=== PATIENT | male | born 1955 | race Caucasian/White ===

== ENCOUNTER 2016-05-08 17:34 | Inpatient (IN) | payer MEDICARE ==
[2016-05-08] MEDS ORDERED: Ondansetron ODT 4 MG TAB PO PRN (18:23)
[2016-05-08] MEDS ORDERED: Milk Of Magnesia 30 ML UDCUP PO PRN (18:23)
[2016-05-08] MEDS ORDERED: Ondansetron HCl/PF 4 MG/2 ML Vial IVP PRN (18:59)
[2016-05-08] MEDS: Diazepam 5 MG TAB PO PRN (20:38)
[2016-05-08] MEDS: traMADol HCl 50 MG TAB PO PRN (20:39)
[2016-05-08] MEDS: Aspirin 325 mg Enteric Coated Tablet PO SCH (20:53)
[2016-05-08] MEDS: Rifampin 150 MG CAP PO SCH (20:53)
[2016-05-08] MEDS: Teriparatide [Forteo] 20 MCG PO SCH (20:53)
[2016-05-08] MEDS ORDERED: Vancomycin HCl 750 MG VIAL IVPB SCH ×2 (21:00→22:15)
[2016-05-08] MEDS ORDERED: Sodium Chloride 0.9% 10 ML ONE (22:16)
[2016-05-08 22:27] LABS: #Basophils 0.1 thou/uL (0.0-0.2); #Eosinphils 0.3 thou/uL (0.0-0.7); #Lymphocytes 1.9 thou/uL (1.20-3.40); #Monocytes 0.6 thou/uL (0.11-0.59); #Neutrophils 4.6 thou/uL (1.40-6.50); %Basophils 1.1 % (0.0-1.0); %Eosinophils 3.4 % (0.0-10.0); %Lymphocytes 25.3 % (21.0-51.0); %Monocytes 8.4 % (0.0-10.0); %Neutrophils 61.8 % (42.0-75.0); Hemoglobin 11.3 g/dL (14.0-18.0); Mean Corpuscular HGB CONC 33.4 g/dL (32.0-36.0); Mean Corpuscular Hemoglobin 29.9 pg (27.0-31.0); Mean Corpuscular Volume 89.5 fl (80.0-94.0); Mean Platelet Volume 5.9 fL (7.4-10.4); Platelet Count 317 thou/uL (130-400); RBC Distribution Width 13.2 % (11.5-14.5); Red Blood Cell (RBC) Count 3.78 mill/uL (4.70-6.10); White Blood Cell (WBC) Count 7.5 thou/uL (4.8-10.8)
[2016-05-08] MEDS: HYDROcodone/Acetaminophen 10/325 mg Tablet PO PRN (22:31)
[2016-05-08 22:39] LABS: Anion Gap 14 mmol/L (10-20); BUN (Urea Nitrogen) 5 mg/dL (8.4-25.7); Calc. Creatinine Clearance 78 mL/min (70-130); Calcium 8.5 mg/dL (7.8-10.44); Carbon Dioxide 24 mmol/L (23-31); Chloride 100 mmol/L (98-107); Estimated GFR-MDRD Greater than 90; Glucose 138 mg/dL (80-115); Potassium 3.7 mmol/L (3.5-5.1); Sodium 134 mmol/L (136-145); Vancomycin, Random 16.2 ug/mL (See Comment)
--- NOTE | 2016-05-08 23:36 | HP ---
DATE OF ADMISSION: 05/08/2016 HISTORY OF PRESENT ILLNESS: The patient is a 60-year-old very pleasant white male who has had signi ficant medical problems, but just was transferred from [facility] with a total hip, total left knee, and a mid shaft replacement of the femoral component of his bone. The patient had an operation by Dr. Lucas several days ago and was transferred here for weightbearing as tolerated and physical therapy and occupational therapy and for one month of vancomycin and 1 mo nth of rifampin. After that he is supposed to be discharged home on minocycline. SUBJECTIVE: The patient states he is doing very well. He very excited about being him getting on a physical therapy because he has done so well. DISCHARGE MEDICATIONS: Will include the followin. Vancomycin IV through PICC line which is in left upper arm. 2. Rifampin b.i.d. 3. Amlodipine 5 mg each morning. 4. Tenormin 50 mg each morning. 5. Celebrex 200 mg once a day with food. 6. Citalopram 40 mg once a day. 7. Plavix 75 mg daily. 8. Metoclopramide 10 mg every morning. 9. Tamsulosin 0.4 mg every morning. 10. Omeprazole 40 mg daily. 11. Aspirin 325 mg b.i.d. 12. Calcium carbonate 600 mg 2 pills a day. 13. Vitamin D 1000 mg daily. 14. Valium 2.5 mg q.8 hours p.r.n. muscle spasms. 15. Colace 100 mg p.r.n. 16. Feosol 325 mg daily. 17. Magnesium oxide 400 mg daily, 18. Multivitamin with minerals daily. 19. Forteo 0.24 mg at night. 20. Tramadol p.r.n. pain. 21. [place] 10 mg one q.6 hours p.r.n. pain. PAST MEDICAL HISTORY: Significant for the followin. 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 2. Hypertension. 3. Hypertensive heart disease. 4. Osteoarthritis. 5. Osteoporosis. 6. Benign prostatic hypertrophy. 7. Peptic ulcer disease in the past. 8. Tobacco abuse. 9. Atherosclerotic peripheral vascular disease, status post right caguj-etn-xofk amputation. 10. Hyponatremia. 11. History of peripheral neuropathy. 12. History of tobacco abuse. PAST SURGICAL HISTORY: 1. Multiple surgeries including left hip replacement, left knee replacement, right dozkt-swj-[id number] a mputation, right hip replacement, left periprosthetic femur fracture with 6.5 cable plates and 3 cab les and 10 screws. It has all been removed. He now has a left total hip, left total knee, and a me william lc or bar connecting those. 2. Right lower extremity intra-arterial thrombolysis which eventually resulted jhwci-[id number]-[id number] amput ation. SOCIAL HISTORY: Reveals the patient lives at home with his significant other. He does not smoke ci garettes, occasionally smokes a cigar, does not drink alcohol. He has no recreational drug use. FAMILY HISTORY: Reveals the patient's mother, but at age 71 of bladder cancer. The patient's maternal grandmother, paternal grandfather and several aunts on that side had colon cancer. ALLERGIES: Reveal the patient is allergic to the following. 1. TETANUS VACCINE. 2. TOXOID. 3. Levaquin. 4. Flexeril. REVIEW OF SYSTEMS: The patient denies any fever, chills, or night sweats. Denies any change in his hearing. Denies any changes in vision. Denies any respiratory problems including cough, cold, con gestion, or shortness of breath. The patient denies any heart pain including chest pain, palpitatio ns, racing, or skipping, or slow heartbeats. The patient denies any stomach problems including naus ea, vomiting, diarrhea, constipation, bleeding or GI problems. The patient denies any problems, but has urinated once or twice every evening and he has had a history of BPH in the past and on Flom ax. Extremities reveal the patient has pain, especially in the left side that was operated on and t he right side has vuggl-kdk-vjji amputation. The patient is oriented to person, place, time, and si tuation. PHYSICAL EXAMINATION: GENERAL: This is a well-developed, very thin white male in no apparent distress at this time. HEENT: Reveals normocephalic, nontraumatic cranium. Pupils are equal, round, and reactive. Nose a nd throat are slightly dry. NECK: Supple, without masses, nodes or bruits. CHEST: Clear to auscultation. No rales, rhonchi, wheezes, or cough is heard. HEART: Reveals a regular rate and rhythm without murmurs, gallops, or rubs. ABDOMEN: Scaphoid, soft, nontender without organomegaly. Normal bowel sounds are noted. No reboun d or guarding is noted. GENITOURINARY: Deferred. EXTREMITIES: No clubbing, cyanosis, slight edema. In the left side is an incision above his hip an d above his knee and then all along the lateral portion of this femur. Right side has lkyme-lke-ahg e amputation. The patient should be weightbearing as tolerated. ASSESSMENT: 1. Status post open reduction internal fixation of the left femur, the left knee, and left hip. 2. Osteoporosis. 3. Hypertension. 4. Benign prostatic hypertrophy. 5. Gastroesophageal reflux. 6. Juvenile rheumatoid arthritis. 7. Anemia. 8. Degenerative joint disease. 9. History of tobacco abuse. 10. Peripheral vascular disease. PLAN: 1. Continue vancomycin and rifampin for the next 4 weeks. 2. Continue pain management as needed. 3. Continue present medications. 4. Continue to follow the patient's blood pressure closely. 5. Continue physical therapy and occupational therapy. 6. Continue deep vein thrombosis and stress ulcer prophylaxis. 7. Continue decubitus precautions.
[2016-05-09] MEDS: traMADol HCl 50 MG TAB PO SCH ×5 (00:27→23:46)
[2016-05-09] MEDS ORDERED: Vancomycin HCl 750 MG VIAL IVPB SCH (05:00)
[2016-05-09 05:38] LABS: #Basophils 0.1 thou/uL (0.0-0.2); #Eosinphils 0.4 thou/uL (0.0-0.7); #Lymphocytes 1.4 thou/uL (1.20-3.40); #Monocytes 0.7 thou/uL (0.11-0.59); #Neutrophils 3.5 thou/uL (1.40-6.50); %Basophils 1.6 % (0.0-1.0); %Eosinophils 5.7 % (0.0-10.0); %Lymphocytes 22.7 % (21.0-51.0); %Monocytes 12.2 % (0.0-10.0); %Neutrophils 57.9 % (42.0-75.0); Hemoglobin 10.2 g/dL (14.0-18.0); Mean Corpuscular HGB CONC 33.5 g/dL (32.0-36.0); Mean Corpuscular Volume 89.6 fl (80.0-94.0); Platelet Count 280 thou/uL (130-400); RBC Distribution Width 13.2 % (11.5-14.5); White Blood Cell (WBC) Count 6.1 thou/uL (4.8-10.8)
[2016-05-09 06:03] LABS: ALT (SGPT) 10 U/L (0-55); AST (SGOT) 13 U/L (5-34); Albumin 2.1 g/dL (3.4-4.8); Alkaline Phosphatase 139 U/L (40-150); Anion Gap 12 mmol/L (10-20); BUN (Urea Nitrogen) 5 mg/dL (8.4-25.7); Bilirubin, Total 1.6 mg/dL (0.2-1.2); Calc. Creatinine Clearance 92 mL/min (70-130); Calcium 8.2 mg/dL (7.8-10.44); Carbon Dioxide 26 mmol/L (23-31); Chloride 100 mmol/L (98-107); Estimated GFR-MDRD Greater than 90; Globulin 2.6 g/dL (2.4-3.5); Glucose 91 mg/dL (80-115); Potassium 3.7 mmol/L (3.5-5.1); Protein, Total 4.7 g/dL (5.8-8.1); Sodium 134 mmol/L (136-145)
[2016-05-09] MEDS: Ferrous Sulfate 325 MG TAB PO SCH ×2 (08:39→18:09)
[2016-05-09] MEDS: CeleCOXIB 100 MG CAP PO SCH (08:40)
[2016-05-09] MEDS: Atenolol 25 MG TAB PO SCH (08:40)
[2016-05-09] MEDS: Aspirin 325 mg Enteric Coated Tablet PO SCH ×2 (08:40→20:28)
[2016-05-09] MEDS: Clopidogrel Bisulfate 75 MG TAB PO SCH (08:40)
[2016-05-09] MEDS: Metoclopramide HCl 10 MG TAB PO SCH (08:41)
[2016-05-09] MEDS: MAGNESIUM CITRATE 100 MG PO SCH (08:41)
[2016-05-09] MEDS: Tamsulosin HCl 0.4 MG CAP PO SCH (08:42)
[2016-05-09] MEDS: HYDROcodone/Acetaminophen 10/325 mg Tablet PO PRN ×3 (08:42→21:38)
[2016-05-09] MEDS: Rifampin 150 MG CAP PO SCH ×2 (10:08→21:36)
[2016-05-09] MEDS: Vancomycin HCl 750 MG VIAL IVPB SCH ×2 (10:09→23:45)
--- NOTE | 2016-05-09 10:18 | PRG ---
DATE OF SERVICE: 05/09/2016 HISTORY OF PRESENT ILLNESS: Mr. Guerra is a 60-year-old white male who was operated on by Dr. Patel at which time he had a left knee, left total hip and midshaft replacement of femoral component of hi s bone. Postoperatively, he has done very well and he was transferred here for one month of vancomy celso and rifampin. SUBJECTIVE: The patient states he slept well last night. He has no complaints. He did have some m uscle spasms that required a single [place] 10. OBJECTIVE: Vital signs this morning reveal blood pressure slightly elevated at 160/98, pulse 84-87, respirations 18, O2 sat 100% on room air, temperature 97.9. LABORATORY: This morning revealed a white count 6100, hemoglobin 10.2, hematocrit 30.5, platelet co unt 280,000. Sodium is 134, potassium 3.7, chloride 100, carbon dioxide 26 with a glucose of 91. H is BUN was 5, creatinine 0.52. His C-reactive protein was 4.57. Random vancomycin level 16.2. PHYSICAL EXAMINATION: GENERAL: This is a well-developed, very thin white male in no apparent distress at this time. HEENT: Reveals normocephalic, nontraumatic cranium. Pupils are equally round and reactive. Nose a nd throat are slightly dry. NECK: Supple, without masses, nodes or bruits. LUNGS: Chest is clear to auscultation. No rales, no rhonchi, no wheezes. No cough is heard. CARDIOVASCULAR: Reveals a regular rate and rhythm without murmurs, gallops or rubs. ABDOMEN: Scaphoid, soft, nontender, without organomegaly, normal bowel sounds are noted. No reboun d or guarding is noted. : Deferred. EXTREMITIES: Reveal no clubbing, cyanosis or edema. Incision above his hip all the way down to bel ow his knee in the lateral portion of his femur are not red, slight tenderness, no drainage. NEUROLOGIC: The patient should be weightbearing as tolerated per Dr. Patel. IMPRESSION: 1. Status post open reduction and internal fixation of left femur, left knee and left hip. 2. Osteoporosis. 3. Hypertension. 4. Benign prostatic hypertrophy. 5. Gastroesophageal reflux. 6. Juvenile rheumatoid arthritis. 7. Anemia. 8. Degenerative joint disease. 9. History of tobacco abuse. 10. Peripheral vascular disease. PLAN: 1. Continue vancomycin and rifampin for the next 4 weeks. 2. Continue pain management. 3. Continue present medication. 4. Follow the patient's blood pressure closely. 5. Continue physical therapy and occupational therapy, weightbearing as tolerated. 6. Continue DVT and stress ulcer prophylaxis. Continue decubitus precautions.
[2016-05-09] MEDS: Multivitamin W/ Minerals 1 TAB PO SCH (18:09)
[2016-05-09] MEDS: Calcium Carbonate 500 MG TAB PO SCH (20:28)
[2016-05-09] MEDS: Teriparatide [Forteo] 20 MCG PO SCH (20:31)
[2016-05-09] MEDS: Diazepam 5 MG TAB PO PRN (21:37)
[2016-05-09] MEDS: Vancomycin HCl 750 MG in Sodium Chloride 0.9% 250 ML 250 ML IVPB SCH (23:57)
[2016-05-10] MEDS: traMADol HCl 50 MG TAB PO SCH ×2 (05:54→11:52)
[2016-05-10] MEDS: Ferrous Sulfate 325 MG TAB PO SCH (08:05)
--- NOTE | 2016-05-10 08:28 | PRG ---
DATE OF SERVICE: 05/10/2016. HISTORY OF PRESENT ILLNESS: Mr. Guerra is a 60-year-old white male that was revisited the surgical suite by Dr. Patel, we had a total left knee, total left hip and a midshaft replacement of femoral co mponent of his bone. Postoperatively, he has done very well and was transferred here for one month of vancomycin and rifampin, to be followed with minocycline daily and also for physical therapy and occupational therapy. SUBJECTIVE: The patient has no complaints, he states he slept well last night. His pain is much be tter controlled. OBJECTIVE: Vital signs this morning revealed blood pressure 121/75, pulse 74-84, respirations 16, O 2 saturation 99% on room air, T-max is 96.6. PHYSICAL EXAMINATION: GENERAL: This is a well-developed, well-nourished, very pleasant white male, in no apparent distres s at this time. HEENT: Reveals normocephalic, nontraumatic cranium. Pupils are equally round and reactive. Extrao cular movements intact. Nose and throat slightly dry. NECK: Supple, without masses, nodes or bruits. CHEST: Clear to auscultation. No rales, rhonchi, wheezes or cough is heard. CARDIOVASCULAR: Reveals a regular rate and rhythm without murmurs, gallops or rubs. ABDOMEN: Scaphoid, soft, nontender, without organomegaly, normal bowel sounds are noted. No reboun d or guarding is noted. GENITOURINARY: Deferred. EXTREMITIES: Reveal no clubbing, cyanosis or edema. Left incision is over the left hip, over the l eft knee and all the way down the lateral portion of his femur not red, not draining, not tender. NEUROLOGIC: The patient to be weightbearing as tolerated per Dr. Patel. IMPRESSION: 1. Status post open reduction internal fixation left femur, left knee and left hip. 2. Osteoporosis. 3. Hypertension. 4. Benign prostatic hypertrophy. 5. Gastroesophageal reflux. 6. Juvenile rheumatoid arthritis. 7. Anemia. 8. Degenerative joint disease. 9. History of tobacco abuse. 10. Peripheral vascular disease. PLAN: 1. Continue vancomycin and rifampin for the next 4 weeks. 2. Pharmacy to follow vancomycin levels and continue pain management. 3. Continue present medication. 4. Follow blood pressure closely. 5. We will continue physical therapy and occupational therapy. 6. Weightbearing as tolerated. 7. Deep venous thrombosis and stress ulcer prophylaxes. 8. Continue decubitus precautions.
[2016-05-10] MEDS: Rifampin 150 MG CAP PO SCH (09:11)
[2016-05-10] MEDS: CeleCOXIB 100 MG CAP PO SCH (09:13)
[2016-05-10] MEDS: Tamsulosin HCl 0.4 MG CAP PO SCH (09:13)
[2016-05-10] MEDS: Aspirin 325 mg Enteric Coated Tablet PO SCH (09:14)
[2016-05-10] MEDS: Atenolol 25 MG TAB PO SCH (09:14)
[2016-05-10] MEDS: Clopidogrel Bisulfate 75 MG TAB PO SCH (09:15)
[2016-05-10] MEDS: Metoclopramide HCl 10 MG TAB PO SCH (09:16)
[2016-05-10] MEDS: MAGNESIUM CITRATE 100 MG PO SCH (09:19)
[2016-05-10] MEDS: HYDROcodone/Acetaminophen 10/325 mg Tablet PO PRN (10:33)
[2016-05-10 10:43] LABS: Vancomycin, Trough 19.5 ug/mL
[2016-05-10] MEDS: Vancomycin HCl 750 MG in Sodium Chloride 0.9% 250 ML 250 ML IVPB SCH (11:25)
[2016-05-11] MEDS: Calcium Carbonate 500 MG TAB PO SCH ×2 (05:19→21:15)
[2016-05-11] MEDS: Multivitamin W/ Minerals 1 TAB PO SCH ×2 (05:19→17:03)
[2016-05-11] MEDS: Aspirin 325 mg Enteric Coated Tablet PO SCH ×3 (05:19→21:14)
[2016-05-11] MEDS: Ferrous Sulfate 325 MG TAB PO SCH ×3 (05:19→17:03)
[2016-05-11] MEDS: traMADol HCl 50 MG TAB PO SCH ×6 (05:19→23:26)
[2016-05-11] MEDS: Teriparatide [Forteo] 20 MCG PO SCH ×2 (05:20→21:13)
[2016-05-11] MEDS: Rifampin 150 MG CAP PO SCH ×3 (05:20→21:14)
[2016-05-11] MEDS: Vancomycin HCl 750 MG in Sodium Chloride 0.9% 250 ML 250 ML IVPB SCH ×3 (05:20→23:26)
[2016-05-11] MEDS: CeleCOXIB 100 MG CAP PO SCH (10:05)
[2016-05-11] MEDS: Atenolol 25 MG TAB PO SCH (10:06)
[2016-05-11] MEDS: Tamsulosin HCl 0.4 MG CAP PO SCH (10:06)
[2016-05-11] MEDS: Clopidogrel Bisulfate 75 MG TAB PO SCH (10:07)
[2016-05-11] MEDS: HYDROcodone/Acetaminophen 10/325 mg Tablet PO PRN ×2 (10:08→18:03)
[2016-05-11] MEDS: Metoclopramide HCl 10 MG TAB PO SCH (10:18)
[2016-05-11] MEDS: MAGNESIUM CITRATE 100 MG PO SCH (10:23)
--- NOTE | 2016-05-11 10:46 | PRG ---
DATE OF SERVICE: 05/11/2016 HISTORY OF PRESENT ILLNESS: Mr. Guerra is a 60-year-old white male that revisited the surgical suit e by Dr. Patel. He had total left knee, total left hip and a mid shaft replacement of femoral compon ent of his bone. Postoperatively he has done very well and was transferred here for 1 month of vanc omycin and rifampin. The patient had some bloody drainage last night and it is bloody this morning, but it is stable. It looks like old blood coming from underneath his incision. SUBJECTIVE: The patient has no complaints. He has no significant pain. VITAL SIGNS: Blood pressure this morning 142/92, pulse 77 to 82, respirations 16-20, O2 sat 99-100% , T-max 97.6. PHYSICAL EXAMINATION: GENERAL: This is a well-developed, well-nourished, very thin white male in no apparent distress at this time. HEENT: Reveals normocephalic, nontraumatic cranium. Pupils are equally round and reactive. Extrao cular movements intact. Nose and throat are slightly dry. NECK: Supple, without masses, nodes or bruits. CHEST: Clear to auscultation. No rales, rhonchi or wheezes are heard. CARDIOVASCULAR: Reveals a regular rate and rhythm without murmurs, gallops or rubs. ABDOMEN: Scaphoid, soft, nontender, without organomegaly, normal bowel sounds are noted. No reboun d or guarding is noted. : Deferred. EXTREMITIES: Reveal no clubbing, cyanosis or edema. Incision of the left side is still healing, so me drainage on the lateral long incision. No tenderness, no inflammation noted. NEUROLOGIC: The patient has no focal deficits. He is weightbearing as tolerated. IMPRESSION: 1. Post open reduction internal fixation left femur, left knee, left hip. 2. Osteoporosis. 3. Hypertension. 4. Benign prostatic hypertrophy. 5. Gastroesophageal reflux. 6. Juvenile onset rheumatoid arthritis. 7. Anemia. 8. Degenerative joint disease. 9. History of tobacco abuse. 10. Peripheral vascular disease. PLAN: 1. Continue vancomycin and rifampin for the next 4 weeks. 2. Pharmacy to follow vancomycin levels. 3. Continue pain management. 4. Continue present medications. 5. Follow blood pressure closely. 6. Continue physical therapy and occupational therapy. 7. Weightbearing as tolerated. 8. Deep venous thrombosis and stress ulcer prophylaxis. 9. Continue decubitus precautions.
[2016-05-11] MEDS: Acetaminophen 325 MG TAB PO PRN (12:11)
[2016-05-11] MEDS: traMADol HCl 50 MG TAB PO PRN (18:44)
[2016-05-11 19:35] LABS: #Basophils 0.1 thou/uL (0.0-0.2); #Eosinphils 0.6 thou/uL (0.0-0.7); #Lymphocytes 1.6 thou/uL (1.20-3.40); #Monocytes 1.3 thou/uL (0.11-0.59); #Neutrophils 5.1 thou/uL (1.40-6.50); %Basophils 1.1 % (0.0-1.0); %Lymphocytes 18.5 % (21.0-51.0); %Monocytes 14.6 % (0.0-10.0); %Neutrophils 58.8 % (42.0-75.0); Hemoglobin 9.6 g/dL (14.0-18.0); Mean Corpuscular HGB CONC 33.1 g/dL (32.0-36.0); Mean Corpuscular Hemoglobin 29.7 pg (27.0-31.0); Mean Corpuscular Volume 89.8 fl (80.0-94.0); Mean Platelet Volume 5.6 fL (7.4-10.4); Platelet Count 399 thou/uL (130-400); RBC Distribution Width 13.4 % (11.5-14.5); Red Blood Cell (RBC) Count 3.24 mill/uL (4.70-6.10); White Blood Cell (WBC) Count 8.7 thou/uL (4.8-10.8)
[2016-05-11] MEDS: Diazepam 5 MG TAB PO PRN (21:15)
[2016-05-12] MEDS: HYDROcodone/Acetaminophen 10/325 mg Tablet PO PRN ×2 (02:14→10:57)
[2016-05-12] MEDS: traMADol HCl 50 MG TAB PO SCH ×4 (05:42→23:22)
[2016-05-12] MEDS: Metoclopramide HCl 10 MG TAB PO SCH (07:34)
[2016-05-12] MEDS: Tamsulosin HCl 0.4 MG CAP PO SCH (08:33)
[2016-05-12] MEDS: CeleCOXIB 100 MG CAP PO SCH (08:33)
[2016-05-12] MEDS: Aspirin 325 mg Enteric Coated Tablet PO SCH ×2 (08:33→21:45)
[2016-05-12] MEDS: Ferrous Sulfate 325 MG TAB PO SCH ×2 (08:35→17:26)
[2016-05-12] MEDS: Atenolol 25 MG TAB PO SCH (08:35)
[2016-05-12] MEDS: Clopidogrel Bisulfate 75 MG TAB PO SCH (08:35)
[2016-05-12] MEDS: MAGNESIUM CITRATE 100 MG PO SCH (08:35)
[2016-05-12] MEDS: Rifampin 150 MG CAP PO SCH ×2 (08:36→21:46)
--- NOTE | 2016-05-12 10:04 | PRG ---
DATE OF SERVICE: 05/10/2016 SUBJECTIVE: Mr. Guerra is a very pleasant 60-year-old white male taken by Dr. Patel to the surgical suite, where he had a total left hip, total left knee, and midshaft replacement for the femoral comp onent of his bone. Postoperatively, he has done very well. We were following him for one month wit h vancomycin and rifampin per orthopedic recommendations. He had minimal bloody drainage last night and seems to be doing good. Subjectively, he has no complaints. OBJECTIVE: VITAL SIGNS: Blood pressure is 147/86, pulse 75-76, respirations 18-20, and O2 saturation 100%. T- max is 97.9. LABORATORY DATA: Today reveals a white count of 8700 with hemoglobin 9.6, hematocrit 29.1, and his platelet count is 399,000. Vancomycin trough yesterday was 19.5. PHYSICAL EXAMINATION: GENERAL: This is a well-developed, thin white male in no apparent distress at this time. HEENT: Reveals normocephalic, nontraumatic cranium. Pupils are equally round and reactive. Extrao cular movements intact. Nose and throat slightly dry. NECK: Supple, without masses, nodes or bruits. LUNGS: Chest is clear to auscultation. No rales, no rhonchi, no wheezes. No cough is heard. CARDIOVASCULAR: Reveals a regular rate and rhythm without murmurs, gallops or rubs. ABDOMEN: Soft, nontender, without organomegaly, normal bowel sounds are noted. No rebound or guard ing is noted. : Deferred. EXTREMITIES: Reveal no clubbing, cyanosis or edema. Left lateral incision looks good, it is not re d. No bloody drainage is noted today. No tenderness, no inflammation. NEUROLOGIC: The patient has no focal deficits. His weightbearing as tolerated. IMPRESSION: 1. Post open reduction internal fixation left femur, left knee, left hip. 2. Osteoporosis. 3. Hypertension. 4. Benign prostatic hypertrophy. 5. Gastroesophageal reflux disease. 6. Juvenile onset of rheumatoid arthritis. 7. Anemia. 8. Degenerative joint disease. 9. History of tobacco abuse. 10. Peripheral vascular disease. PLAN: 1. Continue vancomycin and rifampin for 4 weeks. 2. Pharmacies to follow vancomycin dosing and levels. 3. Continue pain management. 4. Continue present medications. 5. Continue to follow blood pressures closely. 6. Continue physical therapy and occupational therapy. 7. Continued DVT and stress ulcer prophylaxis. 8. Continue decubitus precautions. 9. Weightbearing as tolerated.
[2016-05-12] MEDS: Vancomycin HCl 750 MG in Sodium Chloride 0.9% 250 ML 250 ML IVPB SCH (10:57)
[2016-05-12 14:29] LABS: Vancomycin, Trough 23.6 ug/mL
[2016-05-12] MEDS: Multivitamin W/ Minerals 1 TAB PO SCH (17:26)
[2016-05-12] MEDS: Diazepam 5 MG TAB PO PRN (21:45)
[2016-05-12] MEDS: Calcium Carbonate 500 MG TAB PO SCH (21:46)
[2016-05-12] MEDS: Teriparatide [Forteo] 20 MCG PO SCH (21:47)
[2016-05-12] MEDS: Vancomycin HCl 500 MG in Sodium Chloride 0.9% 100 ML IVPB SCH (23:21)
[2016-05-13] MEDS: traMADol HCl 50 MG TAB PO SCH ×4 (06:00→23:18)
[2016-05-13 06:57] LABS: #Basophils 0.1 thou/uL (0.0-0.2); #Eosinphils 0.5 thou/uL (0.0-0.7); #Lymphocytes 1.2 thou/uL (1.20-3.40); #Monocytes 0.8 thou/uL (0.11-0.59); #Neutrophils 5.3 thou/uL (1.40-6.50); %Basophils 1.3 % (0.0-1.0); %Eosinophils 6.7 % (0.0-10.0); %Lymphocytes 15.2 % (21.0-51.0); %Monocytes 10.3 % (0.0-10.0); %Neutrophils 66.4 % (42.0-75.0); Hemoglobin 10.5 g/dL (14.0-18.0); Mean Corpuscular HGB CONC 34.2 g/dL (32.0-36.0); Mean Corpuscular Hemoglobin 30.3 pg (27.0-31.0); Mean Corpuscular Volume 88.5 fl (80.0-94.0); Mean Platelet Volume 5.3 fL (7.4-10.4); Platelet Count 486 thou/uL (130-400); RBC Distribution Width 13.1 % (11.5-14.5); Red Blood Cell (RBC) Count 3.45 mill/uL (4.70-6.10)
[2016-05-13 07:08] LABS: Anion Gap 12 mmol/L (10-20); BUN (Urea Nitrogen) 4 mg/dL (8.4-25.7); Calc. Creatinine Clearance 85 mL/min (70-130); Calcium 8.3 mg/dL (7.8-10.44); Carbon Dioxide 24 mmol/L (23-31); Chloride 100 mmol/L (98-107); Estimated GFR-MDRD Greater than 90; Glucose 100 mg/dL (80-115); Potassium 3.8 mmol/L (3.5-5.1); Sodium 132 mmol/L (136-145)
[2016-05-13] MEDS: Metoclopramide HCl 10 MG TAB PO SCH (07:55)
[2016-05-13] MEDS: Ferrous Sulfate 325 MG TAB PO SCH ×2 (08:26→17:01)
[2016-05-13] MEDS: CeleCOXIB 100 MG CAP PO SCH ×2 (08:26→08:28)
[2016-05-13] MEDS: Aspirin 325 mg Enteric Coated Tablet PO SCH ×2 (08:26→21:08)
[2016-05-13] MEDS: Tamsulosin HCl 0.4 MG CAP PO SCH (08:26)
[2016-05-13] MEDS: Atenolol 25 MG TAB PO SCH (08:27)
[2016-05-13] MEDS: Clopidogrel Bisulfate 75 MG TAB PO SCH (08:28)
[2016-05-13] MEDS: MAGNESIUM CITRATE 100 MG PO SCH (08:30)
[2016-05-13] MEDS: HYDROcodone/Acetaminophen 10/325 mg Tablet PO PRN ×2 (08:36→21:12)
[2016-05-13] MEDS: Rifampin 150 MG CAP PO SCH ×2 (09:10→21:07)
[2016-05-13] MEDS: Vancomycin HCl 500 MG in Sodium Chloride 0.9% 100 ML IVPB SCH ×2 (11:19→22:09)
[2016-05-13] MEDS ORDERED: Bisacodyl 10 MG SUPP PR SCH (11:45)
[2016-05-13] MEDS: Multivitamin W/ Minerals 1 TAB PO SCH (17:00)
[2016-05-13] MEDS: traMADol HCl 50 MG TAB PO PRN (17:31)
--- NOTE | 2016-05-13 18:46 | PRG ---
DATE OF SERVICE: 05/13/2016 SUBJECTIVE: Mr. Guerra is a 60-year-old white male who was at [facility] and Dr. Patel did a total left hip and total left knee midshaft replacement of the femoral component of his bone. Pos toperatively, he has done very well. We were asked and had been following him for his vancomycin and rifampin per orthopedic recommendati ons. He has minimal blood drainage. It is significantly much less, so they did call Dr. Patel about that. OBJECTIVE: VITAL SIGNS: This morning, reveal blood pressure is 156/97, pulse 70-81, respirations 18-20, O2 sat 100% on room air, temperature 97.9. GENERAL: This is a well-developed, very cachectic white male, in no apparent distress at this time. HEENT: Reveals normocephalic and nontraumatic cranium. Pupils are equal, round and reactive. Extr aocular movements are intact. Nose and throat are slightly dry. NECK: Supple, without masses, nodes or bruits. CHEST: Clear to auscultation. No rales, no rhonchi, no wheezes. No cough is heard. HEART: Reveals a regular rate and rhythm without murmurs, gallops or rubs. ABDOMEN: Soft and nontender, without organomegaly. Normal bowel sounds are noted. No rebound or g uarding is noted. GENITOURINARY: Deferred. EXTREMITIES: Reveal no clubbing, cyanosis or edema. Left lateral incision still looks good. No si gnificant drainage is noted. No tenderness. No inflammation. NEUROLOGIC: The patient has no focal defects. He is still weightbearing as tolerated. IMPRESSION: 1. Postoperative open reduction and internal fixation of the left femur, left knee and left hip. 2. Osteoporosis. 3. Hypertension. 4. Benign prostatic hypertrophy. 5. Gastroesophageal reflux disease. 6. Juvenile onset rheumatoid arthritis. 7. Anemia. 8. Peripheral vascular disease. 9. Degenerative joint disease. 10. History of tobacco abuse. PLAN: 1. Continue vancomycin and rifampin for a total of 4 weeks. 2. Pharmacy to follow vancomycin levels. 3. Continue pain management. 4. Continue present medications. 5. Continue to follow blood pressure closely. 6. Continue physical therapy and occupational therapy. 7. Continue deep venous thrombosis and stress ulcer prophylaxis. 8. Continue decubitus precautions. 9. Continue weightbearing as tolerated.
[2016-05-13] MEDS: Calcium Carbonate 500 MG TAB PO SCH (21:07)
[2016-05-13] MEDS: Diazepam 5 MG TAB PO PRN (21:08)
[2016-05-13] MEDS: Teriparatide [Forteo] 20 MCG PO SCH (21:09)
[2016-05-14] MEDS: traMADol HCl 50 MG TAB PO SCH ×4 (05:20→23:30)
[2016-05-14] MEDS: HYDROcodone/Acetaminophen 10/325 mg Tablet PO PRN ×4 (05:25→21:05)
[2016-05-14] MEDS: Metoclopramide HCl 10 MG TAB PO SCH (07:40)
[2016-05-14] MEDS: Ferrous Sulfate 325 MG TAB PO SCH ×2 (08:00→16:30)
[2016-05-14] MEDS: Clopidogrel Bisulfate 75 MG TAB PO SCH (08:50)
[2016-05-14] MEDS: Atenolol 25 MG TAB PO SCH (08:50)
[2016-05-14] MEDS: Aspirin 325 mg Enteric Coated Tablet PO SCH ×2 (08:51→21:05)
[2016-05-14] MEDS: Tamsulosin HCl 0.4 MG CAP PO SCH (08:52)
[2016-05-14] MEDS: MAGNESIUM CITRATE 100 MG PO SCH (08:52)
[2016-05-14] MEDS: Rifampin 150 MG CAP PO SCH ×2 (08:53→21:05)
[2016-05-14] MEDS: Vancomycin HCl 500 MG in Sodium Chloride 0.9% 100 ML IVPB SCH ×2 (11:20→23:30)
[2016-05-14 14:34] LABS: #Basophils 0.1 thou/uL (0.0-0.2); #Eosinphils 0.5 thou/uL (0.0-0.7); #Lymphocytes 1.6 thou/uL (1.20-3.40); #Monocytes 0.8 thou/uL (0.11-0.59); #Neutrophils 4.9 thou/uL (1.40-6.50); %Basophils 1.8 % (0.0-1.0); %Eosinophils 6.7 % (0.0-10.0); %Lymphocytes 20.3 % (21.0-51.0); %Neutrophils 61.1 % (42.0-75.0); Hemoglobin 10.5 g/dL (14.0-18.0); Mean Corpuscular HGB CONC 33.5 g/dL (32.0-36.0); Mean Corpuscular Hemoglobin 29.9 pg (27.0-31.0); Mean Corpuscular Volume 89.3 fl (80.0-94.0); Mean Platelet Volume 5.2 fL (7.4-10.4); Platelet Count 457 thou/uL (130-400); RBC Distribution Width 13.5 % (11.5-14.5); White Blood Cell (WBC) Count 8.1 thou/uL (4.8-10.8)
--- NOTE | 2016-05-14 16:02 | PRG ---
DATE OF SERVICE: 05/14/2016 SUBJECTIVE: Mr. Guerra is a 60-year-old white male transferred from [facility] after Dr. Patel did a total left hip and total left knee and shaft placement for the femoral componen t of his bone. Postoperatively, he has actually done very well. He has had a little swelling in that left incision site, so we are going to check an H\T\H on him to day. The patient is also on vancomycin and rifampin per orthopedic recommendations for 1 month. OBJECTIVE: VITAL SIGNS: Today reveal blood pressure this morning 130/83, pulse 76-77, respirations 16-18, O2 s at 100%, T-max is 97.9. GENERAL: This is a well-developed, very thin, cachectic-looking white male in no apparent distress at this time. HEENT: Reveals normocephalic, nontraumatic cranium. Pupils are equally round and reactive. Extrao cular movements intact. Nose and throat are slightly dry. NECK: Supple, without masses, nodes or bruits. LUNGS: Chest is clear to auscultation. No rales, rhonchi or wheezes, or cough is heard. CARDIOVASCULAR: Heart reveals a regular rate and rhythm without murmurs, gallops or rubs. ABDOMEN: Soft, nontender, without organomegaly, somewhat scaphoid, normal bowel sounds are noted. No rebound or guarding is noted. : Deferred. EXTREMITIES: Reveal no clubbing, cyanosis or edema. Left lateral incision still looks good. No si gnificant draining this morning, but it was re-bandaged after he did fill up his bandage with blood. No tenderness. No inflammation. NEUROLOGIC: The patient has no focal deficits. He is still a right kqeuv-naq-ykps amputation. IMPRESSION: 1. Postoperative open reduction and internal fixation of left femur, left knee and left hip. 2. Hypertension. 3. Benign prostatic hypertrophy. 4. Gastroesophageal reflux. 5. Juvenile onset rheumatoid arthritis. 6. Anemia. 7. Severe peripheral vascular disease. 8. Degenerative joint disease. 9. Osteoporosis. 10. History of tobacco use. PLAN: 1. Continue vancomycin and rifampin for a total of 4 weeks. 2. Continue to follow vancomycin levels per pharmacy. 3. Continue pain management. 4. Continue to follow blood pressures closely. 5. Continue physical therapy and occupational therapy. 6. Continue DVT and stress ulcer prophylaxis. 7. Continue Decubitus precautions. 8. Continue weightbearing as tolerated. 9. Continue present medications.
[2016-05-14] MEDS: Multivitamin W/ Minerals 1 TAB PO SCH (16:30)
[2016-05-14] MEDS: traMADol HCl 50 MG TAB PO PRN (17:37)
[2016-05-14] MEDS: Calcium Carbonate 500 MG TAB PO SCH (21:04)
[2016-05-14] MEDS: Diazepam 5 MG TAB PO PRN (21:05)
[2016-05-14] MEDS: Docusate 100 MG CAP PO PRN (21:05)
[2016-05-14] MEDS: Teriparatide [Forteo] 20 MCG PO SCH (21:30)
[2016-05-15] MEDS: HYDROcodone/Acetaminophen 10/325 mg Tablet PO PRN ×3 (02:34→20:43)
[2016-05-15] MEDS: traMADol HCl 50 MG TAB PO SCH ×4 (05:56→23:29)
[2016-05-15] MEDS: Rifampin 150 MG CAP PO SCH ×2 (08:27→20:42)
[2016-05-15] MEDS: Aspirin 325 mg Enteric Coated Tablet PO SCH ×2 (08:27→20:42)
[2016-05-15] MEDS: Ferrous Sulfate 325 MG TAB PO SCH ×2 (08:27→17:46)
[2016-05-15] MEDS: CeleCOXIB 100 MG CAP PO SCH (08:27)
[2016-05-15] MEDS: Atenolol 25 MG TAB PO SCH (08:28)
[2016-05-15] MEDS: Tamsulosin HCl 0.4 MG CAP PO SCH (08:28)
[2016-05-15] MEDS: Clopidogrel Bisulfate 75 MG TAB PO SCH (08:28)
[2016-05-15] MEDS: Metoclopramide HCl 10 MG TAB PO SCH (08:28)
[2016-05-15] MEDS: MAGNESIUM CITRATE 100 MG PO SCH (09:13)
[2016-05-15] MEDS: Vancomycin HCl 500 MG in Sodium Chloride 0.9% 100 ML IVPB SCH ×2 (11:11→23:28)
[2016-05-15] MEDS: Diazepam 5 MG TAB PO PRN ×2 (11:12→20:43)
[2016-05-15] MEDS: Multivitamin W/ Minerals 1 TAB PO SCH (17:46)
[2016-05-15] MEDS: Calcium Carbonate 500 MG TAB PO SCH (20:42)
[2016-05-15] MEDS: Teriparatide [Forteo] 20 MCG SC SCH (20:45)
[2016-05-16] MEDS: HYDROcodone/Acetaminophen 10/325 mg Tablet PO PRN ×3 (03:34→20:25)
[2016-05-16] MEDS: traMADol HCl 50 MG TAB PO SCH ×4 (05:49→23:24)
[2016-05-16] MEDS: Metoclopramide HCl 10 MG TAB PO SCH (07:30)
[2016-05-16] MEDS: Ferrous Sulfate 325 MG TAB PO SCH ×2 (08:27→17:33)
[2016-05-16] MEDS: Rifampin 150 MG CAP PO SCH ×2 (09:27→21:40)
[2016-05-16] MEDS: Tamsulosin HCl 0.4 MG CAP PO SCH (09:28)
[2016-05-16] MEDS: Aspirin 325 mg Enteric Coated Tablet PO SCH ×2 (09:28→20:27)
[2016-05-16] MEDS: Clopidogrel Bisulfate 75 MG TAB PO SCH (09:28)
[2016-05-16] MEDS: CeleCOXIB 100 MG CAP PO SCH (09:28)
[2016-05-16] MEDS: Atenolol 25 MG TAB PO SCH (09:28)
[2016-05-16] MEDS: MAGNESIUM CITRATE 100 MG PO SCH (09:29)
[2016-05-16 11:15] LABS: Vancomycin, Trough 16.5 ug/mL
[2016-05-16] MEDS: Vancomycin HCl 500 MG in Sodium Chloride 0.9% 100 ML IVPB SCH ×2 (12:00→23:35)
--- NOTE | 2016-05-16 12:13 | PRG ---
DATE OF SERVICE: 05/16/2016. SUBJECTIVE: Mr. Guerra is doing well. Denies any complaints, resting comfortably, tolerating his t herapy. Pain is controlled. OBJECTIVE: VITAL SIGNS: He is afebrile, heart rate is 77, respirations are 17, blood pressure 132/75. CARDIOVASCULAR: S1, S2 plus. RESPIRATORY: Normal vesicular breath sounds. ABDOMEN: Soft, nontender, bowel sounds heard in all quadrants. EXTREMITIES: Without cyanosis or clubbing. Left forearm with dressing. Left knee incision looks g ood. IMPRESSION: 1. Open reduction and internal fixation of the left femur, left knee and hip, here for therapy. 2. Hypertension. 3. Benign prostatic hypertrophy. 4. Gastroesophageal reflux disease. 5. Rheumatoid arthritis. 6. Peripheral vascular disease. 7. Osteoporosis. PLAN: 1. Continue vancomycin and rifampin. 2. Physical therapy. 3. Nutritional support. 4. Deep venous thrombosis and stress ulcer prophylaxes. 5. Orthopedic restrictions. 6. Routine laboratory values.
[2016-05-16] MEDS: Multivitamin W/ Minerals 1 TAB PO SCH (17:33)
[2016-05-16] MEDS: Calcium Carbonate 500 MG TAB PO SCH (20:27)
[2016-05-16] MEDS: Diazepam 5 MG TAB PO PRN (20:28)
[2016-05-16] MEDS: Docusate 100 MG CAP PO PRN (20:43)
[2016-05-16] MEDS: Teriparatide [Forteo] 20 MCG SC SCH (20:47)
[2016-05-17] MEDS: HYDROcodone/Acetaminophen 10/325 mg Tablet PO PRN ×3 (02:33→20:58)
[2016-05-17] MEDS: traMADol HCl 50 MG TAB PO SCH ×4 (05:45→23:58)
[2016-05-17] MEDS: Ferrous Sulfate 325 MG TAB PO SCH ×2 (07:27→17:34)
[2016-05-17] MEDS: Metoclopramide HCl 10 MG TAB PO SCH (07:27)
[2016-05-17] MEDS: Atenolol 25 MG TAB PO SCH (08:50)
[2016-05-17] MEDS: CeleCOXIB 100 MG CAP PO SCH (08:50)
[2016-05-17] MEDS: Rifampin 150 MG CAP PO SCH ×2 (08:50→21:00)
[2016-05-17] MEDS: Clopidogrel Bisulfate 75 MG TAB PO SCH (08:51)
[2016-05-17] MEDS: Tamsulosin HCl 0.4 MG CAP PO SCH (08:51)
[2016-05-17] MEDS: Aspirin 325 mg Enteric Coated Tablet PO SCH ×2 (08:51→21:00)
[2016-05-17] MEDS: MAGNESIUM CITRATE 100 MG PO SCH (09:18)
[2016-05-17] MEDS: Vancomycin HCl 500 MG in Sodium Chloride 0.9% 100 ML IVPB SCH ×2 (11:17→23:59)
[2016-05-17] MEDS: Acetaminophen 325 MG TAB PO PRN ×3 (12:17→23:58)
--- NOTE | 2016-05-17 16:42 | PRG ---
DATE OF SERVICE: 05/17/2016 SUBJECTIVE: Mr. Guerra is doing well. Denies any complaints, resting comfortably, tolerating his m edications. OBJECTIVE: VITAL SIGNS: He is afebrile, heart rate is 77, respirations are 20, oxygen saturation is 99%, blood pressure 138/91. CARDIOVASCULAR: S1, S2 plus. RESPIRATORY: Normal vesicular breath sounds. ABDOMEN: Soft, nontender, bowel sounds heard in all quadrants. EXTREMITIES: Without cyanosis or clubbing. IMPRESSION: 1. Status post open reduction internal fixation of left femur fracture with placement of hardware. 2. Hypertension. 3. Benign prostatic hypertrophy. 4. Gastroesophageal reflux disease. 5. Rheumatoid arthritis. 6. Peripheral vascular disease. PLAN: 1. Continue IV antibiotics. 2. Nutritional support. 3. Incision care. 4. DVT and stress ulcer prophylaxis. 5. Decubitus precautions. 6. Dr. Aristides Guerrero back tonight.
[2016-05-17] MEDS: Multivitamin W/ Minerals 1 TAB PO SCH (17:35)
[2016-05-17] MEDS: Calcium Carbonate 500 MG TAB PO SCH (20:57)
[2016-05-17] MEDS: Docusate 100 MG CAP PO PRN (21:00)
[2016-05-17] MEDS: Diazepam 5 MG TAB PO PRN (21:00)
[2016-05-17] MEDS: Teriparatide [Forteo] 20 MCG SC SCH (21:02)
[2016-05-18] MEDS: HYDROcodone/Acetaminophen 10/325 mg Tablet PO PRN ×4 (03:33→19:44)
[2016-05-18] MEDS: traMADol HCl 50 MG TAB PO SCH ×4 (06:12→23:17)
[2016-05-18] MEDS: Acetaminophen 325 MG TAB PO PRN (06:13)
[2016-05-18] MEDS: Metoclopramide HCl 10 MG TAB PO SCH (07:35)
[2016-05-18] MEDS: Ferrous Sulfate 325 MG TAB PO SCH ×2 (08:05→17:22)
[2016-05-18] MEDS: MAGNESIUM CITRATE 100 MG PO SCH (09:11)
[2016-05-18] MEDS: Tamsulosin HCl 0.4 MG CAP PO SCH (09:13)
[2016-05-18] MEDS: Atenolol 25 MG TAB PO SCH (09:13)
[2016-05-18] MEDS: Aspirin 325 mg Enteric Coated Tablet PO SCH ×2 (09:13→20:59)
[2016-05-18] MEDS: Clopidogrel Bisulfate 75 MG TAB PO SCH (09:13)
[2016-05-18] MEDS: CeleCOXIB 100 MG CAP PO SCH (09:14)
[2016-05-18] MEDS: Rifampin 150 MG CAP PO SCH ×2 (09:15→20:59)
--- NOTE | 2016-05-18 10:08 | PRG ---
DATE OF SERVICE: 05/15/2016 HISTORY OF PRESENT ILLNESS: Mr. Guerra is a 60-year-old white male that was at [facility] with Dr. Patel. Dr. Patel did a total left hip, total left knee and a shaft place ment for femoral component for his bone. Postoperatively, he did very well, he was very weak. He w as transferred here for physical therapy and occupational therapy and weightbearing as tolerated. Kaela casillas had a little swelling on the incision site and had a blood count that was checked just to make branden e he did not get too anemic from his bleed. Blood count yesterday morning was 10.5, hematocrit 31.2 . Platelet count was 457,000. Vancomycin trough was 17.0. VITAL SIGNS: Blood pressure 135/93, respirations 18-20, pulse 75-77, O2 sat 95% on room air. PHYSICAL EXAMINATION: GENERAL: This is a well-developed, very thin, cachectic-looking white male in no apparent distress at this time. HEENT: Reveals normocephalic, nontraumatic cranium. Pupils equal, round, and reactive. Extraocula r movements intact. Nose and slight dry. NECK: Supple, without masses, nodes or bruits. CHEST: Clear to auscultation, no rales, rhonchi, wheezing or cough is heard. CARDIOVASCULAR: Reveals a regular rate and rhythm without murmurs, gallops or rubs. ABDOMEN: Soft, nontender, without organomegaly, normal bowel sounds are noted. No rebound or guard ing is noted. : Deferred. EXTREMITIES: Reveal no clubbing, cyanosis or edema. The incision still looks very good. No signif icant drainage this morning. NEUROLOGIC: The patient has no complaints today. IMPRESSION: 1. Postop open reduction internal fixation of left femur, left total knee and left total hip. 2. Hypertension. 3. Benign prostatic hypertrophy. 4. Gastroesophageal reflux disease. 5. Juvenile onset rheumatoid arthritis. 6. Anemia. 7. Peripheral vascular disease with resultant right above-knee amputation. 8. Degenerative joint disease. 9. Osteoporosis. 10. History of tobacco use. PLAN: 1. Continue vancomycin and rifampin for a total of 4 weeks. 2. Continue to follow vancomycin levels per Pharmacy. 3. Continue pain management. 4. Continue to follow blood pressure closely. 5. Continue physical therapy and occupational therapy. 6. Continue DVT and stress ulcer prophylaxis. 7. Continue decubitus precautions. 8. Continue weightbearing as tolerated.
[2016-05-18] MEDS: Vancomycin HCl 500 MG in Sodium Chloride 0.9% 100 ML IVPB SCH ×2 (11:00→23:18)
[2016-05-18] MEDS: traMADol HCl 50 MG TAB PO PRN (13:26)
[2016-05-18] MEDS: Multivitamin W/ Minerals 1 TAB PO SCH (17:23)
[2016-05-18] MEDS: Diazepam 5 MG TAB PO PRN (19:44)
--- NOTE | 2016-05-18 20:38 | PRG ---
DATE OF ADMISSION: 05/08/2016 DATE OF SERVICE: 05/18/2016 SUBJECTIVE: The patient is a 60-year-old white male transferred from [facility] after Dr. Patel did a total left hip and total left knee and shaft replacement for the femoral compo nent of his femoral bone. Postoperatively, he has actually done very well and was transferred here for physical therapy and occupational therapy. He is supposed to be weightbearing as tolerated. He said today his incision site looks good; he now has no draining, no significant swelling. OBJECTIVE: VITAL SIGNS: Reveal blood pressure this morning was 135/76, pulse 74 to 84, respirations 20, O2 sat 96% to 100%, T-max 98.0. GENERAL: This is a well-developed, thin, cachectic-looking white male, in no apparent distress at t his time. HEENT: Reveals normocephalic, nontraumatic cranium. Pupils are equally round and reactive. Extrao cular movements are intact. Nose and throat are slightly dry. NECK: Supple, without masses, nodes or bruits. CHEST: Clear to auscultation, no rales, rhonchi or wheezes are heard. HEART: Reveals regular rate and rhythm without murmurs, gallops or rubs. Normal bowel sounds are n oted. No rebound or guarding is noted. GENITOURINARY: Deferred. EXTREMITIES: Left leg still somewhat stiff. Right [id number]-kwz-[id number] amputation. The incision looks g ood. IMPRESSION: 1. Post operative open reduction internal fixation of the left femur, left knee and a total left hi p. 2. Hypertension. 3. Benign prostatic hypertrophy. 4. Gastroesophageal reflux disease. 5. Juvenile onset rheumatoid arthritis. 6. Anemia. 7. Severe peripheral vascular disease. 8. Degenerative joint disease. 9. Osteoporosis. 10. History of tobacco abuse. PLAN: 1. Continue vancomycin and rifampin for a total of 4 weeks. 2. Continue vancomycin levels per pharmacy. 3. Continue pain management. 4. Continue to follow blood pressures closely. 5. Continue physical therapy and occupational therapy. 6. Continue DVT and stress ulcer prophylaxis. 7. Continue decubitus precautions. 8. Weightbearing as tolerated. 9. Continue present medications.
[2016-05-18] MEDS: Teriparatide [Forteo] 20 MCG SC SCH (20:57)
[2016-05-18] MEDS: Calcium Carbonate 500 MG TAB PO SCH (20:58)
[2016-05-19] MEDS: HYDROcodone/Acetaminophen 10/325 mg Tablet PO PRN ×3 (00:21→12:11)
[2016-05-19] MEDS: traMADol HCl 50 MG TAB PO SCH ×4 (06:08→23:19)
[2016-05-19] MEDS: Metoclopramide HCl 10 MG TAB PO SCH (07:14)
[2016-05-19] MEDS: Ferrous Sulfate 325 MG TAB PO SCH ×3 (07:16→17:05)
[2016-05-19] MEDS: MAGNESIUM CITRATE 100 MG PO SCH (09:06)
[2016-05-19] MEDS: CeleCOXIB 100 MG CAP PO SCH (09:07)
[2016-05-19] MEDS: Clopidogrel Bisulfate 75 MG TAB PO SCH (09:08)
[2016-05-19] MEDS: Tamsulosin HCl 0.4 MG CAP PO SCH (09:08)
[2016-05-19] MEDS: Atenolol 25 MG TAB PO SCH (09:09)
[2016-05-19] MEDS: Aspirin 325 mg Enteric Coated Tablet PO SCH ×2 (09:10→21:28)
[2016-05-19] MEDS: Rifampin 150 MG CAP PO SCH ×2 (09:10→21:28)
[2016-05-19 11:19] LABS: Vancomycin, Trough 16.1 ug/mL
[2016-05-19] MEDS: Vancomycin HCl 500 MG in Sodium Chloride 0.9% 100 ML IVPB SCH ×2 (11:30→23:18)
--- NOTE | 2016-05-19 13:32 | PRG ---
DATE OF PROGRESS NOTE: 05/19/2016. SUBJECTIVE: Mr. Guerra is a 60-year-old white male, very thin and cachectic that I had a total hip done by Dr. Patel, total hip, total left knee and shaft placement of femoral component was bone done by Dr. Patel. Postoperatively, he did very well and transferred here for physical therapy and occupa tional therapy. He is doing weightbearing as tolerated. Apparently, he states his prostate leg is too tall and he will have to have that trimmed down. Otherwise, he is walking on offside. He has n o other complaints except he did have some pain last night, states when he takes two [place], does not do anything for his sprains. We will discontinue that and try him on some Tylenol #3. OBJECTIVE: VITAL SIGNS: Today reveal blood pressure 146/86, pulse 85-97, respirations 18, O2 satur ations 100% on room air, temperature 98. PHYSICAL EXAMINATION: GENERAL: This is a well-developed, very thin white male, in no apparent distress at this time. HEENT: Reveals normocephalic, nontraumatic cranium. Pupils are equally round and reactive. Extrao cular movements intact. Nose and throat slightly dry. NECK: Supple, without mass, nodes or bruits. CHEST: Clear. No rales, rhonchi or wheezes are heard. CARDIOVASCULAR: Reveals a regular rate and rhythm without murmurs, gallops or rubs. ABDOMEN: Obese, soft, nontender, without organomegaly. Normal bowel sounds are noted. No rebound or guarding is noted. GENITOURINARY: Deferred. EXTREMITIES: Reveal no clubbing, cyanosis or edema. Right [id number] amputation is noted. On the left side, he has increasing drainage. We will do a culture and sensitivity. IMPRESSION: 1. Postoperative open reduction and internal fixation of left femur, left knee and total left hip. 2. Hypertension. 3. Benign prostatic hypertrophy. 4. Gastroesophageal reflux. 5. Juvenile onset of rheumatoid arthritis. 6. Anemia. 7. Peripheral vascular disease. 8. Degenerative joint disease. 9. Osteoporosis. 10. History of tobacco use. PLAN: 1. Continue rifampin and vancomycin for a total of 4 weeks. 2. Vancomycin levels per pharmacy. 3. Continue pain management. 4. Follow blood pressure closely. 5. Continue physical therapy and occupational therapy. 6. Continue deep venous thrombosis and stress ulcer prophylaxes. 7. Continue decubitus precautions. 8. Weightbearing as tolerated. 9. Continue present medications.
[2016-05-19] MEDS: Acetaminophen/Codeine 30-300mg Tablet PO PRN ×2 (15:47→21:27)
[2016-05-19] MEDS: Multivitamin W/ Minerals 1 TAB PO SCH (17:04)
[2016-05-19] MEDS: Teriparatide [Forteo] 20 MCG SC SCH (21:25)
[2016-05-19] MEDS: Calcium Carbonate 500 MG TAB PO SCH (21:28)
[2016-05-19] MEDS: Diazepam 5 MG TAB PO PRN (21:28)
[2016-05-19] MEDS: Docusate 100 MG CAP PO PRN (21:28)
[2016-05-20 05:48] LABS: #Basophils 0.2 thou/uL (0.0-0.2); #Eosinphils 0.3 thou/uL (0.0-0.7); #Lymphocytes 0.8 thou/uL (1.20-3.40); #Monocytes 1.2 thou/uL (0.11-0.59); #Neutrophils 7.2 thou/uL (1.40-6.50); %Basophils 2.5 % (0.0-1.0); %Eosinophils 3.2 % (0.0-10.0); %Lymphocytes 7.9 % (21.0-51.0); %Monocytes 12.3 % (0.0-10.0); %Neutrophils 74.2 % (42.0-75.0); Hemoglobin 10.6 g/dL (14.0-18.0); Mean Corpuscular HGB CONC 33.6 g/dL (32.0-36.0); Mean Corpuscular Hemoglobin 30.4 pg (27.0-31.0); Mean Corpuscular Volume 90.3 fl (80.0-94.0); Mean Platelet Volume 5.3 fL (7.4-10.4); Platelet Count 496 thou/uL (130-400); RBC Distribution Width 14.2 % (11.5-14.5); Red Blood Cell (RBC) Count 3.49 mill/uL (4.70-6.10); White Blood Cell (WBC) Count 9.8 thou/uL (4.8-10.8)
[2016-05-20 06:00] LABS: ALT (SGPT) 10 U/L (0-55); AST (SGOT) 13 U/L (5-34); Albumin 2.4 g/dL (3.4-4.8); Alkaline Phosphatase 188 U/L (40-150); Anion Gap 12 mmol/L (10-20); BUN (Urea Nitrogen) 6 mg/dL (8.4-25.7); Bilirubin, Total 0.7 mg/dL (0.2-1.2); CRP (Inflammatory) 9.73 mg/dL (= or < 0.5); Calc. Creatinine Clearance 84 mL/min (70-130); Carbon Dioxide 22 mmol/L (23-31); Chloride 101 mmol/L (98-107); Estimated GFR-MDRD Greater than 90; Globulin 3.2 g/dL (2.4-3.5); Glucose 106 mg/dL (80-115); Potassium 4.3 mmol/L (3.5-5.1); Protein, Total 5.6 g/dL (5.8-8.1); Sodium 131 mmol/L (136-145)
[2016-05-20] MEDS: traMADol HCl 50 MG TAB PO SCH ×4 (06:21→23:30)
[2016-05-20] MEDS: Ferrous Sulfate 325 MG TAB PO SCH ×2 (08:44→16:55)
[2016-05-20] MEDS: CeleCOXIB 100 MG CAP PO SCH (08:45)
[2016-05-20] MEDS: Tamsulosin HCl 0.4 MG CAP PO SCH (08:45)
[2016-05-20] MEDS: Clopidogrel Bisulfate 75 MG TAB PO SCH (08:45)
[2016-05-20] MEDS: Atenolol 25 MG TAB PO SCH (08:45)
[2016-05-20] MEDS: Rifampin 150 MG CAP PO SCH ×2 (08:45→21:12)
[2016-05-20] MEDS: Metoclopramide HCl 10 MG TAB PO SCH (08:46)
[2016-05-20] MEDS: Aspirin 325 mg Enteric Coated Tablet PO SCH ×2 (08:46→21:13)
[2016-05-20] MEDS: MAGNESIUM CITRATE 100 MG PO SCH (08:46)
[2016-05-20] MEDS: Acetaminophen 325 MG TAB PO PRN ×2 (10:56→17:31)
[2016-05-20] MEDS: Vancomycin HCl 500 MG in Sodium Chloride 0.9% 100 ML IVPB SCH ×2 (10:56→23:30)
--- NOTE | 2016-05-20 12:38 | PRG ---
DATE OF SERVICE: 05/20/2016 SUBJECTIVE: Mr. Guerra is a very pleasant 60-year-old white male that had a total hip, total knee a nd shaft replacement of the femoral component that was bone by Dr. Patel. Postoperatively, he did ve ry well and was transferred here for physical therapy, occupational therapy, and prolonged antibioti cs. He has no complaints today. He states he did do very well last night. He took 2 Tylenol No. 3 and was able to sleep. He said that we did discontinue the [place] because it did not work. VITAL SIGNS: Today reveal blood pressure is 119/84, pulse 77 to 83, respirations 18-20, O2 sat 98 t o 100% on room air, temperature 97.8. LABORATORY: Today reveals white count 9800 with hemoglobin 10.6, hematocrit 31.5, platelet count 49 6,000. His sodium is 131, potassium 4.3, chloride 101, carbon dioxide 22. His BUN is 6, creatinine 0.57 with a GFR greater than 90. His C-reactive protein is elevated at 9.3, his sed rate is elevat ed at 74. His vancomycin level yesterday was 16.1. PHYSICAL EXAMINATION: GENERAL: This is a well-developed, well-nourished, thin, cachectic white male in no apparent distre ss at this time. HEENT: Reveals normocephalic, nontraumatic cranium. Pupils equal, round, and reactive. Extraocula r movements intact. Nose and throat slightly dry. NECK: Supple, without masses, nodes or bruits. CHEST: Clear to auscultation. No rales, rhonchi or wheezes are heard. CARDIOVASCULAR: Reveals a regular rate and rhythm without murmurs, gallops or rubs. ABDOMEN: Soft, nontender, without organomegaly, normal bowel sounds are noted. No rebound or guard ing is noted. : Deferred. EXTREMITIES: Reveals right ayxze-aou-npvv amputation. Left side, he has a left total hip, left tot al knee and left femur which has been replaced. IMPRESSION: 1. Postoperative open reduction internal fixation of the total left knee, total left hip and left f emur. 2. Hypertension. 3. Benign prostatic hypertrophy. 4. Gastroesophageal reflux. 5. Acute onset of rheumatoid arthritis. 6. Anemia. 7. Peripheral vascular disease. 8. Degenerative joint disease. 9. Most likely osteomyelitis the way Dr. Santacruz is treating him. 10. Osteoporosis. 11. History of tobacco use. PLAN: 1. Continue IV vancomycin 750 IV q.12 hours plus Rifampin 300 mg b.i.d. until 07/01/2016. After th at has finished, the patient will be on rifampin 300 mg b.i.d. plus doxycycline 100 mg b.i.d. for 3 months and then the patient will be switched to doxycycline 100 mg twice daily indefinitely. 2. Continue vancomycin levels per Pharmacy. 3. Continue current pain management. 4. Continue to follow blood pressure closely. 5. Continue physical therapy and occupational therapy. 6. Continue DVT and stress ulcer prophylaxis. 7. Continue decubitus precautions. 8. Weightbearing as tolerated. 9. Continue present medications.
[2016-05-20] MEDS: Acetaminophen/Codeine 30-300mg Tablet PO PRN ×2 (16:11→21:12)
[2016-05-20] MEDS: Multivitamin W/ Minerals 1 TAB PO SCH (16:55)
[2016-05-20] MEDS ORDERED: Metoclopramide HCl 10 MG TAB PO SCH (17:00)
[2016-05-20] MEDS: Diazepam 5 MG TAB PO PRN (21:12)
[2016-05-20] MEDS: Calcium Carbonate 500 MG TAB PO SCH (21:13)
[2016-05-20] MEDS: Teriparatide [Forteo] 20 MCG SC SCH (21:14)
[2016-05-21] MEDS: Acetaminophen/Codeine 30-300mg Tablet PO PRN ×3 (02:19→19:19)
[2016-05-21] MEDS: traMADol HCl 50 MG TAB PO SCH ×4 (05:36→23:50)
[2016-05-21] MEDS: Acetaminophen 325 MG TAB PO PRN ×2 (05:38→12:13)
--- NOTE | 2016-05-21 06:23 | PRG ---
DATE OF SERVICE: 05/21/2016 HISTORY OF PRESENT ILLNESS: Mr. Guerra is a 60-year-old white male that had a total left hip, total left knee and left femoral shaft with placement of the femoral component of the bone by Dr. Patel. Postoperatively, he did well and was transferred here for physical therapy, occupational therapy, an d prolonged antibiotics. The patient has no complaints today. He did very well last night. He is a little constipated reque sting two [place] every day. We did try the Tylenol #3 and he was able to rest with that with good p ain control. PHYSICAL EXAMINATION: VITAL SIGNS: Today reveal blood pressure 118/76, pulse 76-83, respirations 18-20, O2 sat 97%, tempe rature max 97.8. GENERAL: This is a well-developed, well-nourished, very pleasant white male, in no apparent distres s at this time. HEENT: Reveals normocephalic, nontraumatic cranium. Pupils are equally round and reactive. Extrao cular movements intact. Nose and throat are slightly dry. NECK: Supple, without masses, nodes or bruits. CHEST: Clear to auscultation. No rales, rhonchi or wheezes are heard. CARDIOVASCULAR: Heart reveals a regular rate and rhythm without murmurs, gallops or rubs. ABDOMEN: Soft, scaphoid, nontender, without organomegaly, normal bowel sounds are noted. No reboun d or guarding is noted. GENITOURINARY: Deferred. EXTREMITIES: Reveal right [id number]-ylcp amputation. Left side has total hip, total left knee and left femur, which has been replaced. He has had significant amount of drainage that significantly d ecreased at this time. Culture was done yesterday. IMPRESSION: 1. Postop open reduction internal fixation of the total left knee, total left hip and left femur. 2. Hypertension. 3. Benign prostatic hypertrophy. 4. Gastroesophageal reflux. 5. Juvenile onset rheumatoid arthritis. 6. Anemia. 7. Peripheral vascular disease. 8. Degenerative joint disease. 9. Osteomyelitis per Dr. Santacruz. 10. Osteoporosis. 11. History of tobacco abuse. PLAN: 1. Continue IV vancomycin 750 mg IV q.12 hours plus rifampin 300 mg b.i.d. until for 03/07/2016, af ter that has finished, the patient will be on rifampin 300 mg b.i.d. plus doxycycline 100 mg b.i.d. for 3 months and then the patient will be switched to doxycycline 100 mg twice daily indefinitely. 2. Continue vancomycin level dosing and monitoring per pharmacy. 3. Continue pain management. 4. Continue to follow blood pressure closely. 5. Continue to follow the patient for constipation. 6. Continue physical therapy and occupational therapy. 7. Continue deep venous thrombosis and stress ulcer prophylaxis. 8. Continue decubitus precautions. 9. Weightbearing as tolerated.
[2016-05-21] MEDS: Metoclopramide HCl 10 MG TAB PO SCH (07:53)
[2016-05-21] MEDS: Clopidogrel Bisulfate 75 MG TAB PO SCH (08:53)
[2016-05-21] MEDS: Ferrous Sulfate 325 MG TAB PO SCH ×2 (08:53→17:34)
[2016-05-21] MEDS: Rifampin 150 MG CAP PO SCH ×2 (08:54→21:26)
[2016-05-21] MEDS: Tamsulosin HCl 0.4 MG CAP PO SCH (08:54)
[2016-05-21] MEDS: CeleCOXIB 100 MG CAP PO SCH (08:54)
[2016-05-21] MEDS: Atenolol 25 MG TAB PO SCH (08:54)
[2016-05-21] MEDS: Aspirin 325 mg Enteric Coated Tablet PO SCH ×2 (08:54→21:26)
[2016-05-21] MEDS: MAGNESIUM CITRATE 100 MG PO SCH (08:55)
[2016-05-21] MEDS: Docusate 100 MG CAP PO SCH ×2 (09:14→21:26)
[2016-05-21] MEDS: Vancomycin HCl 500 MG in Sodium Chloride 0.9% 100 ML IVPB SCH ×2 (11:12→23:51)
[2016-05-21] MEDS: Multivitamin W/ Minerals 1 TAB PO SCH (17:33)
[2016-05-21] MEDS: Teriparatide [Forteo] 20 MCG SC SCH (21:24)
[2016-05-21] MEDS: Calcium Carbonate 500 MG TAB PO SCH (21:25)
[2016-05-21] MEDS: Diazepam 5 MG TAB PO PRN (21:26)
[2016-05-22] MEDS: Acetaminophen/Codeine 30-300mg Tablet PO PRN ×4 (01:07→21:11)
[2016-05-22] MEDS: traMADol HCl 50 MG TAB PO SCH ×3 (05:02→17:43)
[2016-05-22] MEDS: Metoclopramide HCl 10 MG TAB PO SCH (07:50)
[2016-05-22] MEDS: Rifampin 150 MG CAP PO SCH ×2 (08:51→21:11)
[2016-05-22] MEDS: CeleCOXIB 100 MG CAP PO SCH (08:52)
[2016-05-22] MEDS: Docusate 100 MG CAP PO SCH ×2 (08:52→20:40)
[2016-05-22] MEDS: Clopidogrel Bisulfate 75 MG TAB PO SCH (08:52)
[2016-05-22] MEDS: Tamsulosin HCl 0.4 MG CAP PO SCH (08:53)
[2016-05-22] MEDS: Atenolol 25 MG TAB PO SCH (08:53)
[2016-05-22] MEDS: Aspirin 325 mg Enteric Coated Tablet PO SCH ×2 (08:53→20:39)
[2016-05-22] MEDS: Ferrous Sulfate 325 MG TAB PO SCH ×2 (08:53→17:41)
[2016-05-22] MEDS: MAGNESIUM CITRATE 100 MG PO SCH (08:54)
[2016-05-22] MEDS: OMEPRAZOLE 40 MG CAPSULE PO SCH (08:59)
[2016-05-22 10:26] LABS: #Basophils 0.1 thou/uL (0.0-0.2); #Eosinphils 0.3 thou/uL (0.0-0.7); #Monocytes 0.8 thou/uL (0.11-0.59); #Neutrophils 4.5 thou/uL (1.40-6.50); %Basophils 1.4 % (0.0-1.0); %Eosinophils 5.1 % (0.0-10.0); %Lymphocytes 15.3 % (21.0-51.0); %Monocytes 11.4 % (0.0-10.0); %Neutrophils 66.8 % (42.0-75.0); Hemoglobin 9.9 g/dL (14.0-18.0); Mean Corpuscular HGB CONC 32.8 g/dL (32.0-36.0); Mean Corpuscular Hemoglobin 30.1 pg (27.0-31.0); Mean Corpuscular Volume 91.8 fl (80.0-94.0); Mean Platelet Volume 5.5 fL (7.4-10.4); Platelet Count 412 thou/uL (130-400); RBC Distribution Width 14.5 % (11.5-14.5); White Blood Cell (WBC) Count 6.7 thou/uL (4.8-10.8)
[2016-05-22 10:36] LABS: Vancomycin, Trough 15.1 ug/mL
[2016-05-22] MEDS: Vancomycin HCl 500 MG in Sodium Chloride 0.9% 100 ML IVPB SCH ×2 (11:11→22:23)
--- NOTE | 2016-05-22 13:54 | PRG ---
DATE OF SERVICE: 05/22/2016 HISTORY OF PRESENT ILLNESS: Mr. Guerra is a very pleasant 60-year-old white male who had a total hi p, total left knee and femoral shaft replacement done by Dr. Patel. Postoperatively, he has been on antibiotics including vancomycin and rifampin. The patient's left hip is somewhat red and has been draining. We did a culture again yesterday. He states he is feeling okay, but he is concerned that it is getting a little red. We will do another CBC on him today. Otherwise, he has no complaints. PHYSICAL EXAMINATION: VITAL SIGNS: Blood pressure is 112/79, pulse 76-83, respirations 16-18, O2 sat 100% on room air, te mperature 97.3. PHYSICAL EXAMINATION: GENERAL: This is a well-developed, well-nourished, very pleasant white male in no apparent distress at this time. HEENT: Reveals normocephalic, nontraumatic cranium. Pupils are equally round and reactive. Extrao cular movements intact. Nose and throat slightly dry. NECK: Supple, without masses, nodes or bruits. LUNGS: Chest is clear to auscultation, no rales, rhonchi, wheezes or cough is heard. CARDIOVASCULAR: Reveals a regular rate and rhythm without murmurs, gallops or rubs. ABDOMEN: Scaphoid, soft, nontender, without organomegaly, normal bowel sounds are noted. No reboun d or guarding is noted. GENITOURINARY: Deferred. EXTREMITIES: Reveal right ciqqq-xxz-xyfj amputation. The left total hip, total left knee and femur have been replaced. The incision is somewhat red, a little bit of drainage of which a culture and sensitivity were done yesterday. That is still pending. We are also doing a vancomycin level now a nd a CBC at this time. IMPRESSION: 1. Postop open reduction internal fixation, total left knee, total left hip and left femur. 2. Vancomycin and rifampin at therapeutic doses. 3. Increased inflammation, but decreased range on the left surgical site. 4. Hypertension. 5. Juvenile onset rheumatoid arthritis. 6. Benign prostatic hypertrophy. 7. Gastroesophageal reflux. 8. Anemia. 9. Peripheral vascular disease. 10. Degenerative joint disease. 11. Osteomyelitis per Dr. Santacruz. 12. Osteoporosis. 13. History of tobacco abuse. PLAN: 1. Continue IV vancomycin 750 IV q.12 hours plus rifampin 300 mg b.i.d. until 07/06/2016. After th at, the patient will be on rifampin 300 mg b.i.d. plus doxycycline 100 mg b.i.d. for 3 months and th en after that the patient will be switched to doxycycline 100 mg twice a day indefinitely. 2. Continue to follow vancomycin level which was drawn this morning. 3. Monitoring vancomycin per Pharmacy dosing per Pharmacy. 4. Continue pain management. 5. We will continue to follow blood pressure closely. 6. Continue to follow the patient for constipation. 7. Continue physical therapy and occupational therapy. 8. Continue DVT and stress ulcer prophylaxis. 9. Continue decubitus precautions. 10. Weightbearing as tolerated.
[2016-05-22] MEDS: Multivitamin W/ Minerals 1 TAB PO SCH (17:43)
[2016-05-22] MEDS: Calcium Carbonate 500 MG TAB PO SCH (20:40)
[2016-05-22] MEDS: Teriparatide [Forteo] 20 MCG SC SCH (20:41)
[2016-05-22] MEDS: Diazepam 5 MG TAB PO PRN (21:12)
[2016-05-23] MEDS: traMADol HCl 50 MG TAB PO SCH ×5 (01:44→23:35)
[2016-05-23] MEDS: Acetaminophen/Codeine 30-300mg Tablet PO PRN ×4 (01:45→21:10)
[2016-05-23] MEDS: Ferrous Sulfate 325 MG TAB PO SCH ×3 (07:15→17:15)
[2016-05-23] MEDS: Metoclopramide HCl 10 MG TAB PO SCH (08:15)
[2016-05-23] MEDS: Aspirin 325 mg Enteric Coated Tablet PO SCH ×2 (09:06→21:08)
[2016-05-23] MEDS: CeleCOXIB 100 MG CAP PO SCH (09:08)
[2016-05-23] MEDS: Tamsulosin HCl 0.4 MG CAP PO SCH (09:08)
[2016-05-23] MEDS: Docusate 100 MG CAP PO SCH ×2 (09:09→21:08)
[2016-05-23] MEDS: Clopidogrel Bisulfate 75 MG TAB PO SCH (09:09)
[2016-05-23] MEDS: Rifampin 150 MG CAP PO SCH ×2 (09:10→21:08)
[2016-05-23] MEDS: OMEPRAZOLE 40 MG CAPSULE PO SCH (09:15)
[2016-05-23] MEDS: MAGNESIUM CITRATE 100 MG PO SCH (09:15)
[2016-05-23] MEDS: Atenolol 25 MG TAB PO SCH (11:26)
[2016-05-23] MEDS: Vancomycin HCl 500 MG in Sodium Chloride 0.9% 100 ML IVPB SCH ×2 (11:27→23:35)
[2016-05-23] MEDS ORDERED: Cefepime 1 GM in Sodium Chloride 0.9% 100 ML IVPB SCH (14:00)
[2016-05-23] MEDS: Cefepime 1 GM in Sodium Chloride 0.9% 100 ML IVPB SCH (15:00)
--- NOTE | 2016-05-23 15:11 | PRG ---
DATE OF SERVICE: 05/23/2016 SUBJECTIVE: Mr. Guerra is doing well. Denies any complaints, resting comfortably, tolerating his m edications. OBJECTIVE: VITAL SIGNS: He is afebrile, heart rate is 76, respirations 18, blood pressure 134/85. CARDIOVASCULAR: S1, S2 plus. RESPIRATORY: Normal vesicular breath sounds. ABDOMEN: Soft, nontender, bowel sounds heard in all quadrants. EXTREMITIES: Without cyanosis or clubbing. Left hip incision with dressing. Apparently he did have some drainage from the superficial aspect of this incision and cultures are g samueling Pseudomonas and presumptive Klebsiella and Enterobacter. Its preliminary sensitivities are pending. Antibiotics, he is on rifampicin 300 mg b.i.d. and vanco mycin. He may need to get on Maxipime given the Pseudomonas unless it is deemed to be a contaminant . IMPRESSION: 1. Left leg septic arthritis with multiple surgical procedures. 2. Rheumatoid arthritis. 3. Hypertension. 4. Benign prostatic hypertrophy. 5. Peripheral vascular disease. PLAN: 1. Continue current medications. 2. Add Maxipime empirically until sensitivities come back. 3. Wound care. 4. Nutritional support. 5. Sensitivities will be faxed to Dr. Santacruz. 5. Routine laboratory values.
[2016-05-23] MEDS: Multivitamin W/ Minerals 1 TAB PO SCH (17:07)
[2016-05-23] MEDS: Calcium Carbonate 500 MG TAB PO SCH (21:09)
[2016-05-23] MEDS: Diazepam 5 MG TAB PO PRN (21:10)
[2016-05-23] MEDS: Teriparatide [Forteo] 20 MCG SC SCH (21:11)
[2016-05-24] MEDS: Cefepime 1 GM in Sodium Chloride 0.9% 100 ML IVPB SCH ×2 (03:19→14:47)
[2016-05-24] MEDS: Acetaminophen/Codeine 30-300mg Tablet PO PRN ×3 (03:30→21:53)
[2016-05-24] MEDS: traMADol HCl 50 MG TAB PO SCH ×4 (06:31→23:12)
[2016-05-24] MEDS: Metoclopramide HCl 10 MG TAB PO SCH (08:00)
[2016-05-24] MEDS: Ferrous Sulfate 325 MG TAB PO SCH ×2 (08:15→16:36)
[2016-05-24] MEDS: MAGNESIUM CITRATE 100 MG PO SCH (09:27)
[2016-05-24] MEDS: Tamsulosin HCl 0.4 MG CAP PO SCH (09:28)
[2016-05-24] MEDS: Atenolol 25 MG TAB PO SCH (09:28)
[2016-05-24] MEDS: Aspirin 325 mg Enteric Coated Tablet PO SCH ×2 (09:28→21:51)
[2016-05-24] MEDS: OMEPRAZOLE 40 MG CAPSULE PO SCH (09:28)
[2016-05-24] MEDS: CeleCOXIB 100 MG CAP PO SCH (09:29)
[2016-05-24] MEDS: Clopidogrel Bisulfate 75 MG TAB PO SCH (09:29)
[2016-05-24] MEDS: Docusate 100 MG CAP PO SCH ×2 (09:30→21:51)
[2016-05-24] MEDS: Rifampin 150 MG CAP PO SCH ×2 (09:31→21:51)
[2016-05-24] MEDS: Vancomycin HCl 500 MG in Sodium Chloride 0.9% 100 ML IVPB SCH ×2 (11:15→23:12)
[2016-05-24] MEDS: Aztreonam 1 GM in Sodium Chloride 0.9% 100 ML IVPB SCH (16:35)
[2016-05-24] MEDS: Multivitamin W/ Minerals 1 TAB PO SCH (16:36)
[2016-05-24] MEDS: Calcium Carbonate 500 MG TAB PO SCH (21:51)
[2016-05-24] MEDS: Diazepam 5 MG TAB PO PRN (21:52)
[2016-05-24] MEDS: Teriparatide [Forteo] 20 MCG SC SCH (21:55)
--- NOTE | 2016-05-24 23:38 | PRG ---
DATE OF SERVICE: 05/24/2016 SUBJECTIVE: Mr. Guerra is doing the same. He denies any complaints. Does have some pain in his le ft hip. His spouse is in the room. His cultures show Pseudomonas sensitive to Maxipime, but there is another subtype, which seems to be sensitive to his Azactam. He is not allergic to any penicilli n. He is on Maxipime and rifampin and vancomycin. We will await on final sensitivities and send al l the reports to both Dr. Patel and Dr. Santacruz. We will add Azactam for now. We will also have andreeai ng call Dr. Patel to get instructions on wound care. OBJECTIVE: VITAL SIGNS: He is afebrile, his heart rate is 78, respirations are 16, oxygen saturation is 99%, b lood pressure 127/86. CARDIOVASCULAR SYSTEM: S1 and S2 plus. RESPIRATORY: Normal vesicular breath sounds. ABDOMEN: Soft, nontender, bowel sounds heard in all quadrants. EXTREMITIES: Without cyanosis or clubbing. IMPRESSION: 1. Left leg septic arthritis with multiple surgeries. 2. Pseudomonas in his left hip wound. 3. Rheumatoid arthritis. 4. Gastroesophageal reflux disease. 5. Deconditioning. PLAN: 1. Add Azactam to the Maxipime. 2. Await sensitivities and Klebsiella. 3. Send all reports to Dr. Santacruz and Dr. Patel. 4. Contact Dr. Patel to get instructions on wound care. 5. Dr. Juliette Guerrero back tonight. 6. Recheck routine laboratory values in the morning.
[2016-05-25] MEDS: Cefepime 1 GM in Sodium Chloride 0.9% 100 ML IVPB SCH ×2 (03:31→15:53)
[2016-05-25] MEDS: traMADol HCl 50 MG TAB PO SCH ×4 (05:45→23:32)
[2016-05-25] MEDS: Aztreonam 1 GM in Sodium Chloride 0.9% 100 ML IVPB SCH ×2 (05:49→17:02)
[2016-05-25] MEDS: Metoclopramide HCl 10 MG TAB PO SCH (07:16)
[2016-05-25] MEDS: Ferrous Sulfate 325 MG TAB PO SCH ×2 (08:15→18:00)
[2016-05-25] MEDS: Rifampin 150 MG CAP PO SCH ×2 (09:15→21:41)
[2016-05-25] MEDS: Aspirin 325 mg Enteric Coated Tablet PO SCH ×2 (09:15→21:42)
[2016-05-25] MEDS: CeleCOXIB 100 MG CAP PO SCH (09:16)
[2016-05-25] MEDS: Tamsulosin HCl 0.4 MG CAP PO SCH (09:16)
[2016-05-25] MEDS: Atenolol 25 MG TAB PO SCH (09:16)
[2016-05-25] MEDS: Clopidogrel Bisulfate 75 MG TAB PO SCH (09:16)
[2016-05-25] MEDS: Docusate 100 MG CAP PO SCH ×2 (09:16→21:42)
[2016-05-25] MEDS: OMEPRAZOLE 40 MG CAPSULE PO SCH (09:18)
[2016-05-25] MEDS: MAGNESIUM CITRATE 100 MG PO SCH (09:19)
[2016-05-25 10:16] LABS: #Basophils 0.1 thou/uL (0.0-0.2); #Eosinphils 0.4 thou/uL (0.0-0.7); #Lymphocytes 1.1 thou/uL (1.20-3.40); #Monocytes 0.6 thou/uL (0.11-0.59); #Neutrophils 4.2 thou/uL (1.40-6.50); %Basophils 2.3 % (0.0-1.0); %Eosinophils 5.6 % (0.0-10.0); %Lymphocytes 17.4 % (21.0-51.0); %Monocytes 8.6 % (0.0-10.0); %Neutrophils 66.1 % (42.0-75.0); Hemoglobin 11.7 g/dL (14.0-18.0); Mean Corpuscular HGB CONC 32.1 g/dL (32.0-36.0); Mean Corpuscular Volume 93.5 fl (80.0-94.0); Mean Platelet Volume 5.4 fL (7.4-10.4); Platelet Count 497 thou/uL (130-400); RBC Distribution Width 14.7 % (11.5-14.5); Red Blood Cell (RBC) Count 3.92 mill/uL (4.70-6.10); White Blood Cell (WBC) Count 6.3 thou/uL (4.8-10.8)
[2016-05-25 10:33] LABS: Anion Gap 16 mmol/L (10-20); BUN (Urea Nitrogen) 7 mg/dL (8.4-25.7); Calc. Creatinine Clearance 77 mL/min (70-130); Calcium 8.9 mg/dL (7.8-10.44); Carbon Dioxide 19 mmol/L (23-31); Chloride 100 mmol/L (98-107); Estimated GFR-MDRD Greater than 90; Glucose 122 mg/dL (80-115); Potassium 4.5 mmol/L (3.5-5.1); Sodium 130 mmol/L (136-145)
--- NOTE | 2016-05-25 10:58 | PRG ---
DATE OF SERVICE: 05/25/2016. HISTORY OF PRESENT ILLNESS: Mr. Guerra is a very pleasant 60-year-old white male who had a total le ft hip, total left knee and femoral shaft replacement done by Dr. Patel at [facility]. Postoperatively, he has been on vancomycin and rifampin. Culture and sensitivities have been done and Dr. Rubi winter saw Mr. Guerra over the weekend and added Azactam and meropenem. Awaiting culture and sensitivities and I knows will be sent to Dr. Santacruz fr om Dr. Patel. SUBJECTIVE: The patient states he is doing much better, he has no complaints today. OBJECTIVE: VITAL SIGNS: Today reveal blood pressure is 131/84, pulse 74-79, respirations 18, O2 sa turation 100%, T-max 98.1. PHYSICAL EXAMINATION: GENERAL: This is a well-developed, well-nourished, very pleasant white male, in no apparent distres s at this time. HEENT: Reveals normocephalic, nontraumatic cranium. The pupils are equally round and reactive. Ex traocular movements intact. Nose and throat slightly dry. NECK: Supple, without masses, nodes or bruits. CHEST: Clear to auscultation. No rales, rhonchi or wheezes are heard. CARDIOVASCULAR: Reveals a regular rate and rhythm without murmurs, gallops or rubs. ABDOMEN: Soft, nontender, without organomegaly, normal bowel sounds are noted. No rebound or guard ing is noted. GENITOURINARY: Deferred. EXTREMITIES: Reveal left total hip, left total knee and femur have been replaced. Incision is much less red today. Minimal drainage is noted. Sensitivities and cultures are still pending from the weekend. The patient is presently on vancomycin, rifampin, Azactam and meropenem. IMPRESSION: 1. Postoperative open reduction and internal fixation total left knee, total left hip and left femu r. 2. On vancomycin, rifampin, meropenem and Azactam. 3. Hypertension. 4. Juvenile onset rheumatoid arthritis. 5. Benign prostatic hypertrophy. 6. Gastroesophageal reflux disease. 7. Anemia. 8. Peripheral vascular disease. 9. Degenerative joint disease. 10. Osteoporosis. 11. Generalized weakness. PLAN: 1. Continue at this time Azactam, Maxipime, vancomycin and rifampin. 2. Reports to be sent to Dr. Santacruz the sensitivities. 3. Continue physical therapy and occupational therapy. 4. Continue deep venous thrombosis and stress ulcer prophylaxes. 5. Continue decubitus precautions. 6. Repeat labs tomorrow morning.
[2016-05-25] MEDS: Vancomycin HCl 500 MG in Sodium Chloride 0.9% 100 ML IVPB SCH ×2 (11:12→23:32)
[2016-05-25] MEDS: Acetaminophen 325 MG TAB PO PRN (12:39)
[2016-05-25] MEDS: Acetaminophen/Codeine 30-300mg Tablet PO PRN ×2 (13:39→21:41)
[2016-05-25] MEDS: Multivitamin W/ Minerals 1 TAB PO SCH (17:01)
[2016-05-25] MEDS: Teriparatide [Forteo] 20 MCG SC SCH (21:40)
[2016-05-25] MEDS: Calcium Carbonate 500 MG TAB PO SCH (21:41)
[2016-05-25] MEDS: Diazepam 5 MG TAB PO PRN (21:42)
[2016-05-26] MEDS: Acetaminophen/Codeine 30-300mg Tablet PO PRN ×4 (03:00→21:49)
[2016-05-26] MEDS: Cefepime 1 GM in Sodium Chloride 0.9% 100 ML IVPB SCH ×2 (03:00→14:31)
[2016-05-26 05:21] LABS: Hemoglobin 9.9 g/dL (14.0-18.0); Red Blood Cell (RBC) Count 3.33 mill/uL (4.70-6.10); White Blood Cell (WBC) Count 5.8 thou/uL (4.8-10.8)
[2016-05-26 05:22] LABS: #Basophils 0.1 thou/uL (0.0-0.2); #Eosinphils 0.6 thou/uL (0.0-0.7); #Monocytes 0.8 thou/uL (0.11-0.59); #Neutrophils 3.1 thou/uL (1.40-6.50); %Basophils 2.3 % (0.0-1.0); %Eosinophils 10.6 % (0.0-10.0); %Lymphocytes 19.7 % (21.0-51.0); %Monocytes 13.9 % (0.0-10.0); %Neutrophils 53.5 % (42.0-75.0); MDiff Complete? YES; Manual Diff?? NO; Mean Corpuscular HGB CONC 32.8 g/dL (32.0-36.0); Mean Corpuscular Hemoglobin 29.8 pg (27.0-31.0); Mean Corpuscular Volume 90.9 fL (80.0-94.0); Mean Platelet Volume 5.5 fL (7.4-10.4); Platelet Count 408 thou/uL (130-400); RBC Distribution Width 14.5 % (11.5-14.5)
[2016-05-26] MEDS: Aztreonam 1 GM in Sodium Chloride 0.9% 100 ML IVPB SCH ×2 (05:30→17:32)
[2016-05-26] MEDS: traMADol HCl 50 MG TAB PO SCH ×4 (05:30→23:46)
[2016-05-26 05:42] LABS: Carbon Dioxide 21 mmol/L (23-31); Chloride 103 mmol/L (98-107); Potassium 4.4 mmol/L (3.5-5.1); Sodium 132 mmol/L (136-145)
[2016-05-26 05:43] LABS: Anion Gap 12 mmol/L (10-20)
[2016-05-26 05:44] LABS: ALT (SGPT) 8 U/L (0-55); AST (SGOT) 12 U/L (5-34); Albumin 2.3 g/dL (3.4-4.8); Alkaline Phosphatase 197 U/L (40-150); BUN (Urea Nitrogen) 9 mg/dL (8.4-25.7); Bilirubin, Total 0.4 mg/dL (0.2-1.2); Calc. Creatinine Clearance 85 mL/min (70-130); Calcium 9.2 mg/dL (7.8-10.44); Estimated GFR-MDRD Greater than 90; Globulin 3.4 g/dL (2.4-3.5); Glucose 114 mg/dL (80-115); Protein, Total 5.7 g/dL (5.8-8.1)
[2016-05-26 05:45] LABS: CRP (Inflammatory) 4.37 mg/dL (= or < 0.5)
[2016-05-26] MEDS: Metoclopramide HCl 10 MG TAB PO SCH (07:20)
[2016-05-26] MEDS: Atenolol 25 MG TAB PO SCH (08:18)
[2016-05-26] MEDS: Ferrous Sulfate 325 MG TAB PO SCH ×2 (08:19→17:33)
[2016-05-26] MEDS: Docusate 100 MG CAP PO SCH ×2 (08:19→21:49)
[2016-05-26] MEDS: Tamsulosin HCl 0.4 MG CAP PO SCH (08:19)
[2016-05-26] MEDS: Aspirin 325 mg Enteric Coated Tablet PO SCH ×2 (08:19→21:48)
[2016-05-26] MEDS: Clopidogrel Bisulfate 75 MG TAB PO SCH (08:19)
[2016-05-26] MEDS: CeleCOXIB 100 MG CAP PO SCH (08:19)
[2016-05-26] MEDS: MAGNESIUM CITRATE 100 MG PO SCH (08:20)
[2016-05-26 08:30] LABS: #Lymphocytes 1.1 thou/uL (1.20-3.40)
[2016-05-26] MEDS: OMEPRAZOLE 40 MG CAPSULE PO SCH (09:44)
[2016-05-26] MEDS: Rifampin 150 MG CAP PO SCH ×2 (10:06→21:48)
[2016-05-26] MEDS: Vancomycin HCl 500 MG in Sodium Chloride 0.9% 100 ML IVPB SCH ×2 (11:29→23:45)
--- NOTE | 2016-05-26 13:23 | PRG ---
DATE OF SERVICE: 05/26/2016 The patient is a pleasant 60-year-old white male with a total left hip, total left knee and femoral shaft replacement done by Dr. Patel, at [facility]. Postoperatively, he has been on vancomycin and rifampin. Dr. Venegas saw him over the weekend and added Azactam and meropenem; awaiting culture and sensitivities, which have been sent to Dr. Santacruz. The patient is supposed to see Dr. Patel this morning within the next hour who will be leaving soon. SUBJECTIVE: The patient states he has no complaints. He states he is doing better. He stood yesterday for about 10 minutes in the ven[place]as. OBJECTIVE: VITAL SIGNS: This morning, revealed a blood pressure of 142/89, pulse 73-74, respirations 18-19, O2 sat 100% on room air and temperature of 98.4. GENERAL: This is a well-developed, very thin white male, in no apparent distress at this time. HEENT: Reveals normocephalic and nontraumatic cranium. Pupils are equal, round and reactive. Extraocular movements are intact. Nose and throat are slightly dry. NECK: Supple, without masses, nodes or bruits. LUNGS: Chest is clear to auscultation. No rales, rhonchi or wheezes are heard. No cough is heard today. HEART: Reveals regular rate and rhythm without murmurs, gallops or rubs. ABDOMEN: Soft, scaphoid, nontender, without organomegaly, normal bowel sounds. GENITOURINARY: Deferred. EXTREMITIES: Reveal total left hip, total left knee and femur have been replaced. Incision looks much improved over the last couple days, minimal drainage is noted and sensitivities are back. The patient presently on vancomycin, rifampin, Azactam and meropenem. LABORATORY DATA: 1. Labs this morning revealed a white count of 5800, hemoglobin of 9.9, hematocrit of 30.3, platelet count of 408,000 and sed rate is 73. 2. Sodium 132, potassium 4.4, chloride 103, carbon dioxide 21 with a C- reactive protein down to 4.37. ASSESSMENt: 1. See Dr. Patel this morning for future plans. 2. Postoperative open reduction internal fixation total left knee, total left hip and left femur. 3. On vancomycin, rifampin, meropenem and Azactam. 4. Hypertension, stable. 5. Juvenile onset rheumatoid arthritis. 6. Benign prostate hypertrophy. 7. Gastroesophageal reflux. 8. Anemia. 9. Peripheral vascular disease. 10. Degenerative joint disease. 11. Osteoporosis. 12. Generalized weakness. PLAN: 1. Sensitivity sent to Dr. Santacruz. 2. Presently on vancomycin, rifampin, Azactam and Maxipime. 3. Continue physical therapy and occupational therapy. 4. Continue deep venous thrombosis and stress ulcer prophylaxis. 5. Continued decubitus precautions. 6. Dr [facility]
[2016-05-26] MEDS: Multivitamin W/ Minerals 1 TAB PO SCH (17:33)
[2016-05-26] MEDS: Teriparatide [Forteo] 20 MCG SC SCH (21:46)
[2016-05-26] MEDS: Calcium Carbonate 500 MG TAB PO SCH (21:47)
[2016-05-26] MEDS: Diazepam 5 MG TAB PO PRN (21:50)
[2016-05-27] MEDS: Cefepime 1 GM in Sodium Chloride 0.9% 100 ML IVPB SCH ×2 (03:35→14:43)
[2016-05-27] MEDS: Aztreonam 1 GM in Sodium Chloride 0.9% 100 ML IVPB SCH ×2 (05:29→17:16)
[2016-05-27] MEDS: traMADol HCl 50 MG TAB PO SCH ×4 (05:29→23:13)
[2016-05-27] MEDS: Acetaminophen/Codeine 30-300mg Tablet PO PRN ×3 (07:21→21:12)
[2016-05-27] MEDS: Metoclopramide HCl 10 MG TAB PO SCH (07:22)
[2016-05-27] MEDS: Ferrous Sulfate 325 MG TAB PO SCH ×2 (08:15→17:16)
[2016-05-27] MEDS: Tamsulosin HCl 0.4 MG CAP PO SCH (09:18)
[2016-05-27] MEDS: CeleCOXIB 100 MG CAP PO SCH (09:18)
[2016-05-27] MEDS: Aspirin 325 mg Enteric Coated Tablet PO SCH ×2 (09:19→21:14)
[2016-05-27] MEDS: Clopidogrel Bisulfate 75 MG TAB PO SCH (09:19)
[2016-05-27] MEDS: Docusate 100 MG CAP PO SCH ×2 (09:20→21:14)
[2016-05-27] MEDS: OMEPRAZOLE 40 MG CAPSULE PO SCH (09:20)
[2016-05-27] MEDS: MAGNESIUM CITRATE 100 MG PO SCH (09:20)
[2016-05-27] MEDS: Atenolol 25 MG TAB PO SCH (09:20)
[2016-05-27] MEDS: Rifampin 150 MG CAP PO SCH ×2 (09:37→21:11)
--- NOTE | 2016-05-27 11:03 | PRG ---
DATE OF SERVICE: 05/27/2016 HISTORY OF PRESENT ILLNESS: Mr. Guerra is a very pleasant 60-year-old white male that visited with Dr. Patel yesterday and was found to have his left total hip disarticulated or dislocated from the socket. Dr. Patel felt that he needed more antibiotics and he scheduled him for a large surgery to replace that hip into a locking hip socket on 07/18/2016. The patient states he has no significant pain, but he is basically nonweightbearing again and on just IV antibiotics. The patient has no complaints. PHYSICAL EXAMINATION: VITAL SIGNS: Blood pressure this morning 128/90, pulse 76-78, respirations 18, O2 sat 100%, T-max 98.4. GENERAL: This is a well-developed, well-nourished, very pleasant white male in no apparent distress at this time. HEENT: Reveals normocephalic, nontraumatic cranium. Pupils equal, round, and reactive. Extraocular movements intact. Nose and throat slightly dry. NECK: Supple, without masses, nodes or bruits. LUNGS: Chest clear to auscultation, no rales, rhonchi, wheezes or cough is heard. CARDIOVASCULAR: Reveals a regular rate and rhythm without murmurs, gallops or rubs. ABDOMEN: Soft, scaphoid, nontender, without organomegaly, normal bowel sounds are noted. No rebound or guarding is noted. GENITOURINARY: Deferred. EXTREMITIES: Reveal total left hip which is dislocated, total left knee which looks good and femur is good. His incision is much improved. The patient is still on antibiotics. IMPRESSION: 1. Postoperative open reduction and internal fixation of the total left knee, total left hip and left femur. 2. Dislocation of the total left hip from the socket. 3. Continue antibiotics. 4. Hypertension. 5. Juvenile onset rheumatoid arthritis. 6. Benign prostatic hypertrophy. 7. Gastroesophageal reflux. 8. Anemia. 9. Peripheral vascular disease. 10. Degenerative joint disease. 11. Osteoporosis. 12. Generalized weakness. 13. Sensitivities have been sent to Dr. Santacruz. PLAN: 1. Continue physical therapy and occupational therapy. 2. Continue deep venous thrombosis and stress ulcer prophylaxis. 3. Continue decubitus precautions. 4. Surgery with Dr Patel June 17, 2016. 5. [facility] antibiotics [facility]
[2016-05-27] MEDS: Vancomycin HCl 500 MG in Sodium Chloride 0.9% 100 ML IVPB SCH ×2 (11:15→23:07)
[2016-05-27] MEDS: Multivitamin W/ Minerals 1 TAB PO SCH (17:16)
[2016-05-27] MEDS: Calcium Carbonate 500 MG TAB PO SCH (21:11)
[2016-05-27] MEDS: Diazepam 5 MG TAB PO PRN (21:11)
[2016-05-27] MEDS: Teriparatide [Forteo] 20 MCG SC SCH (21:15)
[2016-05-28] MEDS: Acetaminophen/Codeine 30-300mg Tablet PO PRN ×4 (02:07→21:33)
[2016-05-28] MEDS: Cefepime 1 GM in Sodium Chloride 0.9% 100 ML IVPB SCH ×2 (02:08→15:00)
[2016-05-28] MEDS: traMADol HCl 50 MG TAB PO SCH ×4 (05:01→23:15)
[2016-05-28] MEDS: Aztreonam 1 GM in Sodium Chloride 0.9% 100 ML IVPB SCH ×2 (05:04→17:22)
[2016-05-28] MEDS: Metoclopramide HCl 10 MG TAB PO SCH (07:45)
[2016-05-28] MEDS: Ferrous Sulfate 325 MG TAB PO SCH ×2 (07:47→17:27)
[2016-05-28] MEDS: Tamsulosin HCl 0.4 MG CAP PO SCH (08:40)
[2016-05-28] MEDS: Docusate 100 MG CAP PO SCH ×2 (08:40→21:33)
[2016-05-28] MEDS: MAGNESIUM CITRATE 100 MG PO SCH (08:40)
[2016-05-28] MEDS: Aspirin 325 mg Enteric Coated Tablet PO SCH ×2 (08:40→21:35)
[2016-05-28] MEDS: Atenolol 25 MG TAB PO SCH (08:40)
[2016-05-28] MEDS: Clopidogrel Bisulfate 75 MG TAB PO SCH (08:40)
[2016-05-28] MEDS: OMEPRAZOLE 40 MG CAPSULE PO SCH (08:40)
[2016-05-28] MEDS: CeleCOXIB 100 MG CAP PO SCH (08:40)
[2016-05-28] MEDS: Rifampin 150 MG CAP PO SCH ×2 (10:14→21:34)
[2016-05-28] MEDS: Vancomycin HCl 500 MG in Sodium Chloride 0.9% 100 ML IVPB SCH ×2 (11:00→23:09)
[2016-05-28 11:40] LABS: Vancomycin, Trough 13.6 ug/mL
--- NOTE | 2016-05-28 13:54 | PRG ---
DATE OF SERVICE: 05/28/2016 HISTORY OF PRESENT ILLNESS: The patient is a 60-year-old white male that visited with Dr. Amanda mckinnon le days ago and was found to have his left total hip dislocated. Dr. Patel felt that he would need t o go ahead and put some total locking hip socket there and he is scheduled to do that on 07/18/2016. Until then, he continue on his antibiotics. Mr. Guerra has no significant pain and he his again n onweightbearing. He has no complaints. PHYSICAL EXAMINATION: VITAL SIGNS: Today reveal blood pressure is 146/78, pulse 69-76, respirations 18, O2 saturation 97% -100%. T-max is 97.4. GENERAL: This is a well-developed, well-nourished, very pleasant white male, in no apparent distres s at this time. HEENT: Reveals normocephalic, nontraumatic cranium. Pupils are equally round and reactive. Extrao cular movements intact. Nose and throat are slightly dry. NECK: Supple, without masses, nodes or bruits. LUNGS: Chest is clear to auscultation, no rales, rhonchi or wheezes, or cough is heard. CARDIOVASCULAR: Heart reveals a regular rate and rhythm without murmurs, gallops or rubs. ABDOMEN: Scaphoid, soft, nontender, without organomegaly, normal bowel sounds are noted. No reboun d or guarding is noted. GENITOURINARY: Deferred. EXTREMITIES: Reveal total left knee which has dislocated total left hip. X-RAY FINDINGS: Repeat x-rays revealed total left hip, which was dislocated. Total left knee, whic h looks good and femur replacement. Incision is much improved. The patient is still on antibiotic s. IMPRESSION: 1. Postoperative open reduction internal fixation total left knee, total left hip and left femur wh ere the total left hip was dislocated. 2. Dislocation total left hip from the socket. 3. Continue antibiotics. 4. Hypertension. 5. Juvenile onset rheumatoid arthritis. 6. Benign prostate hypertrophy. 7. Gastroesophageal reflux. 8. Anemia. 9. Peripheral vascular disease. 10. Degenerative joint disease. 11. Osteoporosis. 12. Generalized weakness. PLAN: 1. Continue present antibiotics. 2. Continue physical therapy and occupational therapy. 3. Continue deep vein thrombosis and stress ulcer prophylaxis. 4. Continue decubitus precautions. 5. Surgery, Dr. Patel on 06/17/2016.
[2016-05-28] MEDS: Multivitamin W/ Minerals 1 TAB PO SCH (17:25)
[2016-05-28] MEDS: Diazepam 5 MG TAB PO PRN (21:34)
[2016-05-28] MEDS: Calcium Carbonate 500 MG TAB PO SCH (21:34)
[2016-05-28] MEDS: Teriparatide [Forteo] 20 MCG SC SCH (21:42)
[2016-05-29] MEDS: Cefepime 1 GM in Sodium Chloride 0.9% 100 ML IVPB SCH ×2 (03:03→15:36)
[2016-05-29] MEDS: Acetaminophen/Codeine 30-300mg Tablet PO PRN ×3 (03:08→21:48)
[2016-05-29] MEDS: traMADol HCl 50 MG TAB PO SCH ×4 (05:53→23:52)
[2016-05-29] MEDS: Aztreonam 1 GM in Sodium Chloride 0.9% 100 ML IVPB SCH ×2 (05:56→16:50)
[2016-05-29] MEDS: Metoclopramide HCl 10 MG TAB PO SCH (07:20)
[2016-05-29] MEDS: OMEPRAZOLE 40 MG CAPSULE PO SCH (09:18)
[2016-05-29] MEDS: MAGNESIUM CITRATE 100 MG PO SCH (09:18)
[2016-05-29] MEDS: Atenolol 25 MG TAB PO SCH (09:20)
[2016-05-29] MEDS: Aspirin 325 mg Enteric Coated Tablet PO SCH ×2 (09:20→21:48)
[2016-05-29] MEDS: Docusate 100 MG CAP PO SCH ×2 (09:21→21:48)
[2016-05-29] MEDS: Tamsulosin HCl 0.4 MG CAP PO SCH (09:21)
[2016-05-29] MEDS: CeleCOXIB 100 MG CAP PO SCH (09:21)
[2016-05-29] MEDS: Rifampin 150 MG CAP PO SCH ×2 (09:22→21:47)
[2016-05-29] MEDS: Clopidogrel Bisulfate 75 MG TAB PO SCH (09:22)
[2016-05-29] MEDS: Ferrous Sulfate 325 MG TAB PO SCH ×2 (09:25→17:00)
--- NOTE | 2016-05-29 09:49 | PRG ---
DATE OF SERVICE: 05/29/2016 HISTORY OF PRESENT ILLNESS: Mr. Guerra is a very pleasant 60-year-old white male that had a total l eft knee, total left hip and femur replacement done by Dr. Patel. He had some problems with infectio n and was started on antibiotics. He was seen by Dr. Patel for reevaluation and found to have a left total hip dislocated. Dr. Patel decided he will put a locking socket in there and scheduled for , until then he will continue his present antibiotics. Mr. Guerra complaints of pain at night, this mainly of jerking spasm in his leg. He has tried Valiu m and it does not work and so therefore we will try some gabapentin 400 mg at bedtime. PHYSICAL EXAMINATION: VITAL SIGNS: Blood pressure this last night was 126/78, pulse 69-76, respirations 18-20, O2 sat 100 %, T-max is 97.3. GENERAL: This is a well-developed, well-nourished, very pleasant white male in no apparent distress at this time. HEENT: Reveals normocephalic, nontraumatic cranium. Pupils are equally round and reactive. Extrao cular movements intact. Nose and throat are slightly dry. NECK: Supple, without masses, nodes or bruits. CHEST: Clear to auscultation. No rales, rhonchi or wheezes are heard. CARDIOVASCULAR: Heart reveals a regular rate and rhythm without murmurs, gallops or rubs. ABDOMEN: Scaphoid, soft, nontender, without organomegaly, normal bowel sounds are noted. No reboun d or guarding is noted. GENITOURINARY: Deferred. EXTREMITIES: Reveal total left hip, which is totally dislocated on x-rays. I have personally revie wed those x-rays. IMPRESSION: 1. Postoperative open reduction internal fixation with total left knee, total left hip and left fem ur. 2. Dislocation of total left hip from the socket. 3. Hypertension. 4. Juvenile onset rheumatoid arthritis. 5. Benign prostatic hypertrophy. 6. Gastroesophageal reflux. 7. Anemia. 8. Peripheral vascular disease with resultant right yzpjf-uzz-wpee amputation. 9. Degenerative joint disease. 10. Osteoporosis. 11. Generalized weakness. PLAN: 1. Continue present antibiotics. 2. Continue physical therapy and occupational therapy. 3. Continue deep venous thrombosis and stress ulcer prophylaxis. 4. Continue decubitus precautions. 5. Surgery scheduled with Dr. Patel on 06/17/2016. 6. The Valium p.r.n., we will put that on hold for right now and we will start some gabapentin 400 mg at bedtime to see if we can help the pain and spasms he has.
[2016-05-29] MEDS: Vancomycin HCl 500 MG in Sodium Chloride 0.9% 100 ML IVPB SCH ×2 (11:20→23:51)
[2016-05-29] MEDS: Multivitamin W/ Minerals 1 TAB PO SCH (16:49)
[2016-05-29] MEDS: Diazepam 5 MG TAB PO PRN (20:19)
[2016-05-29] MEDS: Gabapentin 400 MG CAP PO SCH (21:48)
[2016-05-29] MEDS: Calcium Carbonate 500 MG TAB PO SCH (21:48)
[2016-05-29] MEDS: Teriparatide [Forteo] 20 MCG SC SCH (21:50)
[2016-05-30] MEDS: Cefepime 1 GM in Sodium Chloride 0.9% 100 ML IVPB SCH ×2 (02:44→15:22)
[2016-05-30] MEDS: Aztreonam 1 GM in Sodium Chloride 0.9% 100 ML IVPB SCH ×2 (05:13→17:41)
[2016-05-30] MEDS: traMADol HCl 50 MG TAB PO SCH ×4 (05:54→23:26)
[2016-05-30] MEDS: Metoclopramide HCl 10 MG TAB PO SCH (07:30)
[2016-05-30] MEDS: Ferrous Sulfate 325 MG TAB PO SCH ×2 (08:03→17:42)
[2016-05-30] MEDS: Docusate 100 MG CAP PO SCH ×2 (09:02→21:27)
[2016-05-30] MEDS: Atenolol 25 MG TAB PO SCH (09:02)
[2016-05-30] MEDS: Clopidogrel Bisulfate 75 MG TAB PO SCH (09:02)
[2016-05-30] MEDS: Rifampin 150 MG CAP PO SCH ×2 (09:02→21:24)
[2016-05-30] MEDS: Tamsulosin HCl 0.4 MG CAP PO SCH (09:02)
[2016-05-30] MEDS: Aspirin 325 mg Enteric Coated Tablet PO SCH ×2 (09:02→21:25)
[2016-05-30] MEDS: OMEPRAZOLE 40 MG CAPSULE PO SCH (09:03)
[2016-05-30] MEDS: CeleCOXIB 100 MG CAP PO SCH (09:03)
[2016-05-30] MEDS: MAGNESIUM CITRATE 100 MG PO SCH (09:04)
[2016-05-30 10:20] LABS: Vancomycin, Trough 14.7 ug/mL
[2016-05-30] MEDS: Acetaminophen/Codeine 30-300mg Tablet PO PRN ×3 (10:20→21:26)
[2016-05-30] MEDS: Vancomycin HCl 500 MG in Sodium Chloride 0.9% 100 ML IVPB SCH ×2 (11:15→23:25)
[2016-05-30] MEDS: Multivitamin W/ Minerals 1 TAB PO SCH (17:42)
--- NOTE | 2016-05-30 19:06 | PRG ---
DATE OF SERVICE: 05/30/2016 HISTORY OF PRESENT ILLNESS: Mr. Guerra is a 60-year-old very pleasant white male that had a total k nee, total left hip, femur replacement by Dr. Patel. He was seen by Dr. Patel this past week and note d to have the hip cup dislocated. He was scheduled for surgery on 06/17/2016, but that has been can celed because the company that makes the prosthesis has decided to make him a small custom made pros thesis for his hip. SUBJECTIVE: The patient states he is doing well. He has no complaints. He has no fever, no chills . His pain is stable. VITAL SIGNS: Revealed blood pressure of 126/80, pulse 71-75, respirations 17-20, O2 sat 100% on isaac m air. PHYSICAL EXAMINATION: GENERAL: This is a well-developed, well-nourished, thin white male in no apparent distress at this time. HEENT: Reveals normocephalic, nontraumatic cranium. Pupils are equally round and reactive. Extrao cular movements are intact. Nose and throat were slightly dry. NECK: Supple, without masses, nodes or bruits. CHEST: Clear to auscultation. No rales, rhonchi, wheezes or cough is heard. CARDIOVASCULAR: Reveals a regular rate and rhythm without murmurs, gallops or rubs. ABDOMEN: Scaphoid, soft, nontender, without organomegaly. Normal bowel sounds are noted. No rebou nd or guarding is noted. : Deferred. EXTREMITIES: Reveal no clubbing, cyanosis or edema. Total left hip, is totally dislocate on x-rays . The patient has no significant pain at this time. No other significant drainage, it looks less r ed. IMPRESSION: 1. Postoperative open reduction internal fixation of the total left knee, total left hip and left f emur. 2. Dislocation of the total left hip from the socket. 3. Hypertension. 4. Juvenile onset rheumatoid arthritis. 5. Benign prostatic hypertrophy. 6. Gastroesophageal reflux. 7. Anemia. 8. Peripheral vascular disease with resultant right iswsb-obz-xxkt amputation. 9. Degenerative joint disease. 10. Osteoporosis. 11. Generalized weakness. PLAN: 1. Continue present antibiotics. 2. Continue physical therapy and occupational therapy. 3. Continue DVT and stress ulcer prophylaxis. 4. Continue decubitus precautions. 5. Scheduled surgery with Dr. Patel has been postponed. 6. The patient has been started on gabapentin at bedtime.
[2016-05-30] MEDS: Calcium Carbonate 500 MG TAB PO SCH (21:24)
[2016-05-30] MEDS: Gabapentin 400 MG CAP PO SCH (21:24)
[2016-05-30] MEDS: Teriparatide [Forteo] 20 MCG SC SCH (21:36)
[2016-05-30] MEDS ORDERED: Sodium Chloride 0.9% 500 ML IVPB SCH (23:00)
[2016-05-31] MEDS: Cefepime 1 GM in Sodium Chloride 0.9% 100 ML IVPB SCH ×2 (03:24→15:26)
[2016-05-31] MEDS: traMADol HCl 50 MG TAB PO SCH ×4 (05:31→23:38)
[2016-05-31] MEDS: Aztreonam 1 GM in Sodium Chloride 0.9% 100 ML IVPB SCH ×2 (05:31→17:27)
[2016-05-31] MEDS: Metoclopramide HCl 10 MG TAB PO SCH (07:59)
[2016-05-31] MEDS: Atenolol 25 MG TAB PO SCH (08:57)
[2016-05-31] MEDS: Ferrous Sulfate 325 MG TAB PO SCH ×2 (08:57→17:26)
[2016-05-31] MEDS: CeleCOXIB 100 MG CAP PO SCH (08:58)
[2016-05-31] MEDS: Rifampin 150 MG CAP PO SCH ×2 (08:58→21:28)
[2016-05-31] MEDS: Tamsulosin HCl 0.4 MG CAP PO SCH (08:58)
[2016-05-31] MEDS: Aspirin 325 mg Enteric Coated Tablet PO SCH ×2 (08:58→21:28)
[2016-05-31] MEDS: Docusate 100 MG CAP PO SCH ×2 (08:59→21:28)
[2016-05-31] MEDS: Clopidogrel Bisulfate 75 MG TAB PO SCH (08:59)
[2016-05-31] MEDS: MAGNESIUM CITRATE 100 MG PO SCH (09:00)
[2016-05-31] MEDS: OMEPRAZOLE 40 MG CAPSULE PO SCH (09:00)
[2016-05-31] MEDS: Vancomycin HCl 500 MG in Sodium Chloride 0.9% 100 ML IVPB SCH ×2 (11:23→23:40)
[2016-05-31] MEDS: Acetaminophen/Codeine 30-300mg Tablet PO PRN ×2 (16:25→21:28)
[2016-05-31] MEDS: Multivitamin W/ Minerals 1 TAB PO SCH (17:26)
--- NOTE | 2016-05-31 18:51 | PRG ---
DATE OF SERVICE: 05/31/2016 DATE OF ADMISSION: 05/08/2016 HISTORY OF PRESENT ILLNESS: Mr. Guerra is a 60-year-old pleasant white male with a total knee, tota l left hip and femur placement by Dr. Patel. Patient was seen by Dr. Patel this week and the hip cup has been dislocated. Surgery was schedule for 06/17/2016, but that has been canceled because the co annalisa will make him custom fitted cup for his hip. SUBJECTIVE: The patient has no complaints except he gets indigestion now. He says he wants to take his omeprazole about 6-7 a.m. in the morning before he eats so that when he takes at 9 o clock he a lready indigestion from breakfast. We have compressed that. VITAL SIGNS: Reveal blood pressure is 118/75, pulse 73-77, respirations 18-20, O2 sat 99-100% on ro om air, T-max was 97.2. PHYSICAL EXAMINATION: GENERAL: This is a well-developed, well-nourished, thin white male in no apparent distress at this time. HEENT: Reveals normocephalic, nontraumatic cranium. Pupils are equally round and reactive. Extrao cular movements are intact. Nose and throat slightly dry. NECK: Supple, without masses, nodes or bruits. CHEST: Clear to auscultation. No rales, rhonchi or wheezes are heard. CARDIOVASCULAR: Reveals a regular rate and rhythm without murmurs, gallops or rubs. ABDOMEN: Obese, soft, nontender, without organomegaly. Normal bowel sounds are noted. No rebound or guarding is noted. : Deferred. EXTREMITIES: Reveal no clubbing, cyanosis or edema to left hip, it is totally dislocated according to the x-rays. Patient has no significant pain. The incision site is much improved. IMPRESSION: 1. Postop open reduction internal fixation on total left knee, total left hip and left femur. 2. Total dislocations of the total left hip from the socket. 3. Hypertension. 4. Juvenile onset rheumatoid arthritis. 5. Gastroesophageal reflux. 6. Benign prostatic hypertrophy. 7. Anemia. 8. Peripheral vascular disease with resultant right gfyjb-lhl-vkod amputation. 9. Degenerative joint disease. 10. Osteoporosis. 11. Generalized weakness. PLAN: 1. Continue with the present antibiotics. 2. Remove his omeprazole from 9 a.m. to 7 a.m. 3. Continue physical therapy and occupational therapy. 4. Continue deep venous thrombosis and stress ulcer prophylaxis. 5. Continue decubitus precautions. 6. Surgery to be pending down the road. 7. Patient is presently on gabapentin at bedtime and he states it helps well.
[2016-05-31] MEDS: Calcium Carbonate 500 MG TAB PO SCH (21:27)
[2016-05-31] MEDS: Gabapentin 400 MG CAP PO SCH (21:28)
[2016-05-31] MEDS: Teriparatide [Forteo] 20 MCG SC SCH (21:29)
[2016-06-01] MEDS: Cefepime 1 GM in Sodium Chloride 0.9% 100 ML IVPB SCH ×2 (03:21→15:02)
[2016-06-01] MEDS: Aztreonam 1 GM in Sodium Chloride 0.9% 100 ML IVPB SCH ×2 (05:04→17:36)
[2016-06-01] MEDS: traMADol HCl 50 MG TAB PO SCH ×4 (05:05→23:58)
[2016-06-01] MEDS: Acetaminophen/Codeine 30-300mg Tablet PO PRN ×3 (07:13→20:55)
[2016-06-01] MEDS: Metoclopramide HCl 10 MG TAB PO SCH (07:13)
[2016-06-01] MEDS: Clopidogrel Bisulfate 75 MG TAB PO SCH (08:11)
[2016-06-01] MEDS: CeleCOXIB 100 MG CAP PO SCH (08:12)
[2016-06-01] MEDS: Atenolol 25 MG TAB PO SCH (08:13)
[2016-06-01] MEDS: Tamsulosin HCl 0.4 MG CAP PO SCH (08:14)
[2016-06-01] MEDS: Ferrous Sulfate 325 MG TAB PO SCH ×2 (08:14→17:37)
[2016-06-01] MEDS: Aspirin 325 mg Enteric Coated Tablet PO SCH ×2 (08:14→20:55)
[2016-06-01] MEDS: Docusate 100 MG CAP PO SCH ×2 (08:14→20:57)
[2016-06-01] MEDS: MAGNESIUM CITRATE 100 MG PO SCH (08:15)
[2016-06-01 10:41] LABS: #Basophils 0.1 thou/uL (0.0-0.2); #Eosinphils 0.4 thou/uL (0.0-0.7); #Lymphocytes 1.2 thou/uL (1.20-3.40); #Monocytes 0.7 thou/uL (0.11-0.59); #Neutrophils 3.7 thou/uL (1.40-6.50); %Basophils 1.5 % (0.0-1.0); %Eosinophils 7.1 % (0.0-10.0); %Lymphocytes 20.1 % (21.0-51.0); %Monocytes 10.9 % (0.0-10.0); %Neutrophils 60.3 % (42.0-75.0); Hemoglobin 10.8 g/dL (14.0-18.0); Mean Corpuscular HGB CONC 33.3 g/dL (32.0-36.0); Mean Corpuscular Hemoglobin 30.2 pg (27.0-31.0); Mean Corpuscular Volume 90.6 fl (80.0-94.0); Mean Platelet Volume 5.8 fL (7.4-10.4); Platelet Count 288 thou/uL (130-400); RBC Distribution Width 14.8 % (11.5-14.5); Red Blood Cell (RBC) Count 3.57 mill/uL (4.70-6.10); White Blood Cell (WBC) Count 6.1 thou/uL (4.8-10.8)
[2016-06-01 10:52] LABS: Vancomycin, Trough 10.7 ug/mL
[2016-06-01 11:04] LABS: ALT (SGPT) 7 U/L (0-55); AST (SGOT) 13 U/L (5-34); Albumin 2.4 g/dL (3.4-4.8); Alkaline Phosphatase 194 U/L (40-150); Anion Gap 12 mmol/L (10-20); BUN (Urea Nitrogen) 10 mg/dL (8.4-25.7); Bilirubin, Total 0.2 mg/dL (0.2-1.2); CRP (Inflammatory) 1.82 mg/dL (= or < 0.5); Calc. Creatinine Clearance 81 mL/min (70-130); Calcium 8.5 mg/dL (7.8-10.44); Carbon Dioxide 24 mmol/L (23-31); Chloride 103 mmol/L (98-107); Estimated GFR-MDRD Greater than 90; Glucose 114 mg/dL (80-115); Potassium 4.9 mmol/L (3.5-5.1); Protein, Total 5.4 g/dL (5.8-8.1); Sodium 134 mmol/L (136-145)
[2016-06-01] MEDS: Rifampin 150 MG CAP PO SCH ×2 (11:05→20:57)
[2016-06-01] MEDS: Vancomycin HCl 750 MG in Sodium Chloride 0.9% 250 ML 250 ML IVPB SCH ×2 (11:47→23:58)
[2016-06-01] MEDS: Vancomycin HCl 500 MG in Sodium Chloride 0.9% 100 ML IVPB SCH (11:54)
--- NOTE | 2016-06-01 12:29 | PRG ---
DATE OF SERVICE: 06/01/2016 HISTORY OF PRESENT ILLNESS: Mr. Guerra is a 60-year-old very pleasant white male with a total knee, total left hip, and femur replacement done by Dr. Patel. Unfortunately, the patient had inflammatio n and infection, and was started on antibiotics. Culture was done, he was added antibiotics followe d by Dr. Santacruz. The patient was seen by Dr. Patel and unfortunately had a dislocation of the left hip. Dr. Patel deci ded that it would be better to have custom fitted locking cup for his hip and therefore he was conta cted the company. His surgery for 06/17/2016 and has been delayed into they can get that made. SUBJECTIVE: The patient has no complaints today except he stated to late last night watching a late movies, tired this morning. He has no other complaints. OBJECTIVE: Vital signs this morning reveal blood pressure is 118/80, pulse 68-74, respirations 18-2 0, and O2 sat 98% to 100%. T-max is 97.2. LABORATORY DATA: Pending to this morning. PHYSICAL EXAMINATION: GENERAL: This is a well-developed, thin white male, in no apparent distress at this time. HEENT: Reveals normocephalic, nontraumatic cranium. Pupils equal, round, and reactive. Extraocula r movements intact. Nose and throat slightly dry. NECK: Supple, without mass, nodes or bruits. CHEST: Clear to auscultation. No rales, rhonchi or wheezes are heard. CARDIOVASCULAR: Reveals a regular rate and rhythm without murmurs, gallops or rubs. ABDOMEN: Scaphoid, soft, nontender, without organomegaly, normal bowel sounds are noted. No reboun d or guarding is noted. : Deferred. EXTREMITIES: Reveal no clubbing, cyanosis or edema. Left hip is totally dislocate according the x- rays. The patient has no significant pain. Right leg has above the knee amputation. IMPRESSION: 1. Postoperative open reduction internal fixation of the total left knee, total left hip, and femur . 2. Total dislocation, left total hip from the socket. 3. Hypertension. 4. Juvenile onset rheumatoid arthritis. 5. Gastroesophageal reflux. 6. Benign prostatic hypertrophy. 7. Anemia. 8. Peripheral vascular disease with the results right nsehe-pgs-lzvk amputation. 9. Degenerative joint disease. 10. Osteoporosis. 11. Generalized weakness. PLAN: 1. Continue with the present antibiotics. 2. Move his omeprazole from 9:00 a.m. to 7:00 a.m. 3. The patient will take his own home medicine for his Omeprazole. 4. Continue physical therapy and occupational therapy. 5. Continue DVT and stress ulcer prophylaxis. 6. Continue decubitus precautions. 7. Surgery pending, whenever he can get his locking cup made. 8. The patient will continue on gabapentin at night. He states it helps.
[2016-06-01] MEDS: Multivitamin W/ Minerals 1 TAB PO SCH (17:37)
[2016-06-01] MEDS: Diazepam 5 MG TAB PO PRN (20:56)
[2016-06-01] MEDS: Gabapentin 400 MG CAP PO SCH (20:57)
[2016-06-01] MEDS: Calcium Carbonate 500 MG TAB PO SCH (20:57)
[2016-06-01] MEDS: Teriparatide [Forteo] 20 MCG SC SCH (21:00)
[2016-06-02] MEDS: Cefepime 1 GM in Sodium Chloride 0.9% 100 ML IVPB SCH ×2 (03:30→15:15)
[2016-06-02] MEDS: Acetaminophen/Codeine 30-300mg Tablet PO PRN ×3 (05:20→21:26)
[2016-06-02] MEDS: Aztreonam 1 GM in Sodium Chloride 0.9% 100 ML IVPB SCH ×2 (05:21→17:10)
[2016-06-02] MEDS: traMADol HCl 50 MG TAB PO SCH ×3 (05:22→17:31)
[2016-06-02] MEDS: OMEPRAZOLE 40 MG CAPSULE PO SCH (07:00)
[2016-06-02] MEDS: Metoclopramide HCl 10 MG TAB PO SCH (07:30)
[2016-06-02] MEDS: Ferrous Sulfate 325 MG TAB PO SCH ×2 (08:00→17:36)
[2016-06-02] MEDS: Aspirin 325 mg Enteric Coated Tablet PO SCH ×2 (09:00→21:26)
[2016-06-02] MEDS: MAGNESIUM CITRATE 100 MG PO SCH (09:00)
[2016-06-02] MEDS: Clopidogrel Bisulfate 75 MG TAB PO SCH (09:00)
[2016-06-02] MEDS: Atenolol 25 MG TAB PO SCH (09:00)
[2016-06-02] MEDS: Docusate 100 MG CAP PO SCH ×2 (09:00→21:25)
[2016-06-02] MEDS: Tamsulosin HCl 0.4 MG CAP PO SCH (09:00)
[2016-06-02] MEDS: CeleCOXIB 100 MG CAP PO SCH (09:00)
[2016-06-02] MEDS: Rifampin 150 MG CAP PO SCH ×2 (09:55→21:24)
--- NOTE | 2016-06-02 11:12 | PRG ---
DATE OF SERVICE: 06/02/2016 HISTORY OF PRESENT ILLNESS: Mr. Guerra is a very pleasant 60-year-old white male that had a total k nee, total left hip and femur replacement by Dr. Patel. Unfortunately, he had inflammation and infec tion and was started on antibiotics. He was doing well and was weightbearing as tolerated. He was seen in followup by Dr. Patel and unfortunately had dislocation of his left hip. Dr. Patel made him n onweightbearing and cancelled his surgery until the surgical company could make a custom fitted lock ing cup for his hip which he will have as soon as that is made. SUBJECTIVE: The patient has no complaints today except he is a little tired today. He states he at night, he is just bored. LABORATORY STUDIES: Laboratory from yesterday reveals a white count of 6100, hemoglobin 10.8, hemat ocrit 32.3, platelet count 288,000. Sed rate was 74, which is 1 point higher than it was a week ago . Sodium 134, potassium 4.9, chloride 103, carbon dioxide 24 with a BUN of 10, creatinine 0.59. GFR i s greater than 90. His C-reactive protein has gone from 4.37 down to 1.8. His albumin has gone fro m 2.3 to 2.4. His vancomycin level yesterday was 10.7, so that will be adjusted. PHYSICAL EXAMINATION: GENERAL: This is a well-developed, well-nourished, thin white male in no apparent distress at this time. HEENT: Reveals normocephalic, nontraumatic cranium. Pupils are equally round and reactive. Extrao cular movements intact. Nose and throat slightly dry. NECK: Supple, without masses, nodes or bruits. CHEST: Clear to auscultation. No rales, rhonchi or wheezes are heard. CARDIOVASCULAR: Reveals a regular rate and rhythm without murmurs, gallops or rubs. ABDOMEN: Scaphoid, soft, nontender, without organomegaly, normal bowel sounds are noted. No reboun d or guarding is noted. : Deferred. EXTREMITIES: Reveal no clubbing, cyanosis or edema. Left hip is noted dislocated according to the x-rays. The patient has no significant pain, right leg has above the knee amputation. IMPRESSION: 1. Postop open reduction internal fixation total left knee, total left hip and femur. 2. Total dislocation of the total left hip from the socket. 3. Hypertension. 4. Juvenile onset rheumatoid arthritis. 5. Gastroesophageal reflux disease. 6. Anemia. 7. Peripheral vascular disease with resultant right jdqzo-njv-daod amputation. 8. Degenerative joint disease. 9. Benign prostatic hypertrophy. 10. Osteoporosis. 11. Generalized weakness. PLAN: 1. Continue present antibiotics. 2. The patient now taking omeprazole at 7 o'clock in the morning. 3. The patient takes his own omeprazole from home. 4. Continue physical therapy and occupational therapy. 5. Continue DVT and stress ulcer prophylaxis. 6. Continue decubitus precautions. 7. Surgery whenever he can get his locking cup custom made. 8. Continue gabapentin at night.
[2016-06-02] MEDS: Vancomycin HCl 750 MG in Sodium Chloride 0.9% 250 ML 250 ML IVPB SCH (12:00)
[2016-06-02] MEDS: Multivitamin W/ Minerals 1 TAB PO SCH (17:14)
[2016-06-02] MEDS: Teriparatide [Forteo] 20 MCG SC SCH (21:23)
[2016-06-02] MEDS: Gabapentin 400 MG CAP PO SCH (21:25)
[2016-06-02] MEDS: Diazepam 5 MG TAB PO PRN (21:25)
[2016-06-02] MEDS: Calcium Carbonate 500 MG TAB PO SCH (21:27)
[2016-06-02 23:26] LABS: Vancomycin, Trough 18.2 ug/mL
[2016-06-03] MEDS: Vancomycin HCl 750 MG in Sodium Chloride 0.9% 250 ML 250 ML IVPB SCH ×2 (00:28→12:51)
[2016-06-03] MEDS: traMADol HCl 50 MG TAB PO SCH ×4 (00:28→17:41)
[2016-06-03] MEDS: Cefepime 1 GM in Sodium Chloride 0.9% 100 ML IVPB SCH ×2 (03:02→15:30)
[2016-06-03] MEDS: Acetaminophen/Codeine 30-300mg Tablet PO PRN ×4 (03:03→21:53)
[2016-06-03] MEDS: Aztreonam 1 GM in Sodium Chloride 0.9% 100 ML IVPB SCH ×2 (05:29→17:20)
[2016-06-03] MEDS: OMEPRAZOLE 40 MG CAPSULE PO SCH (07:00)
[2016-06-03] MEDS: Metoclopramide HCl 10 MG TAB PO SCH (07:30)
[2016-06-03] MEDS: Clopidogrel Bisulfate 75 MG TAB PO SCH (07:53)
[2016-06-03] MEDS: Atenolol 25 MG TAB PO SCH (07:54)
[2016-06-03] MEDS: Aspirin 325 mg Enteric Coated Tablet PO SCH ×2 (07:54→21:55)
[2016-06-03] MEDS: Tamsulosin HCl 0.4 MG CAP PO SCH (07:54)
[2016-06-03] MEDS: CeleCOXIB 100 MG CAP PO SCH (07:55)
[2016-06-03] MEDS: Rifampin 150 MG CAP PO SCH ×2 (07:56→21:55)
[2016-06-03] MEDS: Ferrous Sulfate 325 MG TAB PO SCH ×2 (07:57→17:44)
[2016-06-03] MEDS: Docusate 100 MG CAP PO SCH ×2 (07:58→21:55)
[2016-06-03] MEDS: MAGNESIUM CITRATE 100 MG PO SCH (07:59)
[2016-06-03] MEDS: Multivitamin W/ Minerals 1 TAB PO SCH (17:20)
--- NOTE | 2016-06-03 18:53 | PRG ---
DATE OF SERVICE: 06/03/2016 SUBJECTIVE: Mr. Guerra is a very pleasant 60-year-old white male who had a total left knee, total l eft hip and femur placed by Dr. Patel. Unfortunately, it became infected and he was started on antib iotics. He was doing well and was weightbearing as tolerated. He saw Dr. Patel for followup and unf ortunately, he had dislocated his left hip. Dr. Patel made him nonweight bearing and cancelled the s urgery until the surgical company could make him a custom fitted locking cup for his. The patient states he is doing well and he has no complaints today. Laboratory has not done today. OBJECTIVE: VITAL SIGNS: Today, reveal blood pressure of 129/80, pulse 73-77, respirations 18-19, O2 sat 100% a nd T-max 98.4. GENERAL: This is a well-developed, well-nourished, very pleasant white male, in no apparent distres s at this time. HEENT: Reveals normocephalic and nontraumatic cranium. Pupils are equally round and reactive. Ext raocular movements are intact. Nose and throat are slightly dry. NECK: Supple, without masses, nodes or bruits. CHEST: Clear to auscultation. No rales, rhonchi or wheezes are heard. HEART: Reveals a regular rate and rhythm without murmurs, gallops or rubs. ABDOMEN: Scaphoid, soft, nontender, without organomegaly. Normal bowel sounds are noted. No rebou nd or guarding is noted. GENITOURINARY: Deferred. EXTREMITIES: Reveal no clubbing, cyanosis or edema. Left hip is dislocated. No significant pain a t this time. The right leg has an above the knee amputation. IMPRESSION: 1. Postoperative open reduction and internal fixation of the total left knee, total left hip and fe mur. 2. Dislocation of the total left hip from the socket. 3. Hypertension. 4. Juvenile onset rheumatoid arthritis. 5. Gastroesophageal reflux disease. 6. Anemia. 7. Peripheral vascular disease with resultant right vyyol-tzh-zbpm amputation. 8. Degenerative joint disease. 9. Benign prostatic hypertrophy. 10. Osteoporosis. 11. Generalized weakness. PLAN: 1. The patient is taking his omeprazole at 7:00 in the morning. He states he is doing better. 2. The patient is continuing with his IV antibiotics. 3. We will continue with deep vein thrombosis and stress ulcer prophylaxis. 4. The patient is not on any physical therapy, occupational therapy at this time. 5. We are continuing decubitus precautions. 6. Surgery awaiting his custom made locking hip socket. 7. Continue gabapentin at night.
[2016-06-03] MEDS: Calcium Carbonate 500 MG TAB PO SCH (21:54)
[2016-06-03] MEDS: Gabapentin 400 MG CAP PO SCH (21:55)
[2016-06-03] MEDS: Teriparatide [Forteo] 20 MCG SC SCH (21:56)
[2016-06-04] MEDS: traMADol HCl 50 MG TAB PO SCH ×4 (00:26→17:29)
[2016-06-04] MEDS: Vancomycin HCl 750 MG in Sodium Chloride 0.9% 250 ML 250 ML IVPB SCH ×2 (00:27→12:09)
[2016-06-04] MEDS: Cefepime 1 GM in Sodium Chloride 0.9% 100 ML IVPB SCH ×2 (03:14→14:33)
[2016-06-04] MEDS: Acetaminophen/Codeine 30-300mg Tablet PO PRN ×3 (03:21→14:32)
[2016-06-04] MEDS: Aztreonam 1 GM in Sodium Chloride 0.9% 100 ML IVPB SCH ×2 (05:13→17:28)
[2016-06-04] MEDS: OMEPRAZOLE 40 MG CAPSULE PO SCH (06:20)
[2016-06-04] MEDS: Metoclopramide HCl 10 MG TAB PO SCH (08:23)
[2016-06-04] MEDS: Ferrous Sulfate 325 MG TAB PO SCH ×2 (08:24→17:30)
[2016-06-04] MEDS: Aspirin 325 mg Enteric Coated Tablet PO SCH ×2 (08:25→21:41)
[2016-06-04] MEDS: Atenolol 25 MG TAB PO SCH (08:25)
[2016-06-04] MEDS: Docusate 100 MG CAP PO SCH ×2 (08:25→21:42)
[2016-06-04] MEDS: CeleCOXIB 100 MG CAP PO SCH (08:25)
[2016-06-04] MEDS: Clopidogrel Bisulfate 75 MG TAB PO SCH (08:26)
[2016-06-04] MEDS: MAGNESIUM CITRATE 100 MG PO SCH (08:28)
[2016-06-04] MEDS: Tamsulosin HCl 0.4 MG CAP PO SCH (08:28)
[2016-06-04] MEDS: Rifampin 150 MG CAP PO SCH ×2 (10:05→22:43)
[2016-06-04 11:42] LABS: Vancomycin, Trough 25.2 ug/mL
--- NOTE | 2016-06-04 11:55 | PRG ---
DATE OF SERVICE: 06/04/2016 HISTORY OF PRESENT ILLNESS: Mr. Guerra is a very pleasant 60-year-old white male who had a total le ft hip, total left knee and femur replaced by Dr. Patel. Unfortunately it became infected and he was started on antibiotics. He was doing well and was weightbearing as tolerated. Dr. Patel saw him in followup and he was x-rayed and had a dislocated left hip. Dr. Patel made him nonweightbearing and canceled the surgery until the surgery company could make him a custom fitted locking cup. He is ba sically here for continuing on his antibiotics. The patient states he is doing well, he has no comp laints today, he is just getting bored. VITAL SIGNS: Today reveal blood pressure is 108/71, pulse 60-76, respirations 18, O2 sat 97-100%, T -max 98.0. LABORATORY DATA: No labs were done today. PHYSICAL EXAMINATION: GENERAL: This is a well-developed, well-nourished, thin white male in no apparent distress at this time. HEENT: Reveals normocephalic, nontraumatic cranium. Pupils are equally round and reactive. Extrao cular movements intact. Nose and throat are slightly dry. NECK: Supple, without masses, nodes or bruits. LUNGS: Chest is clear to auscultation. No rales, rhonchi or wheezes are heard. CARDIOVASCULAR: Reveals a regular rate and rhythm without murmurs, gallops or rubs. ABDOMEN: Scaphoid, soft, nontender, without organomegaly, normal bowel sounds are noted. No reboun d or guarding is noted. GENITOURINARY: Deferred. EXTREMITIES: Reveal no clubbing, cyanosis or edema. NEUROLOGIC: The patient has left hip dislocated and on the right side he has an above the knee ampu tation. The patient states that he is not sure he got his right medications this morning. He thinks that th is is a pharmacy substitute. I did check with the nurse. She said he did get his omeprazole this morning at 6:30 and had Reglan at 7:00, he just does not remember it. IMPRESSION: 1. Postop open reduction internal fixation, total left knee, total left hip and femur. 2. Dislocation of the total left hip from the socket. 3. Hypertension. 4. Juvenile onset rheumatoid arthritis. 5. Gastroesophageal reflux disease. 6. Anemia. 7. Peripheral vascular disease with resultant right cyzwe-hdb-ruik amputation. 8. Degenerative joint disease. 9. Benign prostatic hypertrophy. 10. Osteoporosis. 11. Generalized weakness. PLAN: 1. The patient will continue taking his omeprazole at 7 o'clock in the morning. 2. The patient will continue with IV antibiotics. 3. Continue DVT thrombosis and stress ulcer prophylaxis. 4. The patient on hold for physical therapy, nonweightbearing at this time. 5. Continue decubitus precautions. 6. We are awaiting surgery for his custom made locking hip socket. 7. Continue gabapentin at night.
[2016-06-04] MEDS: Multivitamin W/ Minerals 1 TAB PO SCH (17:30)
[2016-06-04] MEDS: Gabapentin 400 MG CAP PO SCH (21:42)
[2016-06-04] MEDS: Calcium Carbonate 500 MG TAB PO SCH (21:42)
[2016-06-04] MEDS: Teriparatide [Forteo] 20 MCG SC SCH (21:45)
[2016-06-05] MEDS: traMADol HCl 50 MG TAB PO SCH ×4 (00:58→17:53)
[2016-06-05] MEDS: Vancomycin HCl 500 MG in Sodium Chloride 0.9% 100 ML IVPB SCH ×2 (00:58→11:38)
[2016-06-05] MEDS: Acetaminophen/Codeine 30-300mg Tablet PO PRN ×3 (00:59→21:04)
[2016-06-05] MEDS: Cefepime 1 GM in Sodium Chloride 0.9% 100 ML IVPB SCH ×3 (03:00→21:03)
[2016-06-05] MEDS: Metoclopramide HCl 10 MG TAB PO SCH (06:22)
[2016-06-05] MEDS: OMEPRAZOLE 40 MG CAPSULE PO SCH (06:23)
[2016-06-05] MEDS: CeleCOXIB 100 MG CAP PO SCH (09:10)
[2016-06-05] MEDS: Docusate 100 MG CAP PO SCH ×2 (09:11→21:03)
[2016-06-05] MEDS: Clopidogrel Bisulfate 75 MG TAB PO SCH (09:11)
[2016-06-05] MEDS: Aspirin 325 mg Enteric Coated Tablet PO SCH ×2 (09:11→21:04)
[2016-06-05] MEDS: Atenolol 25 MG TAB PO SCH (09:11)
[2016-06-05] MEDS: Tamsulosin HCl 0.4 MG CAP PO SCH (09:11)
[2016-06-05] MEDS: Ferrous Sulfate 325 MG TAB PO SCH ×2 (09:13→17:55)
[2016-06-05] MEDS: MAGNESIUM CITRATE 100 MG PO SCH (09:13)
--- NOTE | 2016-06-05 09:38 | PRG ---
DATE OF SERVICE: 06/05/2016 HISTORY OF PRESENT ILLNESS: Mr. Guerra is a very pleasant 60-year-old white male that unfortunately had to have a total left hip, total left knee and femur replaced by Dr. Patel. Postoperatively he w as doing well, but that somehow he did dislocate it. He was seen by Dr. Patel and it was felt that yohana casillas needed some type of custom locking socket made. The patient otherwise is doing well. He is continuing on his antibiotics. VITAL SIGNS: Today reveal blood pressure was 127/80, pulse 68-76, respirations 18, O2 sat 97 100%, T-max is 97.4 LABORATORY: Laboratory reveals a vancomycin trough yesterday of 25. Pharmacy is adjusting. PHYSICAL EXAMINATION: GENERAL: This is a well-developed, well-nourished, thin white male in no apparent distress at this time. HEENT: Reveals normocephalic, nontraumatic cranium. Pupils are equally round and reactive. Extrao cular movements intact. Nose and throat are slightly dry. NECK: Supple, without masses, nodes or bruits. CHEST: Clear to auscultation. No rales, rhonchi or wheezes are heard. CARDIOVASCULAR: Reveals a regular rate and rhythm without murmurs, gallops or rubs. ABDOMEN: Scaphoid, soft, nontender, without organomegaly, normal bowel sounds are noted. No reboun d or guarding is noted. : Deferred. EXTREMITIES: Reveal no clubbing, cyanosis or edema. The patient has left hip dislocated and the ri t side has an above the knee amputation. NEUROLOGIC: The patient has no focal deficits. IMPRESSION: 1. Postop open reduction internal fixation, total left knee, total left hip and femur. 2. Dislocations of the left hip from the socket. 3. Hypertension. 4. Anemia. 5. Juvenile onset rheumatoid arthritis. 6. Gastroesophageal reflux disease. 7. Peripheral vascular disease with resultant above the knee amputation. 8. Degenerative joint disease. 9. Benign prostatic hypertrophy. 10. Osteoporosis. 11. Generalized weakness. PLAN: 1. Continue present IV antibiotics. 2. Continue omeprazole at 7 in the morning. 3. Continue DVT and stress ulcer prophylaxis. 4. Continue to hold physical therapy. The patient is nonweightbearing at this time. 5. Continue to decubitus precautions. 6. We are awaiting custom fabrication of his locking hip socket. 7. Continue gabapentin at night.
[2016-06-05] MEDS: Rifampin 150 MG CAP PO SCH ×2 (09:57→21:04)
[2016-06-05] MEDS ORDERED: Aztreonam 1 GM in Sodium Chloride 0.9% 100 ML IVPB SCH (10:00)
[2016-06-05] MEDS: Multivitamin W/ Minerals 1 TAB PO SCH (17:53)
[2016-06-05] MEDS: Teriparatide [Forteo] 20 MCG SC SCH (21:02)
[2016-06-05] MEDS: Diazepam 5 MG TAB PO PRN (21:03)
[2016-06-05] MEDS: Calcium Carbonate 500 MG TAB PO SCH (21:04)
[2016-06-05] MEDS: Gabapentin 400 MG CAP PO SCH (21:04)
[2016-06-06] MEDS: Vancomycin HCl 500 MG in Sodium Chloride 0.9% 100 ML IVPB SCH ×2 (00:27→11:58)
[2016-06-06] MEDS: traMADol HCl 50 MG TAB PO SCH ×4 (00:28→17:42)
[2016-06-06] MEDS: Acetaminophen/Codeine 30-300mg Tablet PO PRN ×3 (05:41→21:05)
[2016-06-06] MEDS: Metoclopramide HCl 10 MG TAB PO SCH (07:00)
[2016-06-06] MEDS: OMEPRAZOLE 40 MG CAPSULE PO SCH (07:00)
[2016-06-06] MEDS: Ferrous Sulfate 325 MG TAB PO SCH ×2 (08:00→16:44)
[2016-06-06] MEDS: CeleCOXIB 100 MG CAP PO SCH (08:43)
[2016-06-06] MEDS: Aspirin 325 mg Enteric Coated Tablet PO SCH ×2 (08:43→21:06)
[2016-06-06] MEDS: Tamsulosin HCl 0.4 MG CAP PO SCH (08:43)
[2016-06-06] MEDS: Clopidogrel Bisulfate 75 MG TAB PO SCH (08:43)
[2016-06-06] MEDS: Docusate 100 MG CAP PO SCH ×2 (08:44→21:06)
[2016-06-06] MEDS: Atenolol 25 MG TAB PO SCH (08:44)
[2016-06-06] MEDS: Cefepime 1 GM in Sodium Chloride 0.9% 100 ML IVPB SCH ×2 (08:45→20:59)
[2016-06-06] MEDS: MAGNESIUM CITRATE 100 MG PO SCH (08:47)
[2016-06-06] MEDS: Rifampin 150 MG CAP PO SCH ×2 (10:10→21:06)
[2016-06-06 11:51] LABS: Vancomycin, Trough 17.2 ug/mL
[2016-06-06] MEDS: Multivitamin W/ Minerals 1 TAB PO SCH (16:44)
--- NOTE | 2016-06-06 18:53 | PRG ---
DATE OF SERVICE: 06/06/2016 SUBJECTIVE: Mr. Guerra is a very pleasant 60-year-old white male that had a total left hip, total l eft knee and femur, replaced by Dr. Patel. Postoperatively, he did well, but somehow dislocated the total left hip. He was seen by Dr. Patel and felt that he needs some type of custom locking socket m ad for the left hip. His surgery will be scheduled when that part is made. Until then, the patient will remain on his antibiotics. PHYSICAL EXAMINATION: VITAL SIGNS: Today reveal blood pressure 122/82, pulse 69-74, respirations 18-20, O2 sat 99-100%, T -max 98.2. GENERAL: This is a well-developed, well-nourished, thin white male in no apparent distress at this time. HEENT: Reveals normocephalic, nontraumatic cranium. Pupils are equally round and reactive. Extrao cular movements intact. Nose and throat are slightly dry. NECK: Supple, without mass, nodes or bruits. CHEST: Clear to auscultation, no rales, rhonchi or wheezes are heard. HEART: Reveals a regular rate and rhythm without murmurs, gallops or rubs. ABDOMEN: Scaphoid, soft, nontender, without organomegaly, normal bowel sounds are noted. No reboun d or guarding is noted. : Deferred. EXTREMITIES: Reveal no clubbing, cyanosis or edema. Left hip was dislocated right side has above t he knee amputation. NEUROLOGIC: Patient has no focal deficits. IMPRESSION: 1. Postop open reduction internal fixation, total left knee, total left hip and femur. 2. Dislocation of the left hip from the socket. 3. Hypertension. 4. Anemia. 5. Juvenile onset rheumatoid arthritis. 6. Gastroesophageal reflux. 7. Peripheral vascular disease with resultant vgkpp-yih-lxtl amputation, stable. 8. Degenerative joint disease. 9. Benign prostatic hypertrophy. 10. Osteoporosis. 11. Generalized weakness. PLAN: 1. Continue present antibiotics. 2. We will repeat labs Wednesday at 11:00 when he gets his vancomycin trough level would done. 3. Continue omeprazole his home medications at 7:00 each morning. 4. Continue DVT and stress ulcer prophylaxis. 5. Continue to hold physical therapy and occupational therapy. 6. Patient is still not weight bearing on that left side. 7. Continue decubitus precautions. 8. Awaiting custom for application of his locking hip socket. 9. Continue his present medications.
[2016-06-06] MEDS: Teriparatide [Forteo] 20 MCG SC SCH (21:02)
[2016-06-06] MEDS: Gabapentin 400 MG CAP PO SCH (21:06)
[2016-06-06] MEDS: Calcium Carbonate 500 MG TAB PO SCH (21:07)
[2016-06-06] MEDS: Diazepam 5 MG TAB PO PRN (21:07)
[2016-06-07] MEDS: Vancomycin HCl 500 MG in Sodium Chloride 0.9% 100 ML IVPB SCH ×3 (00:28→23:39)
[2016-06-07] MEDS: traMADol HCl 50 MG TAB PO SCH ×5 (00:29→23:40)
[2016-06-07] MEDS: Acetaminophen/Codeine 30-300mg Tablet PO PRN ×3 (04:03→21:31)
[2016-06-07] MEDS: Metoclopramide HCl 10 MG TAB PO SCH ×2 (07:10→07:33)
[2016-06-07] MEDS: OMEPRAZOLE 40 MG CAPSULE PO SCH (07:10)
[2016-06-07] MEDS: Ferrous Sulfate 325 MG TAB PO SCH ×2 (08:20→16:34)
[2016-06-07] MEDS: Cefepime 1 GM in Sodium Chloride 0.9% 100 ML IVPB SCH ×2 (08:44→21:27)
[2016-06-07] MEDS: Aspirin 325 mg Enteric Coated Tablet PO SCH ×2 (08:45→21:30)
[2016-06-07] MEDS: CeleCOXIB 100 MG CAP PO SCH (08:46)
[2016-06-07] MEDS: Atenolol 25 MG TAB PO SCH (08:46)
[2016-06-07] MEDS: Clopidogrel Bisulfate 75 MG TAB PO SCH (08:47)
[2016-06-07] MEDS: Docusate 100 MG CAP PO SCH ×2 (08:47→21:30)
[2016-06-07] MEDS: Tamsulosin HCl 0.4 MG CAP PO SCH (08:47)
[2016-06-07] MEDS: MAGNESIUM CITRATE 100 MG PO SCH (08:53)
[2016-06-07] MEDS: Rifampin 150 MG CAP PO SCH ×2 (10:00→21:30)
--- NOTE | 2016-06-07 11:43 | PRG ---
DATE OF SERVICE: 06/07/2016 SUBJECTIVE: Mr. Guerra is a very pleasant 60-year-old white male that had a total left hip, total l eft knee, and femur replaced by Dr. Patel. Postoperatively, he did well for a while, but then unfort unately his left hip became dislocate. He was seen by Dr. Patel and felt that he needs some type of custom locking socket made for the left hip. His surgery will be scheduled When that part is made u ntil then the patient will remain on his present antibiotics. OBJECTIVE: VITAL SIGNS: Today reveal blood pressure 122/70, pulse 68-72, respirations 19-20, and O2 saturation 99% to 100%. PHYSICAL EXAMINATION: GENERAL: This is a well-developed, well-nourished, very pleasant, thin white male in no apparent di stress at this time. HEENT: Reveals normocephalic, nontraumatic cranium. Pupils are equally round and reactive. Extrao cular movements intact. Nose and throat are slightly dry. NECK: Supple, without masses, nodes or bruits. CHEST: Clear to auscultation. No rales, rhonchi or wheezes are heard. CARDIOVASCULAR: Reveals a regular rate and rhythm without murmurs, gallops or rubs. ABDOMEN: Scaphoid, soft, nontender, without organomegaly, normal bowel sounds are noted. No reboun d or guarding is noted. : Deferred. EXTREMITIES: Reveal no clubbing, cyanosis or edema. Left hip has been dislocated. Right hip has a djtj-oda-kvrg amputation. NEUROLOGIC: The patient has no focal deficits. IMPRESSION: 1. Postop open reduction internal fixation, total left knee, total left hip, and femur. 2. Dislocation left hip from the socket. 3. Hypertension. 4. Anemia. 5. Rheumatoid arthritis. 6. Gastroesophageal reflux. 7. Heartburn. 8. Peripheral vascular disease with resultant fbpef-pod-mywc amputation on the right. 9. Degenerative joint disease. 10. Benign prostatic hypertrophy. 11. Osteoporosis. 12. Generalized weakness. PLAN: 1. We will repeat labs tomorrow at 11 o' clock when he gets his vancomycin trough and including CBC , comp met, C-reactive protein, and sed rate. 2. Continue present antibiotics. 3. Continue omeprazole. 4. Continue DVT and stress ulcer prophylaxis. 5. Continue all physical therapy and occupational therapy. 6. Continue nonweightbearing left side. 7. Continue decubitus precautions. 8. Awaiting his custom made locking hip socket. 9. Continue present medication.
[2016-06-07] MEDS: Multivitamin W/ Minerals 1 TAB PO SCH (16:34)
[2016-06-07] MEDS: Teriparatide [Forteo] 20 MCG SC SCH (21:28)
[2016-06-07] MEDS: Diazepam 5 MG TAB PO PRN (21:30)
[2016-06-07] MEDS: Gabapentin 400 MG CAP PO SCH (21:30)
[2016-06-07] MEDS: Calcium Carbonate 500 MG TAB PO SCH (21:30)
[2016-06-08] MEDS: Acetaminophen/Codeine 30-300mg Tablet PO PRN ×3 (04:43→21:22)
[2016-06-08] MEDS: traMADol HCl 50 MG TAB PO SCH ×4 (06:19→23:47)
[2016-06-08] MEDS: OMEPRAZOLE 40 MG CAPSULE PO SCH (07:30)
[2016-06-08] MEDS: Ferrous Sulfate 325 MG TAB PO SCH ×2 (08:30→16:58)
[2016-06-08] MEDS: Cefepime 1 GM in Sodium Chloride 0.9% 100 ML IVPB SCH ×2 (09:31→21:18)
[2016-06-08] MEDS: Clopidogrel Bisulfate 75 MG TAB PO SCH (09:32)
[2016-06-08] MEDS: CeleCOXIB 100 MG CAP PO SCH (09:32)
[2016-06-08] MEDS: Atenolol 25 MG TAB PO SCH (09:32)
[2016-06-08] MEDS: Rifampin 150 MG CAP PO SCH ×2 (09:32→21:20)
[2016-06-08] MEDS: Docusate 100 MG CAP PO SCH ×2 (09:32→21:21)
[2016-06-08] MEDS: Tamsulosin HCl 0.4 MG CAP PO SCH (09:33)
[2016-06-08] MEDS: MAGNESIUM CITRATE 100 MG PO SCH (09:33)
[2016-06-08] MEDS: Aspirin 325 mg Enteric Coated Tablet PO SCH ×2 (09:33→21:21)
[2016-06-08 11:24] LABS: #Basophils 0.1 thou/uL (0.0-0.2); #Eosinphils 0.4 thou/uL (0.0-0.7); #Monocytes 0.5 thou/uL (0.11-0.59); #Neutrophils 3.6 thou/uL (1.40-6.50); %Eosinophils 7.8 % (0.0-10.0); %Lymphocytes 18.3 % (21.0-51.0); %Monocytes 8.8 % (0.0-10.0); %Neutrophils 63.1 % (42.0-75.0); Hemoglobin 10.9 g/dL (14.0-18.0); Mean Corpuscular HGB CONC 32.4 g/dL (32.0-36.0); Mean Corpuscular Hemoglobin 30.5 pg (27.0-31.0); Mean Platelet Volume 6.6 fL (7.4-10.4); Platelet Count 266 thou/uL (130-400); RBC Distribution Width 15.1 % (11.5-14.5); Red Blood Cell (RBC) Count 3.57 mill/uL (4.70-6.10); White Blood Cell (WBC) Count 5.7 thou/uL (4.8-10.8)
[2016-06-08 11:32] LABS: Vancomycin, Trough 15.4 ug/mL
[2016-06-08 11:43] LABS: ALT (SGPT) 9 U/L (0-55); AST (SGOT) 15 U/L (5-34); Albumin 2.8 g/dL (3.4-4.8); Alkaline Phosphatase 176 U/L (40-150); Anion Gap 12 mmol/L (10-20); BUN (Urea Nitrogen) 9 mg/dL (8.4-25.7); Bilirubin, Total 0.5 mg/dL (0.2-1.2); Calc. Creatinine Clearance 87 mL/min (70-130); Calcium 8.5 mg/dL (7.8-10.44); Carbon Dioxide 23 mmol/L (23-31); Chloride 100 mmol/L (98-107); Estimated GFR-MDRD Greater than 90; Globulin 3.5 g/dL (2.4-3.5); Glucose 100 mg/dL (80-115); Potassium 4.7 mmol/L (3.5-5.1); Protein, Total 6.3 g/dL (5.8-8.1); Sodium 130 mmol/L (136-145)
[2016-06-08] MEDS: Vancomycin HCl 500 MG in Sodium Chloride 0.9% 100 ML IVPB SCH ×2 (11:50→23:47)
--- NOTE | 2016-06-08 12:27 | PRG ---
DATE OF SERVICE: 06/08/2016 HISTORY OF PRESENT ILLNESS: Mr. Guerra is a very pleasant 60-year-old white male that had a total l eft hip, total left knee, and femur replaced by Dr. Patel. Postoperatively, he is doing very well, a nd was on IV antibiotics. Unfortunately, somehow his left hip became dislocated. He was seen by Dr Kulwant Patel and felt that some type of custom locking socket made for left hip, needed to be done. His s urgery will be scheduled when that part is available. The patient continues to be on antibiotics. The patient is supposed to get his labs with C-reactive protein and sed rate done today at 11 o' romain ck from the draw his vancomycin trough level. VITAL SIGNS: Today reveal blood pressure is 120/78, pulse 71-72, respirations 19-20, and O2 saturat ion 100% on room air. PHYSICAL EXAMINATION: GENERAL: This is a very thin white male, in no apparent distress at this time. HEENT: Reveals normocephalic, nontraumatic cranium. Pupils are equally round and reactive. Extrao cular movements intact. Nose and throat are slightly dry. NECK: Supple, without masses, nodes or bruits. CHEST: Clear to auscultation, no rales, rhonchi, wheezes or cough is heard. CARDIOVASCULAR: Reveals a regular rate and rhythm without murmurs, gallops or rubs. ABDOMEN: Scaphoid, soft, nontender, without organomegaly, normal bowel sounds are noted. No reboun d or guarding is noted. : Deferred. EXTREMITIES: Reveal no clubbing, cyanosis or edema. Left hip has been dislocated, right hip has a tuyhf-ojx-bezc amputation. Left hip incision from the hip all the way down to the side of the knee, laterally is all clean, not red, not warm, and no drainage. No signs of infection is noted. NEUROLOGIC: The patient has no focal deficits. IMPRESSION: 1. Postop open reduction internal fixation, total left knee, total left hip, and femur. 2. Dislocation, left hip from the socket. 3. Hypertension. 4. Anemia. 5. Juvenile onset rheumatoid arthritis. 6. Gastroesophageal reflux. 7. Heartburn. 8. Peripheral vascular disease with resultant chofn-bex-fcqk amputation of the right. 9. Degenerative joint disease. 10. Benign prostate hypertrophy. 11. Osteoporosis. 12. Generalized weakness. PLAN: 1. Labs will be done today with his vancomycin trough at 11 o' clock including CBC, comp met, C-chris ctive protein, and sed rate. 2. Continue present antibiotics. 3. Continue omeprazole. 4. Continue DVT and stress ulcer prophylaxis. 5. Occupational therapy and physical therapy are on hold at this time. 6. The patient non-weight bearing to the left side. 7. Continue decubitus precautions. 8. Awaiting custom made locking hip socket for surgery.
[2016-06-08] MEDS: Multivitamin W/ Minerals 1 TAB PO SCH (16:58)
[2016-06-08] MEDS: Teriparatide [Forteo] 20 MCG SC SCH (21:20)
[2016-06-08] MEDS: Diazepam 5 MG TAB PO PRN (21:21)
[2016-06-08] MEDS: Gabapentin 400 MG CAP PO SCH (21:21)
[2016-06-08] MEDS: Calcium Carbonate 500 MG TAB PO SCH (22:25)
[2016-06-09] MEDS: Metoclopramide HCl 10 MG TAB PO SCH (06:17)
[2016-06-09] MEDS: traMADol HCl 50 MG TAB PO SCH ×3 (06:17→18:15)
[2016-06-09] MEDS: OMEPRAZOLE 40 MG CAPSULE PO SCH (06:17)
[2016-06-09] MEDS: Ferrous Sulfate 325 MG TAB PO SCH ×2 (08:00→17:00)
[2016-06-09] MEDS: Aspirin 325 mg Enteric Coated Tablet PO SCH ×2 (08:37→21:13)
[2016-06-09] MEDS: Atenolol 25 MG TAB PO SCH (08:37)
[2016-06-09] MEDS: Cefepime 1 GM in Sodium Chloride 0.9% 100 ML IVPB SCH ×2 (08:38→21:10)
[2016-06-09] MEDS: Clopidogrel Bisulfate 75 MG TAB PO SCH (08:40)
[2016-06-09] MEDS: CeleCOXIB 100 MG CAP PO SCH (08:40)
[2016-06-09] MEDS: MAGNESIUM CITRATE 100 MG PO SCH (08:41)
[2016-06-09] MEDS: Docusate 100 MG CAP PO SCH ×2 (08:41→21:14)
[2016-06-09] MEDS: Tamsulosin HCl 0.4 MG CAP PO SCH (08:41)
[2016-06-09] MEDS: Acetaminophen/Codeine 30-300mg Tablet PO PRN ×3 (08:43→21:12)
[2016-06-09] MEDS: Rifampin 150 MG CAP PO SCH ×2 (10:05→21:13)
--- NOTE | 2016-06-09 10:18 | PRG ---
DATE OF SERVICE: 06/09/2016 HISTORY OF PRESENT ILLNESS: Mr. Guerra is a very pleasant 60-year-old white male that had a total l eft hip, total left knee and a total femur replacement done by Dr. Patel. Postoperatively, he did we ll and was on IV antibiotics. Unfortunately, the patient's left hip became dislocated. He was seen by Dr. Patel and Dr. Patel determined that he needed some type of custom made locking left hip socket . That is being made and we are awaiting its arrival, so he can go to surgery. The patient has no complaints today. The patient did have lab yesterday which revealed a white count 5700, hemoglobin 10.9, hematocrit 33 .6, platelet count of 266,000. His sed rate was 67, which is down from the previous 74. Sodium 138, potassium 4.7, chloride 100, carbon dioxide 23 with a BUN of 9, creatinine 0.55. His C- reactive protein is 2.42 which is up from is 1.82. His vancomycin level was 15.4. PHYSICAL EXAMINATION: GENERAL: This is a well-developed, thin white male in no apparent distress at this time. HEENT: Reveals normocephalic, nontraumatic cranium. Pupils are equally round and reactive. Extrao cular movements intact. Nose and throat are slightly dry. NECK: Supple, without masses, nodes or bruits. CHEST: Clear to auscultation. No rales, rhonchi or wheezes are heard. CARDIOVASCULAR: Reveals a regular rate and rhythm without murmurs, gallops or rubs. ABDOMEN: Obese, soft, nontender, without organomegaly, normal bowel sounds are noted. No rebound o r guarding is noted. : Deferred. EXTREMITIES: Reveal no clubbing, cyanosis or edema. NEUROLOGIC: The patient has no focal deficits. IMPRESSION: 1. Postop open reduction internal fixation, total left knee, total left hip and femur. 2. Dislocation, left hip from socket. 3. Hypertension. 4. Anemia. 5. Juvenile onset rheumatoid arthritis. 6. Gastroesophageal reflux. 7. Heartburn. 8. Peripheral vascular disease with resultant wshck-mgt-idvx amputation on the right. 9. Degenerative joint disease. 10. Benign prostatic hypertrophy. 11. Osteoporosis. 12. Generalized weakness. PLAN: 1. Continue present antibiotics. 2. Continue Omeprazole. 3. Continue DVT and stress ulcer prophylaxis. 4. Continue to have the occupational therapy and physical therapy on hold. 5. Continue nonweightbearing status at this time. 6. Continue decubitus precautions. 7. Awaiting custom made locking hip socket for surgery.
[2016-06-09] MEDS: Vancomycin HCl 500 MG in Sodium Chloride 0.9% 100 ML IVPB SCH (12:03)
[2016-06-09] MEDS: Multivitamin W/ Minerals 1 TAB PO SCH (16:59)
[2016-06-09] MEDS: Teriparatide [Forteo] 20 MCG SC SCH (21:11)
[2016-06-09] MEDS: Diazepam 5 MG TAB PO PRN (21:13)
[2016-06-09] MEDS: Gabapentin 400 MG CAP PO SCH (21:13)
[2016-06-09] MEDS: Calcium Carbonate 500 MG TAB PO SCH (21:14)
[2016-06-10] MEDS: Vancomycin HCl 500 MG in Sodium Chloride 0.9% 100 ML IVPB SCH ×2 (00:36→11:57)
[2016-06-10] MEDS: traMADol HCl 50 MG TAB PO SCH ×4 (00:37→17:22)
[2016-06-10] MEDS: Acetaminophen/Codeine 30-300mg Tablet PO PRN ×3 (04:35→21:40)
[2016-06-10] MEDS: OMEPRAZOLE 40 MG CAPSULE PO SCH (06:37)
[2016-06-10] MEDS: Metoclopramide HCl 10 MG TAB PO SCH (06:38)
[2016-06-10] MEDS: Ferrous Sulfate 325 MG TAB PO SCH ×2 (08:09→17:22)
[2016-06-10] MEDS: Clopidogrel Bisulfate 75 MG TAB PO SCH (08:09)
[2016-06-10] MEDS: Docusate 100 MG CAP PO SCH ×2 (08:09→21:14)
[2016-06-10] MEDS: Aspirin 325 mg Enteric Coated Tablet PO SCH ×2 (08:09→21:14)
[2016-06-10] MEDS: CeleCOXIB 100 MG CAP PO SCH (08:09)
[2016-06-10] MEDS: Atenolol 25 MG TAB PO SCH (08:11)
[2016-06-10] MEDS: Cefepime 1 GM in Sodium Chloride 0.9% 100 ML IVPB SCH ×2 (08:12→21:16)
[2016-06-10] MEDS: MAGNESIUM CITRATE 100 MG PO SCH (08:57)
[2016-06-10] MEDS: Tamsulosin HCl 0.4 MG CAP PO SCH (08:57)
[2016-06-10] MEDS: Rifampin 150 MG CAP PO SCH ×2 (08:57→21:15)
--- NOTE | 2016-06-10 10:29 | PRG ---
DATE OF SERVICE: 06/10/2016 SUBJECTIVE: Mr. Guerra is a very pleasant 60-year-old white male with a total left hip, total left knee, and total femur replacement done by Dr. Patel. Postoperatively did well, placed on some IV ant ibiotics were rifampin and vancomycin. Unfortunately, the patient hip became dislocated, seen by Dr Kulwant Patel. Dr. Patel determined need some type of custom made locking hip socket that is being made we are waiting its arrival, so he can go back to surgery. The patient has no complaints today. OBJECTIVE: VITAL SIGNS: Today reveal blood pressure 125/82, pulse 60-68, respirations 18, and O2 saturation 98 .2. PHYSICAL EXAMINATION: GENERAL: This is a well-developed, well-nourished, very pleasant white male, in no apparent distres s at this time. HEENT: Reveals normocephalic, nontraumatic cranium. Pupils are equally round and reactive. Extrao cular movements are intact. Nose and throat are slightly dry. NECK: Supple, without mass, nodes or bruits. CHEST: Clear to auscultation. No rales, rhonchi or wheezes are heard. CARDIOVASCULAR: Reveals a regular rate and rhythm without murmurs, gallops or rubs. ABDOMEN: Scaphoid, soft, nontender, without organomegaly. Normal bowel sounds are noted. No rebou nd or guarding is noted. GENITOURINARY: Deferred. EXTREMITIES: Reveal right ichcr-sdo-meqn amputation on the left side reveals long scar going from t he lateral hip all the way down the lateral knee on the left side. It is healing well, those not re d, it is not warm, it is not draining, and does not look infected. NEUROLOGIC: The patient has no focal deficits. IMPRESSION: 1. Postop open reduction internal fixation total left knee, total left hip, and total femur. 2. Dislocation left hip from the socket. 3. Hypertension. 4. Anemia. 5. Juvenile onset rheumatoid arthritis. 6. Gastroesophageal reflux. 7. Heartburn. 8. Peripheral vascular disease with resultant laevk-lfc-uegp amputation on the right. 9. Degenerative joint disease. 10. Benign prostatic hypertrophy. 11. Osteoporosis. 12. Generalized weakness. PLAN: 1. Continue present antibiotics. 2. Continue omeprazole. 3. Continue DVT and stress ulcer prophylaxis. 4. Continue to have occupational therapy and physical therapy on hold. 5. Nonweightbearing at this time. 6. Decubitus precautions. 7. Awaiting custom made locking hip socket for surgery at this time.
[2016-06-10] MEDS: Multivitamin W/ Minerals 1 TAB PO SCH (17:22)
[2016-06-10] MEDS: Gabapentin 400 MG CAP PO SCH (21:15)
[2016-06-10] MEDS: Calcium Carbonate 500 MG TAB PO SCH (21:19)
[2016-06-10] MEDS: Teriparatide [Forteo] 20 MCG SC SCH (21:24)
[2016-06-11] MEDS: traMADol HCl 50 MG TAB PO SCH ×5 (06:06→18:16)
[2016-06-11] MEDS: Vancomycin HCl 500 MG in Sodium Chloride 0.9% 100 ML IVPB SCH ×3 (06:08→16:58)
[2016-06-11] MEDS: OMEPRAZOLE 40 MG CAPSULE PO SCH (06:22)
[2016-06-11] MEDS: Metoclopramide HCl 10 MG TAB PO SCH (07:32)
[2016-06-11] MEDS: Ferrous Sulfate 325 MG TAB PO SCH ×2 (09:44→17:00)
[2016-06-11] MEDS: Aspirin 325 mg Enteric Coated Tablet PO SCH ×2 (09:44→21:13)
[2016-06-11] MEDS: Atenolol 25 MG TAB PO SCH (09:45)
[2016-06-11] MEDS: CeleCOXIB 100 MG CAP PO SCH (09:45)
[2016-06-11] MEDS: Cefepime 1 GM in Sodium Chloride 0.9% 100 ML IVPB SCH ×2 (09:45→21:12)
[2016-06-11] MEDS: Clopidogrel Bisulfate 75 MG TAB PO SCH (09:46)
[2016-06-11] MEDS: Docusate 100 MG CAP PO SCH ×2 (09:46→21:15)
[2016-06-11] MEDS: MAGNESIUM CITRATE 100 MG PO SCH (09:47)
[2016-06-11] MEDS: Tamsulosin HCl 0.4 MG CAP PO SCH (09:48)
[2016-06-11] MEDS: Rifampin 150 MG CAP PO SCH ×2 (09:48→21:14)
--- NOTE | 2016-06-11 10:31 | PRG ---
DATE OF SERVICE: 06/11/2016 SUBJECTIVE: Mr. Guerra is a very pleasant 60-year-old white male that had a total femur replacement , total left hip, total left knee done by Dr. Patel. Postoperatively, he did well and is transferred here for physical therapy, occupational therapy, and antibiotics of vancomycin and rifampin. Unfortunately, somehow the patient's hip became dislocated. He was seen again by Dr. Patel who deter mined that he needs some type of custom made locking hip socket, which is being made at this time. Since this is made, he would return to [facility] for implant of that. The patient has no complaints today, but he is anxious to go home or just to get out of the hospital . He and his nurse significant other have been called on Dr. Santacruz' office about medications. The patient has no complaints at this time. PHYSICAL EXAMINATION: VITAL SIGNS: Reveal blood pressure 114/77, pulse 57-64, respirations 20, O2 sat 99-100%, temperatur e 98.0. GENERAL: This is a well-developed, well-nourished, thin white male in no apparent distress at this time. HEENT: Reveals normocephalic, nontraumatic cranium. Pupils are equally round and reactive. Extrao cular movements intact. Nose and throat are slightly dry. NECK: Supple, without masses, nodes or bruits. CHEST: Clear to auscultation, no rales, rhonchi, wheezes or cough is heard. CARDIOVASCULAR: Reveals a regular rate and rhythm without murmurs, gallops or rubs. ABDOMEN: Scaphoid, soft, nontender, without organomegaly. Normal bowel sounds are noted. No rebou nd or guarding is noted. : Deferred. EXTREMITIES: Reveal no clubbing, cyanosis or edema. The patient has a right lfeiy-phl-sdbl amputat ion. On the left side, the patient has a long scar released from the lateral hip all the way down t o the lateral part of the knee on the left side. It is healing well. It is still not red, hot, war m, draining or indurated. It does not look infected. NEUROLOGIC: The patient has no focal deficits. IMPRESSION: 1. Postop open reduction and internal fixation of the total left knee, total left hip and the total femur. 2. Dislocation of the left hip from the socket. 3. Hypertension. 4. Anemia. 5. Juvenile onset rheumatoid arthritis. 6. Gastroesophageal reflux. 7. Heartburn. 8. Peripheral vascular disease with resultant bikkb-wxh-kjgk amputation on the right. 9. Degenerative joint disease. 10. Benign prostatic hypertrophy. 11. Osteoporosis. 12. Generalized weakness. PLAN: 1. Continue present antibiotics. 2. Continue omeprazole. 3. Continue DVT and stress ulcer prophylaxis. 4. Continue occupational therapy and physical therapy on hold. 5. Nonweightbearing at this time, awaiting doctor Dr. Patel's call to return to surgery. 6. Decubitus precautions. 7. Waiting custom made locking hip socket for surgery.
[2016-06-11] MEDS: Acetaminophen/Codeine 30-300mg Tablet PO PRN ×2 (12:16→21:15)
[2016-06-11] MEDS: Multivitamin W/ Minerals 1 TAB PO SCH (17:00)
[2016-06-11] MEDS: Gabapentin 400 MG CAP PO SCH (21:13)
[2016-06-11] MEDS: Calcium Carbonate 500 MG TAB PO SCH (21:14)
[2016-06-11] MEDS: Teriparatide [Forteo] 20 MCG SC SCH (21:25)
[2016-06-12] MEDS: traMADol HCl 50 MG TAB PO SCH ×5 (00:25→17:32)
[2016-06-12] MEDS: Acetaminophen/Codeine 30-300mg Tablet PO PRN ×4 (02:27→22:38)
[2016-06-12 05:37] LABS: Vancomycin, Trough 13.6 ug/mL
[2016-06-12] MEDS: OMEPRAZOLE 40 MG CAPSULE PO SCH (06:15)
[2016-06-12] MEDS: Metoclopramide HCl 10 MG TAB PO SCH (06:15)
[2016-06-12] MEDS: Vancomycin HCl 500 MG in Sodium Chloride 0.9% 100 ML IVPB SCH ×2 (06:16→17:31)
[2016-06-12] MEDS: Atenolol 25 MG TAB PO SCH (09:22)
[2016-06-12] MEDS: Docusate 100 MG CAP PO SCH ×2 (09:23→21:27)
[2016-06-12] MEDS: Rifampin 150 MG CAP PO SCH ×2 (09:23→21:27)
[2016-06-12] MEDS: Aspirin 325 mg Enteric Coated Tablet PO SCH ×2 (09:23→21:27)
[2016-06-12] MEDS: Tamsulosin HCl 0.4 MG CAP PO SCH (09:24)
[2016-06-12] MEDS: Ferrous Sulfate 325 MG TAB PO SCH ×2 (09:24→17:32)
[2016-06-12] MEDS: CeleCOXIB 100 MG CAP PO SCH (09:24)
[2016-06-12] MEDS: Clopidogrel Bisulfate 75 MG TAB PO SCH (09:25)
[2016-06-12] MEDS: Cefepime 1 GM in Sodium Chloride 0.9% 100 ML IVPB SCH ×2 (09:25→21:26)
[2016-06-12] MEDS: MAGNESIUM CITRATE 100 MG PO SCH (09:29)
--- NOTE | 2016-06-12 12:42 | PRG ---
DATE OF SERVICE: 06/12/2016 SUBJECTIVE: Mr. Guerra is a very pleasant 60-year-old white male with a total femur replacement, to william left hip replacement and total knee done by Dr. Patel. Postoperatively, he did well, but then he was transferred here for physical therapy, occupational therapy and weightbearing as tolerated. He is also on antibiotics of vancomycin and rifampin. Unfortunately, the patient somehow dislocated t he hip. He was seen by Dr. Patel, who determined that he need some type of custom made locking hip s ocket, which is being made at this time. He has returned to [facility] when daryl t custom locking hip socket is available for surgical and plan. The patient has no complaints today . He states he is anxious about going home. He states he is eating well, although he is not gettin g food. He has no other complaints. OBJECTIVE: GENERAL: This is a well-developed, well-nourished, thin white male in no apparent distress at this time. HEENT: Reveals normocephalic and nontraumatic cranium. Pupils are equally round and reactive. Ext raocular movements are intact. Nose and throat are slightly dry. NECK: Supple, without masses, nodes or bruits. CHEST: Clear to auscultation. No rales, rhonchi or wheezes are heard. CARDIOVASCULAR: Reveals a regular rate and rhythm without murmurs, gallops or rubs. ABDOMEN: Soft and nontender, without organomegaly. Normal bowel sounds are noted. No rebound or g uarding is noted. GENITOURINARY: Deferred. EXTREMITIES: Reveal no clubbing, cyanosis or edema. The patient's right anfpt-fec-nrii is amputate d. On the left side, the patient has a long scar from the lateral hip all the way down to the later al part of his knee on the left side. He still continues to heal well. It is not red, it is not sw ollen, it is not inflamed and it is not draining. NEUROLOGIC: The patient has no focal deficits. ASSESSMENT: 1. Postoperative open reduction and internal fixation of the total left knee, total left hip and to william femur. 2. Dislocation of the left hip from the socket. 3. Hypertension. 4. Anemia. 5. Juvenile onset rheumatoid arthritis. 6. Gastroesophageal reflux. 7. Heartburn. 8. Peripheral vascular disease with resultant above the knee amputation on the right. 9. Degenerative joint disease. 10. Benign prostatic hypertrophy. 11. Osteoporosis. 12. Generalized weakness. PLAN: 1. Continue present antibiotics. 2. Continue omeprazole. 3. Continue deep vein thrombosis and stress ulcer prophylaxis. 4. Continue occupational therapy and physical therapy, which is presently on hold. 5. Nonweightbearing at this time per Dr. Patel's orders. 6. Continue decubitus precautions. 7. Waiting on custom made locking hip socket for surgery.
[2016-06-12] MEDS: Multivitamin W/ Minerals 1 TAB PO SCH (17:32)
[2016-06-12] MEDS: Gabapentin 400 MG CAP PO SCH (21:27)
[2016-06-12] MEDS: Calcium Carbonate 500 MG TAB PO SCH (21:28)
[2016-06-12] MEDS: Teriparatide [Forteo] 20 MCG SC SCH (21:29)
[2016-06-13] MEDS: traMADol HCl 50 MG TAB PO SCH ×4 (02:13→18:21)
[2016-06-13] MEDS: Acetaminophen/Codeine 30-300mg Tablet PO PRN ×3 (04:33→21:13)
[2016-06-13] MEDS: OMEPRAZOLE 40 MG CAPSULE PO SCH (06:02)
[2016-06-13] MEDS: Metoclopramide HCl 10 MG TAB PO SCH (06:02)
[2016-06-13] MEDS: Vancomycin HCl 500 MG in Sodium Chloride 0.9% 100 ML IVPB SCH ×2 (06:43→18:19)
[2016-06-13] MEDS: Ferrous Sulfate 325 MG TAB PO SCH ×2 (09:02→16:33)
[2016-06-13] MEDS: Docusate 100 MG CAP PO SCH ×2 (09:03→21:12)
[2016-06-13] MEDS: Atenolol 25 MG TAB PO SCH (09:03)
[2016-06-13] MEDS: Cefepime 1 GM in Sodium Chloride 0.9% 100 ML IVPB SCH ×2 (09:05→21:09)
[2016-06-13] MEDS: Clopidogrel Bisulfate 75 MG TAB PO SCH (09:06)
[2016-06-13] MEDS: Tamsulosin HCl 0.4 MG CAP PO SCH (09:06)
[2016-06-13] MEDS: Rifampin 150 MG CAP PO SCH ×2 (09:06→21:12)
[2016-06-13] MEDS: MAGNESIUM CITRATE 100 MG PO SCH (09:13)
[2016-06-13] MEDS: CeleCOXIB 100 MG CAP PO SCH (09:17)
[2016-06-13] MEDS: Aspirin 325 mg Enteric Coated Tablet PO SCH ×2 (09:18→21:13)
[2016-06-13] MEDS: Multivitamin W/ Minerals 1 TAB PO SCH (16:30)
--- NOTE | 2016-06-13 19:13 | PRG ---
DATE OF SERVICE: 06/13/2016 SUBJECTIVE: Mr. Guerra is doing well. Denies any complaints, resting comfortably, mobile in his eelchair. They apparently have to custom bar gauger and lubricator tender of his implant so that is on the way, in the meantime, he is continuing on his antibiotics and he is tolerating it without any issues. OBJECTIVE: VITAL SIGNS: He is afebrile, heart rate is 60, respirations are 18, oxygen saturation is 100%, bloo d pressure 129/76. CARDIOVASCULAR: S1, S2 plus. RESPIRATORY: Normal vesicular breath sounds. ABDOMEN: Soft, nontender, bowel sounds heard in all quadrants. EXTREMITIES: Without cyanosis or clubbing. Last vancomycin trough was 13.6. IMPRESSION: 1. Open reduction internal fixation of left knee, left hip and femur with prosthesis. 2. Dislocation of the left hip from the socket with fracture of hardware requiring remanufacture of the hardware. 3. Hypertension. 4. Rheumatoid arthritis. 5. Gastroesophageal reflux disease. 6. Peripheral vascular disease. 7. Infectious arthritis. PLAN: 1. Continue IV antibiotics. 2. Nutritional support. 3. Deep venous thrombosis and stress ulcer prophylaxis. 4. Decubitus precautions. 5. Await custom made prosthesis and routine laboratory values.
[2016-06-13] MEDS: Gabapentin 400 MG CAP PO SCH (21:19)
[2016-06-13] MEDS: Teriparatide [Forteo] 20 MCG SC SCH (21:40)
[2016-06-13] MEDS: Calcium Carbonate 500 MG TAB PO SCH (21:54)
[2016-06-14] MEDS: traMADol HCl 50 MG TAB PO SCH ×5 (00:59→23:14)
[2016-06-14] MEDS: Vancomycin HCl 500 MG in Sodium Chloride 0.9% 100 ML IVPB SCH (06:01)
[2016-06-14] MEDS: OMEPRAZOLE 40 MG CAPSULE PO SCH (06:03)
[2016-06-14] MEDS: Metoclopramide HCl 10 MG TAB PO SCH (06:03)
[2016-06-14] MEDS: Ferrous Sulfate 325 MG TAB PO SCH ×2 (07:55→17:33)
[2016-06-14] MEDS: CeleCOXIB 100 MG CAP PO SCH (09:45)
[2016-06-14] MEDS: Cefepime 1 GM in Sodium Chloride 0.9% 100 ML IVPB SCH ×2 (09:45→21:05)
[2016-06-14] MEDS: Clopidogrel Bisulfate 75 MG TAB PO SCH (09:45)
[2016-06-14] MEDS: Acetaminophen/Codeine 30-300mg Tablet PO PRN ×3 (09:45→22:06)
[2016-06-14] MEDS: Aspirin 325 mg Enteric Coated Tablet PO SCH ×2 (09:45→21:11)
[2016-06-14] MEDS: Tamsulosin HCl 0.4 MG CAP PO SCH (09:45)
[2016-06-14] MEDS: MAGNESIUM CITRATE 100 MG PO SCH (09:45)
[2016-06-14] MEDS: Atenolol 25 MG TAB PO SCH (09:45)
[2016-06-14] MEDS: Docusate 100 MG CAP PO SCH ×2 (09:45→21:11)
[2016-06-14] MEDS: Rifampin 150 MG CAP PO SCH ×2 (09:45→21:12)
--- NOTE | 2016-06-14 12:55 | PRG ---
DATE OF SERVICE: 06/14/2016 SUBJECTIVE: Mr. Guerra is doing well. Denies any complaints, resting comfortably, tolerating his a ntibiotics. OBJECTIVE: VITAL SIGNS: He is afebrile, heart rate is 67, respirations 18, oxygen sats 95%, blood pressure 117 /78. CARDIOVASCULAR SYSTEM: S1, S2 plus. RESPIRATORY SYSTEM: Normal vesicular breath sounds. ABDOMEN: Soft, nontender, bowel sounds heard in all quadrants. EXTREMITIES: Without cyanosis or clubbing. IMPRESSION: 1. Septic arthritis with him needing extensive hardware placement. 2. Fracture of hardware requiring, awaiting on custom hardware to come in. 3. Juvenile rheumatoid arthritis. 4. Gastroesophageal reflux disease. 5. Peripheral vascular disease. 6. Deconditioning. PLAN: 1. Continue IV antibiotics. 2. Nutritional support. 3. DVT and stress ulcer prophylaxis. 4. Orthopedic precautions. 5. Await custom hardware. 6. Dr. Aristides Guerrero back tonight.
[2016-06-14 17:24] LABS: Vancomycin, Trough 16.2 ug/mL
[2016-06-14] MEDS: Multivitamin W/ Minerals 1 TAB PO SCH (17:32)
[2016-06-14] MEDS: Vancomycin HCl 750 MG in Sodium Chloride 0.9% 250 ML 250 ML IVPB SCH (18:05)
[2016-06-14] MEDS: Calcium Carbonate 500 MG TAB PO SCH (21:11)
[2016-06-14] MEDS: Gabapentin 400 MG CAP PO SCH (21:12)
[2016-06-14] MEDS: Teriparatide [Forteo] 20 MCG SC SCH (21:13)
[2016-06-15] MEDS: Vancomycin HCl 750 MG in Sodium Chloride 0.9% 250 ML 250 ML IVPB SCH ×2 (05:22→17:37)
[2016-06-15] MEDS: traMADol HCl 50 MG TAB PO SCH ×3 (05:39→18:07)
[2016-06-15] MEDS: Acetaminophen/Codeine 30-300mg Tablet PO PRN ×4 (05:43→21:01)
[2016-06-15] MEDS: Metoclopramide HCl 10 MG TAB PO SCH (05:59)
[2016-06-15] MEDS: OMEPRAZOLE 40 MG CAPSULE PO SCH (05:59)
[2016-06-15] MEDS: Ferrous Sulfate 325 MG TAB PO SCH ×2 (08:00→17:31)
[2016-06-15] MEDS: Cefepime 1 GM in Sodium Chloride 0.9% 100 ML IVPB SCH ×2 (09:04→20:59)
[2016-06-15] MEDS: CeleCOXIB 100 MG CAP PO SCH (09:05)
[2016-06-15] MEDS: Aspirin 325 mg Enteric Coated Tablet PO SCH ×2 (09:05→21:03)
[2016-06-15] MEDS: Atenolol 25 MG TAB PO SCH (09:05)
[2016-06-15] MEDS: Tamsulosin HCl 0.4 MG CAP PO SCH (09:05)
[2016-06-15] MEDS: Clopidogrel Bisulfate 75 MG TAB PO SCH (09:06)
[2016-06-15] MEDS: MAGNESIUM CITRATE 100 MG PO SCH (09:07)
[2016-06-15] MEDS: Rifampin 150 MG CAP PO SCH ×2 (09:07→21:03)
[2016-06-15] MEDS: Docusate 100 MG CAP PO SCH ×2 (09:28→21:03)
--- NOTE | 2016-06-15 09:44 | PRG ---
DATE OF SERVICE: 06/15/2016 HISTORY OF PRESENT ILLNESS: This is a 60-year-old white male that unfortunately dislocated his tota l left hip. He recently had a total left hip, total knee and total femur done by Dr. Patel. He is o n antibiotics of vancomycin and rifampin. Dr. Patel did see the patient and initiated a custom made locking hip sock which is being made at this time. We are awaiting that arrival so he can go back t o surgery for therapy. It was reported by Dr. Santacruz that he needs antibiotics until 07/01/2016. SUBJECTIVE: The patient states he is doing well. He is bored. He has no complaints. VITAL SIGNS: Today reveal blood pressure 125/76, pulse 65-67, respirations 18-20, O2 saturation 99% , temperature max 98.0. PHYSICAL EXAMINATION: GENERAL: This is a well-developed, well-nourished, thin white male in no apparent distress at this time. HEENT: Reveals normocephalic, nontraumatic cranium. Pupils are equally round and reactive. Extrao cular movements intact. Nose and throat are slightly dry. NECK: Supple, without masses, nodes or bruits. LUNGS: Chest is clear to auscultation. No rales, rhonchi or wheezes are heard. CARDIOVASCULAR: Reveals a regular rate and rhythm without murmurs, gallops or rubs. ABDOMEN: Scaphoid, soft, nontender, without organomegaly, normal bowel sounds are noted. No reboun d or guarding is noted. GENITOURINARY: Deferred. EXTREMITIES: Reveal right adlck-wje-tvbb amputation, left long incision which is not red or drainin g at this time from the left hip down to the left lateral knee. IMPRESSION: 1. Septic arthritis requiring further locking hip socket replacement. 2. Awaiting custom hardware to come in. 3. Juvenile onset rheumatoid arthritis. 4. Hypertension. 5. Anemia. 6. Gastroesophageal reflux disease. 7. Peripheral vascular disease with resultant mrkbr-bus-dglb amputation of the right. 8. Degenerative joint disease. 9. Benign prostatic hypertrophy. 10. Osteoporosis. 11. Generalized weakness. PLAN: 1. Continue present IV antibiotics. 2. Continue to follow vancomycin level. 3. Continue omeprazole. 4. Continue DVT and stress ulcer prophylaxis. 5. PT and OT are presently on hold. 6. Nonweightbearing at this time per Dr. Patel's orders. 7. Continue decubitus precautions. 8. Lab tomorrow.
[2016-06-15] MEDS: Multivitamin W/ Minerals 1 TAB PO SCH (16:48)
[2016-06-15] MEDS: Gabapentin 400 MG CAP PO SCH (21:03)
[2016-06-15] MEDS: Calcium Carbonate 500 MG TAB PO SCH (21:03)
[2016-06-15] MEDS: Teriparatide [Forteo] 20 MCG SC SCH (21:04)
[2016-06-16] MEDS: traMADol HCl 50 MG TAB PO SCH ×5 (00:32→17:08)
[2016-06-16 05:44] LABS: Vancomycin, Trough 22.1 ug/mL
[2016-06-16 05:49] LABS: ALT (SGPT) 9 U/L (0-55); AST (SGOT) 13 U/L (5-34); Albumin 2.8 g/dL (3.4-4.8); Alkaline Phosphatase 168 U/L (40-150); Anion Gap 12 mmol/L (10-20); BUN (Urea Nitrogen) 8 mg/dL (8.4-25.7); Bilirubin, Total 0.3 mg/dL (0.2-1.2); CRP (Inflammatory) 1.74 mg/dL (= or < 0.5); Calc. Creatinine Clearance 76 mL/min (70-130); Calcium 8.5 mg/dL (7.8-10.44); Carbon Dioxide 21 mmol/L (23-31); Chloride 107 mmol/L (98-107); Estimated GFR-MDRD Greater than 90; Globulin 3.3 g/dL (2.4-3.5); Glucose 106 mg/dL (80-115); Potassium 4.7 mmol/L (3.5-5.1); Protein, Total 6.1 g/dL (5.8-8.1); Sodium 135 mmol/L (136-145)
[2016-06-16] MEDS: Vancomycin HCl 500 MG in Sodium Chloride 0.9% 100 ML IVPB SCH ×2 (05:58→17:09)
[2016-06-16] MEDS: OMEPRAZOLE 40 MG CAPSULE PO SCH (05:59)
[2016-06-16] MEDS: Metoclopramide HCl 10 MG TAB PO SCH (05:59)
[2016-06-16 06:00] LABS: #Basophils 0.1 thou/uL (0.0-0.2); #Eosinphils 0.6 thou/uL (0.0-0.7); #Monocytes 0.7 thou/uL (0.11-0.59); #Neutrophils 2.8 thou/uL (1.40-6.50); %Basophils 1.9 % (0.0-1.0); %Eosinophils 12.3 % (0.0-10.0); %Lymphocytes 19.7 % (21.0-51.0); %Monocytes 13.5 % (0.0-10.0); %Neutrophils 52.6 % (42.0-75.0); Hemoglobin 11.2 g/dL (14.0-18.0); Mean Corpuscular HGB CONC 34.6 g/dL (32.0-36.0); Mean Corpuscular Hemoglobin 32.7 pg (27.0-31.0); Mean Corpuscular Volume 94.3 fl (80.0-94.0); Mean Platelet Volume 7.7 fL (7.4-10.4); Platelet Count 216 thou/uL (130-400); Red Blood Cell (RBC) Count 3.43 mill/uL (4.70-6.10); White Blood Cell (WBC) Count 5.3 thou/uL (4.8-10.8)
[2016-06-16] MEDS: Ferrous Sulfate 325 MG TAB PO SCH ×2 (08:23→17:08)
[2016-06-16] MEDS: Docusate 100 MG CAP PO SCH ×2 (09:00→21:32)
[2016-06-16] MEDS: Cefepime 1 GM in Sodium Chloride 0.9% 100 ML IVPB SCH ×2 (09:00→21:29)
[2016-06-16] MEDS: CeleCOXIB 100 MG CAP PO SCH (09:05)
[2016-06-16] MEDS: Clopidogrel Bisulfate 75 MG TAB PO SCH (09:05)
[2016-06-16] MEDS: Aspirin 325 mg Enteric Coated Tablet PO SCH ×2 (09:05→21:32)
[2016-06-16] MEDS: Tamsulosin HCl 0.4 MG CAP PO SCH (09:10)
[2016-06-16] MEDS: Atenolol 25 MG TAB PO SCH (09:39)
[2016-06-16] MEDS: MAGNESIUM CITRATE 100 MG PO SCH (09:42)
[2016-06-16] MEDS: Rifampin 150 MG CAP PO SCH ×2 (09:46→21:31)
--- NOTE | 2016-06-16 15:32 | PRG ---
DATE OF SERVICE: 06/16/2016 HISTORY OF PRESENT ILLNESS: The patient is a very pleasant 60-year-old white male, unfortunately di slocate his left total hip. He recently had a left hip total knee and left femur done by Dr. Patel. He has been here on vancomycin and rifampin for several weeks and his labs were told to Dr. Santacruz th at were done this morning. Apparently, he needs antibiotics until [address] around [address] Dr. Santacruz is evaluating CRP and sed rate today. Subjectively, the patient's states he would like to go home if he can get the antibiotics to home. OBJECTIVE: VITAL SIGNS: Today reveal blood pressure 131/89, pulse 68-72, respirations 18-20, O2 saturation 99% , temperature 97.8. GENERAL: This is a well-developed, well-nourished, very pleasant white male in no apparent distress at this time. HEENT: Reveals normocephalic, nontraumatic cranium. Pupils are equally round and reactive. Extrao cular movements intact. Nose and throat are slightly dry. NECK: Supple, without masses, nodes or bruits. CHEST: Clear to auscultation. No rales, no rhonchi, no wheezes or cough is heard. CARDIOVASCULAR: Heart reveals a regular rate and rhythm without murmurs, gallops or rubs. ABDOMEN: Scaphoid, soft, nontender, without organomegaly, normal bowel sounds are noted. No reboun d or guarding is noted. : Deferred. EXTREMITIES: Reveal right below the knee amputation. Left long incision is noted from the left hip all the way down to the left lateral knee. No redness, no warmth, and no drainage is well healed. LABORATORY DATA: Reveals white count is 5300, hemoglobin 11.2, hematocrit 32.3 with a platelet coun t of 216,000. Sodium 135, potassium 4.7, chloride 107, carbon dioxide 21 with a BUN of 8, creatinin e 0.59. His sed rate is down from 67 down to 51 today. His C-reactive protein is down from 2.42 do wn to 1.74 today. Alkaline phosphatase is 168. His vancomycin trough today was 22.1. ASSESSMENT: 1. Septic arthritis requiring locking hip socket. 2. Awaiting custom hardware to come in. 3. Juvenile onset rheumatoid arthritis. 4. Osteomyelitis with septic arthritis. 5. Hypertension. 6. Anemia. 7. Gastroesophageal reflux disease. 8. Peripheral vascular disease with resultant jwkmr-czi-asby amputation of the right. 9. Degenerative joint disease. 10. Benign prostate hypertrophy. 11. Osteoporosis. 12. Generalized weakness. PLAN: 1. Antibiotics deferred to Dr. Santacruz. 2. Continue follow vancomycin levels. 3. Continued omeprazole. 4. Continue deep venous thrombosis and stress ulcer prophylaxis. 5. Continue physical therapy and occupational therapy. 6. Continue nonweightbearing at this time per Dr. Patel's order. 7. Continue decubitus precautions. 8. Labs been faxed to Dr. Santacruz'.
[2016-06-16] MEDS: Multivitamin W/ Minerals 1 TAB PO SCH (17:07)
[2016-06-16] MEDS: Acetaminophen/Codeine 30-300mg Tablet PO PRN ×2 (17:17→21:32)
[2016-06-16] MEDS: Calcium Carbonate 500 MG TAB PO SCH (21:31)
[2016-06-16] MEDS: Gabapentin 400 MG CAP PO SCH (21:31)
[2016-06-16] MEDS: Teriparatide [Forteo] 20 MCG SC SCH (21:34)
[2016-06-17] MEDS: traMADol HCl 50 MG TAB PO SCH ×4 (00:57→17:43)
[2016-06-17] MEDS: Metoclopramide HCl 10 MG TAB PO SCH (06:09)
[2016-06-17] MEDS: OMEPRAZOLE 40 MG CAPSULE PO SCH (06:09)
[2016-06-17] MEDS: Vancomycin HCl 500 MG in Sodium Chloride 0.9% 100 ML IVPB SCH ×2 (06:17→17:43)
[2016-06-17] MEDS: Tamsulosin HCl 0.4 MG CAP PO SCH (08:26)
[2016-06-17] MEDS: Atenolol 25 MG TAB PO SCH (08:26)
[2016-06-17] MEDS: Cefepime 1 GM in Sodium Chloride 0.9% 100 ML IVPB SCH ×2 (08:26→20:58)
[2016-06-17] MEDS: CeleCOXIB 100 MG CAP PO SCH (08:26)
[2016-06-17] MEDS: Aspirin 325 mg Enteric Coated Tablet PO SCH ×2 (08:26→20:58)
[2016-06-17] MEDS: Docusate 100 MG CAP PO SCH ×2 (08:27→20:59)
[2016-06-17] MEDS: Clopidogrel Bisulfate 75 MG TAB PO SCH (08:27)
[2016-06-17] MEDS: Rifampin 150 MG CAP PO SCH ×2 (08:27→21:00)
[2016-06-17] MEDS: MAGNESIUM CITRATE 100 MG PO SCH (08:27)
[2016-06-17] MEDS: Ferrous Sulfate 325 MG TAB PO SCH ×2 (08:27→17:43)
[2016-06-17] MEDS: Multivitamin W/ Minerals 1 TAB PO SCH (17:43)
--- NOTE | 2016-06-17 18:34 | PRG ---
DATE OF SERVICE: 06/17/2016 HISTORY OF PRESENT ILLNESS: Mr. Guerra is a very pleasant 60-year-old white male that unfortunately fractured his left hip. He eventually ended up having a total left hip, total left knee and left f emur replacement done by Dr. Patel. He transferred here on vancomycin and rifampin for several weeks . Unfortunately, that hip became dislocated with his hardware. Dr. Patel said that he needs some ty pe of special custom made sockets and so we are waiting to be done. The patient has been also follo wed by Dr. Santacruz for his long-term antibiotics. PHYSICAL EXAMINATION: VITAL SIGNS: Today reveal blood pressure 118/69, pulse 65-87, respirations 18-20, O2 sat 99%-100% a nd temperature is 97.9. GENERAL: This is a well-developed, well-nourished, very pleasant, thin white male in no apparent di stress at this time. HEENT: Reveals normocephalic and nontraumatic cranium. Pupils are equally round and reactive. Ext raocular movements intact. Nose and throat are slightly dry. NECK: Supple, without masses, nodes or bruits. CHEST: Clear to auscultation. No rales, rhonchi or wheezes are heard. CARDIOVASCULAR: Reveals a regular rate and rhythm without murmurs, gallops or rubs. ABDOMEN: Scaphoid, soft, nontender, without organomegaly, normal bowel sounds are noted. GENITOURINARY: Deferred. EXTREMITIES: Reveal left leg has an extremely long incision from left hip down to the lateral part of the left knee. No redness, warmth or drainage is noted. This is well healed. The right leg has a ynici-xfy-zone amputation. IMPRESSION: 1. Septic arthritis requiring locking hip socket. 2. Custom hardware, locking hip socket is being made and we were waiting for it to arrive. 3. Juvenile onset Rheumatoid arthritis. 4. Osteomyelitis with septic arthritis. 5. Hypertension. 6. Anemia. 7. Gastroesophageal reflux disease. 8. Peripheral vascular disease with resultant pmvqo-wkt-kazu amputation on the right. 9. Degenerative joint disease. 10. Benign prostatic hypertrophy. 11. Osteoporosis. 12. Generalized weakness. PLAN: 1. Continue vancomycin, rifampin and cefepime. 2. Continue omeprazole. 3. Continue to hold physical therapy and occupational therapy. 4. Continue DVT and stress ulcer prophylaxis. 5. Nonweightbearing at this time per Dr. Patel's order until surgery. 6. Continue decubitus precautions.
[2016-06-17] MEDS: Calcium Carbonate 500 MG TAB PO SCH (20:58)
[2016-06-17] MEDS: Gabapentin 400 MG CAP PO SCH (20:59)
[2016-06-17] MEDS: Acetaminophen/Codeine 30-300mg Tablet PO PRN (21:00)
[2016-06-17] MEDS: Teriparatide [Forteo] 20 MCG SC SCH (21:00)
[2016-06-18 05:26] LABS: Vancomycin, Trough 16.5 ug/mL
[2016-06-18] MEDS: traMADol HCl 50 MG TAB PO SCH ×4 (05:51→17:51)
[2016-06-18] MEDS: Metoclopramide HCl 10 MG TAB PO SCH (05:54)
[2016-06-18] MEDS: Vancomycin HCl 500 MG in Sodium Chloride 0.9% 100 ML IVPB SCH ×2 (05:54→17:51)
[2016-06-18] MEDS: OMEPRAZOLE 40 MG CAPSULE PO SCH (05:54)
[2016-06-18] MEDS: Cefepime 1 GM in Sodium Chloride 0.9% 100 ML IVPB SCH ×2 (08:55→21:55)
[2016-06-18] MEDS: MAGNESIUM CITRATE 100 MG PO SCH (08:56)
[2016-06-18] MEDS: Rifampin 150 MG CAP PO SCH ×2 (08:56→21:58)
[2016-06-18] MEDS: Clopidogrel Bisulfate 75 MG TAB PO SCH (08:56)
[2016-06-18] MEDS: Docusate 100 MG CAP PO SCH ×2 (08:56→21:58)
[2016-06-18] MEDS: Tamsulosin HCl 0.4 MG CAP PO SCH (08:56)
[2016-06-18] MEDS: Ferrous Sulfate 325 MG TAB PO SCH ×2 (08:56→16:55)
[2016-06-18] MEDS: CeleCOXIB 100 MG CAP PO SCH (08:56)
[2016-06-18] MEDS: Atenolol 25 MG TAB PO SCH (08:56)
[2016-06-18] MEDS: Aspirin 325 mg Enteric Coated Tablet PO SCH ×2 (08:57→21:58)
--- NOTE | 2016-06-18 10:50 | PRG ---
DATE OF SERVICE: 06/18/2016. HISTORY OF PRESENT ILLNESS: Mr. Guerra is a very pleasant 60-year-old white male that fractured his left hip eventually, he ended up having a total left hip, total left knee and total femur replaced done by Dr. Patel. He was transferred to [facility], on vancomycin, rifampin and cef epime. Unfortunately, the hip became dislocated, he saw Dr. Patel who ordered a custom made hip sock et with locking screw. Waiting for that to be made. He has also been followed by Dr. Santacruz for his long-term antibiotics. The patient states his body has no complaints today. PHYSICAL EXAMINATION: VITAL SIGNS: Blood pressure this morning was 122/66, pulse 68-72, respirations 18-20, O2 saturation 99% on room air, temperature 97.8. GENERAL: This is a well-developed, well-nourished, very pleasant, thin white male, in no apparent d istress at this time. HEENT: Reveals normocephalic, nontraumatic cranium. Pupils are equally round and reactive. Extrao cular movements intact. Nose and throat are slightly dry. NECK: Supple, without masses, nodes or bruits. LUNGS: Chest is clear to auscultation. No rales, rhonchi or wheezes are heard. CARDIOVASCULAR: Reveals a regular rate and rhythm without murmurs, gallops or rubs. ABDOMEN: Soft, nontender, without organomegaly, normal bowel sounds are noted. No rebound or guard ing is noted. GENITOURINARY: Deferred. EXTREMITIES: Reveal no clubbing, cyanosis or edema. Right leg as qyozp-jza-ixnz amputation, left l eg, he has scar going from left hip laterally all the way down the lateral knee, for his total hip, total knee and femur replacement. IMPRESSION: 1. Septic arthritis requiring antibiotics. 2. Custom hardware requiring a locking hip socket, which is being made. 3. Juvenile onset rheumatoid arthritis. 4. Hypertension. 5. Anemia. 6. Gastroesophageal reflux. 7. Peripheral vascular disease with resultant nowyv-ssx-ztlj amputation of the right. 8. Degenerative joint disease. 9. Benign prostatic hypertrophy. 10. Osteoporosis. 11. Generalized weakness. PLAN: 1. Continue antibiotics. 2. Continue to hold physical therapy and occupational therapy. 3. Continue deep venous thrombosis and stress ulcer prophylaxes. 4. Continue omeprazole. 5. Stop Os-Christopher, the patient prefers just take two times in the afternoon. 6. Nonweightbearing this time per Dr. Patel's order. 7. Continue decubitus precautions.
[2016-06-18] MEDS: Multivitamin W/ Minerals 1 TAB PO SCH (16:55)
[2016-06-18] MEDS: Teriparatide [Forteo] 20 MCG SC SCH (21:56)
[2016-06-18] MEDS: Acetaminophen/Codeine 30-300mg Tablet PO PRN (21:57)
[2016-06-18] MEDS: Calcium Carbonate 500 MG TAB PO SCH (21:58)
[2016-06-18] MEDS: Gabapentin 400 MG CAP PO SCH (21:58)
[2016-06-19] MEDS: traMADol HCl 50 MG TAB PO SCH ×4 (01:05→18:12)
[2016-06-19] MEDS: OMEPRAZOLE 40 MG CAPSULE PO SCH (06:27)
[2016-06-19] MEDS: Metoclopramide HCl 10 MG TAB PO SCH (06:28)
[2016-06-19] MEDS: Vancomycin HCl 500 MG in Sodium Chloride 0.9% 100 ML IVPB SCH (06:29)
[2016-06-19] MEDS: Tamsulosin HCl 0.4 MG CAP PO SCH (08:42)
[2016-06-19] MEDS: Rifampin 150 MG CAP PO SCH ×2 (08:42→21:57)
[2016-06-19] MEDS: Docusate 100 MG CAP PO SCH ×2 (08:42→21:57)
[2016-06-19] MEDS: CeleCOXIB 100 MG CAP PO SCH (08:42)
[2016-06-19] MEDS: Ferrous Sulfate 325 MG TAB PO SCH ×2 (08:43→17:54)
[2016-06-19] MEDS: Atenolol 25 MG TAB PO SCH (08:43)
[2016-06-19] MEDS: Clopidogrel Bisulfate 75 MG TAB PO SCH (08:44)
[2016-06-19] MEDS: Aspirin 325 mg Enteric Coated Tablet PO SCH ×2 (08:44→21:57)
[2016-06-19] MEDS: Cefepime 1 GM in Sodium Chloride 0.9% 100 ML IVPB SCH ×2 (08:44→21:55)
[2016-06-19] MEDS: MAGNESIUM CITRATE 100 MG PO SCH (08:46)
--- NOTE | 2016-06-19 10:01 | PRG ---
DATE OF SERVICE: 06/19/2016. SUBJECTIVE: Mr. Guerra is a very pleasant 60-year-old white male from [place]. He has had significant problems with his left hip and ended up having a total left hip, total left knee and tot al femur replaced by Dr. Patel. He eventually was transferred to [facility] for IV a ntibiotics of vancomycin, rifampin and cefepime. Unfortunately, his hip became dislocated and Dr. Gabby cuevas saw him in order to custom made hip [place] locking screw. We are waiting for that to be made . He is also being followed by Dr. Santacruz for long-term antibiotics. The patient has no complaints today. He is doing well. OBJECTIVE: VITAL SIGNS: Today revealed blood pressure 121/81, pulse 71-74, respirations 18-20, O2 saturation 9 9%, temperature max of 98.1. GENERAL: This is a well-developed, very thin white male in no apparent distress at this time. He i s eating haley and two hard boiled eggs, which he states is much better than his regular scrambled e ggs, he has no complaints today. HEENT: Reveals normocephalic, nontraumatic cranium. Pupils equal, round, and reactive. Extraocula r movements intact. Nose and throat are slightly dry. NECK: Supple, without masses, nodes or bruits. CHEST: Clear to auscultation, no rales, rhonchi, wheezes or cough is heard. CARDIOVASCULAR: Reveals a regular rate and rhythm without murmurs, gallops or rubs. ABDOMEN: Soft, nontender, without organomegaly. Normal bowel sounds are heard. No rebound or guar ding is noted. GENITOURINARY: Deferred. EXTREMITIES: Reveal no clubbing, cyanosis or edema. The right leg has the above-knee amputation secondary to severe peripheral vascular disease. Left leg has a scar going from left hip, laterally all the way down to the lateral knee, for his tot al hip, total knee and femur replacement. It was dislocated and has some bulging at the hip area. He has no significant pain. IMPRESSION: 1. Septic arthritis requiring antibiotics. 2. Custom hardware requiring a locking hip socket, which is being made at this time. 3. Juvenile onset rheumatoid arthritis. 4. Hypertension. 5. Anemia. 6. Gastroesophageal reflux. 7. Peripheral vascular disease with resultant hjsls-oxl-woic amputation of the right. 8. Degenerative joint disease. 9. Benign prostate hypertrophy. 10. Osteoporosis. 11. Generalized weakness. PLAN: 1. Continue IV antibiotics. 2. Continue to hold physical therapy and occupational therapy. 3. Continue deep venous thrombosis and stress ulcer prophylaxes. 4. Continue omeprazole. 5. Stop Os-Christopher because the patient would rather prefer to take Tums in the afternoon. 6. Continue nonweightbearing this time per Dr. Patel's orders. 7. Continue decubitus precautions.
[2016-06-19 17:39] LABS: Vancomycin, Trough 15.8 ug/mL
[2016-06-19] MEDS: Multivitamin W/ Minerals 1 TAB PO SCH (17:54)
[2016-06-19] MEDS: Vancomycin HCl 750 MG in Sodium Chloride 0.9% 250 ML 250 ML IVPB SCH (18:13)
[2016-06-19] MEDS: Teriparatide [Forteo] 20 MCG SC SCH (21:56)
[2016-06-19] MEDS: Gabapentin 400 MG CAP PO SCH (21:57)
[2016-06-19] MEDS: Acetaminophen/Codeine 30-300mg Tablet PO PRN (21:57)
[2016-06-19] MEDS: Calcium Carbonate 500 MG TAB PO SCH (22:15)
[2016-06-20] MEDS: traMADol HCl 50 MG TAB PO SCH ×4 (00:51→16:54)
[2016-06-20] MEDS: Vancomycin HCl 750 MG in Sodium Chloride 0.9% 250 ML 250 ML IVPB SCH ×2 (06:35→18:23)
[2016-06-20] MEDS: OMEPRAZOLE 40 MG CAPSULE PO SCH (06:35)
[2016-06-20] MEDS: Metoclopramide HCl 10 MG TAB PO SCH (06:36)
[2016-06-20] MEDS: Ferrous Sulfate 325 MG TAB PO SCH ×2 (08:00→17:00)
[2016-06-20] MEDS: Atenolol 25 MG TAB PO SCH (09:20)
[2016-06-20] MEDS: MAGNESIUM CITRATE 100 MG PO SCH (09:20)
[2016-06-20] MEDS: CeleCOXIB 100 MG CAP PO SCH (09:20)
[2016-06-20] MEDS: Aspirin 325 mg Enteric Coated Tablet PO SCH ×2 (09:20→21:44)
[2016-06-20] MEDS: Docusate 100 MG CAP PO SCH ×2 (09:25→21:44)
[2016-06-20] MEDS: Clopidogrel Bisulfate 75 MG TAB PO SCH (09:25)
[2016-06-20] MEDS: Cefepime 1 GM in Sodium Chloride 0.9% 100 ML IVPB SCH ×2 (09:25→21:41)
[2016-06-20] MEDS: Tamsulosin HCl 0.4 MG CAP PO SCH (09:25)
[2016-06-20] MEDS: Rifampin 150 MG CAP PO SCH ×2 (09:31→21:45)
--- NOTE | 2016-06-20 16:41 | PRG ---
DATE OF SERVICE: 06/20/2016 SUBJECTIVE: Mr. Guerra is doing well. Denies any complaints. Resting comfortably and tolerating h is antibiotics. Pain is well controlled. OBJECTIVE: VITAL SIGNS: He is afebrile. Heart rate is 74, respirations are 18, blood pressure is 128/80 and o xygen saturation is 99%. CARDIOVASCULAR SYSTEM: S1 and S2 plus. RESPIRATORY SYSTEM: Normal vesicular breath sounds. ABDOMEN: Soft and nontender. Bowel sounds are heard in all quadrants. EXTREMITIES: Without cyanosis or clubbing. IMPRESSION: 1. Septic arthritis. 2. Fracture of hardware, requiring remake of custom hardware. 3. Rheumatoid arthritis. 4. Gastroesophageal reflux disease. 5. Peripheral vascular disease. PLAN: 1. Continue IV antibiotics. 2. Weekly CBC, CRP and sed rate. 3. Deep vein thrombosis and stress ulcer prophylaxis. 4. Decubitus precautions. 5. Pain control.
[2016-06-20] MEDS: Multivitamin W/ Minerals 1 TAB PO SCH (16:56)
[2016-06-20] MEDS: Teriparatide [Forteo] 20 MCG SC SCH (21:40)
[2016-06-20] MEDS: Gabapentin 400 MG CAP PO SCH (21:44)
[2016-06-20] MEDS: Acetaminophen/Codeine 30-300mg Tablet PO PRN (21:45)
[2016-06-20] MEDS: Diazepam 5 MG TAB PO PRN (21:45)
[2016-06-20] MEDS: Calcium Carbonate 500 MG TAB PO SCH (23:19)
[2016-06-21] MEDS: traMADol HCl 50 MG TAB PO SCH ×4 (01:12→17:58)
[2016-06-21] MEDS: Acetaminophen/Codeine 30-300mg Tablet PO PRN ×2 (02:33→21:44)
[2016-06-21] MEDS: OMEPRAZOLE 40 MG CAPSULE PO SCH (06:24)
[2016-06-21] MEDS: Vancomycin HCl 750 MG in Sodium Chloride 0.9% 250 ML 250 ML IVPB SCH ×2 (06:24→17:58)
[2016-06-21] MEDS: Metoclopramide HCl 10 MG TAB PO SCH (06:24)
[2016-06-21] MEDS: Ferrous Sulfate 325 MG TAB PO SCH ×2 (08:00→17:00)
[2016-06-21] MEDS: CeleCOXIB 100 MG CAP PO SCH (09:15)
[2016-06-21] MEDS: Clopidogrel Bisulfate 75 MG TAB PO SCH (09:16)
[2016-06-21] MEDS: Aspirin 325 mg Enteric Coated Tablet PO SCH ×2 (09:16→21:45)
[2016-06-21] MEDS: Atenolol 25 MG TAB PO SCH (09:16)
[2016-06-21] MEDS: Docusate 100 MG CAP PO SCH ×2 (09:16→21:45)
[2016-06-21] MEDS: Tamsulosin HCl 0.4 MG CAP PO SCH (09:17)
[2016-06-21] MEDS: Cefepime 1 GM in Sodium Chloride 0.9% 100 ML IVPB SCH ×2 (09:17→21:39)
[2016-06-21] MEDS: MAGNESIUM CITRATE 100 MG PO SCH (09:18)
--- NOTE | 2016-06-21 09:29 | PRG ---
DATE OF SERVICE: 06/21/2016 SUBJECTIVE: Mr. Guerra is doing well. Denies any complaints, resting comfortably, tolerating his a ntibiotics. OBJECTIVE: VITAL SIGNS: He is afebrile, heart rate is 61, respirations are 19, blood pressure 124/77. CARDIOVASCULAR: S1, S2 plus. RESPIRATORY: Normal vesicular breath sounds. ABDOMEN: Soft, nontender, bowel sounds heard in all quadrants. EXTREMITIES: Without cyanosis or clubbing. IMPRESSION: 1. Septic arthritis. 2. Fracture of hardware, requiring remake of custom hardware. 3. Juvenile rheumatoid arthritis. 4. Gastroesophageal reflux disease. 5. Peripheral vascular disease. PLAN: 1. Continue current medications including antibiotics. 2. Pain control. 3. Deep venous thrombosis and stress ulcer prophylaxis. 4. Decubitus precautions. 5. Weekly CBC, CRP, sed rate. 6. Await custom made hardware. 7. Dr. Aristides Guerrero will assume care at 9:00 p.[address] [facility].
[2016-06-21] MEDS: Rifampin 150 MG CAP PO SCH ×2 (10:00→21:43)
[2016-06-21] MEDS: Multivitamin W/ Minerals 1 TAB PO SCH (16:59)
[2016-06-21] MEDS: Diazepam 5 MG TAB PO PRN (21:45)
[2016-06-21] MEDS: Gabapentin 400 MG CAP PO SCH (21:45)
[2016-06-21] MEDS: Calcium Carbonate 500 MG TAB PO SCH (21:46)
[2016-06-21] MEDS: Teriparatide [Forteo] 20 MCG SC SCH (22:10)
[2016-06-22] MEDS: traMADol HCl 50 MG TAB PO SCH ×4 (04:49→18:09)
[2016-06-22] MEDS: Vancomycin HCl 750 MG in Sodium Chloride 0.9% 250 ML 250 ML IVPB SCH ×2 (05:49→18:06)
[2016-06-22] MEDS: Metoclopramide HCl 10 MG TAB PO SCH (05:49)
[2016-06-22] MEDS: OMEPRAZOLE 40 MG CAPSULE PO SCH (05:49)
[2016-06-22] MEDS: Cefepime 1 GM in Sodium Chloride 0.9% 100 ML IVPB SCH ×2 (08:23→21:50)
[2016-06-22] MEDS: Clopidogrel Bisulfate 75 MG TAB PO SCH (08:24)
[2016-06-22] MEDS: Docusate 100 MG CAP PO SCH ×2 (08:24→21:53)
[2016-06-22] MEDS: Rifampin 150 MG CAP PO SCH ×2 (08:24→21:53)
[2016-06-22] MEDS: Atenolol 25 MG TAB PO SCH (08:25)
[2016-06-22] MEDS: Aspirin 325 mg Enteric Coated Tablet PO SCH ×2 (08:25→21:52)
[2016-06-22] MEDS: Tamsulosin HCl 0.4 MG CAP PO SCH (08:25)
[2016-06-22] MEDS: CeleCOXIB 100 MG CAP PO SCH (08:25)
[2016-06-22] MEDS: Ferrous Sulfate 325 MG TAB PO SCH ×2 (08:25→17:10)
[2016-06-22] MEDS: MAGNESIUM CITRATE 100 MG PO SCH (08:26)
--- NOTE | 2016-06-22 10:27 | PRG ---
DATE OF SERVICE: 06/22/2016. HISTORY OF PRESENT ILLNESS: Mr. Guerra is a very pleasant 60-year-old white male with significant l eft hip and left knee problems. He saw Dr. Patel who took him to surgery, did a total left hip, tota l left knee and total femur replacement. Eventually, transferred South to [place] for IV antibio tics, vancomycin, rifampin, cefepime. Unfortunately, his left hip dislocated and Dr. Patel ordered a custom made hip socket with the locking screw. We are waiting for that to be accomplished. He is being followed by Dr. Santacruz for long-term antibiotics. SUBJECTIVE: The patient has no complaints today. He is doing well. OBJECTIVE: VITAL SIGNS: Today revealed blood pressure is 112/75, pulse 66-68, respirations 16-19, O2 saturation 99%, T-max is 97.9. PHYSICAL EXAMINATION: GENERAL: This is a well-developed, well-nourished, very pleasant white male, in no apparent distres s at this time. HEENT: Reveals normocephalic, nontraumatic cranium. Pupils equal, round and reactive. Extraocular movements intact. Nose and throat are slightly dry. NECK: Supple, without mass, nodes or bruits. CHEST: Clear to auscultation. No rales, rhonchi or wheezes are heard. CARDIOVASCULAR: Reveals a regular rate and rhythm without murmurs, gallops or rubs. ABDOMEN: Scaphoid, soft, nontender, without organomegaly, normal bowel sounds are noted. No reboun d or guarding is noted. GENITOURINARY: Deferred. EXTREMITIES: Reveal no clubbing, cyanosis or edema. The right leg gmfsf-hak-latx amputation site, there is severe peripheral vascular disease. The left leg has a healing scar from the left hip, lat erally all the way down to the lateral knee for total hip, total knee and femur placements. This costello s been dislocated and he continues to have some bulging at the left hip area. He has no significant pain. IMPRESSION: 1. Septic arthritis requiring antibiotics. 2. Custom hardware requiring a locking hip socket, which is being made. 3. Juvenile onset rheumatoid arthritis. 4. Hypertension. 5. Anemia. 6. Gastroesophageal reflux. 7. Peripheral vascular disease with resultant tswjp-ugn-uemv amputation of the right, degenerative joint. 8. Benign prostatic hypertrophy. 9. Osteoporosis. 10. Generalized weakness. PLAN: 1. Continue IV antibiotics until 07/01/2016. 2. Continue to hold physical therapy and occupational therapy. 3. Continued deep venous thrombosis and stress ulcer prophylaxes. 4. Continue omeprazole. 5. Stop Os-Christopher, the patient would rather prefer to take 8 times in the afternoon. 6. Continue nonweightbearing at this time per Dr. Patel's orders. 7. Continue decubitus precautions.
[2016-06-22] MEDS: Acetaminophen/Codeine 30-300mg Tablet PO PRN ×2 (15:20→21:54)
[2016-06-22] MEDS: Multivitamin W/ Minerals 1 TAB PO SCH (17:09)
[2016-06-22] MEDS: Teriparatide [Forteo] 20 MCG SC SCH (21:51)
[2016-06-22] MEDS: Gabapentin 400 MG CAP PO SCH (21:52)
[2016-06-22] MEDS: Diazepam 5 MG TAB PO PRN (21:55)
[2016-06-22] MEDS: Calcium Carbonate 500 MG TAB PO SCH (22:18)
[2016-06-23] MEDS: traMADol HCl 50 MG TAB PO SCH ×4 (05:34→17:58)
[2016-06-23] MEDS: Metoclopramide HCl 10 MG TAB PO SCH (05:58)
[2016-06-23] MEDS: OMEPRAZOLE 40 MG CAPSULE PO SCH (05:58)
[2016-06-23] MEDS: Vancomycin HCl 750 MG in Sodium Chloride 0.9% 250 ML 250 ML IVPB SCH ×2 (05:58→18:59)
[2016-06-23] MEDS: Atenolol 25 MG TAB PO SCH (08:25)
[2016-06-23] MEDS: CeleCOXIB 100 MG CAP PO SCH (08:25)
[2016-06-23] MEDS: Aspirin 325 mg Enteric Coated Tablet PO SCH ×2 (08:25→21:10)
[2016-06-23] MEDS: Docusate 100 MG CAP PO SCH ×2 (08:25→21:09)
[2016-06-23] MEDS: Ferrous Sulfate 325 MG TAB PO SCH ×2 (08:25→16:28)
[2016-06-23] MEDS: Tamsulosin HCl 0.4 MG CAP PO SCH (08:25)
[2016-06-23] MEDS: Clopidogrel Bisulfate 75 MG TAB PO SCH (08:26)
[2016-06-23] MEDS: Cefepime 1 GM in Sodium Chloride 0.9% 100 ML IVPB SCH ×2 (08:27→21:08)
[2016-06-23] MEDS: MAGNESIUM CITRATE 100 MG PO SCH (08:27)
--- NOTE | 2016-06-23 10:10 | PRG ---
DATE OF SERVICE: 06/23/2016 HISTORY OF PRESENT ILLNESS: The patient is a 60-year-old white male that has had significant proble ms with left hip and left knee. He has a right ylead-ygf-ihro amputation, so has significant intere st in continuing to keep his appendage. The patient was taken to the surgical suite by Dr. Patel who eventually did total left hip, total lef t knee and a total femur replacement. He was eventually transferred to [facility] f or IV antibiotics of vancomycin, rifampin and cefepime. Unfortunately, his left hip became dislocated. Dr. Patel saw the patient and recommended a custom ma de hip socket with locking screw. We are awaiting that to be custom made. He is also being followe d by Dr. Santacruz for long-term antibiotics. The patient is supposed to have his labs drawn today when he gets his vancomycin level. SUBJECTIVE: The patient has no complaints today at all. VITAL SIGNS: Blood pressure is 117/70, pulse 66-68, respirations 17-20. O2 sat 99%, temperature 97 .8. PHYSICAL EXAMINATION: GENERAL: This is a well-developed, well-nourished, very pleasant, thin white male in no apparent di stress at this time. HEENT: Reveals normocephalic, nontraumatic cranium. Pupils are equally round and reactive. Extrao cular movements intact. Nose and throat are slightly dry. NECK: Supple, without masses, nodes or bruits. CHEST: Clear to auscultation. No rales, rhonchi or wheezes are heard. CARDIOVASCULAR: Reveals a regular rate and rhythm without murmurs, gallops or rubs. ABDOMEN: Obese, soft, nontender, without organomegaly, normal bowel sounds are noted. No rebound o r guarding is noted. : Deferred. EXTREMITIES: Reveal no clubbing, cyanosis or edema. Right above the knee amputation secondary to s evere peripheral vascular disease. The left leg has a healing scar from left hip laterally all the way down to the left knee for his total hip and total knee and he had his femur replaced also with a metal lc. Unfortunately, the left hip has been dislocated and he has continued to have some pain over that area. The pain is not significant. IMPRESSION: 1. Septic arthritis requiring antibiotics. 2. Custom hardware requiring a locking hip socket, which is being custom made. 3. Hypertension. 4. Juvenile rheumatoid arthritis. 5. Anemia. 6. Gastroesophageal reflux. 7. Peripheral vascular disease with resultant olihs-uob-mqgc amputation on the right side. 8. Benign prostate hypertrophy. 9. Osteoporosis. 10. Generalized weakness. PLAN: 1. Continue IV antibiotics until 07/01/2016. 2. Continue to hold physical therapy and occupational therapy. 3. Continue DVT and stress ulcer prophylaxis. 4. Continue omeprazole. 5. Continue to hold the patient's Os-Christopher, he prefers to take Tums in the afternoon. 6. Continue nonweightbearing status at this time. 7. Continue decubitus precautions.
[2016-06-23] MEDS: Rifampin 150 MG CAP PO SCH ×2 (10:27→21:09)
[2016-06-23] MEDS: Acetaminophen/Codeine 30-300mg Tablet PO PRN (16:28)
[2016-06-23] MEDS: Multivitamin W/ Minerals 1 TAB PO SCH (16:28)
[2016-06-23 17:43] LABS: #Basophils 0.1 thou/uL (0.0-0.2); #Eosinphils 0.7 thou/uL (0.0-0.7); #Lymphocytes 1.4 thou/uL (1.20-3.40); #Monocytes 0.8 thou/uL (0.11-0.59); #Neutrophils 4.5 thou/uL (1.40-6.50); %Basophils 1.2 % (0.0-1.0); %Eosinophils 9.8 % (0.0-10.0); %Lymphocytes 18.2 % (21.0-51.0); %Monocytes 10.7 % (0.0-10.0); %Neutrophils 60.2 % (42.0-75.0); Hemoglobin 12.1 g/dL (14.0-18.0); Mean Corpuscular Volume 91.5 fl (80.0-94.0); Platelet Count 194 thou/uL (130-400); RBC Distribution Width 13.1 % (11.5-14.5); Red Blood Cell (RBC) Count 3.76 mill/uL (4.70-6.10); White Blood Cell (WBC) Count 7.4 thou/uL (4.8-10.8)
[2016-06-23 17:49] LABS: Vancomycin, Trough 25.3 ug/mL
[2016-06-23 17:51] LABS: ALT (SGPT) 11 U/L (0-55); AST (SGOT) 15 U/L (5-34); Albumin 3.2 g/dL (3.4-4.8); Alkaline Phosphatase 164 U/L (40-150); Anion Gap 14 mmol/L (10-20); BUN (Urea Nitrogen) 8 mg/dL (8.4-25.7); Bilirubin, Total 0.3 mg/dL (0.2-1.2); CRP (Inflammatory) 2.56 mg/dL (= or < 0.5); Calc. Creatinine Clearance 75 mL/min (70-130); Calcium 8.9 mg/dL (7.8-10.44); Carbon Dioxide 20 mmol/L (23-31); Chloride 100 mmol/L (98-107); Estimated GFR-MDRD Greater than 90; Globulin 3.5 g/dL (2.4-3.5); Glucose 108 mg/dL (80-115); Potassium 4.2 mmol/L (3.5-5.1); Protein, Total 6.7 g/dL (5.8-8.1); Sodium 130 mmol/L (136-145)
[2016-06-23] MEDS: Teriparatide [Forteo] 20 MCG SC SCH (21:06)
[2016-06-23] MEDS: Vancomycin HCl 500 MG in Sodium Chloride 0.9% 100 ML IVPB SCH (21:08)
[2016-06-23] MEDS: Gabapentin 400 MG CAP PO SCH (21:09)
[2016-06-23] MEDS: Calcium Carbonate 500 MG TAB PO SCH (21:10)
[2016-06-23] MEDS: Diazepam 5 MG TAB PO PRN (21:11)
[2016-06-24] MEDS: traMADol HCl 50 MG TAB PO SCH ×4 (03:27→17:44)
[2016-06-24] MEDS: Acetaminophen/Codeine 30-300mg Tablet PO PRN ×3 (04:23→22:12)
[2016-06-24] MEDS: OMEPRAZOLE 40 MG CAPSULE PO SCH (06:01)
[2016-06-24] MEDS: Metoclopramide HCl 10 MG TAB PO SCH (06:02)
[2016-06-24] MEDS: Ferrous Sulfate 325 MG TAB PO SCH ×2 (08:00→17:03)
[2016-06-24] MEDS: CeleCOXIB 100 MG CAP PO SCH (09:17)
[2016-06-24] MEDS: Tamsulosin HCl 0.4 MG CAP PO SCH (09:18)
[2016-06-24] MEDS: Clopidogrel Bisulfate 75 MG TAB PO SCH (09:18)
[2016-06-24] MEDS: Docusate 100 MG CAP PO SCH ×2 (09:18→21:44)
[2016-06-24] MEDS: Aspirin 325 mg Enteric Coated Tablet PO SCH ×2 (09:18→21:44)
[2016-06-24] MEDS: Atenolol 25 MG TAB PO SCH (09:18)
[2016-06-24] MEDS: Vancomycin HCl 500 MG in Sodium Chloride 0.9% 100 ML IVPB SCH ×2 (09:19→21:44)
[2016-06-24] MEDS: MAGNESIUM CITRATE 100 MG PO SCH (09:20)
[2016-06-24] MEDS: Rifampin 150 MG CAP PO SCH ×2 (10:05→22:13)
[2016-06-24] MEDS: Cefepime 1 GM in Sodium Chloride 0.9% 100 ML IVPB SCH ×2 (10:05→22:14)
--- NOTE | 2016-06-24 13:10 | PRG ---
DATE OF SERVICE: 06/24/2016 HISTORY OF PRESENT ILLNESS: Mr. Guerra is a very pleasant 60-year-old white male that has had signi ficant problems with left lower extremity. He had a right cjcnk-lrg-okbi amputation because of munira re peripheral vascular disease. He had osteoporosis of the left hip, left knee, and he ended up hav ing a total left hip, total left knee, and femur replaced by Dr. Patel. The patient had some septic arthritis and is on vancomycin, rifampin, and cefepime. The patient is doing very well and he supposed to see Dr. Patel on Wednesday. His labs done yesterday revealed white count 7400, hemoglobin 12.1, hematocrit 34.4, and platelet co unt 194,000. Sed rate is down from 51-41 from 1 week ago. Sodium 130, potassium 4.2, chloride 100, carbon dioxide 20 with a BUN of 18, creatinine 0.59. GFR i s greater than 90. C-reactive protein is increase from 1.74 last week to 2.56 this week. He has no complaints. His vancomycin is slightly elevated at 25. OBJECTIVE: VITAL SIGNS: This morning revealed blood pressure 112/73, pulse 65-68, respirations 19-20, and O2 s aturation 99%. T-max is 97.7. PHYSICAL EXAMINATION: GENERAL: This is a well-developed, well-nourished, very pleasant, thin white male in no apparent di stress at this time. HEENT: Reveals normocephalic, nontraumatic cranium. Pupils are equally round and reactive. Extrao cular movements intact. Nose and throat are slightly dry. NECK: Supple, without masses, nodes or bruits. LUNGS: Chest is clear to auscultation. No rales, rhonchi or wheezes are heard. No cough is heard. CARDIOVASCULAR: Reveals a regular rate and rhythm without murmurs, gallops or rubs. ABDOMEN: Soft, nontender, without organomegaly, normal bowel sounds are noted. No rebound or guard ing is noted. : Deferred. EXTREMITIES: Revealed right sszzz-aqm-flzi amputation, left reveals an incision ago from the left h ip laterally all the way down to the left lateral knee. He has a total left hip, total left knee an d a femur replaced. His incision looks good, clean, dry, and it is not red, not oozing, not drainin g. No significant pain over that area, although still is dislocate. IMPRESSION: 1. Septic arthritis, requiring antibiotics. 2. Custom hardware requiring a locking hip socket, which is being custom made. Dr. Patel will see h im on Wednesday to discuss. 3. Hypertension. 4. Juvenile rheumatoid arthritis. 5. Anemia. 6. Gastroesophageal reflux. 7. Peripheral vascular disease with resultant boqid-rak-rquc amputation on the right side. 8. Benign prostatic hypertrophy. 9. Osteoporosis. 10. Generalized weakness. PLAN: 1. Labs have been faxed over to Dr. Santacruz. We will await his decision on what else we can do with his antibiotics. 2. The patient will see Dr. Patel on Wednesday, hopefully his custom locking hip socket has been made a nd will be scheduled for surgery soon. 3. Continue to hold physical therapy and occupational therapy. 4. Continue DVT and stress ulcer prophylaxis. 5. Continue to encourage patient take his omeprazole. 6. Encourage the patient take his Tums for his GERD. 7. Continue non-weight bearing status post time. 8. Decubitus precautions.
[2016-06-24] MEDS: Multivitamin W/ Minerals 1 TAB PO SCH (17:02)
[2016-06-24] MEDS: Gabapentin 400 MG CAP PO SCH (21:44)
[2016-06-24] MEDS: Teriparatide [Forteo] 20 MCG SC SCH (21:46)
[2016-06-24] MEDS: Calcium Carbonate 500 MG TAB PO SCH (21:50)
[2016-06-25] MEDS: traMADol HCl 50 MG TAB PO SCH ×4 (01:54→18:18)
[2016-06-25] MEDS: OMEPRAZOLE 40 MG CAPSULE PO SCH (06:36)
[2016-06-25] MEDS: Metoclopramide HCl 10 MG TAB PO SCH (06:37)
[2016-06-25 08:26] LABS: Vancomycin, Trough 20.4 ug/mL
[2016-06-25] MEDS: Tamsulosin HCl 0.4 MG CAP PO SCH (08:42)
[2016-06-25] MEDS: Docusate 100 MG CAP PO SCH ×2 (08:42→22:00)
[2016-06-25] MEDS: CeleCOXIB 100 MG CAP PO SCH (08:42)
[2016-06-25] MEDS: Aspirin 325 mg Enteric Coated Tablet PO SCH ×2 (08:43→22:00)
[2016-06-25] MEDS: Atenolol 25 MG TAB PO SCH (08:43)
[2016-06-25] MEDS: Clopidogrel Bisulfate 75 MG TAB PO SCH (08:43)
[2016-06-25] MEDS: Ferrous Sulfate 325 MG TAB PO SCH ×2 (08:44→17:00)
[2016-06-25] MEDS: Vancomycin HCl 500 MG in Sodium Chloride 0.9% 100 ML IVPB SCH ×2 (08:45→21:57)
[2016-06-25] MEDS: MAGNESIUM CITRATE 100 MG PO SCH (08:45)
[2016-06-25] MEDS: Cefepime 1 GM in Sodium Chloride 0.9% 100 ML IVPB SCH ×2 (10:05→21:57)
[2016-06-25] MEDS: Rifampin 150 MG CAP PO SCH ×2 (10:05→22:00)
--- NOTE | 2016-06-25 10:25 | PRG ---
DATE OF SERVICE: 06/25/2016 HISTORY OF PRESENT ILLNESS: Mr. Guerra is a very pleasant 60-year-old white male that has had a rig ht rwmzg-hgc-cwpg amputation and left lower extremity problems with his bones and joints. He most recently has had a left total hip, left total knee and his femur replaced by Dr. Patel. He h as had some septic arthritis and presently on vancomycin, rifampin and cefepime. Labs were done 2 days ago and faxed to Dr. Santacruz. The patient is doing well. He is supposed to see Dr. Patel on Wednesday at 10:00 a.m. OBJECTIVE: Vital signs today reveal blood pressure of 144/83, pulse 60-76, respirations 16-22, O2 s at 98-100%, T-max 97.9. PHYSICAL EXAMINATION: GENERAL: This is a well-developed, well-nourished, pleasant, thin white male in no apparent distres s. HEENT: Reveals normocephalic, nontraumatic cranium. Pupils equal, round, and reactive. Extraocula r movements intact. Nose and throat are slightly dry. NECK: Supple, without masses, nodes or bruits. CHEST: Clear to auscultation. No rales, rhonchi or wheezes are heard. CARDIOVASCULAR: Reveals a regular rate and rhythm without murmurs, gallops or rubs. ABDOMEN: Soft, nontender, without organomegaly, normal bowel sounds are noted. No rebound or guard ing is noted. : Deferred. EXTREMITIES: Reveals a right usdut-ias-luhu amputation, left side reveals a left total hip, left to william knee and femur replaced. The incision is long from the lateral hip all the way down the lateral knee, it is not red, it looks good, it is clean and dry, not oozing, it does not seem infected. IMPRESSION: 1. Septic arthritis requiring antibiotics. 2. He had some hardware requiring a locking hip socket, which is being custom made. 3. Appointment with Dr. Patel on Wednesday at 10:00. 4. Hypertension. 5. Juvenile onset rheumatoid arthritis. 6. Anemia. 7. Gastroesophageal reflux. 8. Peripheral vascular disease with a resultant xgwwm-nzg-wamh amputation on the right. 9. Benign prostatic hypertrophy. 10. Osteoporosis. 11. Generalized weakness. PLAN: 1. The patient will see Dr. Patel tomorrow at 10:00. Hopefully he will have his custom locking hip socket in and he can get surgery scheduled soon. 2. Continue to hold physical therapy and occupational therapy. 3. Continue DVT and stress ulcer prophylaxis. 4. Encourage the patient to take his omeprazole and his Tums for his gastroesophageal reflux diseas e. 5. Nonweightbearing still at this time. 6. Decubitus precautions.
[2016-06-25] MEDS: Acetaminophen/Codeine 30-300mg Tablet PO PRN ×3 (13:22→22:41)
[2016-06-25] MEDS: Multivitamin W/ Minerals 1 TAB PO SCH (17:00)
[2016-06-25] MEDS: Calcium Carbonate 500 MG ChewTAB PO PRN (20:34)
[2016-06-25] MEDS: Teriparatide [Forteo] 20 MCG SC SCH (21:56)
[2016-06-25] MEDS: Gabapentin 400 MG CAP PO SCH (21:59)
[2016-06-25] MEDS: Calcium Carbonate 500 MG TAB PO SCH (21:59)
[2016-06-26] MEDS: traMADol HCl 50 MG TAB PO SCH ×5 (01:32→22:59)
[2016-06-26] MEDS: Metoclopramide HCl 10 MG TAB PO SCH (06:03)
[2016-06-26] MEDS: OMEPRAZOLE 40 MG CAPSULE PO SCH (06:05)
[2016-06-26] MEDS: Vancomycin HCl 500 MG in Sodium Chloride 0.9% 100 ML IVPB SCH ×2 (08:19→21:02)
[2016-06-26] MEDS: Cefepime 1 GM in Sodium Chloride 0.9% 100 ML IVPB SCH ×2 (08:19→21:03)
[2016-06-26] MEDS: Rifampin 150 MG CAP PO SCH ×2 (08:21→23:01)
[2016-06-26] MEDS: Tamsulosin HCl 0.4 MG CAP PO SCH (08:21)
[2016-06-26] MEDS: Ferrous Sulfate 325 MG TAB PO SCH ×2 (08:21→17:30)
[2016-06-26] MEDS: Aspirin 325 mg Enteric Coated Tablet PO SCH ×2 (08:21→21:06)
[2016-06-26] MEDS: CeleCOXIB 100 MG CAP PO SCH (08:21)
[2016-06-26] MEDS: Docusate 100 MG CAP PO SCH ×2 (08:21→21:05)
[2016-06-26] MEDS: Atenolol 25 MG TAB PO SCH (08:22)
[2016-06-26] MEDS: Clopidogrel Bisulfate 75 MG TAB PO SCH (08:22)
[2016-06-26] MEDS: Acetaminophen/Codeine 30-300mg Tablet PO PRN ×3 (08:32→21:04)
[2016-06-26] MEDS: MAGNESIUM CITRATE 100 MG PO SCH (09:17)
[2016-06-26 16:18] VITALS: BMI 19.5
[2016-06-26] MEDS: Multivitamin W/ Minerals 1 TAB PO SCH (17:30)
[2016-06-26] MEDS: Gabapentin 400 MG CAP PO SCH (21:05)
[2016-06-26] MEDS: Calcium Carbonate 500 MG TAB PO SCH (21:06)
[2016-06-26] MEDS: Teriparatide [Forteo] 20 MCG SC SCH (21:10)
[2016-06-26] MEDS: Calcium Carbonate 500 MG ChewTAB PO PRN (21:10)
[2016-06-26] MEDS ORDERED: Rifampin 300 MG CAP PO SCH ×2 (22:00→22:30)
[2016-06-27] MEDS: Metoclopramide HCl 10 MG TAB PO SCH (06:04)
[2016-06-27] MEDS: OMEPRAZOLE 40 MG CAPSULE PO SCH (06:06)
[2016-06-27] MEDS: Acetaminophen/Codeine 30-300mg Tablet PO PRN ×3 (06:09→21:15)
[2016-06-27] MEDS: traMADol HCl 50 MG TAB PO SCH ×3 (06:35→17:46)
[2016-06-27 08:17] LABS: Vancomycin, Trough 17.9 ug/mL
[2016-06-27] MEDS: Ferrous Sulfate 325 MG TAB PO SCH ×2 (08:23→17:46)
[2016-06-27] MEDS: CeleCOXIB 100 MG CAP PO SCH (08:23)
[2016-06-27] MEDS: Atenolol 25 MG TAB PO SCH (08:24)
[2016-06-27] MEDS: Rifampin 300 MG CAP PO SCH ×2 (08:24→21:15)
[2016-06-27] MEDS: MAGNESIUM CITRATE 100 MG PO SCH (08:24)
[2016-06-27] MEDS: Tamsulosin HCl 0.4 MG CAP PO SCH (08:24)
[2016-06-27] MEDS: Docusate 100 MG CAP PO SCH ×2 (08:25→20:21)
[2016-06-27] MEDS: Aspirin 325 mg Enteric Coated Tablet PO SCH ×2 (08:25→20:20)
[2016-06-27] MEDS: Cefepime 1 GM in Sodium Chloride 0.9% 100 ML IVPB SCH ×2 (08:28→21:21)
[2016-06-27] MEDS: Vancomycin HCl 500 MG in Sodium Chloride 0.9% 100 ML IVPB SCH ×2 (08:40→20:22)
--- NOTE | 2016-06-27 13:01 | PRG ---
DATE OF SERVICE: 06/26/2016. SUBJECTIVE: The patient is on his way to see orthopedic surgeon, Dr. Patel. No complaints of pain, shortness of breath, fever, chills, nausea or vomiting. OBJECTIVE: VITAL SIGNS: Shows his temperature is 97, pulse 64, respirations 20, blood pressure 118/66. LUNGS: Clear. CARDIAC: Shows regular rhythm. EXTREMITIES: Left hip incision is clean and dry. ASSESSMENT: 1. 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 2. Hypertension, well controlled. 3. 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 4. Peripheral vascular disease, status post right ssxpd-irt-hkcx amputation. 5. Generalized weakness, improving greatly. PLAN: 1. Follow up with Dr. Patel today to schedule possible hip surgery for relocation. 2. Continue antibiotics until surgery scheduled. 3. Continue stress ulcer and deep venous thrombosis prophylaxes.
--- NOTE | 2016-06-27 13:11 | PRG ---
DATE OF PROGRESS NOTE: 06/27/2016 SUBJECTIVE: The patient feels well, lying in bed, returned from his visit with orthopedic surgeon y sourav and is encouraged about surgery being scheduled on Wednesday in 2 days to reduce his left hip dislocation. Apparently, he cannot have his special hip socket placed until he has failed on hip di slocation. He is to have his antibiotics stopped tomorrow night and he will be discharged and then he will be admitted to the [facility] the next morning. OBJECTIVE: VITAL SIGNS: Shows his pulse 67, temperature 97.6, respirations 18, O2 sats 98%, blood pressure 126 /71. LUNGS: Clear. CARDIAC: Examination shows regular rhythm. No gallops or murmurs. ABDOMEN: Soft and nontender with no masses or organomegaly. EXTREMITIES: Multiple deformities of the hands. He is status post right vhcnc-foy-jwrv amputation. Left hip and thigh shows clean incision from the hip to the knee. ASSESSMENT: 1. Resolving left hip fracture status post left total hip, left total knee and left femur with subs equent septic arthritis, on antibiotics for the next 2 days and then reduction of his left total hip in 2 days. 2. Chronic rheumatoid arthritis deformity, stable. 3. Hypertension, stable. PLAN: Continue antibiotics vancomycin and cefepime until midnight, more night. Discharge on 09/18, Wednesday morning. [facility] to admit Wednesday for reduction of left total hip. Continue DVT and stress ulcer prophylaxis.
[2016-06-27] MEDS: Multivitamin W/ Minerals 1 TAB PO SCH (17:46)
[2016-06-27] MEDS: Calcium Carbonate 500 MG ChewTAB PO PRN (20:17)
[2016-06-27] MEDS: Calcium Carbonate 500 MG TAB PO SCH (20:21)
[2016-06-27] MEDS: Gabapentin 400 MG CAP PO SCH (20:21)
[2016-06-27] MEDS: Teriparatide [Forteo] 20 MCG SC SCH (21:17)
[2016-06-28] MEDS: traMADol HCl 50 MG TAB PO SCH ×5 (01:14→23:14)
[2016-06-28] MEDS: Metoclopramide HCl 10 MG TAB PO SCH (06:03)
[2016-06-28] MEDS: OMEPRAZOLE 40 MG CAPSULE PO SCH (06:03)
[2016-06-28] MEDS: Vancomycin HCl 500 MG in Sodium Chloride 0.9% 100 ML IVPB SCH ×2 (08:52→21:26)
[2016-06-28] MEDS: Tamsulosin HCl 0.4 MG CAP PO SCH (08:53)
[2016-06-28] MEDS: Ferrous Sulfate 325 MG TAB PO SCH ×2 (08:53→17:32)
[2016-06-28] MEDS: Rifampin 300 MG CAP PO SCH ×2 (08:53→21:23)
[2016-06-28] MEDS: Cefepime 1 GM in Sodium Chloride 0.9% 100 ML IVPB SCH ×2 (08:53→21:26)
[2016-06-28] MEDS: Docusate 100 MG CAP PO SCH ×2 (08:53→21:24)
[2016-06-28] MEDS: Atenolol 25 MG TAB PO SCH (08:53)
[2016-06-28] MEDS: CeleCOXIB 100 MG CAP PO SCH (08:53)
[2016-06-28] MEDS: MAGNESIUM CITRATE 100 MG PO SCH (08:54)
[2016-06-28] MEDS: Acetaminophen/Codeine 30-300mg Tablet PO PRN ×2 (13:01→21:24)
[2016-06-28] MEDS: Multivitamin W/ Minerals 1 TAB PO SCH (17:32)
[2016-06-28] MEDS: Gabapentin 400 MG CAP PO SCH (21:23)
[2016-06-28] MEDS: Calcium Carbonate 500 MG TAB PO SCH (21:24)
[2016-06-28] MEDS: Teriparatide [Forteo] 20 MCG SC SCH (21:27)
[2016-06-28 21:41] LABS: Vancomycin, Trough 16.2 ug/mL
[2016-06-28] MEDS: Calcium Carbonate 500 MG ChewTAB PO PRN (23:14)
--- NOTE | 2016-06-28 23:36 | PRG ---
DATE OF SERVICE: 06/28/2016 SUBJECTIVE: The patient feels well, awaiting discharge tomorrow to have his hip surgery done. Yoni es any shortness of breath, chest pain, fever or chills. OBJECTIVE: VITAL SIGNS: Blood pressure 120/73, pulse 64, temperature 97.8, afebrile. LUNGS: Are clear. CARDIAC: Shows regular rhythm. ABDOMEN: Soft and nontender. LABORATORY: Show vancomycin trough yesterday 17. ASSESSMENT: 1. Stable status post left hip fracture with left total hip, left total knee and left femur. Off a ntibiotics tonight with reduction of his left total hip tomorrow. 2. Chronic rheumatoid arthritis with deformities. 3. Hypertension. 4. Stable right-above knee amputation. PLAN: 1. Discharge in the a.m. 2. Follow up with Dr. Patel at [facility].
[2016-06-29] MEDS: Metoclopramide HCl 10 MG TAB PO SCH (05:29)
[2016-06-29] MEDS: OMEPRAZOLE 40 MG CAPSULE PO SCH (05:29)
[2016-06-29] MEDS: traMADol HCl 50 MG TAB PO SCH (05:30)
[2016-06-29 06:34] VITALS: TEMP 97.2
[2016-06-29 08:09] VITALS: BP 116/73
== END 2016-06-29 07:15 | disposition short-term general hospital (02) | DRG 560 ==
LOC: NAV ACUTE 17:34
PROVIDERS: ADMIT Family Medicine; ATTEND Family Medicine
DX: Z47.1 Aftercare following joint replacement surgery (principal); M86.9 Osteomyelitis, unspecified; R64 Cachexia; Z89.611 Acquired absence of right leg above knee; Z96.642 Presence of left artificial hip joint; Z96.652 Presence of left artificial knee joint; Z96.641 Presence of right artificial hip joint; M19.90 Unspecified osteoarthritis, unspecified site; N40.0 Benign prostatic hyperplasia without lower urinary tract symptoms; Z79.82 Long term (current) use of aspirin; M81.0 Age-related osteoporosis without current pathological fracture; I10 Essential (primary) hypertension; K21.9 Gastro-esophageal reflux disease without esophagitis; D64.9 Anemia, unspecified; Z87.891 Personal history of nicotine dependence; I73.9 Peripheral vascular disease, unspecified; M08.09 Unspecified juvenile rheumatoid arthritis, multiple sites; R12 Heartburn; T84.52XD Infection and inflammatory reaction due to internal left hip prosthesis, subsequent encounter; Y83.8 Other surgical procedures as the cause of abnormal reaction of the patient, or of later complication, without mention of misadventure at the time of the procedure; B96.5 Pseudomonas (aeruginosa) (mallei) (pseudomallei) as the cause of diseases classified elsewhere; Z68.20 Body mass index [BMI] 20.0-20.9, adult
CPT/HCPCS: 36415; 36416; 80048; 80053; 80202; 83880; 85025; 85652; 86140; 87070; 87077; 87186; 87205; 97602; A4216; C1751; G8978-GP-CM; G8979-GP-CJ; G8990-GP-CL; G8991-GP-CJ; J0692; J1642; J3370; J3490; J7050

== ENCOUNTER 2016-07-11 07:56 | Inpatient (IN) | payer MEDICARE ==
[2016-07-11 08:48] LABS: #Basophils 0.1 thou/uL (0.0-0.2); #Eosinphils 0.7 thou/uL (0.0-0.7); #Lymphocytes 1.2 thou/uL (1.20-3.40); #Monocytes 0.9 thou/uL (0.11-0.59); %Basophils 1.3 % (0.0-1.0); %Eosinophils 9.7 % (0.0-10.0); %Lymphocytes 17.5 % (21.0-51.0); %Monocytes 13.2 % (0.0-10.0); %Neutrophils 58.4 % (42.0-75.0); Hemoglobin 10.7 g/dL (14.0-18.0); Mean Corpuscular Hemoglobin 29.3 pg (27.0-31.0); Mean Corpuscular Volume 86.3 fl (80.0-94.0); Mean Platelet Volume 6.2 fL (7.4-10.4); Platelet Count 248 thou/uL (130-400); RBC Distribution Width 14.6 % (11.5-14.5); Red Blood Cell (RBC) Count 3.66 mill/uL (4.70-6.10); White Blood Cell (WBC) Count 6.8 thou/uL (4.8-10.8)
[2016-07-11 09:00] LABS: ALT (SGPT) 14 U/L (0-55); AST (SGOT) 13 U/L (5-34); Albumin 2.3 g/dL (3.4-4.8); Alkaline Phosphatase 153 U/L (40-150); Anion Gap 12 mmol/L (10-20); BUN (Urea Nitrogen) 18 mg/dL (8.4-25.7); Bilirubin, Total 0.6 mg/dL (0.2-1.2); Calc. Creatinine Clearance 75 mL/min (70-130); Calcium 8.1 mg/dL (7.8-10.44); Carbon Dioxide 24 mmol/L (23-31); Chloride 99 mmol/L (98-107); Estimated GFR-MDRD Greater than 90; Globulin 2.7 g/dL (2.4-3.5); Glucose 86 mg/dL (80-115); Potassium 3.6 mmol/L (3.5-5.1); Sodium 131 mmol/L (136-145)
[2016-07-11] MEDS ORDERED: CeleCOXIB 100 MG CAP PO SCH (09:00)
[2016-07-11] MEDS ORDERED: Tamsulosin HCl 0.4 MG CAP PO SCH (09:00)
[2016-07-11] MEDS ORDERED: Atenolol 25 MG TAB PO SCH (09:00)
[2016-07-11] MEDS ORDERED: Metoclopramide HCl 10 MG TAB PO SCH (09:00)
[2016-07-11] MEDS ORDERED: Aspirin 325 mg Enteric Coated Tablet PO SCH (09:00)
[2016-07-11] MEDS ORDERED: traMADol HCl 50 MG TAB PO SCH (09:00)
[2016-07-11] MEDS ORDERED: Clopidogrel Bisulfate 75 MG TAB PO SCH (09:00)
[2016-07-11] MEDS: HYDROcodone/Acetaminophen 10/325 mg Tablet PO PRN ×2 (14:07→21:04)
[2016-07-11] MEDS: traMADol HCl 50 MG TAB PO SCH ×2 (15:40→21:02)
--- NOTE | 2016-07-11 16:18 | HP ---
HISTORY OF PRESENT ILLNESS: The patient is an unfortunate 60-year-old white male with a life long h istory of juvenile rheumatoid arthritis, subsequent multiple deformities, who has had problems with recurrent infection of his left leg after a left total knee, left hip, and midshaft replacement of f emoral component of his bone. He was treated with long-term antibiotics and then suppressive therap y and now has had a replacement of the hip with interlocking socket, decreases the risk of dislocati on, but has been very much weak and for his many months hospitalization and therefore he is unable t o maintain ADLs at home and is therefore admitted to the skilled unit for physical therapy and occup ational therapy. PAST MEDICAL HISTORY: Remarkable for the above-mentioned rheumatoid arthritis, hypertension, hypert ensive heart disease, osteoarthritis, benign prostatic hypertrophy, history of peptic ulcer disease, history of peripheral neuropathy, and history of nicotine abuse. PAST SURGICAL HISTORY: Positive for the above-mentioned left hip, left knee replacement, right hip replacement, right jrgsa-dil-dfjf amputation after infection. The above-mentioned recent left perip rosthetic femur fracture requiring metal lc placement. The above-mentioned right kuhxu-imv-qnsl am putation secondary to arterial thrombotic complications. SOCIAL HISTORY: Positive, still smoking a cigar a day, nondrinking. FAMILY MEDICAL HISTORY: Positive for bladder cancer in his mother. ALLERGIES: Allergic to TETANUS TOXOID, LEVAQUIN, AND FLEXERIL. REVIEW OF SYSTEMS: HEENT: He denies any headaches, dizziness, change in vision or hearing, hoarse or dysphagia. PULMONARY: Denies cough, sputum production, pneumonia, asthma, tuberculosis. CARDIOVASCULAR: Denies chest pain, orthopnea, paroxysmal nocturnal dyspnea or edema. GASTROINTESTINAL: He denies nausea, vomiting, diarrhea, constipation, abdominal pain. GENITOURINARY: Denies dysuria, hematuria. Does have some mild decreased stream, history of BPH. MUSCULOSKELETAL: See history of present illness. NEUROLOGIC: Denies localized numbness, weakness in arms or extremities. PHYSICAL EXAMINATION: GENERAL: Patient is a thin, cachectic white male, awake, alert, oriented, lucid, in no acute distre ss. VITAL SIGNS: Blood pressure 116/71, O2 sat 98%, respirations 20, pulse 60, afebrile. HEENT: Pupils are equal, round, and reactive to light and accommodation. Sclerae are anicteric. C onjunctivae pale. Oral mucous membranes well hydrated. NECK: Supple, no nodes or masses. JVP is not elevated. LUNGS: Show decreased breath sounds, no rales or rhonchi. CARDIAC: Regular rhythm. SKIN/EXTREMITIES: Show a right above-knee amputation, well healed. Left hip shows a clean incision with some drainage, but no erythema, warmth or tenderness on the left lateral hip, multiple deformi ties, rheumatoid arthritis. NEUROLOGIC: Intact. ASSESSMENT: This is a 60-year-old white male with a history of chronic infection of left hip underg one placement of locking mechanism of his acetabulum and become very weak secondary to long-term hos pitalization after his multiple surgeries and therefore he is admitted to the hospital for physical therapy, occupational therapy, but continued on suppressive therapy for infection and will be contin ued also on his home medications of Forteo that he will give himself.
[2016-07-11] MEDS: Calcium Carbonate + Vit D 1 TAB PO SCH (16:45)
[2016-07-11] MEDS: Multivitamin W/ Minerals 1 TAB PO SCH (16:45)
[2016-07-11] MEDS: Ferrous Sulfate 325 MG TAB PO SCH (16:45)
[2016-07-11] MEDS: Aspirin 325 mg Enteric Coated Tablet PO SCH (21:02)
[2016-07-11] MEDS: Rifampin 300 MG CAP PO SCH (21:02)
[2016-07-11] MEDS: FORTEO SC SCH (21:04)
[2016-07-11] MEDS: MINOCYCLINE 100 MG PO SCH (21:06)
[2016-07-12] MEDS: HYDROcodone/Acetaminophen 10/325 mg Tablet PO PRN (02:22)
[2016-07-12] MEDS: OMEPRAZOLE PO SCH (05:46)
[2016-07-12] MEDS: Metoclopramide HCl 10 MG TAB PO SCH (05:46)
[2016-07-12] MEDS: Ferrous Sulfate 325 MG TAB PO SCH ×2 (08:58→16:51)
[2016-07-12] MEDS: Atenolol 25 MG TAB PO SCH (08:58)
[2016-07-12] MEDS: Tamsulosin HCl 0.4 MG CAP PO SCH (08:58)
[2016-07-12] MEDS: Acetaminophen 325 MG TAB PO PRN (08:58)
[2016-07-12] MEDS: Clopidogrel Bisulfate 75 MG TAB PO SCH (08:58)
[2016-07-12] MEDS: Aspirin 325 mg Enteric Coated Tablet PO SCH ×2 (08:59→21:33)
[2016-07-12] MEDS: MINOCYCLINE 100 MG PO SCH ×2 (08:59→21:38)
[2016-07-12] MEDS: traMADol HCl 50 MG TAB PO SCH ×3 (09:00→21:35)
--- NOTE | 2016-07-12 10:30 | PRG ---
DATE OF PROGRESS NOTE: 07/12/2016. SUBJECTIVE: The patient feels well. No complaints except for insomnia and states that he was takin g gabapentin at night previously. He has had no fever or chills. Good appetite. No particular jolie n and agreed to do therapy. OBJECTIVE: VITAL SIGNS: Shows his blood pressure is 127/62, pulse 60, temperature 98, respirations 20, O2 saturations 99%. LABORATORY DATA: Shows white count 6800, hematocrit 31, hemoglobin 10. Sed rate 29. Sodium 131, p otassium 3.6, chloride 99, bicarbonate 24, BUN 18, creatinine 0.64. CRP 5.43, total protein 5.0, al bumin 2.3. PHYSICAL EXAMINATION: LUNGS: Clear. EXTREMITIES: Left leg shows some drainage, but minimal tenderness, erythema. NEUROLOGIC: Shows no focal findings. ASSESSMENT: Severe deconditioning, status post long hospitalization, multiple surgeries on both fra ctures of the left leg, now status post open reduction and status post total hip replacement and int erlocking acetabular socket, on prophylactic antibiotics because of recurrent infection on previous surgeries. PLAN: Continue oral Minocin and rifampin. Start PT and OT tomorrow. Continue blood pressure contr ol with amlodipine and atenolol, change hydrocodone with Tylenol #3 for pain relief per the patient requests, monitor wound for any signs of increased infection. Dr. Guerrero to be back tonight care f or patient.
[2016-07-12] MEDS: MAG CITRATE PO SCH (11:08)
[2016-07-12] MEDS: Acetaminophen/Codeine 30-300mg Tablet PO PRN ×3 (11:23→21:36)
[2016-07-12] MEDS: Calcium Carbonate + Vit D 1 TAB PO SCH (16:50)
[2016-07-12] MEDS: Multivitamin W/ Minerals 1 TAB PO SCH (16:51)
[2016-07-12] MEDS: Rifampin 300 MG CAP PO SCH (21:35)
[2016-07-12] MEDS: FORTEO SC SCH (21:37)
[2016-07-12] MEDS: Gabapentin 400 MG CAP PO SCH (21:37)
[2016-07-13] MEDS: Acetaminophen/Codeine 30-300mg Tablet PO PRN ×3 (03:42→21:59)
[2016-07-13] MEDS: OMEPRAZOLE PO SCH (05:21)
[2016-07-13] MEDS: Metoclopramide HCl 10 MG TAB PO SCH (05:21)
[2016-07-13] MEDS: Ferrous Sulfate 325 MG TAB PO SCH ×2 (08:10→17:15)
[2016-07-13] MEDS: Atenolol 25 MG TAB PO SCH (08:34)
[2016-07-13] MEDS: Aspirin 325 mg Enteric Coated Tablet PO SCH ×2 (08:34→22:00)
[2016-07-13] MEDS: traMADol HCl 50 MG TAB PO SCH ×3 (08:36→21:58)
[2016-07-13] MEDS: Tamsulosin HCl 0.4 MG CAP PO SCH (08:36)
[2016-07-13] MEDS: Clopidogrel Bisulfate 75 MG TAB PO SCH (08:36)
[2016-07-13] MEDS: MINOCYCLINE 100 MG PO SCH ×2 (08:38→21:55)
[2016-07-13] MEDS: MAG CITRATE PO SCH (08:40)
[2016-07-13] MEDS: Multivitamin W/ Minerals 1 TAB PO SCH (17:15)
[2016-07-13] MEDS: Calcium Carbonate + Vit D 1 TAB PO SCH (17:15)
--- NOTE | 2016-07-13 19:46 | PRG ---
DATE OF ADMISSION: 07/11/2016 DATE OF SERVICE: 07/13/2016 HISTORY OF PRESENT ILLNESS: Mr. Guerra is a very pleasant 60-year-old white male that had a right a cahk-xvv-oggd amputation done in left lower extremities ending up with having a total left knee, tot al left hip, and a femur replaced by Dr. Patel. He finished a course of antibiotics for septic arthr itis, but then dislocated his hip, so he went back to surgery with Dr. Patel and he placed an interlo cking acetabular socket. He is on prophylactic antibiotics again because of recurrent infections of the previous surgeries. Presently on medicine rifampin. The patient is doing well since he has still some drainage. A culture was done yesterday. The barbara ent has no complaints at all. PHYSICAL EXAMINATION: VITAL SIGNS: Reveal blood pressure today was 124/80 this morning, pulse 63-64, respirations 18-20, O2 saturation 99%, T-max 98.2. GENERAL: This is a well-developed, well-nourished, thin white male in no apparent distress at this time. HEENT: Reveals normocephalic, nontraumatic cranium. Pupils are equally round and reactive. Extrao cular movements intact. Nose and throat are slightly dry. NECK: Supple, without masses, nodes or bruits. CHEST: Clear to auscultation. No rales, rhonchi, wheezes or cough is heard. HEART: Reveals a regular rate and rhythm without murmurs, gallops or rubs. ABDOMEN: Soft, nontender, without organomegaly. Normal bowel sounds are noted. No rebound or guar ding is noted. : Deferred. EXTREMITIES: Reveal no clubbing, cyanosis or edema. The patient does have a right qytjr-ysp-okix a mputation. The left side has an incision going from his left acetabulum all the way down to the lat eral knee. He continues to have some drainage at that time. A culture and sensitivity was done. IMPRESSION: 1. Redo replacement of an interlocking acetabular socket, status post total hip replacement. 2. Prophylactic antibiotics secondary to recurring infection of previous surgeries. 3. Follow with Dr. Patel tomorrow. 4. Hypertension. 5. Also had rheumatoid arthritis. 6. Anemia. 7. Gastroesophageal reflux. 8. Peripheral vascular disease with resultant right side wzqcx-opk-oiea amputation. 9. Osteoporosis. 10. Generalized weakness. PLAN: 1. The patient is supposed to see Dr. Patel tomorrow. 2. Continue to do toe-touch PT and OT at this time. 3. Continue DVT and stress ulcer prophylaxis. 4. Continue to encourage the patient to take his omeprazole and his Tums for his reflux. 5. Nonweightbearing but just toe-touch. 6. Decubitus precautions.
[2016-07-13] MEDS: FORTEO SC SCH (21:55)
[2016-07-13] MEDS: Rifampin 300 MG CAP PO SCH (21:59)
[2016-07-13] MEDS: Gabapentin 400 MG CAP PO SCH (22:00)
[2016-07-14] MEDS: Acetaminophen/Codeine 30-300mg Tablet PO PRN ×4 (06:00→21:25)
[2016-07-14] MEDS: OMEPRAZOLE PO SCH (06:18)
[2016-07-14] MEDS: Metoclopramide HCl 10 MG TAB PO SCH (06:18)
[2016-07-14] MEDS: Ferrous Sulfate 325 MG TAB PO SCH ×2 (08:05→17:07)
[2016-07-14] MEDS: Atenolol 25 MG TAB PO SCH (09:05)
[2016-07-14] MEDS: Aspirin 325 mg Enteric Coated Tablet PO SCH ×2 (09:05→21:25)
[2016-07-14] MEDS: Tamsulosin HCl 0.4 MG CAP PO SCH (09:06)
[2016-07-14] MEDS: Clopidogrel Bisulfate 75 MG TAB PO SCH (09:06)
[2016-07-14] MEDS: MAG CITRATE PO SCH (09:07)
[2016-07-14] MEDS: MINOCYCLINE 100 MG PO SCH ×2 (09:07→21:28)
[2016-07-14] MEDS: traMADol HCl 50 MG TAB PO SCH ×3 (09:08→21:26)
[2016-07-14] MEDS: Multivitamin W/ Minerals 1 TAB PO SCH (17:06)
[2016-07-14] MEDS: Calcium Carbonate + Vit D 1 TAB PO SCH (17:07)
--- NOTE | 2016-07-14 19:33 | PRG ---
DATE OF SERVICE: 07/14/2016 SUBJECTIVE: Mr. Guerra is a 60-year-old white male that had a left lower extremity total left knee, total left hip, and femur were placed by Dr. Patel. He became dislocated and so he was taken back s urgical suite and presently had a locking acetabular socket placed. The patient went home for several days and was unable to get home health at home and was then admitt ed to [facility] for physical therapy and occupational therapy. The patient is actually doin g well with only toe touch and he is supposed to see by Dr. Patel this morning for evaluation at 11:0 0 to see if he can put weightbearing as tolerated. PHYSICAL EXAMINATION: VITAL SIGNS: Today reveal blood pressure is 116/67, pulse 60-67, respirations 18-20, O2 sat 99% -10 0%, T-max is 98.0. GENERAL: This is a well-developed, well-nourished, very pleasant, thin white male in no apparent di stress at this time. HEENT: Reveals normocephalic, nontraumatic cranium. Pupils are equally round and reactive. Extrao cular movements intact. Nose and throat are slightly dry. NECK: Supple without masses, nodes, or bruits. CHEST: Clear to auscultation. No rales, rhonchi, or wheezes are heard. HEART: Reveals a regular rate and rhythm without murmurs, gallops, or rubs. ABDOMEN: Scaphoid, soft, nontender, without organomegaly. Normal bowel sounds are noted. No rebou nd or guarding is noted. GENITOURINARY: Deferred. EXTREMITIES: Left leg still with some drainage. MICROBIOLOGY: Growing multiple gram negative rods, but sensitivity and cultures were not able to be identified yet. ASSESSMENT: 1. Redo replacement of interlocking acetabular socket, status post total left hip, left knee, and femur were replacement. 2. Prophylactic antibiotic secondary to recurrent infection from previous surgeries. 3. Hypertension. 4. Juvenile onset rheumatoid arthritis. 5. Anemia. 6. Gastroesophageal reflux. 7. Peripheral vascular disease with result from outside dsnug-kon-bynk amputation. 8. Osteoporosis. 9. Generalized weakness. PLAN: 1. The patient is off to see Dr. Patel today at 11:00. The ambulance has not picked him up yet. 2. The patient still is on toe touch with physical therapy and occupational therapy at this time. Hopefully Dr. Patel will release him to do weightbearing as tolerated. 3. Continue deep vein thrombosis and stress ulcer prophylaxis. 4. Encourage the patient to take his omeprazole and Tums for reflux. 5. Continue decubitus precautions.
[2016-07-14] MEDS: Rifampin 300 MG CAP PO SCH (21:25)
[2016-07-14] MEDS: Gabapentin 400 MG CAP PO SCH (21:25)
[2016-07-14] MEDS: FORTEO SC SCH (21:27)
[2016-07-15] MEDS: Metoclopramide HCl 10 MG TAB PO SCH (05:54)
[2016-07-15] MEDS: OMEPRAZOLE PO SCH (05:55)
[2016-07-15] MEDS ORDERED: Atenolol 25 MG TAB ONE (08:04)
[2016-07-15] MEDS: Atenolol 25 MG TAB PO SCH (08:27)
[2016-07-15] MEDS: Clopidogrel Bisulfate 75 MG TAB PO SCH (08:28)
[2016-07-15] MEDS: Aspirin 325 mg Enteric Coated Tablet PO SCH ×2 (08:28→20:47)
[2016-07-15] MEDS: Ferrous Sulfate 325 MG TAB PO SCH ×2 (08:28→17:35)
[2016-07-15] MEDS: Tamsulosin HCl 0.4 MG CAP PO SCH (08:28)
[2016-07-15] MEDS: MINOCYCLINE 100 MG PO SCH ×2 (08:28→20:49)
[2016-07-15] MEDS: MAG CITRATE PO SCH (08:29)
[2016-07-15] MEDS: traMADol HCl 50 MG TAB PO SCH ×3 (08:29→20:49)
[2016-07-15] MEDS: Acetaminophen/Codeine 30-300mg Tablet PO PRN ×2 (15:51→20:47)
[2016-07-15] MEDS: Multivitamin W/ Minerals 1 TAB PO SCH (17:35)
[2016-07-15] MEDS: Calcium Carbonate + Vit D 1 TAB PO SCH (17:35)
[2016-07-15] MEDS: Docusate 100 MG CAP PO PRN (17:39)
[2016-07-15] MEDS: Rifampin 300 MG CAP PO SCH (20:47)
[2016-07-15] MEDS: Gabapentin 400 MG CAP PO SCH (20:47)
[2016-07-15] MEDS: FORTEO SC SCH (20:48)
--- NOTE | 2016-07-16 01:06 | PRG ---
DATE OF SERVICE: 07/15/2016 DATE OF ADMISSION: 07/11/2016 SUBJECTIVE: Patient is a 60-year-old white male with left lower extremity significant recent surger y. The patient had total left hip, total left knee, and total femur replaced. Unfortunately, the l eft hip became dislocated, so he was taken back to surgery and had a locking acetabular socket place d. The patient is about a week postop. The patient did see Dr. Patel yesterday morning and he did a pprove him to do toe touch and weightbearing as tolerated for one week and then full weightbearing a fter that. The patient is certainly excited about that, but somewhat his skeptical and slightly afraid. He has no complaints today. PHYSICAL EXAMINATION: VITAL SIGNS: Today reveal blood pressure is 118/70, pulse 65-75, respirations 20, O2 sat 88%-99%, t emperature max 98.4. GENERAL: This is a well-developed, very thin white male in no apparent distress at this time. HEENT: Reveals normocephalic, nontraumatic cranium. Pupils are equally round and reactive. Extrao cular movements intact. Nose and throat are slightly dry. NECK: Supple, without mass, nodes, or bruits. LUNGS: Chest clear to auscultation. No rales, rhonchi, or wheezes are heard. CARDIOVASCULAR: Reveals a regular rate and rhythm without murmurs, gallops, or rubs. ABDOMEN: Scaphoid, nontender without organomegaly, normal bowel sounds are noted. No rebound or gu arding is noted. GENITOURINARY: Deferred. EXTREMITIES: Reveal right jbhxu-geg-bist amputation and left leg still some drainage, but seems to be decreasing. Microorganism still growing Gram negative rods, no sensitivities back yet. IMPRESSION: 1. Redo replacement of interlocking acetabular socket, status post total left hip, total left knee, and femur replacement. 2. Prophylactic antibiotics secondary to recurrent infection from previous surgeries. 3. Hypertension. 4. Juvenile-onset rheumatoid arthritis. 5. Anemia. 6. Gastroesophageal reflux disease. 7. Severe peripheral vascular disease with resultant right-sided above the knee amputation. 8. Osteoporosis. 9. Generalized weakness. PLAN: 1. The patient saw Dr. Patel who okay him to do weightbearing as tolerated on his left leg. 2. The patient is to be gingerly transfer. 3. The patient will continue physical therapy and occupational therapy. 4. Patient will continue deep venous thrombosis and stress ulcer prophylaxis. 5. Continue to encourage patient to take his omeprazole in terms for reflux. 6. Continue decubitus precautions. 7. Continue actively encouraging this gentleman to continue eat.
[2016-07-16] MEDS: Acetaminophen/Codeine 30-300mg Tablet PO PRN ×3 (05:42→20:40)
[2016-07-16] MEDS: OMEPRAZOLE PO SCH (05:42)
[2016-07-16] MEDS: Metoclopramide HCl 10 MG TAB PO SCH (05:42)
[2016-07-16] MEDS: Ferrous Sulfate 325 MG TAB PO SCH ×2 (08:10→17:08)
[2016-07-16] MEDS: traMADol HCl 50 MG TAB PO SCH ×3 (08:10→20:40)
[2016-07-16] MEDS: Aspirin 325 mg Enteric Coated Tablet PO SCH ×2 (08:10→20:39)
[2016-07-16] MEDS: Clopidogrel Bisulfate 75 MG TAB PO SCH (08:10)
[2016-07-16] MEDS: Atenolol 25 MG TAB PO SCH (08:10)
[2016-07-16] MEDS: Tamsulosin HCl 0.4 MG CAP PO SCH (08:10)
[2016-07-16] MEDS: MINOCYCLINE 100 MG PO SCH ×2 (09:59→20:39)
[2016-07-16] MEDS: MAG CITRATE PO SCH (13:00)
[2016-07-16] MEDS: Calcium Carbonate + Vit D 1 TAB PO SCH (17:08)
[2016-07-16] MEDS: Docusate 100 MG CAP PO PRN (17:08)
[2016-07-16] MEDS: Multivitamin W/ Minerals 1 TAB PO SCH (17:08)
[2016-07-16] MEDS: Gabapentin 400 MG CAP PO SCH (20:39)
[2016-07-16] MEDS: FORTEO SC SCH (20:39)
[2016-07-16] MEDS: Rifampin 300 MG CAP PO SCH (20:40)
--- NOTE | 2016-07-17 00:58 | PRG ---
DATE OF SERVICE: 07/16/2016 DATE OF ADMISSION: 07/11/2016 Mr. Guerra is a 60-year-old white male that has had significant left lower extremity reconstructive surgery. He had a total left hip, total left knee, and total femur replaced, but unfortunately it b ecame dislocated. He was taken back to surgery by Dr. Padilla had a locking acetabular socket placed. He is doing well and was transferred here on physical therapy. He is nonweightbearing with toe to uching this week. He is weightbearing as tolerated next week and then the following week, he is to be walking. He has no complaints. PHYSICAL EXAMINATION: VITAL SIGNS: This morning reveal blood pressure was 123/74, pulse 70-77, respirations 18-20, O2 sat 98-99%, T-max was 98.5. GENERAL: This is a well-developed, well-nourished, thin white male in no apparent distress. HEENT: At this time, HEENT reveals normocephalic, nontraumatic cranium. Pupils are equally round a nd reactive. Extraocular movements intact. Nose and throat are slightly dry. NECK: Supple, without masses, nodes, or bruits. CHEST: Clear to auscultation. No rales, rhonchi, or wheezes are heard. HEART: Reveals a regular rate and rhythm without murmurs, gallops, or rubs. ABDOMEN: Soft, nontender, without organomegaly. Normal bowel sounds are noted. No rebound or guar ding is noted. GENITOURINARY: Deferred. EXTREMITIES: Reveal no clubbing, cyanosis, or edema. The patient has a right qcjmv-tnb-cqpv amputa tion, left incision goes from the hip all the way down to the knee which has much less drainage than it has. ASSESSMENT: 1. Redo replacement and locking acetabular socket, status post total left hip, total left knee and femur replacement. 2. Prophylactic antibiotic secondary to recurrent infection from previous surgeries. 3. Hypertension. 4. Juvenile onset rheumatoid arthritis. 5. Anemia. 6. Gastroesophageal reflux. 7. Severe peripheral vascular disease with resultant right-sided iibke-xpb-zies amputation. 8. Osteoporosis. 9. Generalized weakness. PLAN: 1. The patient saw Dr. Padilla, he is approved for a toe touch at this time. Next week, he will be w eightbearing as tolerated. The patient in the following week will be walking. 2. Continue physical therapy and occupational therapy. 3. Continue DVT and stress ulcer prophylaxis. 4. Continue to encourage patient to take his omeprazole. 5. Continue decubitus precautions. 6. Continue and encourage him to eat.
[2016-07-17] MEDS: Metoclopramide HCl 10 MG TAB PO SCH (05:24)
[2016-07-17] MEDS: OMEPRAZOLE PO SCH (05:24)
[2016-07-17] MEDS: Acetaminophen/Codeine 30-300mg Tablet PO PRN ×3 (05:25→21:11)
[2016-07-17] MEDS: MINOCYCLINE 100 MG PO SCH ×2 (08:52→21:09)
[2016-07-17] MEDS: MAG CITRATE PO SCH (08:53)
[2016-07-17] MEDS: Clopidogrel Bisulfate 75 MG TAB PO SCH (08:54)
[2016-07-17] MEDS: Ferrous Sulfate 325 MG TAB PO SCH ×2 (08:54→17:15)
[2016-07-17] MEDS: traMADol HCl 50 MG TAB PO SCH ×3 (09:05→21:12)
[2016-07-17] MEDS: Aspirin 325 mg Enteric Coated Tablet PO SCH ×2 (09:08→21:11)
[2016-07-17] MEDS: Atenolol 25 MG TAB PO SCH (09:08)
[2016-07-17] MEDS: Tamsulosin HCl 0.4 MG CAP PO SCH (09:08)
[2016-07-17] MEDS: Docusate 100 MG CAP PO PRN (11:44)
--- NOTE | 2016-07-17 13:50 | PRG ---
DATE OF SERVICE: 07/17/2016 SUBJECTIVE: The patient is a very pleasant 60-year-old white male that has had significant orthoped ic problem in his left leg. He ended up having a total left hip, total left knee, and total femur r eplaced, but unfortunately it became dislocated at the hip. He was taken back to surgery by Dr. Jordan ga and the patient had a locking acetabular socket placed. Postoperatively, he has done well. He is supposed to be toe touch at this time, in next week he is supposed to be weightbearing as tolerated and the following week, he should be walking. The patient has no complaints today. He is doing well. OBJECTIVE: VITAL SIGNS: This morning, reveal blood pressure was 111/70, pulse 75-77, respirations 16-20, O2 sa t 98%, temperature 98.8. GENERAL: On physical exam, this is a well-developed, well-nourished, thin white male in no apparent distress at this time. HEENT: Reveals normocephalic, nontraumatic cranium. Pupils are equally round and reactive. Extrao cular movements intact. Nose and throat are slightly dry. NECK: Supple, without masses, nodes or bruits. CHEST: Clear to auscultation. No rales, rhonchi or wheezes are heard. CARDIOVASCULAR: Heart reveals a regular rate and rhythm without murmurs, gallops or rubs. ABDOMEN: Obese, soft, nontender, without organomegaly. Normal bowel sounds are noted. No rebound or guarding is noted. GENITOURIINARY: Deferred. EXTREMITIES: Reveal no clubbing, cyanosis or edema. Patient has a right nuxsr-eph-msyl amputation. On the left side, the patient's incision goes from the hip all the way down to the knee, which has no significant drainage at this time. The patient has sutures in which he wants out, but Dr. Patel recommended taking that out on Wednesday. Most likely do that. ASSESSMENT: 1. Redo replacement unlocking acetabular socket, status post total hip, status post total left knee , status post femur replacement. 2. Prophylactic antibiotics secondary to recurrent infection from previous surgeries. 3. Hypertension. 4. Juvenile onset rheumatoid arthritis. 5. Anemia. 6. Gastroesophageal reflux. 7. Severe peripheral vascular disease with resultant right-sided sagmj-zdk-phxm amputation. 8. Osteoporosis. 9. Generalized weakness. PLAN: 1. The patient did see Dr. Patel who recommended toe touch this week, weightbearing as tolerated in the next week and walking, the following week. 2. Continue physical therapy and occupational therapy. 3. Continue deep venous thrombosis and stress ulcer prophylaxis. 4. Continue decubitus precautions. 5. Continue to encourage the patient to eat. 6. Continue present medications.
[2016-07-17] MEDS: Calcium Carbonate + Vit D 1 TAB PO SCH (17:14)
[2016-07-17] MEDS: Multivitamin W/ Minerals 1 TAB PO SCH (17:14)
[2016-07-17] MEDS: FORTEO SC SCH (21:10)
[2016-07-17] MEDS: Gabapentin 400 MG CAP PO SCH (21:10)
[2016-07-17] MEDS: Rifampin 300 MG CAP PO SCH (21:11)
[2016-07-18] MEDS: Acetaminophen/Codeine 30-300mg Tablet PO PRN ×3 (05:47→20:50)
[2016-07-18] MEDS: OMEPRAZOLE PO SCH (05:48)
[2016-07-18] MEDS: Metoclopramide HCl 10 MG TAB PO SCH (05:48)
[2016-07-18] MEDS: Ferrous Sulfate 325 MG TAB PO SCH ×2 (08:05→17:15)
[2016-07-18] MEDS: Atenolol 25 MG TAB PO SCH (09:03)
[2016-07-18] MEDS: Aspirin 325 mg Enteric Coated Tablet PO SCH ×2 (09:03→20:50)
[2016-07-18] MEDS: Tamsulosin HCl 0.4 MG CAP PO SCH (09:04)
[2016-07-18] MEDS: MINOCYCLINE 100 MG PO SCH ×2 (09:05→20:48)
[2016-07-18] MEDS: MAG CITRATE PO SCH (09:05)
[2016-07-18] MEDS: Clopidogrel Bisulfate 75 MG TAB PO SCH (09:06)
[2016-07-18] MEDS: traMADol HCl 50 MG TAB PO SCH ×3 (09:06→20:51)
--- NOTE | 2016-07-18 16:52 | PRG ---
DATE OF SERVICE: 07/18/2016 SUBJECTIVE: Mr. Guerra is doing well. Denies any complaints, resting comfortably, tolerating medic ations. No fever or chills. OBJECTIVE: VITAL SIGNS: He is afebrile, heart rate is 68, respirations 16, oxygen saturation 100%, blood press ure 118/76. CARDIOVASCULAR: S1, S2 plus. RESPIRATORY: Normal vesicular breath sounds. ABDOMEN: Soft, nontender, bowel sounds heard in all quadrants. EXTREMITIES: Without cyanosis or clubbing. IMPRESSION: 1. Juvenile rheumatoid arthritis. 2. Septic arthritis requiring multiple surgeries. 3. Recent redo replacement of his acetabular socket. 4. Hypertension. 5. Gastroesophageal reflux disease. 6. Peripheral vascular disease with right above the knee amputation and osteoporosis. PLAN: 1. Continue physical therapy with orthopedic restrictions. 2. Incision care. 3. Deep venous thrombosis and stress ulcer prophylaxis. 3. Decubitus precautions. 4. Routine laboratory values. 5. Nutritional support.
[2016-07-18] MEDS: Calcium Carbonate + Vit D 1 TAB PO SCH (17:15)
[2016-07-18] MEDS: Multivitamin W/ Minerals 1 TAB PO SCH (17:36)
[2016-07-18] MEDS: FORTEO SC SCH (20:48)
[2016-07-18] MEDS: Rifampin 300 MG CAP PO SCH (20:49)
[2016-07-18] MEDS: Gabapentin 400 MG CAP PO SCH (20:50)
[2016-07-18] MEDS: Docusate 100 MG CAP PO PRN (20:54)
[2016-07-19] MEDS: OMEPRAZOLE PO SCH (06:19)
[2016-07-19] MEDS: Metoclopramide HCl 10 MG TAB PO SCH (06:19)
[2016-07-19] MEDS: Acetaminophen/Codeine 30-300mg Tablet PO PRN ×3 (06:19→21:51)
[2016-07-19] MEDS: Ferrous Sulfate 325 MG TAB PO SCH ×2 (08:10→17:05)
[2016-07-19] MEDS: Aspirin 325 mg Enteric Coated Tablet PO SCH ×2 (09:15→21:52)
[2016-07-19] MEDS: Clopidogrel Bisulfate 75 MG TAB PO SCH (09:15)
[2016-07-19] MEDS: Atenolol 25 MG TAB PO SCH (09:15)
[2016-07-19] MEDS: Tamsulosin HCl 0.4 MG CAP PO SCH (09:15)
[2016-07-19] MEDS: MINOCYCLINE 100 MG PO SCH ×2 (09:15→21:49)
[2016-07-19] MEDS: traMADol HCl 50 MG TAB PO SCH ×3 (09:15→21:51)
[2016-07-19] MEDS: MAG CITRATE PO SCH (09:15)
--- NOTE | 2016-07-19 10:39 | PRG ---
DATE OF SERVICE: 07/19/2016 SUBJECTIVE: Mr. Guerra is doing well. Denies any complaints, resting comfortably. He is still hav ing some minimal drainage from the incision in his left hip area. Bacteria culture, routine culture was done on admission and it is growing Klebsiella, it is sensitive to Bactrim. Discussed with elva francis, he denies any pain. He denies any redness. No fever or chills. He apparently has had a lot of antibiotic beads placed. The plan is to start him on Bactrim and inform Dr. Patel of the culture report and await further instructions. OBJECTIVE: VITAL SIGNS: He is afebrile, heart rate is 69, respirations 20, oxygen saturation is 98%, and blood pressure 116/75. CARDIOVASCULAR: S1, S2 plus. RESPIRATORY: Normal vesicular breath sounds. ABDOMEN: Soft, nontender, bowel sounds heard in all quadrants. EXTREMITIES: Without cyanosis or clubbing. Left hip incision with dressing. IMPRESSION: 1. Septic arthritis requiring multiple surgeries and hardware replacement. 2. Peripheral vascular disease. 3. Juvenile rheumatoid arthritis. 4. Gastroesophageal reflux disease. 5. Peripheral neuropathy. 6. Benign prostatic hypertrophy. 7. Hypertension. PLAN: 1. Bactrim-DS p.o. b.i.d. x10 days. 2. Inform Dr. Patel tomorrow of the culture report. 3. Check CBC, CRP, sed rate tomorrow. 4. Continue other medications. 5. Local wound care. 6. DVT and stress ulcer prophylaxis. 7. Nutritional support. 8. Dr. Aristides Guerrero back tonight at 9:00 p.m.
[2016-07-19] MEDS: Multivitamin W/ Minerals 1 TAB PO SCH (17:05)
[2016-07-19] MEDS: Calcium Carbonate + Vit D 1 TAB PO SCH (17:15)
[2016-07-19] MEDS: FORTEO SC SCH (21:49)
[2016-07-19] MEDS: Gabapentin 400 MG CAP PO SCH (21:51)
[2016-07-19] MEDS: Rifampin 300 MG CAP PO SCH (21:52)
[2016-07-19] MEDS: Sulfameth/Trimethoprim DS 800-160mg TAB PO SCH (21:53)
[2016-07-20] MEDS: OMEPRAZOLE PO SCH (05:24)
[2016-07-20] MEDS: Acetaminophen/Codeine 30-300mg Tablet PO PRN ×2 (05:25→16:29)
[2016-07-20] MEDS: Metoclopramide HCl 10 MG TAB PO SCH (05:26)
[2016-07-20 05:51] LABS: #Basophils 0.1 thou/uL (0.0-0.2); #Eosinphils 0.5 thou/uL (0.0-0.7); #Lymphocytes 1.6 thou/uL (1.20-3.40); #Monocytes 0.7 thou/uL (0.11-0.59); #Neutrophils 3.3 thou/uL (1.40-6.50); %Basophils 1.6 % (0.0-1.0); %Eosinophils 7.7 % (0.0-10.0); %Lymphocytes 25.1 % (21.0-51.0); %Neutrophils 53.7 % (42.0-75.0); Hemoglobin 11.9 g/dL (14.0-18.0); Mean Corpuscular Hemoglobin 28.9 pg (27.0-31.0); Mean Corpuscular Volume 87.7 fl (80.0-94.0); Mean Platelet Volume 6.7 fL (7.4-10.4); Platelet Count 300 thou/uL (130-400); RBC Distribution Width 15.2 % (11.5-14.5); Red Blood Cell (RBC) Count 4.11 mill/uL (4.70-6.10); White Blood Cell (WBC) Count 6.2 thou/uL (4.8-10.8)
[2016-07-20 06:02] LABS: Anion Gap 14 mmol/L (10-20); BUN (Urea Nitrogen) 10 mg/dL (8.4-25.7); CRP (Inflammatory) 2.36 mg/dL (= or < 0.5); Calc. Creatinine Clearance 75 mL/min (70-130); Calcium 9.2 mg/dL (7.8-10.44); Carbon Dioxide 24 mmol/L (23-31); Chloride 102 mmol/L (98-107); Estimated GFR-MDRD Greater than 90; Glucose 109 mg/dL (80-115); Potassium 4.5 mmol/L (3.5-5.1); Sodium 135 mmol/L (136-145)
[2016-07-20] MEDS: Clopidogrel Bisulfate 75 MG TAB PO SCH (08:41)
[2016-07-20] MEDS: Atenolol 25 MG TAB PO SCH (08:41)
[2016-07-20] MEDS: Sulfameth/Trimethoprim DS 800-160mg TAB PO SCH ×2 (08:41→21:26)
[2016-07-20] MEDS: Tamsulosin HCl 0.4 MG CAP PO SCH (08:41)
[2016-07-20] MEDS: Aspirin 325 mg Enteric Coated Tablet PO SCH ×2 (08:41→21:25)
[2016-07-20] MEDS: Ferrous Sulfate 325 MG TAB PO SCH ×2 (08:42→17:05)
[2016-07-20] MEDS: traMADol HCl 50 MG TAB PO SCH ×3 (08:42→21:26)
[2016-07-20] MEDS: MAG CITRATE PO SCH (08:42)
[2016-07-20] MEDS: MINOCYCLINE 100 MG PO SCH ×2 (08:43→21:25)
[2016-07-20] MEDS: Multivitamin W/ Minerals 1 TAB PO SCH (17:05)
[2016-07-20] MEDS: Calcium Carbonate + Vit D 1 TAB PO SCH ×2 (17:05→17:33)
[2016-07-20] MEDS: Docusate 100 MG CAP PO PRN (17:32)
--- NOTE | 2016-07-20 19:18 | PRG ---
DATE OF ADMISSION: 07/11/2016 DATE OF PROGRESS NOTE: 07/20/2016 HISTORY OF PRESENT ILLNESS: Mr. Guerra is a very pleasant 60-year-old white male with significant a rthritic problems. He ended up having a total left hip, total left knee, and total femur replaced, but unfortunately it became dislocated at the total left hip. He was taken back to surgery by Dr. Gabby cuevas and had a locking acetabular socket placed. Postoperatively, he has done very well. Patient states he helped to transfer himself out of the bed, which was much improved and is sitting up in his wheelchair at this time. States he is feeling much better and much stronger. He has no c omplaints at this time. He states he is supposed to be on toe touch as able and weightbearing as to lerated in the next he is supposed to start walking. PHYSICAL EXAMINATION: VITAL SIGNS: Today reveal blood pressure is 122/59, pulse 63 to 72, respirations 19 to 20, O2 sat 1 00%. Temperature maximum is 98.5. GENERAL: This is a well-developed, well-nourished, thin white male in no apparent distress at this time. HEENT: Reveals normocephalic, nontraumatic cranium. Pupils are equally round and reactive. Extrao cular movements intact. Nose and throat are slightly dry. NECK: Supple, without masses, nodes or bruits. CHEST: Clear to auscultation. No rales, rhonchi, wheezes or cough is heard. HEART: Reveals a regular rate and rhythm without murmurs, gallops or rubs. ABDOMEN: Obese, soft, nontender, without organomegaly. Normal bowel sounds are noted. No rebound or guarding is noted. : Deferred. EXTREMITIES: Reveal no clubbing, cyanosis or edema. Patient has right qivhp-oij-ddvw amputation. Patient has left incision it goes from the left hip all the way down to the left knee with significa nt decrease in his drainage. He did grow E. coli and Dr. Venegas placed on Bactrim. ASSESSMENT: 1. Multiple left-sided surgeries in the lower extremity including the total hip, total knee, and fe mur with reduce and an acetabular socket, which is locked into the hip at this time. 2. Prophylactic antibiotics secondary to recurrent infection. 3. Culture and sensitivity reveals patient growing out Klebsiella. He was placed presently on Bact rim DS. 4. Hypertension. 5. Juvenile onset of rheumatoid arthritis. 6. Anemia. 7. Gastroesophageal reflux. 8. Severe peripheral vascular disease with resultant right-sided cfyvr-dbp-ldlt amputation. 9. Osteoporosis. 10. Generalized weakness. PLAN: 1. The patient also start toe touch this week and then weightbearing next week. 2. Continue physical therapy and occupational therapy. 3. Continue deep venous thrombosis and stress ulcer prophylaxis. 4. Continue decubitus precautions. 5. Encourage the patient to eat. 6. Continue present medications.
[2016-07-20] MEDS: FORTEO SC SCH (21:24)
[2016-07-20] MEDS: Acetaminophen 325 MG TAB PO PRN (21:25)
[2016-07-20] MEDS: Gabapentin 400 MG CAP PO SCH (21:26)
[2016-07-20] MEDS: Rifampin 300 MG CAP PO SCH (21:26)
[2016-07-21] MEDS: OMEPRAZOLE PO SCH (06:37)
[2016-07-21] MEDS: Metoclopramide HCl 10 MG TAB PO SCH (06:37)
[2016-07-21] MEDS: Acetaminophen/Codeine 30-300mg Tablet PO PRN ×3 (06:37→20:50)
[2016-07-21] MEDS: Aspirin 325 mg Enteric Coated Tablet PO SCH ×2 (08:21→20:52)
[2016-07-21] MEDS: Tamsulosin HCl 0.4 MG CAP PO SCH (08:21)
[2016-07-21] MEDS: Clopidogrel Bisulfate 75 MG TAB PO SCH (08:21)
[2016-07-21] MEDS: Atenolol 25 MG TAB PO SCH (08:21)
[2016-07-21] MEDS: Sulfameth/Trimethoprim DS 800-160mg TAB PO SCH ×2 (08:21→20:50)
[2016-07-21] MEDS: Ferrous Sulfate 325 MG TAB PO SCH ×2 (08:21→17:24)
[2016-07-21] MEDS: MINOCYCLINE 100 MG PO SCH ×2 (08:23→20:49)
[2016-07-21] MEDS: MAG CITRATE PO SCH (08:23)
[2016-07-21] MEDS: traMADol HCl 50 MG TAB PO SCH ×3 (08:26→20:51)
--- NOTE | 2016-07-21 10:53 | PRG ---
DATE OF SERVICE: 07/21/2016 Mr. Guerra is found sitting in his wheelchair this morning. He states he was able to get dressed th is morning by himself. He was able to transfer himself in his wheelchair. He states his balance is getting better. He feels much safer. He continues to slowly get stronger every day. The patient is actually doing very well, he has no complaints today. VITAL SIGNS: Today reveal a blood pressure was 108/69, pulse 65-66, respirations 17-18, O2 sat 99-1 00%. T-max is 97.4. PHYSICAL EXAMINATION: GENERAL: This is a well-developed, well-nourished, thin white male in no apparent distress at this time. HEENT: Reveals normocephalic, nontraumatic cranium. Pupils are equally round and reactive. Extrao cular movements intact. Nose and throat are slightly dry. NECK: Supple, without masses, nodes or bruits. LUNGS: Chest is clear to auscultation. No rales, rhonchi or wheezes are heard. CARDIOVASCULAR: Reveals a regular rate and rhythm without murmurs, gallops or rubs. ABDOMEN: Soft, nontender, without organomegaly, normal bowel sounds are noted. No rebound or guard ing is noted. GENITOURINARY: Deferred. EXTREMITIES: Reveal right yymqt-has-deux amputation. The patient's left hip incision goes from left hip all the way down the left knee laterally, has no significant drainage. He did grow Klebsiella and was placed on Bactrim. IMPRESSION: 1. Multiple left-sided surgeries on the lower extremity including total left knee, total left hip a nd total femur reduced. The patient had a secondary surgery after the left hip dislocated and he costello d an acetabular socket with a locking screw placed. 2. Continue antibiotics to cover Klebsiella. 3. Patient presently on Bactrim. Continue that. 4. Hypertension. 5. Juvenile onset rheumatoid arthritis. 6. Anemia. 7. Gastroesophageal reflux. 8. Severe peripheral vascular disease with resultant right-sided msayv-pqm-jnbr amputation. 9. Osteoporosis. 10. Generalized weakness. PLAN: 1. The patient is doing much better, transferring himself out of bed to his wheelchair. 2. Continue physical therapy and occupational therapy. 3. Continue DVT and stress ulcer prophylaxis. 4. Continue decubitus precautions. 5. Continue to encourage patient to eat since he is so thin. 6. Continue present medications. 7. Continue toe-touch this week and then weightbearing next week.
[2016-07-21] MEDS: Docusate 100 MG CAP PO PRN (17:24)
[2016-07-21] MEDS: Multivitamin W/ Minerals 1 TAB PO SCH (17:24)
[2016-07-21] MEDS: Calcium Carbonate + Vit D 1 TAB PO SCH (17:24)
[2016-07-21] MEDS: FORTEO SC SCH (20:49)
[2016-07-21] MEDS: Gabapentin 400 MG CAP PO SCH (20:50)
[2016-07-21] MEDS: Rifampin 300 MG CAP PO SCH (20:52)
[2016-07-22] MEDS: Acetaminophen/Codeine 30-300mg Tablet PO PRN ×3 (03:03→21:40)
[2016-07-22] MEDS: Metoclopramide HCl 10 MG TAB PO SCH (05:55)
[2016-07-22] MEDS: OMEPRAZOLE PO SCH (05:55)
[2016-07-22] MEDS: Ferrous Sulfate 325 MG TAB PO SCH ×2 (08:00→17:10)
[2016-07-22] MEDS: Atenolol 25 MG TAB PO SCH (09:25)
[2016-07-22] MEDS: Aspirin 325 mg Enteric Coated Tablet PO SCH ×2 (09:26→20:57)
[2016-07-22] MEDS: traMADol HCl 50 MG TAB PO SCH ×3 (09:26→20:56)
[2016-07-22] MEDS: Sulfameth/Trimethoprim DS 800-160mg TAB PO SCH ×2 (09:26→23:11)
[2016-07-22] MEDS: Tamsulosin HCl 0.4 MG CAP PO SCH (09:26)
[2016-07-22] MEDS: Clopidogrel Bisulfate 75 MG TAB PO SCH (09:26)
[2016-07-22] MEDS: MINOCYCLINE 100 MG PO SCH ×2 (09:28→20:59)
[2016-07-22] MEDS: MAG CITRATE PO SCH (09:29)
[2016-07-22] MEDS: Docusate 100 MG CAP PO PRN (12:53)
[2016-07-22] MEDS: Multivitamin W/ Minerals 1 TAB PO SCH (17:10)
[2016-07-22] MEDS: Calcium Carbonate + Vit D 1 TAB PO SCH (17:10)
[2016-07-22] MEDS: Gabapentin 400 MG CAP PO SCH (20:57)
[2016-07-22] MEDS: FORTEO SC SCH (21:07)
[2016-07-22] MEDS: Rifampin 300 MG CAP PO SCH (21:41)
[2016-07-22] MEDS ORDERED: Sulfameth/Trimethoprim DS 800-160mg TAB PO SCH (23:00)
--- NOTE | 2016-07-22 23:52 | PRG ---
DATE OF ADMISSION: 07/11/2016 DATE OF SERVICE: 07/22/2016 HISTORY OF PRESENT ILLNESS: Mr. Guerra is a very pleasant 60-year-old white male who has had multip le left leg surgeries. Recently had a total left hip total knee and total femur redone. Unfortunat ab, the left hip dislocated and he had to wait for a new part to be made for an acetabular locking set socket. That was placed and he is transferred back to [facility] for physical therapy an d occupational therapy. The patient states he is getting stronger. He is transferring pretty much by himself on a sliding b oard to his wheelchair and back. He states he does toe-touch weight. He is eating better. He has no complaints. He is looking forward to walking next week. He has no complaints at this time. PHYSICAL EXAMINATION: VITAL SIGNS: Revealed blood pressure is 133/81, pulse 66-71, respirations 18-20, O2 saturation 99%- 100%, temperature max at 98.0. GENERAL: This is a well-developed, well-nourished, very pleasant white male in no apparent distress at this time. HEENT: Reveals normocephalic, nontraumatic cranium. Pupils are equally round and reactive. Extrao cular movements intact. Nose and throat are slightly dry. NECK: Supple without masses, nodes or bruits. CHEST: Clear to auscultation. No rales, rhonchi or wheezes are heard. HEART: Reveals a regular rate and rhythm without murmurs, gallops or rubs. ABDOMEN: Soft, scaphoid, nontender, without organomegaly. Normal bowel sounds are noted. No rebou nd or guarding is noted. GENITOURINARY: Deferred. EXTREMITIES: Reveal right fsvwj-nus-uctn amputation. The patient has left hip incision going from the left hip all the way down to the left knee laterally. He still has no drainage, it is slightly red. He was growing Klebsiella and was placed on Bactrim and is doing well. IMPRESSION: 1. Left-sided surgeries on the lower extremity including total left knee, total left hip, and a tot al femur. 2. Patient had second surgery after left hip dislocated and he had acetabular socket with locking s crew placed. 2. Continue antibiotics to cover Klebsiella, which include Bactrim. 3. Hypertension. 4. General onset rheumatoid arthritis. 5. Anemia. 6. Gastroesophageal reflux. 7. Severe peripheral vascular disease with resultant right-sided lkybp-wnx-njcq amputation. 8. Osteoporosis. 9. Generalized weakness. PLAN: 1. The patient is doing much better. He has no complaints at this time. He is learning how to tra nsfer himself out of the bed to the wheelchair on sliding board with physical therapy. 2. Continue physical therapy and occupational therapy. 3. Continue DVT and stress ulcer prophylaxis. 4. Continue decubitus precautions. 5. We will encourage the patient to continue eating. 6. Continue present medicines. 7. Toe-touch this week and weightbearing next week.
[2016-07-23] MEDS: OMEPRAZOLE PO SCH (06:01)
[2016-07-23] MEDS: Metoclopramide HCl 10 MG TAB PO SCH (06:01)
[2016-07-23] MEDS: Ferrous Sulfate 325 MG TAB PO SCH ×2 (08:00→17:04)
[2016-07-23] MEDS: Atenolol 25 MG TAB PO SCH (09:01)
[2016-07-23] MEDS: Tamsulosin HCl 0.4 MG CAP PO SCH (09:01)
[2016-07-23] MEDS: Sulfameth/Trimethoprim DS 800-160mg TAB PO SCH ×2 (09:01→22:07)
[2016-07-23] MEDS: Clopidogrel Bisulfate 75 MG TAB PO SCH (09:02)
[2016-07-23] MEDS: Aspirin 325 mg Enteric Coated Tablet PO SCH ×2 (09:02→22:09)
[2016-07-23] MEDS: MAG CITRATE PO SCH (09:03)
[2016-07-23] MEDS: MINOCYCLINE 100 MG PO SCH ×2 (09:03→22:11)
[2016-07-23] MEDS: traMADol HCl 50 MG TAB PO SCH ×3 (09:10→22:08)
--- NOTE | 2016-07-23 10:24 | PRG ---
DATE OF PROGRESS NOTE: 07/23/2016. HISTORY OF PRESENT ILLNESS: Mr. Guerra is a 60-year-old white male that had a total left hip, total left knee and femur redone. Unfortunately, he had dislocated hip from that surgery and had to have a new custom made acetabular socket with a locking set screw. This was placed last week and he was transferred back to [facility] for physical therapy, occupational therapy and IV antibiotics . SUBJECTIVE: He has no complaints today, states he is getting better transferring. He states he is getting better with toe touch weight. OBJECTIVE: VITAL SIGNS: This morning revealed blood pressure this morning was 121/67, pulse 66-71, respirations 18-20, O2 saturations 99-100%, temperature 98.0. PHYSICAL EXAMINATION: GENERAL: This is a well-developed, thin white male, in no apparent distress at this time. HEENT: Reveals normocephalic, nontraumatic cranium. Pupils are equally round and reactive. Extrao cular movements intact. Nose and throat are slightly dry. NECK: Supple, without masses, nodes or bruits. CHEST: Clear to auscultation. No rales, rhonchi or wheezes are heard. CARDIOVASCULAR: Reveals a regular rate and rhythm without murmurs, gallops or rubs. ABDOMEN: Scaphoid, soft, nontender, without organomegaly, normal bowel sounds are noted. No reboun d or guarding is noted. GENITOURINARY: Deferred. EXTREMITIES: Reveal right mvxcz-kfv-kkzq amputation. The patient has left hip incision goes from t he left hip all the way down the left knee. He has no drainage from is slightly red, but it continu es to improve. He has had Klebsiella growing and placed on Bactrim is doing well with that. IMPRESSION: 1. Left-sided surgeries in the lower extremity including total left knee, total femur and the total left hip. 2. Secondary surgery after the left hip dislocated and the patient had an acetabular socket with lo cking screw placed by Dr. Patel, he is presently rehabing. 3. Continue antibiotics to cover the Klebsiella, which includes Bactrim. 4. Hypertension. 5. Juvenile onset rheumatoid arthritis. 6. Anemia. 7. Gastroesophageal reflux. 8. Severe peripheral vascular disease with resultant right-sided gopre-jce-tfvu amputation. 9. Osteoporosis. 10. Generalized weakness. PLAN: 1. The patient is doing much better. He is getting much stronger. 2. The patient is able to transfer himself out of bed to the wheelchair on sliding board and doing much better. 3. Continue physical therapy and occupational therapy. 4. Continue DVT and stress ulcer prophylaxes. 5. Continue decubitus precautions. 6. Continue to encourage patient to eat. 7. Continue present medications. 8. Toe-touch this week and weightbearing next week.
[2016-07-23] MEDS: Acetaminophen/Codeine 30-300mg Tablet PO PRN ×2 (13:43→22:09)
[2016-07-23] MEDS: Calcium Carbonate + Vit D 1 TAB PO SCH (17:03)
[2016-07-23] MEDS: Multivitamin W/ Minerals 1 TAB PO SCH ×2 (17:03→17:04)
[2016-07-23] MEDS ORDERED: Ondansetron ODT 4 MG TAB PO PRN (21:02)
[2016-07-23] MEDS: Gabapentin 400 MG CAP PO SCH (22:07)
[2016-07-23] MEDS: Rifampin 300 MG CAP PO SCH (22:08)
[2016-07-23] MEDS: FORTEO SC SCH (22:10)
[2016-07-24] MEDS: Acetaminophen/Codeine 30-300mg Tablet PO PRN ×3 (06:03→20:18)
[2016-07-24] MEDS: Metoclopramide HCl 10 MG TAB PO SCH (06:03)
[2016-07-24] MEDS: OMEPRAZOLE PO SCH (06:04)
[2016-07-24] MEDS: MINOCYCLINE 100 MG PO SCH ×2 (09:11→20:19)
[2016-07-24] MEDS: Atenolol 25 MG TAB PO SCH (09:12)
[2016-07-24] MEDS: Ferrous Sulfate 325 MG TAB PO SCH ×2 (09:13→17:11)
[2016-07-24] MEDS: Aspirin 325 mg Enteric Coated Tablet PO SCH ×2 (09:13→20:18)
[2016-07-24] MEDS: Sulfameth/Trimethoprim DS 800-160mg TAB PO SCH ×2 (09:13→20:16)
[2016-07-24] MEDS: Clopidogrel Bisulfate 75 MG TAB PO SCH (09:13)
[2016-07-24] MEDS: Tamsulosin HCl 0.4 MG CAP PO SCH (09:13)
[2016-07-24] MEDS: traMADol HCl 50 MG TAB PO SCH ×3 (09:14→20:16)
[2016-07-24] MEDS: MAG CITRATE PO SCH (09:15)
[2016-07-24] MEDS: Docusate 100 MG CAP PO PRN ×2 (09:23→20:19)
[2016-07-24] MEDS: Calcium Carbonate + Vit D 1 TAB PO SCH (17:11)
[2016-07-24] MEDS: Multivitamin W/ Minerals 1 TAB PO SCH (17:13)
--- NOTE | 2016-07-24 17:25 | PRG ---
DATE OF SERVICE: 07/24/2016 HISTORY OF PRESENT ILLNESS: The patient is a very pleasant 60-year-old white male who has had signi ficant surgery on his left side. The right lower extremity has above the knee amputation secondary to severe peripheral vascular disease. The left side has had a total left hip, total femur and tota l left knee replaced. Unfortunately, the left hip became dislocated and the patient had to have a c ustom-made acetabular socket with locking screw. It was placed in approximately 7-10 days ago. Aft er that, he was transferred to [facility] for physical therapy, occupational therapy , and continued IV antibiotics. The patient has no complaints today and states he is getting better as he is transferring. He has n o fever, no chills and states he is doing better. PHYSICAL EXAMINATION: VITAL SIGNS: Blood pressure this morning was 112/65, pulse 70-73, respirations 18, O2 sat 95%-98%, and temperature 97.2. GENERAL: This is a well-developed, well-nourished, very pleasant white male in no apparent distress at this time. HEENT: Reveals normocephalic, nontraumatic cranium. Pupils are equally round and reactive. Extrao cular movements intact. Nose and throat are slightly dry. NECK: Supple, without masses, nodes or bruits. CHEST: Clear to auscultation. No rales, rhonchi or wheezes are heard. CARDIOVASCULAR: Reveals a regular rate and rhythm without murmurs, gallops or rubs. ABDOMEN: Soft, nontender, without organomegaly, normal bowel sounds are noted. No rebound or guard ing is noted. : Deferred. EXTREMITIES: Reveal no clubbing, cyanosis or edema. NEUROLOGIC: The patient does have an incision from his left hip, probably down his left knee, which seems to be slowly healing and improving. He did grow some Klebsiella out of that knee and he is p resently on Bactrim. IMPRESSION: 1. Left side surgeries from lower extremity including a left total knee, left total femur and the l eft total hip. 2. Secondary surgery after left hip dislocated and the patient had an acetabular socket replaced wi th locking screw replaced by Dr. Patel. 3. Continue IV antibiotics to cover Klebsiella, which includes Bactrim. 4. Hypertension. 5. Juvenile onset rheumatoid arthritis. 6. Anemia. 7. Gastroesophageal reflux. 8. Severe peripheral vascular disease with resultant right-sided raszu-hxb-asev amputation. 9. Osteoporosis. 10. Generalized weakness. PLAN: 1. The patient continues to get better and stronger. He is much better with his transfers. He sta pradeep he is getting stronger and more confident. 2. Continue physical therapy and occupational therapy. 3. Continue DVT and stress ulcer prophylaxis. 4. Continue decubitus precautions. 5. Continue to encourage the patient to eat. 6. Continue present medications. 7. Continue present antibiotics. 8. Continue toe touch this week and weightbearing next week.
[2016-07-24] MEDS: Rifampin 300 MG CAP PO SCH (20:18)
[2016-07-24] MEDS: Gabapentin 400 MG CAP PO SCH (20:18)
[2016-07-24] MEDS: FORTEO SC SCH (20:19)
[2016-07-25] MEDS: Metoclopramide HCl 10 MG TAB PO SCH (05:33)
[2016-07-25] MEDS: Acetaminophen/Codeine 30-300mg Tablet PO PRN ×3 (05:33→22:24)
[2016-07-25] MEDS: OMEPRAZOLE PO SCH (05:33)
[2016-07-25] MEDS: Atenolol 25 MG TAB PO SCH (08:06)
[2016-07-25] MEDS: Aspirin 325 mg Enteric Coated Tablet PO SCH ×2 (08:06→20:36)
[2016-07-25] MEDS: Sulfameth/Trimethoprim DS 800-160mg TAB PO SCH ×2 (08:06→20:35)
[2016-07-25] MEDS: Tamsulosin HCl 0.4 MG CAP PO SCH (08:06)
[2016-07-25] MEDS: Ferrous Sulfate 325 MG TAB PO SCH ×2 (08:06→17:09)
[2016-07-25] MEDS: traMADol HCl 50 MG TAB PO SCH ×3 (08:06→20:34)
[2016-07-25] MEDS: MAG CITRATE PO SCH (08:07)
[2016-07-25] MEDS: Clopidogrel Bisulfate 75 MG TAB PO SCH (08:07)
[2016-07-25] MEDS: MINOCYCLINE 100 MG PO SCH ×2 (08:08→20:33)
--- NOTE | 2016-07-25 09:35 | PRG ---
DATE OF SERVICE: 07/25/2016 SUBJECTIVE: Patient is a very pleasant 60-year-old white male that has had significant left lower e xtremity surgeries. He recently had a dislocation of the left hip socket and the patient had a cust om made acetabular socket with locking screw that was placed approximately a week and a half ago. E ventually, he was transferred back to [facility] for physical therapy and occupation al therapy and continue IV antibiotics. Patient states he is doing well except he would like to have Tums that was calcium carbonate. He ju st cannot tolerate the calcium carbonate pills. Otherwise, he has no complaints. PHYSICAL EXAMINATION: VITAL SIGNS: Today reveal blood pressure is 192/56, pulse 72-78, respirations 16-20, O2 sat 97%-99% , and T-max is 98.1. GENERAL APPEARANCE: This is a well-developed, well-nourished, very pleasant white male in no appare nt distress at this time. HEENT: Reveals normocephalic, nontraumatic cranium. The pupils are equally round and reactive. Ex traocular movements intact. Nose and throat are slightly dry. NECK: Supple, without masses, nodes or bruits. CHEST: Clear to auscultation. No rales, no rhonchi, no wheezes or cough is heard. HEART: Reveals a regular rate and rhythm without murmurs, gallops or rubs. ABDOMEN: Obese, soft, nontender, without organomegaly. Normal bowel sounds are noted. No rebound or guarding is noted. : Exam is deferred. EXTREMITIES: Reveal no clubbing, cyanosis or edema. NEUROLOGIC: The patient does have a right kdeim-qid-ydrx amputation from severe peripheral vascular disease. The patient has incision on his left hip from left lateral hip all the way down to left l ateral knee, which continues to slowly improve. He did grow out some Klebsiella in that incision. He is presently on Bactrim. ASSESSMENT: 1. Left side surgeries from lower extremity including left total knee, left total femur, and left t otal hip. 2. Followup surgery of the left hip after that left hip dislocated. The patient has custom made ac etabular socket replaced with locking screw done by Dr. Patel. 3. Continue Bactrim, which covers his Klebsiella. 4. Hypertension. 5. Juvenile onset rheumatoid arthritis. 6. Anemia. 7. Gastroesophageal reflux. 8. Severe peripheral vascular disease with resultant right fnsrt-aex-qfpi amputation. 9. Osteoporosis. 10. Generalized weakness. PLAN: 1. Continue Physical Therapy and Occupational Therapy. 2. Continue DVT and stress ulcer prophylaxis. 3. Continue decubitus precautions. 4. Continue to encourage the patient to eat. 5. Continue present medications, which also include rifampin 300 mg twice a day and Bactrim DS 1 ta b twice a day. 6. Continue to toe touch this week and weightbearing next week.
[2016-07-25] MEDS: Docusate 100 MG CAP PO PRN (12:29)
[2016-07-25] MEDS: Calcium Carbonate 500 MG ChewTAB PO SCH ×2 (12:30→20:35)
[2016-07-25] MEDS: Multivitamin W/ Minerals 1 TAB PO SCH (17:09)
[2016-07-25] MEDS: FORTEO SC SCH (20:36)
[2016-07-25] MEDS: Rifampin 300 MG CAP PO SCH (20:36)
[2016-07-25] MEDS: Gabapentin 400 MG CAP PO SCH (20:36)
[2016-07-26] MEDS: OMEPRAZOLE PO SCH ×2 (06:07→08:17)
[2016-07-26] MEDS: Acetaminophen/Codeine 30-300mg Tablet PO PRN ×3 (06:07→21:21)
[2016-07-26] MEDS: Metoclopramide HCl 10 MG TAB PO SCH (06:07)
[2016-07-26] MEDS: Atenolol 25 MG TAB PO SCH (08:14)
[2016-07-26] MEDS: Calcium Carbonate 500 MG ChewTAB PO SCH ×2 (08:14→21:23)
[2016-07-26] MEDS: Sulfameth/Trimethoprim DS 800-160mg TAB PO SCH ×2 (08:14→21:20)
[2016-07-26] MEDS: Tamsulosin HCl 0.4 MG CAP PO SCH (08:14)
[2016-07-26] MEDS: Clopidogrel Bisulfate 75 MG TAB PO SCH (08:15)
[2016-07-26] MEDS: traMADol HCl 50 MG TAB PO SCH ×3 (08:15→21:20)
[2016-07-26] MEDS: Aspirin 325 mg Enteric Coated Tablet PO SCH ×2 (08:15→21:23)
[2016-07-26] MEDS: Ferrous Sulfate 325 MG TAB PO SCH ×2 (08:15→17:31)
[2016-07-26] MEDS: MINOCYCLINE 100 MG PO SCH ×2 (08:17→21:25)
[2016-07-26] MEDS: MAG CITRATE PO SCH (08:20)
--- NOTE | 2016-07-26 11:33 | PRG ---
DATE OF SERVICE: 07/26/2016 SUBJECTIVE: Mr. Guerra is a very pleasant 60-year-old white male with significant orthopedic surger ies recently. He had a dislocated left hip socket and had to have a custom-made acetabular socket w ith locking screw that was placed approximately 2 weeks ago. He was transferred back to [facility] for physical therapy, occupational therapy, and continued antibiotics. The patient has no complaints today. States he is doing much better. PHYSICAL EXAMINATION: GENERAL: This is a well-developed, well-nourished, very pleasant white male in no apparent distress at this time. VITAL SIGNS: Reveal blood pressure this morning 128/75, pulse 69-78 respirations 20-21, O2 sat 91% and T-max is 97.4. HEENT: Reveals normocephalic, nontraumatic cranium. Pupils are equally round and reactive. Extrao cular movements intact. Nose and throat are slightly dry. NECK: Supple, without masses, nodes or bruits. CHEST: Clear to auscultation. No rales, rhonchi or wheezes are heard. CARDIOVASCULAR: Reveals a regular rate and rhythm without murmurs, gallops or rubs. ABDOMEN: Obese, soft, nontender, without organomegaly, normal bowel sounds are noted. No rebound o r guarding is noted. : Deferred. EXTREMITIES: Reveal no clubbing, cyanosis or edema. Extremity bledsoe, the patient has right above-th e-knee amputation from severe peripheral vascular disease. On the left hip, the patient has a total left hip, a total left knee and a total femur replacement with a locking acetabular socket. He did grow some Klebsiella and that incision is presently on Bactrim. NEUROLOGIC: The patient has no focal deficits. ASSESSMENT: 1. Lower extremity surgeries including a total left hip, total left femur and the total left knee, doing very well. 2. Custom-made acetabular socket replaced with locking screw done by Dr. Patel two weeks ago. 3. Continue Bactrim, which covers his Klebsiella. 4. Hypertension. 5. Juvenile onset rheumatoid arthritis. 6. Anemia. 7. Gastroesophageal reflux. 8. Severe peripheral vascular disease with resultant right ixuhh-bfm-dpoa amputation. 9. Osteoporosis. 10. Generalized weakness. PLAN: 1. Continue physical therapy and occupational therapy. 2. Continue deep venous thrombosis and stress ulcer prophylaxis. 3. Continue his decubitus precautions. 4. Continue to encourage the patient to eat. 5. Include present medications. 6. Continue rifampin 300 mg twice a day and Bactrim-DS twice a day. 7. Continue toe-touch this week, we could begin weightbearing next week.
[2016-07-26] MEDS: Docusate 100 MG CAP PO PRN (12:52)
[2016-07-26] MEDS: Multivitamin W/ Minerals 1 TAB PO SCH (17:31)
[2016-07-26] MEDS: FORTEO SC SCH (21:20)
[2016-07-26] MEDS: Gabapentin 400 MG CAP PO SCH (21:20)
[2016-07-26] MEDS: Rifampin 300 MG CAP PO SCH (21:22)
[2016-07-27] MEDS: Acetaminophen/Codeine 30-300mg Tablet PO PRN ×3 (02:43→16:08)
[2016-07-27] MEDS: OMEPRAZOLE PO SCH (05:55)
[2016-07-27] MEDS: Metoclopramide HCl 10 MG TAB PO SCH (05:56)
[2016-07-27] MEDS: Ferrous Sulfate 325 MG TAB PO SCH ×2 (08:00→17:00)
[2016-07-27] MEDS: MINOCYCLINE 100 MG PO SCH ×2 (08:55→21:15)
[2016-07-27] MEDS: Atenolol 25 MG TAB PO SCH (08:57)
[2016-07-27] MEDS: Tamsulosin HCl 0.4 MG CAP PO SCH (08:58)
[2016-07-27] MEDS: Sulfameth/Trimethoprim DS 800-160mg TAB PO SCH ×2 (08:58→21:16)
[2016-07-27] MEDS: Clopidogrel Bisulfate 75 MG TAB PO SCH (08:58)
[2016-07-27] MEDS: Calcium Carbonate 500 MG ChewTAB PO SCH ×2 (09:00→21:19)
[2016-07-27] MEDS: traMADol HCl 50 MG TAB PO SCH ×3 (09:00→21:16)
[2016-07-27] MEDS: Aspirin 325 mg Enteric Coated Tablet PO SCH ×2 (09:00→21:16)
[2016-07-27] MEDS: MAG CITRATE PO SCH (09:01)
--- NOTE | 2016-07-27 10:23 | PRG ---
DATE OF SERVICE: 07/27/2016 HISTORY OF PRESENT ILLNESS: Mr. Guerra is a 60-year-old white male with recent orthopedic surgeries . Unfortunately, he had a dislocated left hip socket that had to have a custom made acetabular sock et with a locking screw. This was placed approximately 2 weeks ago. He was transferred back to [facility] for physical therapy, occupational therapy and continued antibiotics. The p atient states he is doing well, he has no complaints today. VITAL SIGNS: Blood pressure is 98/60 this morning, pulse 66-67, respirations 18-20, O2 sat 96-98% a nd a T-max is 96.8. PHYSICAL EXAMINATION: GENERAL: This is a well-developed, very thin white male in no apparent distress at this time. HEENT: Reveals normocephalic, nontraumatic cranium. Pupils equal, round, and reactive. Extraocula r movements intact. Nose and throat are slightly dry. NECK: Supple, without masses, nodes or bruits. No jugular venous distention is noted. LUNGS: Chest clear to auscultation. No rales, rhonchi or wheezes are heard. CARDIOVASCULAR: Reveals a regular rate and rhythm without murmurs, gallops or rubs. ABDOMEN: Soft, nontender, without organomegaly, normal bowel sounds are noted. No rebound or guard ing is noted. GENITOURINARY: Deferred. EXTREMITIES: Reveal left hip scar all the way down the left lateral knee is healing well, not red, not inflamed, not draining and well healed. NEUROLOGIC: The patient has no focal deficits. IMPRESSION: 1. Lower extremity surgery including total left hip, total left femur replacement, total left knee, doing very well. 2. Custom acetabular socket replaced with locking screw done approximately 2 weeks ago. 3. Patient continues to be on Bactrim for his Klebsiella. 4. Hypertension. 5. Juvenile onset rheumatoid arthritis. 6. Anemia. 7. Gastroesophageal reflux. 8. Severe peripheral vascular disease with resultant above the knee amputation. 9. Osteoporosis. 10. Generalized weakness. PLAN: 1. Continue physical therapy and occupational therapy. 2. Continue Bactrim. 3. Continue deep venous thrombosis and stress ulcer prophylaxis. 4. Continue decubitus care. 5. Continue to encourage the patient to eat well. He is only eating 35 for breakfast, 25% of lunch and 25% of supper. 6. Continue present medications. 7. Continue Bactrim-DS twice a day and rifampin 300 mg twice daily. 8. Start weightbearing this week with physical therapy and occupational therapy.
[2016-07-27] MEDS: Multivitamin W/ Minerals 1 TAB PO SCH (17:00)
[2016-07-27] MEDS: Gabapentin 400 MG CAP PO SCH (21:16)
[2016-07-27] MEDS: Rifampin 300 MG CAP PO SCH (21:16)
[2016-07-27] MEDS: FORTEO SC SCH (21:18)
[2016-07-28] MEDS: Acetaminophen/Codeine 30-300mg Tablet PO PRN ×3 (01:40→21:18)
[2016-07-28 05:52] LABS: #Basophils 0.1 thou/uL (0.0-0.2); #Eosinphils 0.6 thou/uL (0.0-0.7); #Lymphocytes 1.7 thou/uL (1.20-3.40); #Monocytes 0.8 thou/uL (0.11-0.59); #Neutrophils 4.7 thou/uL (1.40-6.50); %Basophils 1.4 % (0.0-1.0); %Eosinophils 7.5 % (0.0-10.0); %Lymphocytes 21.3 % (21.0-51.0); %Monocytes 9.8 % (0.0-10.0); Hemoglobin 11.9 g/dL (14.0-18.0); Mean Corpuscular HGB CONC 32.9 g/dL (32.0-36.0); Mean Corpuscular Hemoglobin 28.5 pg (27.0-31.0); Mean Corpuscular Volume 86.7 fl (80.0-94.0); Platelet Count 287 thou/uL (130-400); RBC Distribution Width 14.8 % (11.5-14.5); Red Blood Cell (RBC) Count 4.17 mill/uL (4.70-6.10); White Blood Cell (WBC) Count 7.8 thou/uL (4.8-10.8)
[2016-07-28] MEDS: Metoclopramide HCl 10 MG TAB PO SCH (05:52)
[2016-07-28] MEDS: OMEPRAZOLE PO SCH (05:52)
[2016-07-28 06:00] LABS: ALT (SGPT) 13 U/L (8-55); AST (SGOT) 18 U/L (5-34); Alkaline Phosphatase 176 U/L (40-150); Anion Gap 14 mmol/L (10-20); BUN (Urea Nitrogen) 11 mg/dL (8.4-25.7); Bilirubin, Total 0.4 mg/dL (0.2-1.2); CRP (Inflammatory) 1.04 mg/dL (= or < 0.5); Calc. Creatinine Clearance 69 mL/min (70-130); Calcium 8.9 mg/dL (7.8-10.44); Carbon Dioxide 21 mmol/L (23-31); Chloride 102 mmol/L (98-107); Estimated GFR-MDRD Greater than 90; Globulin 3.2 g/dL (2.4-3.5); Glucose 111 mg/dL (80-115); Potassium 4.3 mmol/L (3.5-5.1); Protein, Total 6.2 g/dL (5.8-8.1); Sodium 133 mmol/L (136-145)
[2016-07-28] MEDS: Ferrous Sulfate 325 MG TAB PO SCH ×2 (08:00→16:36)
[2016-07-28] MEDS: traMADol HCl 50 MG TAB PO SCH ×3 (09:07→21:16)
[2016-07-28] MEDS: Tamsulosin HCl 0.4 MG CAP PO SCH (09:08)
[2016-07-28] MEDS: Sulfameth/Trimethoprim DS 800-160mg TAB PO SCH ×2 (09:09→21:18)
[2016-07-28] MEDS: Clopidogrel Bisulfate 75 MG TAB PO SCH (09:09)
[2016-07-28] MEDS: Atenolol 25 MG TAB PO SCH (09:09)
[2016-07-28] MEDS: Aspirin 325 mg Enteric Coated Tablet PO SCH ×2 (09:11→21:18)
[2016-07-28] MEDS: MAG CITRATE PO SCH (09:20)
[2016-07-28] MEDS: Calcium Carbonate 500 MG ChewTAB PO SCH ×2 (09:21→21:17)
[2016-07-28] MEDS: MINOCYCLINE 100 MG PO SCH ×2 (09:21→21:20)
--- NOTE | 2016-07-28 13:26 | PRG ---
DATE OF SERVICE: 07/28/2016 DATE OF ADMISSION: 07/11/2016 HISTORY OF PRESENT ILLNESS: Mr. Guerra is a very pleasant 60-year-old white male with recent multip le orthopedic surgeries. Unfortunately, he had a dislocated left hip socket that had to have a cust om made acetabular socket with locking screw. That was done and placed approximately 2 weeks ago. He was transferred back to [facility] for physical therapy and occupational therapy and to continue his antibiotics. The patient states he is doing well and has no complaints today. PHYSICAL EXAMINATION: VITAL SIGNS: Today reveal blood pressure 142/79, pulse 76-78, respirations 16-18, O2 sat 98%-99%, a nd temperature max 97.1. LABORATORY DATA: Laboratories from earlier this morning reveals white count of 7000, hemoglobin 11. 9, hematocrit 36.2 with a sedimentation rate of 32, last week it was 33. Electrolytes revealed sodium 133, potassium 4.3, chloride 102, carbon dioxide 21 with a BUN of 11, c reatinine 0.7. His GFR is greater than 90. Sugar was 111. Alkaline phosphatase is still elevated at 176. C-reactive protein has decreased from 5.43-2.36-1.04 this morning. PHYSICAL EXAMINATION: GENERAL: This is a well-developed, very thin white male in no apparent distress at this time. HEENT: Reveals normocephalic, nontraumatic cranium. Pupils are equally round and reactive. Extrao cular movements intact. Nose and throat are slightly dry. NECK: Supple, without masses, nodes or bruits. LUNGS: Chest is clear to auscultation. No rales, rhonchi or wheezes are heard. HEART: Reveals a regular rate and rhythm without murmurs, gallops or rubs. ABDOMEN: Soft, nontender, without organomegaly, normal bowel sounds are noted. No rebound or guard ing is noted. GENITOURINARY: Exam is deferred. EXTREMITIES: Reveal left hip scar goes from the left hip down all the way to the lateral knee, it i s healing well, not red, not noninflamed, and not draining. NEUROLOGIC: The patient has no focal deficits. The patient does have a right aoskn-vss-hxcr amputa tion. ASSESSMENT: 1. Lower extremity surgery including total left hip, total left femur replacement, and total left k nee doing very well. 2. Custom acetabular socket replaced with locking screw approximately 2 weeks ago. 3. Patient continues to be on Bactrim for his Klebsiella. 4. Patient continues to be on rifampin for his other surgical site infections. 5. Hypertension. 6. Juvenile onset rheumatoid arthritis. 7. Anemia. 8. Gastroesophageal reflux. 9. Severe peripheral vascular disease with resultant xqdvr-lvn-bfzt amputation. 10. Osteoporosis. 11. Generalized weakness. PLAN: 1. Continue Physical Therapy and Occupational Therapy. 2. Continue Bactrim. 3. Continue rifampin. 4. Continue deep venous thrombosis and stress ulcer prophylaxis. 5. Continue decubitus care. 6. Continue to encourage patient to eat well. 7. Continue present medications. 8. Continue Bactrim DS b.i.d. and rifampin 300 mg b.i.d. 9. Weightbearing starting yesterday.
[2016-07-28] MEDS: Docusate 100 MG CAP PO PRN (16:15)
[2016-07-28] MEDS: Multivitamin W/ Minerals 1 TAB PO SCH (16:36)
[2016-07-28] MEDS: Rifampin 300 MG CAP PO SCH (21:18)
[2016-07-28] MEDS: Gabapentin 400 MG CAP PO SCH (21:18)
[2016-07-28] MEDS: FORTEO SC SCH (21:19)
[2016-07-29] MEDS: Metoclopramide HCl 10 MG TAB PO SCH (06:18)
[2016-07-29] MEDS: Acetaminophen/Codeine 30-300mg Tablet PO PRN ×3 (06:18→21:10)
[2016-07-29] MEDS: OMEPRAZOLE PO SCH (06:18)
[2016-07-29] MEDS: Calcium Carbonate 500 MG ChewTAB PO SCH ×2 (08:21→21:08)
[2016-07-29] MEDS: traMADol HCl 50 MG TAB PO SCH ×3 (08:22→21:10)
[2016-07-29] MEDS: Tamsulosin HCl 0.4 MG CAP PO SCH (08:22)
[2016-07-29] MEDS: Ferrous Sulfate 325 MG TAB PO SCH ×2 (08:22→17:25)
[2016-07-29] MEDS: Clopidogrel Bisulfate 75 MG TAB PO SCH (08:22)
[2016-07-29] MEDS: Atenolol 25 MG TAB PO SCH (08:22)
[2016-07-29] MEDS: Aspirin 325 mg Enteric Coated Tablet PO SCH ×2 (08:22→21:09)
[2016-07-29] MEDS: MAG CITRATE PO SCH (08:23)
[2016-07-29] MEDS: MINOCYCLINE 100 MG PO SCH ×2 (08:23→21:07)
--- NOTE | 2016-07-29 15:29 | PRG ---
DATE OF SERVICE: 07/29/2016 DATE OF ADMISSION: 07/11/2016 SUBJECTIVE: Patient is a 60-year-old white male who has had multiple left-sided orthopedic surgerie s. He finally has had pretty much finished because he had a custom made acetabular socket with lock ing screw implanted in his left hip along with a total left hip, total left knee, and a femur. The patient is doing well and was transferred back to [facility] for physical therap y, occupational therapy, and continuous antibiotics. The patient is doing well and stood today, walked about 5 feet this morning and then walked a little bit farther around to the nurse's station on his second round. He has no complaints. He is happy that he is able to get up and walk. PHYSICAL EXAMINATION: GENERAL: Reveals a well-developed, thin white male in no apparent distress. VITAL SIGNS: Reveal blood pressure this morning 121/61, pulse 69-71, respirations 16-20, O2 sat 97- 99%, T-max 98.1. HEENT: Reveals a normocephalic, nontraumatic cranium. Pupils are equal, round, and reactive. Extr aocular movements intact. Nose and throat are slightly dry. NECK: Supple, without mass, nodes or bruits. CHEST: Clear to auscultation. No rales, no rhonchi, no wheezes are heard. HEART: Reveals a regular rate and rhythm without murmurs, gallops or rubs. ABDOMEN: Scaphoid, soft, nontender, without organomegaly, normal bowel sounds are noted. No reboun d or guarding is noted. : Exam is deferred. EXTREMITIES: Reveal left hip scar from the left hip, laterally all the way down to the lateral left knee. There is no redness or oozing or drainage noted, it is not warm or infected. The right leg reveals an rzean-xiq-nvpx amputation secondary to severe peripheral vascular disease. NEUROLOGIC: The patient has no focal deficits. ASSESSMENT: 1. Left lower extremity surgery including total left hip, total left femur replacement, and total l eft knee. 2. Custom acetabular socket replaced with locking screw approximately 2 weeks ago. 3. Klebsiella growing out of the patient's surgical site, been on Bactrim and rifampin. 4. Hypertension. 5. Juvenile onset rheumatoid arthritis. 6. Anemia. 7. Gastroesophageal reflux. 8. Severe peripheral vascular disease with resultant gsmrw-xsy-wzfx amputation. 9. Osteoporosis. 10. Generalized weakness. PLAN: 1. Continue physical therapy and occupational therapy. 2. Continue Bactrim and rifampin. 3. Continue deep venous thrombosis and stress ulcer prophylaxis. 4. Continue decubitus care. 5. Encourage the patient to continue to eat well. 6. Continue weightbearing status as tolerated.
[2016-07-29] MEDS: Multivitamin W/ Minerals 1 TAB PO SCH (17:25)
[2016-07-29] MEDS: Docusate 100 MG CAP PO PRN (17:25)
[2016-07-29] MEDS: Gabapentin 400 MG CAP PO SCH (21:08)
[2016-07-29] MEDS: Rifampin 300 MG CAP PO SCH (21:09)
[2016-07-29] MEDS: FORTEO SC SCH (21:11)
[2016-07-30] MEDS: OMEPRAZOLE PO SCH (06:05)
[2016-07-30] MEDS: Acetaminophen/Codeine 30-300mg Tablet PO PRN ×3 (06:05→21:51)
[2016-07-30] MEDS: Metoclopramide HCl 10 MG TAB PO SCH (06:06)
[2016-07-30] MEDS: Calcium Carbonate 500 MG ChewTAB PO SCH ×2 (08:26→21:51)
[2016-07-30] MEDS: Tamsulosin HCl 0.4 MG CAP PO SCH ×2 (08:26→08:27)
[2016-07-30] MEDS: Atenolol 25 MG TAB PO SCH (08:26)
[2016-07-30] MEDS: Aspirin 325 mg Enteric Coated Tablet PO SCH ×2 (08:26→21:51)
[2016-07-30] MEDS: Ferrous Sulfate 325 MG TAB PO SCH ×2 (08:27→17:39)
[2016-07-30] MEDS: Clopidogrel Bisulfate 75 MG TAB PO SCH (08:27)
[2016-07-30] MEDS: traMADol HCl 50 MG TAB PO SCH ×3 (08:27→21:52)
[2016-07-30] MEDS: MAG CITRATE PO SCH (08:28)
[2016-07-30] MEDS: MINOCYCLINE 100 MG PO SCH ×2 (08:28→21:50)
[2016-07-30] MEDS: Multivitamin W/ Minerals 1 TAB PO SCH (17:39)
[2016-07-30] MEDS: FORTEO SC SCH (21:49)
[2016-07-30] MEDS: Gabapentin 400 MG CAP PO SCH (21:51)
[2016-07-30] MEDS: Rifampin 300 MG CAP PO SCH (21:51)
--- NOTE | 2016-07-30 21:55 | PRG ---
DATE OF ADMISSION: 07/11/2016 DATE OF PROGRESS NOTE: 07/30/2016 HISTORY OF PRESENT ILLNESS: Mr. Guerra is a very pleasant 60-year-old white male. The patient has had multiple orthopedic surgeries and within the last 2 weeks had a custom made acetabular stock wit h locking screw implant in his left hip secondary to his left hip dislocating from his previous surg quinn. The patient has also had a total left hip, total left knee, and total femur repair. The patient is doing well and had physical therapy this morning. The patient has no complaints today. VITAL SIGNS: Reveal blood pressure this morning 112/74, pulse 68-71, respirations 16-20, O2 sat 100 %, temperature 98.6. LABORATORY DATA: No labs were done today. PHYSICAL EXAMINATION: GENERAL: This is a well-developed, well-nourished, very pleasant white male in no apparent distress at this time. HEENT: Reveals normocephalic, nontraumatic cranium. Pupils are equally round and reactive. Extrao cular movements intact. Nose and throat are slightly dry. NECK: Supple, without masses, nodes or bruits. CHEST: Clear to auscultation. No rales, rhonchi or wheezes are heard. HEART: Reveals a regular rate and rhythm without murmurs, gallops or rubs. ABDOMEN: Scaphoid, soft, nontender, without organomegaly. Normal bowel sounds are noted. No rebou nd or guarding is noted. : Deferred. EXTREMITIES: Reveal no clubbing, cyanosis or edema. The patient does have a left hip scar, which s eems to be doing very well. It is not red, it is not draining. The patient's right leg reveals an soxph-rbw-fzwj amputation secondary to severe peripheral vascular disease. NEUROLOGIC: The patient has no deficits. IMPRESSION: 1. Left lower extremity surgery including a total left hip, total left femur replacement and total left knee. 2. acetabular socket replaced with locking screw approximately 2 weeks ago. 3. Klebsiella growing out in the patient's surgical site, well healed now. The patient is off his Bactrim and continues on rifampin. 4. Hypertension. 5. Juvenile onset rheumatoid arthritis. 6. Anemia. 7. Gastroesophageal reflux. 8. Severe peripheral vascular disease with resultant odszt-dhl-hhay amputation. 9. Osteoporosis. 10. Generalized weakness. PLAN: 1. Continue physical therapy and occupational therapy. 2. Continue rifampin. The patient is off his Bactrim. 3. Continue deep venous thrombosis and stress ulcer prophylaxis. 4. Continue decubitus precautions. 5. Encourage the patient to continue eating well. 6. Weightbearing status as tolerated.
[2016-07-31] MEDS: Acetaminophen/Codeine 30-300mg Tablet PO PRN ×2 (06:15→21:02)
[2016-07-31] MEDS: Metoclopramide HCl 10 MG TAB PO SCH (06:15)
[2016-07-31] MEDS: OMEPRAZOLE PO SCH (06:15)
[2016-07-31] MEDS: MAG CITRATE PO SCH (08:40)
[2016-07-31] MEDS: traMADol HCl 50 MG TAB PO SCH ×3 (08:41→21:02)
[2016-07-31] MEDS: MINOCYCLINE 100 MG PO SCH ×2 (08:41→21:01)
[2016-07-31] MEDS: Tamsulosin HCl 0.4 MG CAP PO SCH (08:43)
[2016-07-31] MEDS: Calcium Carbonate 500 MG ChewTAB PO SCH ×2 (08:43→21:03)
[2016-07-31] MEDS: Atenolol 25 MG TAB PO SCH (08:43)
[2016-07-31] MEDS: Ferrous Sulfate 325 MG TAB PO SCH ×2 (08:43→16:59)
[2016-07-31] MEDS: Clopidogrel Bisulfate 75 MG TAB PO SCH (08:43)
[2016-07-31] MEDS: Aspirin 325 mg Enteric Coated Tablet PO SCH ×2 (08:44→21:01)
[2016-07-31] MEDS ORDERED: Atenolol 25 MG TAB PO SCH (11:30)
--- NOTE | 2016-07-31 16:34 | PRG ---
DATE OF PROGRESS NOTE: 07/31/2016 HISTORY OF PRESENT ILLNESS: Mr. Guerra is a very pleasant 60-year-old white male with multiple orth opedic surgeries. Most recent surgery revealed the patient had acetabular socket custom made with locking screws that would fit his left hip to keep him from continue to dislocate. Prior to that, he had a total left h ip, total left femur, and the total left knee surgeries. He was transferred here postoperatively fo r continued physical therapy and occupational therapy and for continued continue oral antibiotics. SUBJECTIVE: The patient states he did very well. This morning he states he walked 22 feet and then following that with another 20 feet with total of 42 feet. This afternoon he walked 18 feet withou t stopping. The patient states he continues to get stronger and feels much better and more secure. He has no co mplaints today. OBJECTIVE: VITAL SIGNS: Vital signs today reveal a blood pressure 116/69, pulse 67-71, respirations 18, O2 sat 90%, T-max 97.0. GENERAL: This is a well-developed, thin white male in no apparent distress at this time. HEENT: Reveals normocephalic, nontraumatic cranium. Pupils are equally round and reactive. Extrao cular movements are intact. Nose and throat are slightly dry. NECK: Supple, without masses, nodes or bruits. CHEST: Clear to auscultation. No rales, rhonchi or wheezes are heard. CARDIOVASCULAR: Reveals a regular rate and rhythm without murmurs, gallops or rubs. ABDOMEN: Scaphoid, soft, nontender, without organomegaly, normal bowel sounds are noted. No reboun d or guarding is noted. : Deferred. EXTREMITIES: Reveal no clubbing, cyanosis or edema. The patient does have left hip scar seems to b e doing very well, it is not red. It is not warm. This shows no sign of infection. The patient's right leg reveals above the knee amputation secondary to severe peripheral vascular di sease. NEUROLOGIC: The patient has no focal deficits. IMPRESSION: 1. Left lower extremity surgery including a total left hip, total left femur replacement, and total left knee. 2. Left hip acetabular socket replaced locking screws approximately 2 weeks ago. 3. Klebsiella growing out patient's surgical site now is well healed. Patient is off his Bactrim. 4. Patient continues on rifampin. 5. Hypertension. 6. Juvenile onset rheumatoid arthritis. 7. Anemia. 8. Gastroesophageal reflux. 9. Peripheral vascular disease with resultant above the knee amputations. 10. Osteoporosis. 11. Generalized weakness. PLAN: 1. We will continue physical therapy and occupational therapy (the patient walked 42 feet this morn ing and 18 feet this afternoon). 2. Continue rifampin. 3. Continue deep venous thrombosis and stress ulcer prophylaxis. 4. Continue decubitus precautions. 5. Encourage patient to continue eating. 6. Continue weightbearing as tolerated.
[2016-07-31] MEDS: Multivitamin W/ Minerals 1 TAB PO SCH (16:59)
[2016-07-31] MEDS: FORTEO SC SCH (21:00)
[2016-07-31] MEDS: Rifampin 300 MG CAP PO SCH (21:01)
[2016-07-31] MEDS: Gabapentin 400 MG CAP PO SCH (21:01)
[2016-08-01] MEDS: Metoclopramide HCl 10 MG TAB PO SCH (06:07)
[2016-08-01] MEDS: OMEPRAZOLE PO SCH (06:07)
[2016-08-01] MEDS: Acetaminophen/Codeine 30-300mg Tablet PO PRN ×3 (06:08→21:12)
[2016-08-01] MEDS: Ferrous Sulfate 325 MG TAB PO SCH ×2 (08:00→16:52)
[2016-08-01] MEDS: traMADol HCl 50 MG TAB PO SCH ×3 (08:45→21:18)
[2016-08-01] MEDS: MINOCYCLINE 100 MG PO SCH ×2 (08:53→21:12)
[2016-08-01] MEDS: MAG CITRATE PO SCH (08:53)
[2016-08-01] MEDS: Atenolol 25 MG TAB PO SCH (08:56)
[2016-08-01] MEDS: Tamsulosin HCl 0.4 MG CAP PO SCH (08:57)
[2016-08-01] MEDS: Aspirin 325 mg Enteric Coated Tablet PO SCH ×2 (08:58→21:11)
[2016-08-01] MEDS: Clopidogrel Bisulfate 75 MG TAB PO SCH (08:58)
[2016-08-01] MEDS ORDERED: Calcium Carbonate 500 MG ChewTAB ONE (09:08)
--- NOTE | 2016-08-01 10:31 | PRG ---
DATE OF PROGRESS NOTE: 08/01/2016 SUBJECTIVE: The patient feels well, lying in bed, apparently has been doing therapy, walking somewh at with walker and has maintained on oral antibiotics for his current osteomyelitis, infection of hi s left hip, which has been replaced and is doing much better. OBJECTIVE: VITAL SIGNS: Blood pressure is 109/70, pulse 71, temperature 97, respirations 18, O2 sat 100%. LUNGS: Clear. CARDIAC: Examination shows regular rhythm. No gallops or murmurs. ABDOMEN: Soft and nontender. EXTREMITIES: Left hip shows healed incision. ASSESSMENT: Resolving left hip infection and femur infection on prophylactic antibiotics, slowly im proving strength and cooperate with physical therapy. PLAN: 1. Continue physical therapy and did walk up to 60 feet today. Continue prophylactic antibiotics w ith rifampin only apparently. 2. Continue pain relief as needed. 3. Continue blood pressure control.
[2016-08-01] MEDS: Calcium Carbonate 500 MG ChewTAB PO SCH ×2 (12:03→21:11)
[2016-08-01] MEDS: Docusate 100 MG CAP PO PRN (16:52)
[2016-08-01] MEDS: Multivitamin W/ Minerals 1 TAB PO SCH (16:52)
[2016-08-01] MEDS: FORTEO SC SCH (21:11)
[2016-08-01] MEDS: Gabapentin 400 MG CAP PO SCH (21:11)
[2016-08-01] MEDS: Rifampin 300 MG CAP PO SCH (21:12)
[2016-08-02] MEDS: Metoclopramide HCl 10 MG TAB PO SCH (06:15)
[2016-08-02] MEDS: OMEPRAZOLE PO SCH (06:16)
[2016-08-02] MEDS: Ferrous Sulfate 325 MG TAB PO SCH ×2 (08:10→17:05)
[2016-08-02] MEDS: traMADol HCl 50 MG TAB PO SCH ×3 (08:11→20:48)
[2016-08-02] MEDS: Tamsulosin HCl 0.4 MG CAP PO SCH (08:12)
[2016-08-02] MEDS: Aspirin 325 mg Enteric Coated Tablet PO SCH ×2 (08:13→20:48)
[2016-08-02] MEDS: Clopidogrel Bisulfate 75 MG TAB PO SCH (08:13)
[2016-08-02] MEDS: Atenolol 25 MG TAB PO SCH (08:13)
[2016-08-02] MEDS: MINOCYCLINE 100 MG PO SCH ×2 (08:14→20:46)
[2016-08-02] MEDS: MAG CITRATE PO SCH (08:14)
[2016-08-02] MEDS: Calcium Carbonate 500 MG ChewTAB PO SCH ×2 (08:15→20:49)
--- NOTE | 2016-08-02 09:01 | PRG ---
DATE OF SERVICE: 08/02/2016 SUBJECTIVE: The patient feels well, lying in bed, resting, sleeping well through the night, getting up out of the bed, cooperating with therapy during the day. OBJECTIVE: VITAL SIGNS: Show blood pressure 115/76, temperature 97, pulse 84, respirations 18, and O2 sats 99% . LUNGS: Clear. CARDIAC: Examination shows regular rhythm. EXTREMITIES: Left leg shows no erythema or tenderness. ASSESSMENT: 1. Resolving left total hip femur replacement, left total knee and acetabular socket replacement. 2. Resolved Klebsiella infection, off Bactrim, only on rifampin for prophylactic infection. 3. Juvenile onset of rheumatoid arthritis, multiples deformities, but with increasing strength. Co operation with Physical Therapy. PLAN: Continue PT, OT. Continue pain relief. Continue DVT and stress ulcer prophylaxis.
[2016-08-02] MEDS: Multivitamin W/ Minerals 1 TAB PO SCH (17:05)
[2016-08-02] MEDS: FORTEO SC SCH (20:45)
[2016-08-02] MEDS: Gabapentin 400 MG CAP PO SCH (20:48)
[2016-08-02] MEDS: Rifampin 300 MG CAP PO SCH (20:48)
[2016-08-02] MEDS: Acetaminophen/Codeine 30-300mg Tablet PO PRN (23:13)
[2016-08-03] MEDS: Metoclopramide HCl 10 MG TAB PO SCH (06:14)
[2016-08-03] MEDS: OMEPRAZOLE PO SCH ×2 (06:14→08:30)
[2016-08-03] MEDS: Acetaminophen/Codeine 30-300mg Tablet PO PRN ×3 (08:23→21:36)
[2016-08-03] MEDS: Clopidogrel Bisulfate 75 MG TAB PO SCH (08:24)
[2016-08-03] MEDS: Calcium Carbonate 500 MG ChewTAB PO SCH ×2 (08:24→21:37)
[2016-08-03] MEDS: Ferrous Sulfate 325 MG TAB PO SCH ×2 (08:25→17:14)
[2016-08-03] MEDS: Aspirin 325 mg Enteric Coated Tablet PO SCH ×2 (08:25→21:36)
[2016-08-03] MEDS: Tamsulosin HCl 0.4 MG CAP PO SCH (08:25)
[2016-08-03] MEDS: traMADol HCl 50 MG TAB PO SCH ×3 (08:25→21:35)
[2016-08-03] MEDS: MAG CITRATE PO SCH (08:29)
[2016-08-03] MEDS: Atenolol 25 MG TAB PO SCH (08:29)
[2016-08-03] MEDS: MINOCYCLINE 100 MG PO SCH ×2 (08:34→21:35)
--- NOTE | 2016-08-03 13:36 | PRG ---
DATE OF SERVICE: 08/03/2016 DATE OF ADMISSION: 07/11/2016 Mr. Guerra is a very pleasant 60-year-old white male, has undergone multiple medical surgeries. He recently had an acetabular socket custom made with locking screw that would fit his left hip to keep him from continue to dislocate. He has also had a total left knee, total left femur, and a total l eft hip done. The patient states he is doing very well. I did speak with the physical therapy this morning. They states he walked 40 feet without resting t his morning that is alarming he is walking several months. The patient states he is tired, but he continued to get stronger. OBJECTIVE: VITAL SIGNS: This morning blood pressure 119/79, pulse 77 and 99, respirations 18 and 19, O2 sat 99 %-100%, T-max 98.3. PHYSICAL EXAMINATION: GENERAL: This is a well-developed, well-nourished, very pleasant white male in no apparent distress at this time. HEENT: Reveals normocephalic, nontraumatic cranium. The pupils were equally round and reactive. E xtraocular movements are intact. Nose and throat were slightly dry. NECK: Supple, without masses, nodes or bruits. CHEST: Clear to auscultation. No rales, no rhonchi, no wheezes are heard. HEART: Reveals a regular rate and rhythm without murmurs, gallops or rubs. ABDOMEN: Scaphoid, soft, nontender, without organomegaly, normal bowel sounds were noted. No rebou nd or guarding is noted. : Deferred. EXTREMITIES: Reveal no clubbing, cyanosis or edema. Eschar is still not red and not draining. Libia francis does have a right hpvju-mbh-yzzt amputation secondary to severe peripheral vascular disease. NEUROLOGIC: Patient has no focal deficits and getting stronger. IMPRESSION: 1. Left lower extremity surgery including total left hip, total femur replacement and total left kn ee. 2. Left hip acetabular socket replaced with locking screw apparatus. 3. Klebsiella. The patient is off his Bactrim and has no drainage now. 4. Continue the patient on rifampin. 5. Hypertension. 6. Juvenile onset rheumatoid arthritis. 7. Anemia. 8. Gastroesophageal reflux. 9. Peripheral vascular disease with resultant above the knee amputations. 10. Osteoporosis. 11. Generalized weakness. PLAN: 1. Continue physical therapy and occupational therapy. The patient walked 40 feet today independen tly with no rest. 2. Continue rifampin. 3. Continue deep venous thrombosis and stress ulcer prophylaxis. 4. Continue decubitus precautions. 5. Encourage the patient to stop to continue eating. 6. Continue weightbearing as tolerated.
[2016-08-03] MEDS: Docusate 100 MG CAP PO PRN (17:13)
[2016-08-03] MEDS: Multivitamin W/ Minerals 1 TAB PO SCH (17:13)
[2016-08-03] MEDS: FORTEO SC SCH (21:35)
[2016-08-03] MEDS: Rifampin 300 MG CAP PO SCH (21:36)
[2016-08-03] MEDS: Gabapentin 400 MG CAP PO SCH (21:36)
[2016-08-04] MEDS: Metoclopramide HCl 10 MG TAB PO SCH (06:16)
[2016-08-04] MEDS: Calcium Carbonate 500 MG ChewTAB PO SCH ×2 (08:31→20:38)
[2016-08-04] MEDS: Atenolol 25 MG TAB PO SCH (08:32)
[2016-08-04] MEDS: Tamsulosin HCl 0.4 MG CAP PO SCH (08:32)
[2016-08-04] MEDS: traMADol HCl 50 MG TAB PO SCH ×3 (08:32→20:38)
[2016-08-04] MEDS: Clopidogrel Bisulfate 75 MG TAB PO SCH (08:32)
[2016-08-04] MEDS: Aspirin 325 mg Enteric Coated Tablet PO SCH ×2 (08:32→20:38)
[2016-08-04] MEDS: Ferrous Sulfate 325 MG TAB PO SCH ×2 (08:32→17:12)
[2016-08-04] MEDS: MAG CITRATE PO SCH (08:33)
[2016-08-04] MEDS: MINOCYCLINE 100 MG PO SCH ×2 (08:34→20:36)
[2016-08-04] MEDS: Acetaminophen/Codeine 30-300mg Tablet PO PRN ×3 (08:54→20:44)
--- NOTE | 2016-08-04 10:10 | PRG ---
DATE OF SERVICE: 08/04/2016 HISTORY OF PRESENT ILLNESS: Mr. Guerra is a very pleasant 60-year-old white male that had an acetab ular socket custom made for his left hip. It had a locking screw because it kept dislocating. He h ad that placed in about 2-1/2 weeks ago and has been readmitted to [facility] for c ontinued physical therapy, occupational therapy and rifampin. The patient is doing very well. He has no complaints at this time. He has not had his physical therapy this morning, but he did walk 42 feet straight yesterday in the morning. OBJECTIVE: Reveal vital signs this morning is blood pressure 137/83, pulse 63 to 93, respirations 1 9, O2 sat 100%, temperature max is 97.8. PHYSICAL EXAMINATION: GENERAL: This is a well-developed, well-nourished, very thin white male in no apparent distress at this time. HEENT: Reveals normocephalic, nontraumatic cranium. Pupils are equally round and reactive. Extrao cular movements intact. Nose and throat are slightly dry. NECK: Supple, without masses, nodes or bruits. CHEST: Clear to auscultation, no rales, rhonchi, wheezes or cough is heard. CARDIOVASCULAR: Heart reveals a regular rate and rhythm without murmurs, gallops or rubs. ABDOMEN: Scaphoid, soft, nontender, without organomegaly. Normal bowel sounds are noted. No rebou nd or guarding is noted. : Deferred. EXTREMITIES: Reveal no clubbing, cyanosis or edema. His left leg has a scar from the lateral hip a ll the way down the lateral knee from his left total hip including his total femur and his left tot al knee. That all looks good, it is not draining, it is not red, it is not inflamed, it is not hot. Right leg reveals an above the knee amputation secondary to severe peripheral vascular disease. NEURO: The patient has no focal deficits and is definitely getting stronger. IMPRESSION: 1. Left lower extremity surgery with a total left knee, a total left hip and a total femur replacem ent done. 2. Left hip acetabular socket with a locking screw, replaced. 3. Hypertension. 4. Rheumatoid arthritis. 5. Anemia. 6. Gastroesophageal reflux disease. 7. Severe peripheral vascular disease with a resultant right tprpv-exv-tgma amputation. 8. Osteoporosis. 9. Generalized weakness. PLAN: 1. Continue physical therapy and occupational therapy. 2. Continue rifampin. 3. Continue DVT and stress ulcer prophylaxis. 4. Continue decubitus precautions. 5. Encourage the patient to continue eating. 6. Weightbearing status as tolerated.
[2016-08-04] MEDS: Multivitamin W/ Minerals 1 TAB PO SCH (17:11)
[2016-08-04] MEDS: Docusate 100 MG CAP PO PRN (17:11)
[2016-08-04] MEDS: FORTEO SC SCH (20:36)
[2016-08-04] MEDS: Rifampin 300 MG CAP PO SCH (20:37)
[2016-08-04] MEDS: Gabapentin 400 MG CAP PO SCH (20:37)
[2016-08-05] MEDS: Metoclopramide HCl 10 MG TAB PO SCH (06:04)
[2016-08-05] MEDS: OMEPRAZOLE PO SCH (06:04)
[2016-08-05 08:12] LABS: #Basophils 0.1 thou/uL (0.0-0.2); #Eosinphils 0.8 thou/uL (0.0-0.7); #Lymphocytes 1.5 thou/uL (1.20-3.40); #Monocytes 0.8 thou/uL (0.11-0.59); #Neutrophils 2.8 thou/uL (1.40-6.50); %Basophils 1.5 % (0.0-1.0); %Eosinophils 13.6 % (0.0-10.0); %Lymphocytes 24.4 % (21.0-51.0); %Monocytes 13.4 % (0.0-10.0); %Neutrophils 47.1 % (42.0-75.0); Hemoglobin 11.6 g/dL (14.0-18.0); Mean Corpuscular HGB CONC 33.6 g/dL (32.0-36.0); Mean Corpuscular Hemoglobin 29.5 pg (27.0-31.0); Mean Corpuscular Volume 87.9 fl (80.0-94.0); Mean Platelet Volume 7.4 fL (7.4-10.4); Platelet Count 210 thou/uL (130-400); RBC Distribution Width 14.5 % (11.5-14.5); Red Blood Cell (RBC) Count 3.92 mill/uL (4.70-6.10)
[2016-08-05 08:22] LABS: ALT (SGPT) 11 U/L (8-55); AST (SGOT) 16 U/L (5-34); Albumin 2.7 g/dL (3.4-4.8); Alkaline Phosphatase 164 U/L (40-150); Anion Gap 14 mmol/L (10-20); BUN (Urea Nitrogen) 10 mg/dL (8.4-25.7); Bilirubin, Total 0.4 mg/dL (0.2-1.2); CRP (Inflammatory) 1.28 mg/dL (= or < 0.5); Calc. Creatinine Clearance 73 mL/min (70-130); Calcium 8.6 mg/dL (7.8-10.44); Carbon Dioxide 23 mmol/L (23-31); Chloride 102 mmol/L (98-107); Estimated GFR-MDRD Greater than 90; Glucose 98 mg/dL (80-115); Potassium 4.5 mmol/L (3.5-5.1); Protein, Total 5.7 g/dL (5.8-8.1); Sodium 134 mmol/L (136-145)
[2016-08-05] MEDS: Calcium Carbonate 500 MG ChewTAB PO SCH ×2 (08:22→20:51)
[2016-08-05] MEDS: Ferrous Sulfate 325 MG TAB PO SCH ×2 (08:22→16:44)
[2016-08-05] MEDS: Tamsulosin HCl 0.4 MG CAP PO SCH (08:22)
[2016-08-05] MEDS: Aspirin 325 mg Enteric Coated Tablet PO SCH ×2 (08:22→20:51)
[2016-08-05] MEDS: Clopidogrel Bisulfate 75 MG TAB PO SCH (08:22)
[2016-08-05] MEDS: Atenolol 25 MG TAB PO SCH (08:23)
[2016-08-05] MEDS: traMADol HCl 50 MG TAB PO SCH ×3 (08:24→20:53)
[2016-08-05] MEDS: MINOCYCLINE 100 MG PO SCH ×2 (08:31→20:52)
[2016-08-05] MEDS: MAG CITRATE PO SCH (08:31)
[2016-08-05] MEDS: Acetaminophen/Codeine 30-300mg Tablet PO PRN ×2 (12:56→20:54)
--- NOTE | 2016-08-05 13:25 | PRG ---
DATE OF SERVICE: 08/05/2016 SUBJECTIVE: Mr. Guerra is a pleasant 60-year-old white male that was transferred from [facility] after having a left acetabular custom made socket with a set screw. Unfo rtunately, the patient had a total left hip and had total left femur along with a total left knee re done and came dislocated out of the hip socket. He has his acetabular socket custom made to stop th at problem. The patient was transferred here for continued antibiotics and physical therapy and occupational the rapy is doing well. The patient states he walked 32 feet this morning without stopping and is slowly, but surely getting a little stronger. He says for some reason, he seemed a little bit weaker today, because he walked 40 feet yesterday. He has no complaints. OBJECTIVE: VITAL SIGNS: This morning reveal blood pressure was 107/69, pulse 67-74, respirations 18-19, O2 sat uration 99%. T-max is 98.3. PHYSICAL EXAMINATION: GENERAL: This is a well-developed, well-nourished, very pleasant white male in no apparent distress at this time. HEENT: Reveals normocephalic, nontraumatic cranium. The pupils are equally round and reactive. Ex traocular movements intact. Nose and throat are slightly dry. NECK: Supple, without masses, nodes or bruits. CHEST: Clear to auscultation. No rales, rhonchi or wheezes are heard. CARDIOVASCULAR: Heart reveals a regular rate and rhythm without murmurs, gallops or rubs. ABDOMEN: Scaphoid, soft, nontender, without organomegaly, normal bowel sounds are noted. No reboun d or guarding is noted. GENITOURINARY: Deferred. EXTREMITIES: Reveal no clubbing, cyanosis or edema. Left leg scar from the hip down the left later al knee is well healed, not red, not inflamed, not draining. The patient's right ptlnu-xtm-nois amp utation is old and doing well. NEUROLOGIC: The patient has no focal deficits. IMPRESSION: 1. Hypertension. 2. Rheumatoid arthritis. 3. Left lower extremity surgery with total left knee, total left hip and had total fever replacemen t done. 4. Left hip acetabular socket custom made with locking screw, replaced. 5. Rheumatoid arthritis juvenile onset. 6. Anemia. 7. Gastroesophageal reflux. 8. Severe peripheral vascular disease with resultant right luufl-ksf-hnza amputation. 9. Osteoporosis. 10. Generalized weakness. PLAN: 1. Continue physical therapy and occupational therapy. 2. Continue rifampin. 3. Continue DVT and stress ulcer prophylaxis. 4. Continue decubitus precautions. 5. Encourage the patient to continue eating protein. 6. Continue weightbearing status as able to tolerate it. 7. Continue supportive care. 8. Estimated length of stay 7-10 more days.
[2016-08-05] MEDS: Multivitamin W/ Minerals 1 TAB PO SCH (16:44)
[2016-08-05] MEDS: Gabapentin 400 MG CAP PO SCH (20:51)
[2016-08-05] MEDS: FORTEO SC SCH (20:51)
[2016-08-05] MEDS: Rifampin 300 MG CAP PO SCH (20:53)
[2016-08-06] MEDS: Metoclopramide HCl 10 MG TAB PO SCH (06:12)
[2016-08-06] MEDS: OMEPRAZOLE PO SCH (06:12)
[2016-08-06] MEDS: Aspirin 325 mg Enteric Coated Tablet PO SCH ×2 (08:37→20:59)
[2016-08-06] MEDS: Atenolol 25 MG TAB PO SCH (08:38)
[2016-08-06] MEDS: MAG CITRATE PO SCH (08:38)
[2016-08-06] MEDS: Ferrous Sulfate 325 MG TAB PO SCH ×2 (08:38→17:00)
[2016-08-06] MEDS: Tamsulosin HCl 0.4 MG CAP PO SCH (08:38)
[2016-08-06] MEDS: Clopidogrel Bisulfate 75 MG TAB PO SCH (08:38)
[2016-08-06] MEDS: Calcium Carbonate 500 MG ChewTAB PO SCH ×2 (08:38→21:00)
[2016-08-06] MEDS: MINOCYCLINE 100 MG PO SCH ×3 (08:39→20:59)
[2016-08-06] MEDS: traMADol HCl 50 MG TAB PO SCH ×3 (08:41→21:00)
[2016-08-06] MEDS: Acetaminophen/Codeine 30-300mg Tablet PO PRN ×3 (08:41→21:01)
--- NOTE | 2016-08-06 15:29 | PRG ---
DATE OF PROGRESS NOTE: 08/06/2016 DATE OF ADMISSION: 07/11/2016 HISTORY OF PRESENT ILLNESS: Mr. Guerra is a very pleasant 60-year-old white male that has been foll owed by Dr. Patel at [facility]. He had a left acetabular custom made socket wit h a screw set after he had a dislocation of his left hip. He had a total left hip done and dislocat ed. He also had total left femur and a total left random knee. After it was dislocated, he had a c ustom made acetabular socket made which was placed and has been about 2-1/2 weeks now. The patient postoperatively did very well and was transferred to [facility] for physical therapy , occupational therapy, and rifampin. Patient states he walked up to 45 feet this morning. He did that without stopping. He has no compl aints today. OBJECTIVE: VITAL SIGNS: Reveal blood pressure this morning 131/84, pulse 69-79, respirations 18, O2 sat 98-99% . T-max is 98.3. PHYSICAL EXAMINATION: GENERAL: This is a well-developed, well-nourished, thin white male in no apparent distress at this time. HEENT: Reveals normocephalic, nontraumatic cranium. Pupils are equally round and reactive. Extrao cular movements are intact. Nose and throat are slightly dry. NECK: Supple, without masses, nodes or bruits. CHEST: Clear to auscultation, no rales, rhonchi, wheezes or cough is heard. CARDIOVASCULAR: Reveals a regular rate and rhythm without murmurs, gallops or rubs. ABDOMEN: Scaphoid, soft, nontender, without organomegaly, normal bowel sounds are noted. No reboun d or guarding is noted. : Deferred. EXTREMITIES: Reveal no clubbing, cyanosis or edema. NEUROLOGIC: Patient does have right tzoul-zmv-xkyv amputation. The patient has his left leg scars goes from his left hip laterally down to the left knee. He had t o have a left acetabular custom made socket made with a set screw because he kept dislocate in that left hip. It has been accomplished and he is doing very well walking. He does have a total left hi p, total left knee, and total femur. ASSESSMENT: 1. Hypertension. 2. Rheumatoid arthritis. 3. Left lower extremity has a total knee, total left hip, and total femur replacement. 4. Total left hip acetabular socket custom made with locking screws been replaced. 5. The patient has generalized weakness, is much improved because he is walking 45 feet today witho ut stopping. 6. Given onset rheumatoid arthritis. 7. Anemia. 8. Gastroesophageal reflux. 9. Severe peripheral vascular disease with resultant right xywnv-fui-joco amputation. 10. Osteoporosis. 11. Generalized weakness. PLAN: 1. Continue physical therapy and occupational therapy. 2. Continue rifampin. 3. Continue deep venous thrombosis and stress ulcer prophylaxis. 4. Continue decubitus precautions. 5. Continue to encourage patient to eat. 6. Continued to encourage the patient's weightbearing status, a little further everyday. 7. Continue supportive care. 8. Estimated length of stay is approximately 1 week.
[2016-08-06] MEDS ORDERED: Acetaminophen 325 MG TAB PO PRN (15:43)
[2016-08-06] MEDS: Multivitamin W/ Minerals 1 TAB PO SCH (16:59)
[2016-08-06] MEDS: Docusate 100 MG CAP PO PRN (17:00)
[2016-08-06] MEDS: Rifampin 300 MG CAP PO SCH (20:59)
[2016-08-06] MEDS: Gabapentin 400 MG CAP PO SCH (21:00)
[2016-08-06] MEDS: FORTEO SC SCH (21:01)
[2016-08-07] MEDS: OMEPRAZOLE PO SCH (06:12)
[2016-08-07] MEDS: Metoclopramide HCl 10 MG TAB PO SCH (06:13)
[2016-08-07] MEDS: Ferrous Sulfate 325 MG TAB PO SCH ×2 (08:00→16:57)
[2016-08-07] MEDS: traMADol HCl 50 MG TAB PO SCH ×3 (08:50→21:35)
[2016-08-07] MEDS: Clopidogrel Bisulfate 75 MG TAB PO SCH (09:03)
[2016-08-07] MEDS: MINOCYCLINE 100 MG PO SCH ×2 (09:04→21:06)
[2016-08-07] MEDS: MAG CITRATE PO SCH (09:04)
[2016-08-07] MEDS: Tamsulosin HCl 0.4 MG CAP PO SCH (09:04)
[2016-08-07] MEDS: Aspirin 325 mg Enteric Coated Tablet PO SCH ×2 (09:04→21:07)
[2016-08-07] MEDS: Atenolol 25 MG TAB PO SCH (09:06)
[2016-08-07] MEDS: Calcium Carbonate 500 MG ChewTAB PO SCH ×2 (09:07→21:08)
[2016-08-07] MEDS: Acetaminophen/Codeine 30-300mg Tablet PO PRN ×2 (13:06→21:08)
--- NOTE | 2016-08-07 13:10 | PRG ---
DATE OF SERVICE: 08/07/2016 SUBJECTIVE: Mr. Guerra is a very pleasant 60-year-old white male who is followed by Dr. Patel at [facility]. He had significant left lower extremity osteoarthritis and ended up costello ving a left total hip, left femur and left total knee replacement. He had a dislocated hip and he h ad a custom made acetabular socket with a set screw that was reinstalled about 3 weeks ago. Postope ratively, the patient has done very well and was transferred to [facility] for PT, O T and rifampin. The patient states he walked 40 feet this morning without stopping. He states he got a little tired today. OBJECTIVE: VITAL SIGNS: Reveal blood pressure this morning was 113/74, pulse 68-74, respirations 18, O2 sat 10 0% on room air and temperature 98.4. GENERAL: This is a well-developed, well-nourished, very pleasant white male in no apparent distress at this time. HEENT: Reveals normocephalic and nontraumatic cranium. Pupils are equally round and reactive. Ext raocular movements are intact. Nose and throat are slightly dry. NECK: Supple, without masses, nodes or bruits. CHEST: Clear to auscultation. No rales, rhonchi or wheezes are heard. HEART: Reveals a regular rate and rhythm without murmurs, gallops or rubs. ABDOMEN: Scaphoid, soft and nontender, without organomegaly. Normal bowel sounds are noted. No re bound or guarding is noted. GENITOURINARY: Deferred. EXTREMITIES: Reveal no clubbing, cyanosis or edema. The patient does have left leg scar from his l eft lateral knee all the way up to his hip. It is not red, it is not draining and it is not inflame d. The patient is actually doing very well with physical therapy, will expect discharge sometime ne xt week. IMPRESSION: 1. Hypertension. 2. Juvenile onset rheumatoid arthritis. 3. Left lower extremity with a total knee, total hip and total femoral replacement. 4. Total left hip acetabular socket, custom made, with locking screws had been replaced. 5. Generalized weakness. 6. Anemia. 7. Gastroesophageal reflux. 8. Severe peripheral vascular disease with resultant right qdvmh-vfe-svoe amputation. 9. Osteoporosis. 10. Generalized weakness. PLAN: 1. Continue physical therapy and occupational therapy. 2. Continue deep venous thrombosis and stress ulcer prophylaxis. 3. Continue rifampin. 4. Continue decubitus precautions. 5. Continue to encourage the patient to eat. 6. Continue to encourage the patient's weightbearing status to walk a little further every day. 7. Continue supportive care. 8. Discharge sometimes in the middle of next week.
[2016-08-07] MEDS: Docusate 100 MG CAP PO PRN (16:57)
[2016-08-07] MEDS: Multivitamin W/ Minerals 1 TAB PO SCH (16:57)
[2016-08-07] MEDS: Gabapentin 400 MG CAP PO SCH (21:07)
[2016-08-07] MEDS: Rifampin 300 MG CAP PO SCH (21:07)
[2016-08-07] MEDS: FORTEO SC SCH (21:08)
[2016-08-08] MEDS: Metoclopramide HCl 10 MG TAB PO SCH (05:57)
[2016-08-08] MEDS: OMEPRAZOLE PO SCH (05:57)
[2016-08-08] MEDS: Ferrous Sulfate 325 MG TAB PO SCH ×2 (08:05→17:19)
[2016-08-08] MEDS: Acetaminophen/Codeine 30-300mg Tablet PO PRN ×2 (08:05→21:19)
[2016-08-08] MEDS: traMADol HCl 50 MG TAB PO SCH ×3 (08:05→21:18)
[2016-08-08] MEDS: Tamsulosin HCl 0.4 MG CAP PO SCH (08:06)
[2016-08-08] MEDS: Clopidogrel Bisulfate 75 MG TAB PO SCH (08:06)
[2016-08-08] MEDS: Aspirin 325 mg Enteric Coated Tablet PO SCH ×2 (08:06→21:18)
[2016-08-08] MEDS: Atenolol 25 MG TAB PO SCH (08:06)
[2016-08-08] MEDS: MINOCYCLINE 100 MG PO SCH ×2 (08:07→21:22)
[2016-08-08] MEDS: MAG CITRATE PO SCH (08:07)
[2016-08-08] MEDS: Calcium Carbonate 500 MG ChewTAB PO SCH ×2 (08:07→21:18)
--- NOTE | 2016-08-08 13:10 | PRG ---
DATE OF SERVICE: 08/08/2016 SUBJECTIVE: Patient is sitting up in bed eating lunch, feels well with no complaints of chest pain, shortness of breath or pain in his leg. He has been walking with physical therapy. OBJECTIVE: Vital signs show blood pressure to be 155/87, pulse 74, afebrile, respirations 18, O2 sa t 100%. Lungs are clear. Cardiac examination shows regular rhythm. Incision of left leg is healin g well. Physical therapy notes from yesterday state that patient walking 40 feet rolling walker wit h a resting platform, still has significant exercise intolerance, but is making progress and is inde pendent in bed transfer, chair transfer, toilet transfer all OT. ASSESSMENT: 1. Resolving left total knee, total hip, and femoral replacement with acetabular socket. 2. Improving deconditioning. 3. Stable hypertension. PLAN: Continue PT, OT. Continue deep venous thrombosis and stress ulcer prophylaxis. Continue rif ampin for prophylaxis against recurrent infection.
[2016-08-08] MEDS: Multivitamin W/ Minerals 1 TAB PO SCH (17:19)
[2016-08-08] MEDS: Docusate 100 MG CAP PO PRN (17:20)
[2016-08-08] MEDS: Rifampin 300 MG CAP PO SCH (21:19)
[2016-08-08] MEDS: Gabapentin 400 MG CAP PO SCH (21:19)
[2016-08-08] MEDS: FORTEO SC SCH (21:20)
[2016-08-09] MEDS: Acetaminophen/Codeine 30-300mg Tablet PO PRN ×3 (05:51→21:21)
[2016-08-09] MEDS: OMEPRAZOLE PO SCH (05:52)
[2016-08-09] MEDS: Metoclopramide HCl 10 MG TAB PO SCH (05:52)
[2016-08-09] MEDS: Clopidogrel Bisulfate 75 MG TAB PO SCH (08:35)
[2016-08-09] MEDS: traMADol HCl 50 MG TAB PO SCH ×3 (08:36→21:20)
[2016-08-09] MEDS: Ferrous Sulfate 325 MG TAB PO SCH ×2 (08:36→17:19)
[2016-08-09] MEDS: Calcium Carbonate 500 MG ChewTAB PO SCH ×2 (08:36→21:26)
[2016-08-09] MEDS: Tamsulosin HCl 0.4 MG CAP PO SCH (08:36)
[2016-08-09] MEDS: Atenolol 25 MG TAB PO SCH (08:36)
[2016-08-09] MEDS: Aspirin 325 mg Enteric Coated Tablet PO SCH ×2 (08:36→21:22)
[2016-08-09] MEDS: MINOCYCLINE 100 MG PO SCH ×2 (09:17→21:23)
[2016-08-09] MEDS: MAG CITRATE PO SCH (09:18)
--- NOTE | 2016-08-09 14:36 | PRG ---
DATE OF SERVICE: 08/09/[address] Juliette Guerrero. SUBJECTIVE: The patient feels well. No complaints, lying in the bed. States he did have some pain yesterday when the change in the weather was occurring. Now hip feels stable, saying he will get o ut of bed later today. OBJECTIVE: VITAL SIGNS: Shows blood pressure 136/65, O2 saturation is 100%, respirations 18, pulse 93, afebril e. LUNGS: Clear. CARDIAC: Examination shows regular rhythm. EXTREMITIES: Left leg shows completely healed incision with no erythema, warmth, and minimal tender ness. ASSESSMENT: 1. Resolved replacement of left knee, femur, hip, and acetabulum with increasing strength, decreasi ng pain. 2. Stable juvenile onset rheumatoid arthritis. 3. Stable hypertension. PLAN: Continue PT, OT. Discharge planning for next week. Dr. Guerrero to be back in the a.m.
[2016-08-09] MEDS: Multivitamin W/ Minerals 1 TAB PO SCH (17:19)
[2016-08-09] MEDS: Docusate 100 MG CAP PO PRN (17:19)
[2016-08-09] MEDS: Gabapentin 400 MG CAP PO SCH (21:21)
[2016-08-09] MEDS: FORTEO SC SCH (21:22)
[2016-08-09] MEDS: Rifampin 300 MG CAP PO SCH (21:22)
[2016-08-10] MEDS: Metoclopramide HCl 10 MG TAB PO SCH (05:48)
[2016-08-10] MEDS: OMEPRAZOLE PO SCH (05:49)
[2016-08-10] MEDS: Atenolol 25 MG TAB PO SCH (08:24)
[2016-08-10] MEDS: Clopidogrel Bisulfate 75 MG TAB PO SCH (08:24)
[2016-08-10] MEDS: traMADol HCl 50 MG TAB PO SCH ×2 (08:25→17:43)
[2016-08-10] MEDS: Tamsulosin HCl 0.4 MG CAP PO SCH (08:26)
[2016-08-10] MEDS: Aspirin 325 mg Enteric Coated Tablet PO SCH ×2 (08:27→20:55)
[2016-08-10] MEDS: Acetaminophen/Codeine 30-300mg Tablet PO PRN ×2 (08:27→20:53)
[2016-08-10] MEDS: Calcium Carbonate 500 MG ChewTAB PO SCH ×2 (08:28→20:54)
[2016-08-10] MEDS: MAG CITRATE PO SCH (08:28)
[2016-08-10] MEDS: Ferrous Sulfate 325 MG TAB PO SCH ×2 (08:28→17:41)
[2016-08-10] MEDS: MINOCYCLINE 100 MG PO SCH ×2 (08:29→20:55)
--- NOTE | 2016-08-10 10:08 | PRG ---
DATE OF SERVICE: 08/10/2016 DATE OF ADMISSION: 07/11/2016 SUBJECTIVE: Mr. Guerra is a 60-year-old white male, who has had an expensive surgery on his left hi p. He had total left hip, total femur, and a total left knee. Unfortunately, the hip dislocated an d he had to have a custom made acetabular socket with a locking screw. That was done and it is repl aced and it is done very well. He is here for physical therapy and occupational therapy. He also c ontinues to be on rifampin. The patient presently walked 48 feet this morning and is scheduled for discharge on . He costello s no complaints today. PHYSICAL EXAMINATION: VITAL SIGNS: Reveal blood pressure this morning was 131/82, pulse 69-70, respirations 18, O2 sat 94 %-100% on room air, and T-max is 98.9. GENERAL APPEARANCE: This is a well-developed, well-nourished, very pleasant white male in no appare nt distress at this time. HEENT: Reveals normocephalic, nontraumatic cranium. Pupils are equally round and reactive. Extrao cular movements are intact. Nose and throat are slightly dry. NECK: Supple, without masses, nodes or bruits. CHEST: Clear to auscultation, no rales, rhonchi or wheezes are heard. HEART: Reveals a regular rate and rhythm without murmurs, gallops or rubs. ABDOMEN: Soft, nontender, without organomegaly, normal bowel sounds are noted. No rebound or guard ing is noted. : Exam is deferred. EXTREMITIES: Reveal no clubbing, cyanosis or edema. ASSESSMENT: 1. Hypertension 2. Juvenile onset rheumatoid arthritis. 3. Left lower extremity with total knee, total hip, and total femur replacement. 4. Total left hip acetabular custom made socket, locking screws has been replaced. 5. Generalized weakness. 6. Anemia. 7. Gastroesophageal reflux. 8. Severe peripheral vascular disease with a resultant right ucwyx-uvy-idan amputation. 9. Osteoporosis. 10. Generalized weakness. PLAN: 1. Continue physical therapy and occupational therapy. 2. Continue DVT and stress ulcer prophylaxis. 3. Continue rifampin. 4. Continue decubitus care. 5. Encourage the patient to continue eating well. 6. Encourage the patient's weightbearing status and he walked 48 feet today. 7. Continue supportive care. 8. Discharge on .
[2016-08-10] MEDS: Multivitamin W/ Minerals 1 TAB PO SCH (17:41)
[2016-08-10] MEDS: FORTEO SC SCH (20:53)
[2016-08-10] MEDS: Gabapentin 400 MG CAP PO SCH (20:55)
[2016-08-10] MEDS: Rifampin 300 MG CAP PO SCH (20:55)
[2016-08-11] MEDS: Acetaminophen/Codeine 30-300mg Tablet PO PRN ×4 (00:54→21:10)
[2016-08-11] MEDS: Metoclopramide HCl 10 MG TAB PO SCH (06:01)
[2016-08-11] MEDS: OMEPRAZOLE PO SCH (06:01)
[2016-08-11 06:30] LABS: #Basophils 0.1 thou/uL (0.0-0.2); #Eosinphils 0.7 thou/uL (0.0-0.7); #Lymphocytes 1.6 thou/uL (1.20-3.40); #Monocytes 0.9 thou/uL (0.11-0.59); %Basophils 1.4 % (0.0-1.0); %Eosinophils 10.9 % (0.0-10.0); %Lymphocytes 25.2 % (21.0-51.0); %Monocytes 13.8 % (0.0-10.0); %Neutrophils 48.8 % (42.0-75.0); Hemoglobin 12.8 g/dL (14.0-18.0); Mean Corpuscular Volume 87.8 fl (80.0-94.0); Mean Platelet Volume 7.6 fL (7.4-10.4); Platelet Count 205 thou/uL (130-400); RBC Distribution Width 14.6 % (11.5-14.5); Red Blood Cell (RBC) Count 4.41 mill/uL (4.70-6.10); White Blood Cell (WBC) Count 6.2 thou/uL (4.8-10.8)
[2016-08-11 06:36] LABS: ALT (SGPT) 12 U/L (8-55); AST (SGOT) 17 U/L (5-34); Alkaline Phosphatase 171 U/L (40-150); Anion Gap 14 mmol/L (10-20); BUN (Urea Nitrogen) 17 mg/dL (8.4-25.7); Bilirubin, Total 0.4 mg/dL (0.2-1.2); CRP (Inflammatory) 0.76 mg/dL (= or < 0.5); Calc. Creatinine Clearance 69 mL/min (70-130); Calcium 8.8 mg/dL (7.8-10.44); Carbon Dioxide 23 mmol/L (23-31); Chloride 102 mmol/L (98-107); Estimated GFR-MDRD Greater than 90; Globulin 3.4 g/dL (2.4-3.5); Glucose 107 mg/dL (80-115); Potassium 4.4 mmol/L (3.5-5.1); Protein, Total 6.4 g/dL (5.8-8.1); Sodium 135 mmol/L (136-145)
[2016-08-11] MEDS: MINOCYCLINE 100 MG PO SCH ×2 (08:12→21:15)
[2016-08-11] MEDS: MAG CITRATE PO SCH (08:13)
[2016-08-11] MEDS: Ferrous Sulfate 325 MG TAB PO SCH ×2 (08:14→17:18)
[2016-08-11] MEDS: Aspirin 325 mg Enteric Coated Tablet PO SCH ×2 (08:15→21:10)
[2016-08-11] MEDS: Atenolol 25 MG TAB PO SCH (08:15)
[2016-08-11] MEDS: Tamsulosin HCl 0.4 MG CAP PO SCH (08:16)
[2016-08-11] MEDS: Calcium Carbonate 500 MG ChewTAB PO SCH ×2 (08:16→21:10)
[2016-08-11] MEDS: Clopidogrel Bisulfate 75 MG TAB PO SCH (08:17)
--- NOTE | 2016-08-11 10:37 | PRG ---
DATE OF SERVICE: 08/11/2016 HISTORY OF PRESENT ILLNESS: The patient is a 60-year-old white male that is on his way to see Dr. Gabby cuevas this morning. He had a total left femur, total left hip and a total left knee replacement done by Dr. Patel. Unfortunately, he had a dislocation of his hip and he had to have an acetabular custom made socket with a set screw. It has been replaced and he is doing very well. He walked 78 feet t his morning. He states he has no complaints except he got somewhat tired walking 78 feet. He state s he will be seeing Dr. Patel sometimes early this morning. His significant other is going to pick h im up and go in a car. The patient's significant other is here. I did follow him out to the car and watched him safely mov ed from his wheelchair per sliding board into the car, he did very well. OBJECTIVE: Vital signs this morning reveal blood pressure 144/83, pulse 69-78, respirations 18-20, O2 sat 99% on room air, T-max 98.3. PHYSICAL EXAMINATION: GENERAL: This is a well-developed, well-nourished, very pleasant white male in no apparent distress at this time. HEENT: Reveals normocephalic, nontraumatic cranium. Pupils equal, round, and reactive. Extraocula r movements intact. Nose and throat are slightly dry. NECK: Supple, without masses, nodes or bruits. LUNGS: Chest is clear to auscultation. No rales, no rhonchi, no wheezes. No cough is heard. CARDIOVASCULAR: Reveals a regular rate and rhythm without murmurs, gallops or rubs. ABDOMEN: Scaphoid, soft, nontender, without organomegaly. Normal bowel sounds are noted. No rebou nd or guarding is noted. : Deferred. EXTREMITIES: Reveal no clubbing, cyanosis or edema. The patient does have a right dhhfw-[id number] a mputation and his incision on his left hip through the femur, through the knee is clean and not red or infected. IMPRESSION: 1. Hypertension. 2. Juvenile onset rheumatoid arthritis. 3. Left lower extremity total knee, total hip, total femur replacement. 4. Left hip acetabular custom made socket with set screws been replaced. 5. Generalized weakness. 6. Anemia. 7. Gastroesophageal reflux. 8. Severe peripheral vascular disease with resultant right dhnhi-gte-wgkr amputation. 9. Osteoporosis. 10. Generalized weakness. PLAN: 1. Continue physical therapy and occupational therapy. 2. Continue DVT and stress ulcer prophylaxis. 3. Continue rifampin. 4. Continue decubitus care. 5. Continue to eat well. 6. Continue weightbearing status. He walked 72 feet today. 7. Continue supportive care. 8. Discharge on .
[2016-08-11] MEDS: Docusate 100 MG CAP PO PRN (14:14)
[2016-08-11] MEDS: traMADol HCl 50 MG TAB PO SCH ×2 (14:47→21:11)
[2016-08-11] MEDS: Multivitamin W/ Minerals 1 TAB PO SCH (17:18)
[2016-08-11] MEDS: Gabapentin 400 MG CAP PO SCH (21:10)
[2016-08-11] MEDS: FORTEO SC SCH (21:12)
[2016-08-12] MEDS: Metoclopramide HCl 10 MG TAB PO SCH (05:42)
[2016-08-12] MEDS: OMEPRAZOLE PO SCH (05:42)
[2016-08-12] MEDS: Acetaminophen/Codeine 30-300mg Tablet PO PRN ×3 (05:42→20:52)
[2016-08-12] MEDS: Tamsulosin HCl 0.4 MG CAP PO SCH (08:20)
[2016-08-12] MEDS: Atenolol 25 MG TAB PO SCH (08:21)
[2016-08-12] MEDS: Docusate 100 MG CAP PO PRN (08:21)
[2016-08-12] MEDS: Aspirin 325 mg Enteric Coated Tablet PO SCH ×2 (08:21→20:50)
[2016-08-12] MEDS: Clopidogrel Bisulfate 75 MG TAB PO SCH (08:21)
[2016-08-12] MEDS: Ferrous Sulfate 325 MG TAB PO SCH ×2 (08:22→16:34)
[2016-08-12] MEDS: MAG CITRATE PO SCH (08:23)
[2016-08-12] MEDS: Calcium Carbonate 500 MG ChewTAB PO SCH ×2 (08:23→20:51)
[2016-08-12] MEDS: MINOCYCLINE 100 MG PO SCH ×2 (08:24→20:51)
[2016-08-12] MEDS: traMADol HCl 50 MG TAB PO SCH ×3 (08:24→20:52)
--- NOTE | 2016-08-12 15:58 | PRG ---
DATE OF SERVICE: 08/12/2016 DATE OF ADMISSION: 07/11/2016 HISTORY OF PRESENT ILLNESS: Mr. Guerra is a very pleasant 60-year-old white male that had a total l eft hip, total femur, and total right hip done by Dr. Patel. The patient had dislocation of the tota l left hip and therefore he had had an acetabular custom made socket with locking screw. He has bee n placed and he is doing very well. He walked 96 feet this morning. He saw Dr. Patel yesterday, who injected both of his shoulders with some steroids. He is scheduled to go home most likely tomorrow afternoon. The patient has no complaints today. OBJECTIVE: VITAL SIGNS: This morning reveal blood pressure 124/78, pulse 70-78, respirations 18, O2 sat 95%-99 %, temperature 97.6. GENERAL: This is a well-developed, very thin white male in no apparent distress at this time. HEENT: Reveals normocephalic, nontraumatic cranium. Pupils equal, round, and reactive. Extraocula r movements intact. Nose and throat are slightly dry. NECK: Supple, without mass, nodes or bruits. CHEST: Clear to auscultation. No rales, rhonchi or wheezes are heard. No cough is noted. HEART: Reveals a regular rate and rhythm without murmurs, gallops or rubs. ABDOMEN: Scaphoid, soft, nontender, without organomegaly. Normal bowel sounds are noted. No rebou nd or guarding is noted. : Exam is deferred. EXTREMITIES: Reveal no clubbing, cyanosis or edema. The patient has a right hnsov-dpv-[id number] amputation secondary to severe peripheral vascular disease. The patient has a left hip, left total hip, left total knee, and total femur replacement and the sca r and incision looks good. IMPRESSION: 1. Hypertension. 2. Juvenile onset rheumatoid arthritis. 3. Left lower extremity, total knee, total hip, and total femur replacement. 4. Left hip acetabular custom-made socket with set screws, which has been placed. 5. Generalized weakness. 6. Anemia. 7. Gastroesophageal reflux. 8. Severe peripheral vascular disease with resultant right mmlak-kur-lzrx amputation. 9. Osteoporosis. 10. Generalized weakness. PLAN: 1. Most likely will be discharged tomorrow afternoon. 2. Continue physical therapy and occupational therapy. 3. Continue DVT and stress ulcer prophylaxis. 4. Continue rifampin. 5. Continue decubitus care. 6. Continue weightbearing status and he walked 94 feet today. 7. Continue supportive care. 8. Discharge tomorrow.
[2016-08-12] MEDS: Multivitamin W/ Minerals 1 TAB PO SCH (16:34)
[2016-08-12] MEDS: Gabapentin 400 MG CAP PO SCH (20:51)
[2016-08-12] MEDS: FORTEO SC SCH (20:51)
[2016-08-13] MEDS: Metoclopramide HCl 10 MG TAB PO SCH (06:19)
[2016-08-13] MEDS: OMEPRAZOLE PO SCH ×3 (06:23→06:32)
[2016-08-13] MEDS: MINOCYCLINE 100 MG PO SCH (08:33)
[2016-08-13] MEDS: MAG CITRATE PO SCH (08:34)
[2016-08-13] MEDS: Aspirin 325 mg Enteric Coated Tablet PO SCH (08:34)
[2016-08-13] MEDS: Clopidogrel Bisulfate 75 MG TAB PO SCH (08:34)
[2016-08-13] MEDS: Tamsulosin HCl 0.4 MG CAP PO SCH (08:34)
[2016-08-13] MEDS: Atenolol 25 MG TAB PO SCH (08:34)
[2016-08-13] MEDS: Acetaminophen/Codeine 30-300mg Tablet PO PRN ×2 (08:35→17:35)
[2016-08-13] MEDS: Ferrous Sulfate 325 MG TAB PO SCH ×2 (08:35→17:34)
[2016-08-13] MEDS: traMADol HCl 50 MG TAB PO SCH ×2 (08:37→14:35)
[2016-08-13] MEDS: Calcium Carbonate 500 MG ChewTAB PO SCH (08:38)
[2016-08-13] MEDS: Docusate 100 MG CAP PO PRN (14:35)
[2016-08-13 16:12] VITALS: BMI 19.3
[2016-08-13 16:18] VITALS: BP 124/76; TEMP 97.6
[2016-08-13] MEDS: Multivitamin W/ Minerals 1 TAB PO SCH (17:34)
--- NOTE | 2016-08-13 23:51 | DIS ---
DATE OF ADMISSION: 07/11/2016 DATE OF DISCHARGE: 08/13/2016 HISTORY AND HOSPITAL COURSE: The patient is a 60-year-old white male who has had significant debili ty on his left lower extremity. He had a total left hip, total left femur and total left knee done by Dr. Patel. Unfortunately, the total left knee dislocate and he had to have a Custom-made acetabul ar socket locking screw. That was placed by Dr. Patel. He was transferred back here for continued p hysical therapy and occupational therapy. The patient has done very well and he walked 100 feet this morning. He is still quite weak, but he requests to go home, so we will discharge him this afternoon. The patient has no complaints today. Vital signs revealed blood pressure this morning was 109/72, pulse 60-77, respirations 16-18, O2 sat 99-100%, T-max is 98.2. The patient's last laboratory on the with a white count of 6200, hemo globin 12.8, hematocrit 38.7 and platelet count of 205,000. Chemistry on the reveals sodium 135, potassium 4.4, chloride 102, carbon dioxide 23 with a BUN of 17, creatinine 0.63 and GFR greater than 90. Sugar that morning was 107. His last C-reactive protein on the was 0.76. His last sedimentation rate was 19. PHYSICAL EXAMINATION: GENERAL: This is a well-developed, well-nourished, very pleasant white male in no apparent distress at this time. HEENT: Reveals normocephalic, nontraumatic cranium. The pupils are equally round and reactive. Ex traocular movements are intact. Nose and throat are clear. NECK: Supple, without masses, nodes or bruits. CHEST: Clear to auscultation. No rales, rhonchi, wheezes or cough was heard. HEART: Reveals a regular rate and rhythm without murmurs, gallops or rubs. ABDOMEN: Soft, scaphoid, nontender, without organomegaly. Normal bowel sounds were heard in all 4 quadrants. No rebound or guarding is noted. GENITOURINARY: Deferred. EXTREMITIES: Revealed no clubbing, cyanosis or edema. The patient has a right cuzji-vpb-jboj amputation secondary to severe peripheral vascular disease. The patient has a left total hip, left total knee and a total femur replacement and incisional scar looks good. IMPRESSION: 1. Hypertension. 2. Juvenile onset rheumatoid arthritis. 3. Left lower extremity total knee, total hip and total femur replacement. 4. Left hip Custom-made acetabular socket with set screws that replaced the old acetabular socket. 5. Generalized weakness. 6. Anemia. 7. Gastroesophageal reflux. 8. Severe peripheral vascular disease with resultant twukf-vdf-bgoa amputation. 9. Osteoporosis. 10. Generalized weakness. DISCHARGE MEDICATIONS: Include the followin. Tylenol p.r.n. 2. Tylenol No. 3 with Codeine up to 1 pill 3 times daily. 3. Norvasc 5 mg every evening. 4. Aspirin 325 mg twice a day. 5. Atenolol 50 mg daily. 6. Tums 1000 mg twice a day. 7. Vitamin D 1000 units every evening. 8. Celexa 40 mg daily. 9. Plavix 75 mg daily. 10. Colace 100 mg twice a day p.r.n. 11. Ferrous sulfate 325 mg twice a day with food. 12. Gabapentin 400 mg at bedtime. 13. Theragran M once a day. 14. Reglan 10 mg every morning. 15. Zofran p.r.n. 16. Forteo shot every evening. 17. Minocycline daily. 18. Omeprazole daily. 19. Mag citrate p.r.n. 20. Flomax daily. 21. Ultram t.i.d. p.r.n. PLAN: 1. The patient to be discharged today this evening. 2. Continue outpatient physical therapy and occupational therapy with [facility]. 3. Continue DVT and stress ulcer prophylaxis. 4. Continue rifampin. 5. Continue decubitus care. 6. Continue weightbearing status. He walked 100 feet today. 7. Continue supportive care. 8. Discharged this evening. This discharge was taken greater than 45 minutes to complete this discharge.
== END 2016-08-13 18:20 | disposition home health service (06) | DRG 561 ==
LOC: NAV ACUTE 07:56
PROVIDERS: ADMIT Internal Medicine; ATTEND Internal Medicine
DX: Z47.1 Aftercare following joint replacement surgery (principal); I11.9 Hypertensive heart disease without heart failure; Z89.611 Acquired absence of right leg above knee; G62.9 Polyneuropathy, unspecified; Z96.642 Presence of left artificial hip joint; T81.4XXD Infection following a procedure, subsequent encounter; B96.1 Klebsiella pneumoniae [K. pneumoniae] as the cause of diseases classified elsewhere; Z79.2 Long term (current) use of antibiotics; M08.09 Unspecified juvenile rheumatoid arthritis, multiple sites; F17.290 Nicotine dependence, other tobacco product, uncomplicated; N40.0 Benign prostatic hyperplasia without lower urinary tract symptoms; M19.90 Unspecified osteoarthritis, unspecified site; Z96.641 Presence of right artificial hip joint; Z96.651 Presence of right artificial knee joint; I70.209 Unspecified atherosclerosis of native arteries of extremities, unspecified extremity; Z87.11 Personal history of peptic ulcer disease; R53.1 Weakness; D64.9 Anemia, unspecified; K21.9 Gastro-esophageal reflux disease without esophagitis; M81.0 Age-related osteoporosis without current pathological fracture; G47.00 Insomnia, unspecified; Z88.1 Allergy status to other antibiotic agents; Z88.8 Allergy status to other drugs, medicaments and biological substances
CPT/HCPCS: 36415; 36416; 80048; 80053; 85025; 85652; 86140; 87070; 87077; 87186; 87205; G8978-GP-CM; G8979-GP-CJ; Q0162